=== PATIENT | male | born 1935 | race African-American/Black ===

== ENCOUNTER → 2018-03-21 | Outpatient (CLI) | payer MEDICARE ==
--- NOTE | 2018-03-22 07:53 | ECHOF ---
Referral Reason:R94.31 Abn EKG MEASUREMENTS -------- HEIGHT: 182.9 cm WEIGHT: 127.0 kg BP: 145/67 RVIDd: 3.0 cm (< 3.3) IVSd: 1.5 cm (0.6 - 1.1) LVIDd: 4.8 cm (3.9 - 5.3) LVPWd: 1.5 cm (0.6 - 1.1) IVSs: 1.7 cm LVIDs: 3.6 cm LVPWs: 1.7 cm LA Diam: 4.2 cm (2.7 - 3.8) LAESV Index (A-L): 27.03 ml/m Ao Diam: 3.4 cm (2.0 - 3.7) AV Cusp: 2.3 cm (1.5 - 2.6) MV EXCURSION: 16.659 mm (> 18.000) MV EF SLOPE: 42 mm/s (70 - 150) EPSS: 1.0 cm MV E Matthieu: 0.49 m/s MV DecT: 369 ms MV A Matthieu: 0.77 m/s MV E/A Ratio: 0.64 RAP: 5.00 mmHg RVSP: 32.61 mmHg FINDINGS -------- Sinus rhythm. This was a technically difficult study with suboptimal views. The left ventricular size is normal. There is moderate concentric left ventricular hypertrophy. O verall left ventricular systolic function is low-normal with, an EF between 50 - 55 %. Basal infero septal LV wall motion is hypokinetic. The right ventricle is normal in size. Normal LA size by volume 22+/-6 ml/m2. The right atrium is normal in size. 5 ml of Lumason was utilized for enhancement of images. The aortic valve is trileaflet and appears structurally normal. The mitral valve is normal. Mild tricuspid regurgitation present. Right ventricular systolic pressure is normal at < 35 mmHg. The pulmonic valve was not well visualized. The aortic root size is normal. IVC Not well visulized. There is no pericardial effusion. CONCLUSIONS -------- 1. Sinus rhythm. 2. This was a technically difficult study with suboptimal views. 3. The left ventricular size is normal. 4. There is moderate concentric left ventricular hypertrophy. 5. Overall left ventricular systolic function is low-normal with, an EF between 50 - 55 %. 6. Basal inferoseptal LV wall motion is hypokinetic. 7. The right ventricle is normal in size. 8. Normal LA size by volume 22+/-6 ml/m2. 9. The right atrium is normal in size. 10. 5 ml of Lumason was utilized for enhancement of images. 11. The aortic valve is trileaflet and appears structurally normal. 12. The mitral valve is normal. 13. Mild tricuspid regurgitation present. 14. Right ventricular systolic pressure is normal at < 35 mmHg. 15. The pulmonic valve was not well visualized. 16. The aortic root size is normal. 17. IVC Not well visulized. 18. There is no pericardial effusion. SCHEDULER: Farzaneh Tran RDCS
== END | disposition home or self-care (01) ==
LOC: RADECHMAIN 13:57
PROVIDERS: ATTEND Internal Medicine Geriatric Medicine
DX: I07.1 Rheumatic tricuspid insufficiency (principal)
CPT/HCPCS: C8929; Q9950; 93306

== ENCOUNTER 2020-02-07 19:59 | Observation (INO) | payer MEDICARE ==
[2020-02-07] MEDS ORDERED: SODIUM CHLORIDE 0.9% 500 ML 500 ML IV STA (20:27)
[2020-02-07 21:09] LABS: Basophils % (A) 1 %; Eosinophils % (A) 2 %; HCT 35.6 % (39.0-53.0); HGB 11.9 gm/dL (13.0-17.5); Lymphocytes # (A) 3.6 k/uL (1.0-4.8); Lymphocytes % (A) 33 %; MCH 30.6 pg (25.0-35.0); MCHC 33.5 g/dL (31.0-37.0); MCV 91.3 fL (80.0-100.0); Mean Platelet Volume 8.5; Monocytes # (A) 0.8 k/uL (0-1.0); Monocytes % (A) 7 %; Neutrophils # (A) 6.1 k/uL (1.3-7.7); Neutrophils % (A) 56 %; Platelet Count 320 k/uL (150-450); RBC 3.89 m/uL (4.30-5.90); RDW 13.8 % (11.5-15.5); WBC 10.9 k/uL (3.8-10.6)
[2020-02-07 21:10] LABS: Basophils # (A) 0.1 k/uL (0-0.2); Eosinophils # (A) 0.2 k/uL (0-0.7)
[2020-02-07 22:24] LABS: Albumin 3.7 g/dL (3.5-5.0); Calcium 8.8 mg/dL (8.4-10.2); Magnesium 1.9 mg/dL (1.6-2.3); Total Bilirubin 0.3 mg/dL (0.2-1.3); Total Protein 7.3 g/dL (6.3-8.2)
[2020-02-07] MEDS ORDERED: NALOXONE 0.4 MG/ML 1 ML VIAL IV PRN (23:08)
--- NOTE | 2020-02-07 23:08 | ED ---
GI Bleed HPI - General Chief complaint: GI Bleed Stated complaint: GI Bleed Time Seen by Provider: 02/07/20 20:05 Source: patient, EMS Mode of arrival: EMS Limitations: no limitations - History of Present Illness Initial comments: Patient is an 84-year-old male who presents emergency department with reported blood in his stool. Patient states that around 1 AM he began having bloody bowel movements. Patient cannot state whether it is bright red or dark in coloration. He reports a history of similar in the past however it has been a significant period of time. Patient is not on any blood thinners. Reports that his symptoms stopped around 5 AM. He told his daughter about this to recommended that he come into the emergency room for evaluation. Denies any lightheadedness. No abdominal pain. No nausea or vomiting. Denies hematemesis. No chest pain or shortness of breath. No fevers or chills. Patient cannot provide remainder of history as he is a very poor historian. - Related Data Home Medications Medication Instructions Recorded Confirmed Losartan Potassium [Cozaar] 25 mg PO DAILY 02/08/20 02/08/20 Tamsulosin HCl [Flomax] 0.4 mg PO DAILY 02/08/20 02/08/20 amLODIPine [Norvasc] 5 mg PO DAILY 02/08/20 02/08/20 glipiZIDE/METFORMIN HCL 1 tab PO BID 02/08/20 02/08/20 [glipiZIDE/METFORMIN HCL 5-500 mg] Previous Rx's Medication Instructions Recorded Ciprofloxacin HCl [Cipro] 500 mg PO BID 7 Days #14 tab 02/10/20 metroNIDAZOLE [Flagyl] 500 mg PO TID #21 tab 02/10/20 Allergies Allergy/AdvReac Type Severity Reaction Status Date / Time No Known Allergies Allergy Verified 02/07/20 23:23 Review of Systems ROS Statement: Those systems with pertinent positive or pertinent negative responses have been documented in the HPI. ROS Other: All systems not noted in ROS Statement are negative. Past Medical History Past Medical History: No Reported History History of Any Multi-Drug Resistant Organisms: None Reported Past Surgical History: No Surgical Hx Reported Past Psychological History: No Psychological Hx Reported Smoking Status: Never smoker Past Alcohol Use History: None Reported - Past Family History Father History Unknown: Yes Family Medical History: Liver Disease ([place]) General Exam Limitations: no limitations General appearance: alert, in no apparent distress Head exam: Present: atraumatic, normocephalic, normal inspection Eye exam: Present: normal appearance, PERRL, EOMI. Absent: scleral icterus, conjunctival injection, periorbital swelling ENT exam: Present: normal exam, mucous membranes moist Neck exam: Present: normal inspection. Absent: tenderness, meningismus, lymphadenopathy Respiratory exam: Present: normal lung sounds bilaterally. Absent: respiratory distress, wheezes, rales, rhonchi, stridor Cardiovascular Exam: Present: regular rate, normal rhythm, normal heart sounds. Absent: systolic murmur, diastolic murmur, rubs, gallop, clicks GI/Abdominal exam: Present: soft, normal bowel sounds. Absent: distended, tenderness, guarding, rebound, rigid Rectal exam: Present: normal inspection, normal rectal tone, heme (+) stool. Absent: black stool, bloody stool, hemorrhoids Extremities exam: Present: normal inspection, full ROM, normal capillary refill. Absent: tenderness, pedal edema, joint swelling, calf tenderness Back exam: Present: normal inspection Neurological exam: Present: alert, oriented X3, CN II-XII intact Psychiatric exam: Present: normal affect, normal mood Skin exam: Present: warm, dry, intact, normal color. Absent: rash Course Vital Signs 02/07/20 20:04 Pulse Rate 78 Respiratory 16 Rate Blood Pressure 134/63 O2 Sat by Pulse 99 Oximetry Medical Decision Making - Medical Decision Making To room 7. A thorough history and physical exam was performed. Patient is hemodynamically stable. Rectal exam is performed which demonstrates only a very scant amount of dark brown stool. He was sent for occult testing. Laboratory studies were conducted. Does demonstrate a lactic acid of 2.8. Creatinine 1.7. Hemoglobin 11.9. I don't have any old labs to compare to. I did discuss the case with the patient's daughter stating that I request overnight observation to trend the patient's hemoglobin and have him evaluated by GI. Patient did agree to this. I discussed the case with Gabrielle who accepted admission. Patient was transferred to floor in stable condition - Lab Data Result diagrams: 02/10/20 00:40 02/10/20 06:23 Lab Results 02/07/20 02/07/20 02/07/20 Range/Units 20:44 20:44 20:44 WBC 10.9 H (3.8-10.6) k/uL RBC 3.89 L (4.30-5.90) m/uL Hgb 11.9 L (13.0-17.5) gm/dL Hct 35.6 L (39.0-53.0) % MCV 91.3 (80.0-100.0) fL MCH 30.6 (25.0-35.0) pg MCHC 33.5 (31.0-37.0) g/dL RDW 13.8 (11.5-15.5) % Plt Count 320 (150-450) k/uL Neutrophils % 56 % Lymphocytes % 33 % Monocytes % 7 % Eosinophils % 2 % Basophils % 1 % Neutrophils # 6.1 (1.3-7.7) k/uL Lymphocytes # 3.6 (1.0-4.8) k/uL Monocytes # 0.8 (0-1.0) k/uL Eosinophils # 0.2 (0-0.7) k/uL Basophils # 0.1 (0-0.2) k/uL PT (9.0-12.0) sec INR (<1.2) APTT (22.0-30.0) sec Sodium 139 (137-145) mmol/L Potassium 4.0 (3.5-5.1) mmol/L Chloride 106 (98-107) mmol/L Carbon Dioxide 24 (22-30) mmol/L Anion Gap 9 mmol/L BUN 24 H (9-20) mg/dL Creatinine 1.71 H (0.66-1.25) mg/dL Est GFR (CKD-EPI)AfAm 41 (>60 ml/min/1.73 sqM) Est GFR (CKD-EPI)NonAf 36 (>60 ml/min/1.73 sqM) Glucose 96 (74-99) mg/dL POC Glucose (mg/dL) (75-99) mg/dL POC Glu Basket Operator ID Lactic Ac Sepsis Rflx Plasma Lactic Acid Ollie 2.8 H* (0.7-2.0) mmol/L Calcium 8.8 (8.4-10.2) mg/dL Magnesium 1.9 (1.6-2.3) mg/dL Total Bilirubin 0.3 (0.2-1.3) mg/dL AST 20 (17-59) U/L ALT 10 (4-49) U/L Alkaline Phosphatase 70 (38-126) U/L Troponin I (0.000-0.034) ng/mL Total Protein 7.3 (6.3-8.2) g/dL Albumin 3.7 (3.5-5.0) g/dL Stool Occult Blood (Negative) Tot Complement (CH50) (42 - 95) U/mL Blood Type Blood Type Recheck Bld Type Recheck Status Antibody Screen Spec Expiration Date 02/07/20 02/07/20 02/07/20 Range/Units 20:44 20:44 20:44 WBC (3.8-10.6) k/uL RBC (4.30-5.90) m/uL Hgb (13.0-17.5) gm/dL Hct (39.0-53.0) % MCV (80.0-100.0) fL MCH (25.0-35.0) pg MCHC (31.0-37.0) g/dL RDW (11.5-15.5) % Plt Count (150-450) k/uL Neutrophils % % Lymphocytes % % Monocytes % % Eosinophils % % Basophils % % Neutrophils # (1.3-7.7) k/uL Lymphocytes # (1.0-4.8) k/uL Monocytes # (0-1.0) k/uL Eosinophils # (0-0.7) k/uL Basophils # (0-0.2) k/uL PT (9.0-12.0) sec INR (<1.2) APTT (22.0-30.0) sec Sodium (137-145) mmol/L Potassium (3.5-5.1) mmol/L Chloride (98-107) mmol/L Carbon Dioxide (22-30) mmol/L Anion Gap mmol/L BUN (9-20) mg/dL Creatinine (0.66-1.25) mg/dL Est GFR (CKD-EPI)AfAm (>60 ml/min/1.73 sqM) Est GFR (CKD-EPI)NonAf (>60 ml/min/1.73 sqM) Glucose (74-99) mg/dL POC Glucose (mg/dL) (75-99) mg/dL POC Glu Basket Operator ID Lactic Ac Sepsis Rflx Plasma Lactic Acid Ollie (0.7-2.0) mmol/L Calcium (8.4-10.2) mg/dL Magnesium (1.6-2.3) mg/dL Total Bilirubin (0.2-1.3) mg/dL AST (17-59) U/L ALT (4-49) U/L Alkaline Phosphatase (38-126) U/L Troponin I <0.012 (0.000-0.034) ng/mL Total Protein (6.3-8.2) g/dL Albumin (3.5-5.0) g/dL Stool Occult Blood Positive (Negative) Tot Complement (CH50) (42 - 95) U/mL Blood Type O Positive Blood Type Recheck O Pos Bld Type Recheck Status No Antibody Screen NEGATIVE Spec Expiration Date 02/10/2020 - 234302/07/20 02/07/20 02/08/20 Range/Units 21:53 22:04 00:16 WBC (3.8-10.6) k/uL RBC (4.30-5.90) m/uL Hgb (13.0-17.5) gm/dL Hct (39.0-53.0) % MCV (80.0-100.0) fL MCH (25.0-35.0) pg MCHC (31.0-37.0) g/dL RDW (11.5-15.5) % Plt Count (150-450) k/uL Neutrophils % % Lymphocytes % % Monocytes % % Eosinophils % % Basophils % % Neutrophils # (1.3-7.7) k/uL Lymphocytes # (1.0-4.8) k/uL Monocytes # (0-1.0) k/uL Eosinophils # (0-0.7) k/uL Basophils # (0-0.2) k/uL PT (9.0-12.0) sec INR (<1.2) APTT 24.9 (22.0-30.0) sec Sodium (137-145) mmol/L Potassium (3.5-5.1) mmol/L Chloride (98-107) mmol/L Carbon Dioxide (22-30) mmol/L Anion Gap mmol/L BUN (9-20) mg/dL Creatinine (0.66-1.25) mg/dL Est GFR (CKD-EPI)AfAm (>60 ml/min/1.73 sqM) Est GFR (CKD-EPI)NonAf (>60 ml/min/1.73 sqM) Glucose (74-99) mg/dL POC Glucose (mg/dL) (75-99) mg/dL POC Glu Basket Operator ID Lactic Ac Sepsis Rflx Y Plasma Lactic Acid Ollie 1.9 (0.7-2.0) mmol/L Calcium (8.4-10.2) mg/dL Magnesium (1.6-2.3) mg/dL Total Bilirubin (0.2-1.3) mg/dL AST (17-59) U/L ALT (4-49) U/L Alkaline Phosphatase (38-126) U/L Troponin I (0.000-0.034) ng/mL Total Protein (6.3-8.2) g/dL Albumin (3.5-5.0) g/dL Stool Occult Blood (Negative) Tot Complement (CH50) (42 - 95) U/mL Blood Type Blood Type Recheck Bld Type Recheck Status Antibody Screen Spec Expiration Date 02/08/20 02/08/20 02/08/20 Range/Units 07:33 07:33 11:39 WBC 10.0 (3.8-10.6) k/uL RBC 3.79 L (4.30-5.90) m/uL Hgb 11.4 L (13.0-17.5) gm/dL Hct 34.9 L (39.0-53.0) % MCV 92.0 (80.0-100.0) fL MCH 30.1 (25.0-35.0) pg MCHC 32.7 (31.0-37.0) g/dL RDW 13.8 (11.5-15.5) % Plt Count 274 (150-450) k/uL Neutrophils % % Lymphocytes % % Monocytes % % Eosinophils % % Basophils % % Neutrophils # (1.3-7.7) k/uL Lymphocytes # (1.0-4.8) k/uL Monocytes # (0-1.0) k/uL Eosinophils # (0-0.7) k/uL Basophils # (0-0.2) k/uL PT (9.0-12.0) sec INR (<1.2) APTT (22.0-30.0) sec Sodium 138 (137-145) mmol/L Potassium 4.1 (3.5-5.1) mmol/L Chloride 107 (98-107) mmol/L Carbon Dioxide 24 (22-30) mmol/L Anion Gap 7 mmol/L BUN 24 H (9-20) mg/dL Creatinine 1.47 H (0.66-1.25) mg/dL Est GFR (CKD-EPI)AfAm 50 (>60 ml/min/1.73 sqM) Est GFR (CKD-EPI)NonAf 43 (>60 ml/min/1.73 sqM) Glucose 128 H (74-99) mg/dL POC Glucose (mg/dL) 170 H (75-99) mg/dL POC Glu Basket Operator ID Malina Borja Lactic Ac Sepsis Rflx Plasma Lactic Acid Ollie (0.7-2.0) mmol/L Calcium 8.8 (8.4-10.2) mg/dL Magnesium (1.6-2.3) mg/dL Total Bilirubin (0.2-1.3) mg/dL AST (17-59) U/L ALT (4-49) U/L Alkaline Phosphatase (38-126) U/L Troponin I (0.000-0.034) ng/mL Total Protein (6.3-8.2) g/dL Albumin (3.5-5.0) g/dL Stool Occult Blood (Negative) Tot Complement (CH50) (42 - 95) U/mL Blood Type Blood Type Recheck Bld Type Recheck Status Antibody Screen Spec Expiration Date 02/08/20 02/08/20 02/08/20 Range/Units 12:17 16:47 18:24 WBC 10.2 11.2 H (3.8-10.6) k/uL RBC 3.91 L 3.79 L (4.30-5.90) m/uL Hgb 11.9 L 11.5 L (13.0-17.5) gm/dL Hct 36.2 L 34.8 L (39.0-53.0) % MCV 92.6 91.7 (80.0-100.0) fL MCH 30.3 30.4 (25.0-35.0) pg MCHC 32.7 33.2 (31.0-37.0) g/dL RDW 13.9 13.7 (11.5-15.5) % Plt Count 314 299 (150-450) k/uL Neutrophils % % Lymphocytes % % Monocytes % % Eosinophils % % Basophils % % Neutrophils # (1.3-7.7) k/uL Lymphocytes # (1.0-4.8) k/uL Monocytes # (0-1.0) k/uL Eosinophils # (0-0.7) k/uL Basophils # (0-0.2) k/uL PT (9.0-12.0) sec INR (<1.2) APTT (22.0-30.0) sec Sodium (137-145) mmol/L Potassium (3.5-5.1) mmol/L Chloride (98-107) mmol/L Carbon Dioxide (22-30) mmol/L Anion Gap mmol/L BUN (9-20) mg/dL Creatinine (0.66-1.25) mg/dL Est GFR (CKD-EPI)AfAm (>60 ml/min/1.73 sqM) Est GFR (CKD-EPI)NonAf (>60 ml/min/1.73 sqM) Glucose (74-99) mg/dL POC Glucose (mg/dL) 103 H (75-99) mg/dL POC Glu Basket Operator ID Malina Borja Lactic Ac Sepsis Rflx Plasma Lactic Acid Ollie (0.7-2.0) mmol/L Calcium (8.4-10.2) mg/dL Magnesium (1.6-2.3) mg/dL Total Bilirubin (0.2-1.3) mg/dL AST (17-59) U/L ALT (4-49) U/L Alkaline Phosphatase (38-126) U/L Troponin I (0.000-0.034) ng/mL Total Protein (6.3-8.2) g/dL Albumin (3.5-5.0) g/dL Stool Occult Blood (Negative) Tot Complement (CH50) (42 - 95) U/mL Blood Type Blood Type Recheck Bld Type Recheck Status Antibody Screen Spec Expiration Date 02/08/20 02/09/20 02/09/20 Range/Units 20:07 04:51 04:52 WBC 11.9 H (3.8-10.6) k/uL RBC 3.51 L (4.30-5.90) m/uL Hgb 10.6 L (13.0-17.5) gm/dL Hct 32.2 L (39.0-53.0) % MCV 91.7 (80.0-100.0) fL MCH 30.0 (25.0-35.0) pg MCHC 32.7 (31.0-37.0) g/dL RDW 13.9 (11.5-15.5) % Plt Count 273 (150-450) k/uL Neutrophils % % Lymphocytes % % Monocytes % % Eosinophils % % Basophils % % Neutrophils # (1.3-7.7) k/uL Lymphocytes # (1.0-4.8) k/uL Monocytes # (0-1.0) k/uL Eosinophils # (0-0.7) k/uL Basophils # (0-0.2) k/uL PT (9.0-12.0) sec INR (<1.2) APTT (22.0-30.0) sec Sodium (137-145) mmol/L Potassium (3.5-5.1) mmol/L Chloride (98-107) mmol/L Carbon Dioxide (22-30) mmol/L Anion Gap mmol/L BUN (9-20) mg/dL Creatinine (0.66-1.25) mg/dL Est GFR (CKD-EPI)AfAm (>60 ml/min/1.73 sqM) Est GFR (CKD-EPI)NonAf (>60 ml/min/1.73 sqM) Glucose (74-99) mg/dL POC Glucose (mg/dL) 169 H 173 H (75-99) mg/dL POC Glu Basket Operator Saskia Escobar Melinda Lactic Ac Sepsis Rflx Plasma Lactic Acid Ollie (0.7-2.0) mmol/L Calcium (8.4-10.2) mg/dL Magnesium (1.6-2.3) mg/dL Total Bilirubin (0.2-1.3) mg/dL AST (17-59) U/L ALT (4-49) U/L Alkaline Phosphatase (38-126) U/L Troponin I (0.000-0.034) ng/mL Total Protein (6.3-8.2) g/dL Albumin (3.5-5.0) g/dL Stool Occult Blood (Negative) Tot Complement (CH50) (42 - 95) U/mL Blood Type Blood Type Recheck Bld Type Recheck Status Antibody Screen Spec Expiration Date 02/09/20 02/09/20 02/09/20 Range/Units 05:39 05:39 05:39 WBC (3.8-10.6) k/uL RBC (4.30-5.90) m/uL Hgb (13.0-17.5) gm/dL Hct (39.0-53.0) % MCV (80.0-100.0) fL MCH (25.0-35.0) pg MCHC (31.0-37.0) g/dL RDW (11.5-15.5) % Plt Count (150-450) k/uL Neutrophils % % Lymphocytes % % Monocytes % % Eosinophils % % Basophils % % Neutrophils # (1.3-7.7) k/uL Lymphocytes # (1.0-4.8) k/uL Monocytes # (0-1.0) k/uL Eosinophils # (0-0.7) k/uL Basophils # (0-0.2) k/uL PT 10.2 (9.0-12.0) sec INR 1.0 (<1.2) APTT 24.7 (22.0-30.0) sec Sodium (137-145) mmol/L Potassium (3.5-5.1) mmol/L Chloride (98-107) mmol/L Carbon Dioxide (22-30) mmol/L Anion Gap mmol/L BUN (9-20) mg/dL Creatinine (0.66-1.25) mg/dL Est GFR (CKD-EPI)AfAm (>60 ml/min/1.73 sqM) Est GFR (CKD-EPI)NonAf (>60 ml/min/1.73 sqM) Glucose (74-99) mg/dL POC Glucose (mg/dL) (75-99) mg/dL POC Glu Basket Operator ID Lactic Ac Sepsis Rflx Plasma Lactic Acid Ollie (0.7-2.0) mmol/L Calcium (8.4-10.2) mg/dL Magnesium (1.6-2.3) mg/dL Total Bilirubin (0.2-1.3) mg/dL AST (17-59) U/L ALT (4-49) U/L Alkaline Phosphatase (38-126) U/L Troponin I <0.012 (0.000-0.034) ng/mL Total Protein (6.3-8.2) g/dL Albumin (3.5-5.0) g/dL Stool Occult Blood (Negative) Tot Complement (CH50) 68 (42 - 95) U/mL Blood Type Blood Type Recheck Bld Type Recheck Status Antibody Screen Spec Expiration Date 02/09/20 02/09/20 02/09/20 Range/Units 05:47 06:36 12:08 WBC 9.9 (3.8-10.6) k/uL RBC 3.28 L (4.30-5.90) m/uL Hgb 9.9 L (13.0-17.5) gm/dL Hct 30.0 L (39.0-53.0) % MCV 91.4 (80.0-100.0) fL MCH 30.3 (25.0-35.0) pg MCHC 33.1 (31.0-37.0) g/dL RDW 13.8 (11.5-15.5) % Plt Count 303 (150-450) k/uL Neutrophils % % Lymphocytes % % Monocytes % % Eosinophils % % Basophils % % Neutrophils # (1.3-7.7) k/uL Lymphocytes # (1.0-4.8) k/uL Monocytes # (0-1.0) k/uL Eosinophils # (0-0.7) k/uL Basophils # (0-0.2) k/uL PT (9.0-12.0) sec INR (<1.2) APTT (22.0-30.0) sec Sodium (137-145) mmol/L Potassium (3.5-5.1) mmol/L Chloride (98-107) mmol/L Carbon Dioxide (22-30) mmol/L Anion Gap mmol/L BUN (9-20) mg/dL Creatinine (0.66-1.25) mg/dL Est GFR (CKD-EPI)AfAm (>60 ml/min/1.73 sqM) Est GFR (CKD-EPI)NonAf (>60 ml/min/1.73 sqM) Glucose (74-99) mg/dL POC Glucose (mg/dL) 160 H 121 H (75-99) mg/dL POC Glu Basket Operator Hedy Batista Sherry Lactic Ac Sepsis Rflx Plasma Lactic Acid Ollie (0.7-2.0) mmol/L Calcium (8.4-10.2) mg/dL Magnesium (1.6-2.3) mg/dL Total Bilirubin (0.2-1.3) mg/dL AST (17-59) U/L ALT (4-49) U/L Alkaline Phosphatase (38-126) U/L Troponin I (0.000-0.034) ng/mL Total Protein (6.3-8.2) g/dL Albumin (3.5-5.0) g/dL Stool Occult Blood (Negative) Tot Complement (CH50) (42 - 95) U/mL Blood Type Blood Type Recheck Bld Type Recheck Status Antibody Screen Spec Expiration Date 02/09/20 Range/Units 12:48 WBC 10.9 H (3.8-10.6) k/uL RBC 3.62 L (4.30-5.90) m/uL Hgb 10.8 L (13.0-17.5) gm/dL Hct 33.2 L (39.0-53.0) % MCV 91.7 (80.0-100.0) fL MCH 29.9 (25.0-35.0) pg MCHC 32.6 (31.0-37.0) g/dL RDW 13.8 (11.5-15.5) % Plt Count 299 (150-450) k/uL Neutrophils % % Lymphocytes % % Monocytes % % Eosinophils % % Basophils % % Neutrophils # (1.3-7.7) k/uL Lymphocytes # (1.0-4.8) k/uL Monocytes # (0-1.0) k/uL Eosinophils # (0-0.7) k/uL Basophils # (0-0.2) k/uL PT (9.0-12.0) sec INR (<1.2) APTT (22.0-30.0) sec Sodium (137-145) mmol/L Potassium (3.5-5.1) mmol/L Chloride (98-107) mmol/L Carbon Dioxide (22-30) mmol/L Anion Gap mmol/L BUN (9-20) mg/dL Creatinine (0.66-1.25) mg/dL Est GFR (CKD-EPI)AfAm (>60 ml/min/1.73 sqM) Est GFR (CKD-EPI)NonAf (>60 ml/min/1.73 sqM) Glucose (74-99) mg/dL POC Glucose (mg/dL) (75-99) mg/dL POC Glu Basket Operator ID Lactic Ac Sepsis Rflx Plasma Lactic Acid Ollie (0.7-2.0) mmol/L Calcium (8.4-10.2) mg/dL Magnesium (1.6-2.3) mg/dL Total Bilirubin (0.2-1.3) mg/dL AST (17-59) U/L ALT (4-49) U/L Alkaline Phosphatase (38-126) U/L Troponin I (0.000-0.034) ng/mL Total Protein (6.3-8.2) g/dL Albumin (3.5-5.0) g/dL Stool Occult Blood (Negative) Tot Complement (CH50) (42 - 95) U/mL Blood Type Blood Type Recheck Bld Type Recheck Status Antibody Screen Spec Expiration Date - EKG Data EKG Comments: EKG demonstrates a normal sinus rhythm with a ventricular rate of 83. VT interval 154. QRS 92. QTC 404. No acute ST segment elevations or depressions concerning for ischemic changes Disposition Clinical Impression: Hematochezia Disposition: ADMITTED IP TO THIS HOSP Condition: Good Is patient prescribed a controlled substance at d/c from ED?: No Decision to Admit Reason: Admit from EC Decision Date: 02/07/20 Decision Time: 23:08
[2020-02-08 08:26] LABS: Calcium 8.8 mg/dL (8.4-10.2); Potassium 4.1 mmol/L (3.5-5.1)
[2020-02-08 08:40] LABS: HCT 34.9 % (39.0-53.0); HGB 11.4 gm/dL (13.0-17.5); MCH 30.1 pg (25.0-35.0); MCHC 32.7 g/dL (31.0-37.0); Mean Platelet Volume 7.7; Platelet Count 274 k/uL (150-450); RBC 3.79 m/uL (4.30-5.90); RDW 13.8 % (11.5-15.5)
[2020-02-08 11:41] LABS: Glucose,Whole Blood 170 mg/dL (75-99)
[2020-02-08] MEDS: INSULIN ASPART (NovoLOG) 100 UNIT/ML VIAL SQ SCH ×3 (12:01→20:50)
[2020-02-08] MEDS: PANTOPRAZOLE 40 MG/10 ML VIAL IVP SCH (12:01)
[2020-02-08] MEDS: SODIUM CHLORIDE 0.9% 1,000 ML IV SCH (12:02)
--- NOTE | 2020-02-08 12:51 | CONS ---
CONSULTATION DATE OF CONSULTATION: 02/08/2020 REASON FOR CONSULTATION: Rectal bleeding of one day duration. HISTORY OF PRESENT ILLNESS: The patient is an 84-year-old pleasant white male who came to the emergency room complaining of bright red blood per rectum that started yesterday morning. He woke up from sleep and had a large bloody bowel movement followed by another 3 of these episodes with no associated abdominal pain. No nausea, vomiting. He came into the emergency room around 5:00 am and since then, he did not have any further episodes of bleeding. His initial hemoglobin was 10.9 g/dL. He never had these symptoms in the past. He does recall having a colonoscopy about 5 or 6 years ago but does not recall the details. He denies any prior history of peptic ulcer disease. No recent NSAID use. PAST MEDICAL HISTORY: Unremarkable. MEDICATIONS: At home none. ALLERGIES: No known drug allergies. SOCIAL HISTORY: No smoking. No alcohol use. FAMILY HISTORY: Unremarkable. REVIEW OF SYSTEMS: CARDIOPULMONARY: No chest pain or shortness of breath. : No dysuria or hematuria. MUSCULOSKELETAL: Unremarkable. SKIN: Unremarkable. ENDOCRINE: Unremarkable. PSYCHIATRIC: Unremarkable. NEUROLOGY: Unremarkable. ENT/VISION: Unremarkable. CONSTITUTIONAL: No recent weight loss. No fever, chills, night sweats. PAST SURGICAL HISTORY: Colonoscopy 5 or 6 years ago. PHYSICAL EXAM TODAY: On physical examination he appears comfortable. No apparent distress. VITAL SIGNS: Stable. Blood pressure is 145/76, pulse rate 75, temperature 97.9. HEENT: Examination unremarkable. Conjunctivae are pink. Sclerae anicteric. Oral cavity no lesions. NECK: No JVD or lymph node enlargement. CHEST: Clear to auscultation. HEART: Regular rate and rhythm. ABDOMEN: Soft. Bowel sounds are positive. No organomegaly. EXTREMITIES: No pedal edema. SKIN: No rashes. NEUROLOGIC: Alert and oriented x3. No focal deficits. LABS: From yesterday WBC 10.9, hemoglobin 11.9, platelets normal, PT/INR is within normal limits. BUN 24, creatinine 1.71. Today hemoglobin is 11.4 g/dL. Stool occult blood was positive. AST, ALT, T-bilirubin and alkaline phosphatase are normal. Lactic acid was 2.8 and was 1.9 today. IMPRESSION: Acute lower GI bleed, possibly diverticular in nature. The patient's hemoglobin was 11.9 g/dL and dropped to 11.4 g/dL. Clinically hemodynamically stable. No further bleeding for the last 24 hours. Last colonoscopy was 5 or 6 years ago according to the patient, which was normal. RECOMMENDATIONS: 1. Continue with a clear liquid diet. 2. CBC on a daily basis. 3. We will proceed with colonoscopy tomorrow. Discussed with the patient risks, benefits and complications and he is agreeable to it. 4. Thank you for this consultation. MMJELENA / RUBEN: [id number] /
[2020-02-08 12:52] LABS: HCT 36.2 % (39.0-53.0); HGB 11.9 gm/dL (13.0-17.5); MCH 30.3 pg (25.0-35.0); MCHC 32.7 g/dL (31.0-37.0); MCV 92.6 fL (80.0-100.0); Mean Platelet Volume 7.1; Platelet Count 314 k/uL (150-450); RBC 3.91 m/uL (4.30-5.90); RDW 13.9 % (11.5-15.5); WBC 10.2 k/uL (3.8-10.6)
--- NOTE | 2020-02-08 12:59 | P.HPIM ---
History of Present Illness H&P Date: 02/08/20 This is an 84-year-old -[place] male who sees in the outpatient setting with past history of diabetes type 2, hypertension, chronic kidney disease. Patient is a poor historian and does not recall his home medications. We did have a list at the time of his home medications. Patient presented to the emergency department reporting blood loss in his stool. Patient states that around 1:00. He noticed bloody bowel movement that was bright red in color he then again had another episode at 3 AM and again at 5 AM. Patient stated that he had similar episode previously however with significant amount of time before. Patient does not take any blood thinners. Patient denies any abdominal pain, lightheadedness or nausea or vomiting or diarrhea. Patient does not have any chest pain or difficulty breathing. Review Of Systems: Constitutional: No fever, no chills, no night sweats. No weight change. No weakness, fatigue or lethargy. No daytime sleepiness. EENT: No headache. No blurred vision or double vision, no loss of vision. No loss of Hearing, no ringing in the ears, no dizziness. No nasal drainage or congestion. No epistaxis. No sore throat. Lungs: No shortness of breath, cough, no sputum production. No wheezing. Cardiovascular: No chest pain, no lower extremity edema. No palpitations. No paroxysmal nocturnal dyspnea. No orthopnea. No lightheadedness or dizziness. No syncopal episodes. Abdominal: no abdominal discomfort. No nausea, vomiting. no diarrhea. No constipation. Reports bloody bright red and dark in color-resolved no tarry stools. no loss of appetite. Genitourinary: No dysuria, increased frequency, urgency. No urinary retention. Musculoskeletal: No myalgias. No muscle weakness, no gait dysfunction, no frequent falls. No back pain. No neck pain. Integumentary: No wounds, no lesions. No rash or pruritus. No unusual bruising. No change in hair or nails. Neurologic: No aphasia. No facial droop. No change in mentation. No head injury. No headache. No paralysis. No paresthesia. Psychiatric: No depression. No anxiety. No mood swings. Endocrine: No abnormal blood sugars. No weight change. No excessive sweating or thirst. Physical exam General Appearance: Alert, cooperative, no distress, appears stated age. Neck HEENT: Supple, no lymphadenopathy, no thyroid enlargement, no carotid bruits. Lungs: Clear to auscultation without crackles or wheezes no rhonchi, no deformity. Chest Wall: Chest wall normal expansion with deep inspiration no tenderness and no deformity was found on exam, no costochondral pain or discomfort. Heart: Regular rate and rhythm, S1, S2 normal, no murmur, rub or gallop. Back: Symmetric, no curvature, ROM normal, no CVA tenderness. Abdomen: Soft, non-tender, no rebound or rigidity, no hepatosplenomegaly. Extremities: Extremities normal, atraumatic, no cyanosis or edema. Pulses: 2+ and symmetric. Skin: Skin color, texture, tugor normal, no rashes or lesions. Neurologic: Alert oriented x3 cranial nerves II through XII intact, no motor deficit, no abnormal balance or gait Assessment/plan: 1. Acute GI bleed. Occult blood positive, consult gastroenterology, scheduled for colonoscopy tomorrow, clear liquids at this time nothing by mouth after midnight, Protonix 40 mg IV daily 2. Diabetes mellitus type 2. Accu-Cheks before meals and at bedtime sliding scale coverage 3. Chronic kidney disease. Monitor 4. Hypertension. No home meds known at this time. Blood pressure stable at this time 5. GI prophylaxis. Protonix 6. DVT prophylaxis. Ambulation CODE STATUS: Full code Discharge plan: Minimal 2 nights day Impression and plan of care have been directed as dictated by the signing physician. Florina Wynne nurse practitioner acting as scribe for signing physician. Past Medical History Past Medical History: No Reported History History of Any Multi-Drug Resistant Organisms: None Reported Past Surgical History: No Surgical Hx Reported Past Psychological History: No Psychological Hx Reported Smoking Status: Never smoker Past Alcohol Use History: None Reported Additional History: Patient has 3 daughters are healthy, 2 sisters one is from pneumonia, the other one healthy, patient's mother is from unknown cancer, father is from EtOH abuse. Patient lives alone - Past Family History Father History Unknown: Yes Family Medical History: Liver Disease (EtOH) Medications and Allergies Allergies Allergy/AdvReac Type Severity Reaction Status Date / Time No Known Allergies Allergy Verified 02/07/20 23:23 Physical Exam Vitals: Vital Signs Temp Pulse Pulse Resp BP BP Pulse Ox 02/08/20 07:00 97.9 F 75 16 145/76 99 02/08/20 00:06 97.6 F 89 14 135/71 99 02/07/20 20:04 78 16 134/63 99 Intake and Output 02/07/20 02/08/20 02/08/20 22:59 06:59 14:59 Other: # Voids 2 Weight 127.006 kg 127.006 kg Results CBC & Chem 7: 02/08/20 07:33 02/08/20 07:33 Labs: Abnormal Lab Results - Last 24 Hours (Table) 02/07/20 02/07/20 02/07/20 Range/Units 20:44 20:44 20:44 WBC 10.9 H (3.8-10.6) k/uL RBC 3.89 L (4.30-5.90) m/uL Hgb 11.9 L (13.0-17.5) gm/dL Hct 35.6 L (39.0-53.0) % BUN 24 H (9-20) mg/dL Creatinine 1.71 H (0.66-1.25) mg/dL Glucose (74-99) mg/dL POC Glucose (mg/dL) (75-99) mg/dL Plasma Lactic Acid Ollie 2.8 H* (0.7-2.0) mmol/L 02/08/20 02/08/20 02/08/20 Range/Units 07:33 07:33 11:39 WBC (3.8-10.6) k/uL RBC 3.79 L (4.30-5.90) m/uL Hgb 11.4 L (13.0-17.5) gm/dL Hct 34.9 L (39.0-53.0) % BUN 24 H (9-20) mg/dL Creatinine 1.47 H (0.66-1.25) mg/dL Glucose 128 H (74-99) mg/dL POC Glucose (mg/dL) 170 H (75-99) mg/dL Plasma Lactic Acid Ollie (0.7-2.0) mmol/L Thrombosis Risk Factor Assmnt - Choose All That Apply Any of the Below Risk Factors Present?: Yes Each Factor Represents 1 point: Obesity (BMI >25) Other Risk Factors: Yes Each Risk Factor Represents 3 Points: Age 75 years or older Thrombosis Risk Factor Assessment Total Risk Factor Score: 4 Thrombosis Risk Factor Assessment Level: Moderate Risk
[2020-02-08] MEDS: metFORMIN 500 MG TAB PO SCH (16:26)
[2020-02-08] MEDS: LOSARTAN 25 MG TAB PO SCH (16:26)
[2020-02-08] MEDS: TAMSULOSIN 0.4 MG CAP.ER.24H PO SCH (16:26)
[2020-02-08] MEDS: amLODIPine 5 MG TAB PO SCH (16:26)
[2020-02-08 16:49] LABS: Glucose,Whole Blood 103 mg/dL (75-99)
[2020-02-08] MEDS ORDERED: PEG 3350-NA SULF,BICARB,CL/KCL 4,000 ML BOTTLE PO ONE (17:00)
[2020-02-08 18:54] LABS: HCT 34.8 % (39.0-53.0); HGB 11.5 gm/dL (13.0-17.5); MCH 30.4 pg (25.0-35.0); MCHC 33.2 g/dL (31.0-37.0); MCV 91.7 fL (80.0-100.0); Mean Platelet Volume 7.3; Platelet Count 299 k/uL (150-450); RBC 3.79 m/uL (4.30-5.90); RDW 13.7 % (11.5-15.5); WBC 11.2 k/uL (3.8-10.6)
[2020-02-08 20:09] LABS: Glucose,Whole Blood 169 mg/dL (75-99)
[2020-02-09] MEDS: SODIUM CHLORIDE 0.9% 1,000 ML IV SCH ×2 (01:23→18:12)
[2020-02-09 04:53] LABS: Glucose,Whole Blood 173 mg/dL (75-99)
[2020-02-09 05:17] LABS: HCT 32.2 % (39.0-53.0); HGB 10.6 gm/dL (13.0-17.5); MCHC 32.7 g/dL (31.0-37.0); MCV 91.7 fL (80.0-100.0); Mean Platelet Volume 7.4; Platelet Count 273 k/uL (150-450); RBC 3.51 m/uL (4.30-5.90); RDW 13.9 % (11.5-15.5); WBC 11.9 k/uL (3.8-10.6)
[2020-02-09] MEDS ORDERED: CLOPIDOGREL 75 MG TAB PO STA (05:57)
--- NOTE | 2020-02-09 06:00 | CT ---
EXAMINATION TYPE: CT brain wo con for TPA DATE OF EXAM: 02/09/2020 HISTORY: Neuro deficit. Acute onset. CT DLP: 1189.4 mGycm. Automated Exposure Control for Dose Reduction was Utilized. TECHNIQUE: CT scan of the head is performed without contrast. COMPARISON: CT brain June 18, 2012. FINDINGS: There is no acute intracranial hemorrhage or midline shift identified. There is diffuse v entricular and sulcal prominence consistent with diffuse age-related cerebral atrophy. There is low- attenuation in the periventricular white matter consistent with chronic small vessel ischemic change. The globes are intact and the visualized sinuses are clear. IMPRESSION: No acute intracranial hemorrhage or midline shift. There is mild to moderate diffuse ag e-related cerebral atrophy and more advanced chronic small vessel ischemic change redemonstrated. Lester e interval progression from 2013 CT noted.
[2020-02-09 06:01] LABS: HGB 9.9 gm/dL (13.0-17.5); MCH 30.3 pg (25.0-35.0); MCHC 33.1 g/dL (31.0-37.0); MCV 91.4 fL (80.0-100.0); Mean Platelet Volume 7.7; Platelet Count 303 k/uL (150-450); RBC 3.28 m/uL (4.30-5.90); RDW 13.8 % (11.5-15.5); WBC 9.9 k/uL (3.8-10.6)
[2020-02-09 06:19] LABS: Partial Thromboplastin Time 24.7 sec (22.0-30.0); Prothrombin Time 10.2 sec (9.0-12.0)
[2020-02-09 06:38] LABS: Glucose,Whole Blood 160 mg/dL (75-99)
[2020-02-09] MEDS: metFORMIN 500 MG TAB PO SCH ×2 (06:51→17:40)
[2020-02-09] MEDS: INSULIN ASPART (NovoLOG) 100 UNIT/ML VIAL SQ SCH ×4 (06:51→21:21)
--- NOTE | 2020-02-09 09:12 | US ---
EXAMINATION TYPE: US carotid duplex BILAT DATE OF EXAM: 02/09/2020 COMPARISON: NONE CLINICAL HISTORY: Possible cva. TIA EXAM MEASUREMENTS: RIGHT: Peak Systolic Velocity (PSV) cm/sec ----- Right CCA: 52.4 ----- Right ICA: 70.3 ----- Right ECA: 123.7 ICA/CCA ratio: 1.3 RIGHT: End Diastole cm/sec ----- Right CCA: 11.8 ----- Right ICA: 27.6 ----- Right ECA: 5.8 LEFT: Peak Systolic Velocity (PSV) cm/sec ----- Left CCA: 45.3 ----- Left ICA: 91.0 ----- Left ECA: 46.7 ICA/CCA ratio: 2.0 LEFT: End Diastole cm/sec ----- Left CCA: 11.1 ----- Left ICA: 35.3 ----- Left ECA: 5.4 VERTEBRALS (direction of flow): Right Vertebral: Antegrade Left Vertebral: Antegrade Rhythm: Normal Mild heterogeneous plaque with no significant stenosis seen IMPRESSION: No hemodynamically significant stenosis bilaterally. Any stenosis that may be present is less than 50%. Criteria for Assigning % of Stenosis / Diameter reduction (Estimation based on the indirect measurements of the internal carotid artery velocities (ICA PSV). 1. Normal (no stenosis)=ICA PSV < 125 cm/s: ratio < 2.0: ICA EDV<40 cm/s. 2. Less than 50% stenosis=ICA PSV < 125 cm/s: ratio < 2.0: ICA EDV<40 cm/s. 3. 50 to 69% stenosis=ICA PSV of 125 to 230 cm/s: ration 2.0 ? 4.0: ICA EDV 40-100 cm/s. 4. Greater than 70% stenosis to near occlusion= ICA PSV > 230 cm/s: ratio > 4.0: ICA EDV > 100 cm/s. 5. Near occlusion= ICA PSV velocities may be low or undetectable: variable ratio and ICA EDV. 6. Total occlusion=unable to detect flow.
[2020-02-09] MEDS: PANTOPRAZOLE 40 MG/10 ML VIAL IVP SCH (09:35)
[2020-02-09] MEDS: TAMSULOSIN 0.4 MG CAP.ER.24H PO SCH (09:35)
[2020-02-09] MEDS: amLODIPine 5 MG TAB PO SCH (09:35)
[2020-02-09] MEDS: LOSARTAN 25 MG TAB PO SCH (09:35)
[2020-02-09 12:17] LABS: Glucose,Whole Blood 121 mg/dL (75-99)
[2020-02-09 13:18] LABS: HCT 33.2 % (39.0-53.0); HGB 10.8 gm/dL (13.0-17.5); MCH 29.9 pg (25.0-35.0); MCHC 32.6 g/dL (31.0-37.0); MCV 91.7 fL (80.0-100.0); Mean Platelet Volume 7.8; Platelet Count 299 k/uL (150-450); RBC 3.62 m/uL (4.30-5.90); RDW 13.8 % (11.5-15.5); WBC 10.9 k/uL (3.8-10.6)
[2020-02-09] MEDS ORDERED: ACETAMINOPHEN TAB 325 MG TAB PO PRN (13:40)
--- NOTE | 2020-02-09 13:43 | P.PN ---
Subjective Progress Note Date: 02/09/20 This is an 84-year-old -N[place]alese male who sees in the outpatient setting with past history of diabetes type 2, hypertension, chronic kidney disease. Patient is a poor historian and does not recall his home medications. We did have a list at the time of his home medications. Patient presented to the emergency department reporting blood loss in his stool. Patient states that around 1:00. He noticed bloody bowel movement that was bright red in color he then again had another episode at 3 AM and again at 5 AM. Patient stated that he had similar episode previously however with significant amount of time before. Patient does not take any blood thinners. Patient denies any abdominal pain, lightheadedness or nausea or vomiting or diarrhea. Patient does not have any chest pain or difficulty breathing. 02/08: The patient has undergone prep for colonoscopy that is scheduled for today. He states he is still having some rectal bleeding. He is also complaining of headache. Tylenol added. Patient has been afebrile, heart rate 88, blood pressure 181/81, pulse ox 90% on 2 L nasal cannula. Repeat blood work reveals hemoglobin of 10.8, WBC 10.9, platelet count 299. Review Of Systems Constitutional: No fever, no chills, no night sweats. No weight change. No weakness, fatigue or lethargy. No daytime sleepiness. EENT: No headache. No blurred vision or double vision, no loss of vision. No loss of Hearing, no ringing in the ears, no dizziness. No nasal drainage or congestion. No epistaxis. No sore throat. Lungs: No shortness of breath, cough, no sputum production. No wheezing. Cardiovascular: No chest pain, no lower extremity edema. No palpitations. No paroxysmal nocturnal dyspnea. No orthopnea. No lightheadedness or dizziness. No syncopal episodes. Abdominal: no abdominal discomfort. No nausea, vomiting. no diarrhea. No constipation. Reports bloody bright red and dark in color-resolved no tarry stools. no loss of appetite. Genitourinary: No dysuria, increased frequency, urgency. No urinary retention. Musculoskeletal: No myalgias. No muscle weakness, no gait dysfunction, no frequent falls. No back pain. No neck pain. Integumentary: No wounds, no lesions. No rash or pruritus. No unusual bruising. No change in hair or nails. Neurologic: No aphasia. No facial droop. No change in mentation. No head injury. No headache. No paralysis. No paresthesia. Psychiatric: No depression. No anxiety. No mood swings. Endocrine: No abnormal blood sugars. No weight change. No excessive sweating or thirst. Physical exam General Appearance: Alert, cooperative, no distress, appears stated age. Neck HEENT: Supple, no lymphadenopathy, no thyroid enlargement, no carotid bruits. Lungs: Clear to auscultation without crackles or wheezes no rhonchi, no deformity. Chest Wall: Chest wall normal expansion with deep inspiration no tenderness and no deformity was found on exam, no costochondral pain or discomfort. Heart: Regular rate and rhythm, S1, S2 normal, no murmur, rub or gallop. Back: Symmetric, no curvature, ROM normal, no CVA tenderness. Abdomen: Soft, non-tender, no rebound or rigidity, no hepatosplenomegaly. Extremities: Extremities normal, atraumatic, no cyanosis or edema. Pulses: 2+ and symmetric. Skin: Skin color, texture, tugor normal, no rashes or lesions. Neurologic: Alert oriented x3 cranial nerves II through XII intact, no motor deficit, no abnormal balance or gait Assessment/plan 1. Acute GI bleed. Occult blood positive, consult gastroenterology, scheduled for colonoscopy today, Protonix 40 mg IV daily 2. Diabetes mellitus type 2. Metformin 500 mg twice daily, Accu-Cheks before meals and at bedtime sliding scale coverage 3. Chronic kidney disease. Monitor 4. Hypertension. Continue losartan 25 mg daily, amlodipine 5 mg daily. 5. GI prophylaxis. Protonix 6. DVT prophylaxis. Ambulation 7. Benign prostatic hypertrophy. Continue Flomax 0.4 mg daily. CODE STATUS: Full code Discharge plan: Most likely return home tomorrow, possible home care. Impression and plan of care have been directed as dictated by the signing physician. Cyndy Faust nurse practitioner acting as scribe for signing physician. Objective - Vital Signs Vital signs: Vital Signs Temp 98.1 F 02/09/20 07:00 Pulse 88 02/09/20 07:00 Resp 17 02/09/20 07:00 BP 181/81 02/09/20 07:00 Pulse Ox 98 09/08/20 07:00 Intake & Output 02/08/20 02/09/20 02/09/20 18:59 06:59 18:59 Intake Total 0 Balance 0 Intake: Oral 0 Other: # Voids 4 # Bowel Movements 2 - Labs CBC & Chem 7: 02/09/20 12:48 02/08/20 07:33 Labs: Abnormal Lab Results - Last 24 Hours (Table) 02/08/20 02/08/20 02/08/20 Range/Units 11:39 12:17 16:47 WBC (3.8-10.6) k/uL RBC 3.91 L (4.30-5.90) m/uL Hgb 11.9 L (13.0-17.5) gm/dL Hct 36.2 L (39.0-53.0) % POC Glucose (mg/dL) 170 H 103 H (75-99) mg/dL 02/08/20 02/08/20 02/09/20 Range/Units 18:24 20:07 04:51 WBC 11.2 H (3.8-10.6) k/uL RBC 3.79 L (4.30-5.90) m/uL Hgb 11.5 L (13.0-17.5) gm/dL Hct 34.8 L (39.0-53.0) % POC Glucose (mg/dL) 169 H 173 H (75-99) mg/dL 02/09/20 02/09/20 02/09/20 Range/Units 04:52 05:47 06:36 WBC 11.9 H (3.8-10.6) k/uL RBC 3.51 L 3.28 L (4.30-5.90) m/uL Hgb 10.6 L 9.9 L (13.0-17.5) gm/dL Hct 32.2 L 30.0 L (39.0-53.0) % POC Glucose (mg/dL) 160 H (75-99) mg/dL
[2020-02-09] MEDS ORDERED: ePHEDrine SULFATE/0.9% NACL/PF 50 MG/5 ML SYRINGE IV ONE (13:50)
[2020-02-09] MEDS ORDERED: WATER FOR INJECTION, STERILE 10 ML VIAL IV ONE (13:50)
[2020-02-09] MEDS ORDERED: PROPOFOL 10 MG/ML 20 ML VIAL IV ONE (13:50)
[2020-02-09] MEDS ORDERED: LIDOCAINE 1% INJ 10MG/ML (20 ML MDV) ONE (13:50)
[2020-02-09] MEDS ORDERED: IV FLUID CONTINUATION 1,000 ML IV ONE (13:52)
[2020-02-09] MEDS ORDERED: SODIUM CHLORIDE 0.9% 1,000 ML IV ONE (14:06)
--- NOTE | 2020-02-09 14:44 | P.PCN ---
Date of Procedure: 02/09/20 Description of Procedure: BRIEF HISTORY: Patient is a 84-year-old male scheduled for colonoscopy for evaluation of blood per rectum. The patient had presented to the hospital with multiple bloody bowel movements. No lymphadenopathy 1.9 on presentation. Last colonoscopy 5-6 years ago. PROCEDURE PERFORMED: Colonoscopy. PREOPERATIVE DIAGNOSIS: Rectal hemorrhage, lower GI bleed, bright red blood per rectum, anemia of acute blood loss. ESTIMATED BLOOD LOSS: Minimal. IV sedation per Anesthesia. PROCEDURE: After informed consent was obtained, the patient, was brought into the endoscopy unit. IV sedation was administered by Anesthesia under continuous monitoring. Digital rectal examination was normal. Initially the Olympus CF-190 flexible video colonoscope was then inserted in the rectum, gradually advanced into the cecum without any difficulty. Careful examination was performed as the scope was gradually being withdrawn. Ileocecal valve and the appendiceal orifice were visualized and appeared normal. Prep was good. Mucosa of the cecum, ascending colon, transverse colon, descending colon, sigmoid colon, and rectum appeared normal, with multiple large and small mouth diverticula noted throughout the colon and a large amount of old blood noted throughout the colon. A few diminutive polyps noted in the colon not removed due to GI bleed. Multiple attempts to intubate the terminal ileum were unsuccessful. Retroflexion was performed in the rectum and no lesions were seen. The patient tolerated the procedure well. IMPRESSION: Old blood noted throughout the colon with no active bleeding noted. Moderate pandiverticulosis. RECOMMENDATIONS: Findings of this examination were discussed with the patient and his daughter. Okay for full liquid diet. Continue to monitor hemoglobin and hematocrit and transfuse as needed. Suspicion is for diverticular bleed given findings on colonoscopy.
[2020-02-09 17:09] LABS: Glucose,Whole Blood 142 mg/dL (75-99)
[2020-02-09 18:18] LABS: HCT 31.3 % (39.0-53.0); HGB 10.5 gm/dL (13.0-17.5); MCH 30.5 pg (25.0-35.0); MCHC 33.5 g/dL (31.0-37.0); MCV 91.1 fL (80.0-100.0); Mean Platelet Volume 7.8; Platelet Count 271 k/uL (150-450); RBC 3.44 m/uL (4.30-5.90); RDW 13.8 % (11.5-15.5); WBC 10.7 k/uL (3.8-10.6)
[2020-02-09 20:45] LABS: Glucose,Whole Blood 152 mg/dL (75-99)
[2020-02-10 01:03] LABS: HCT 28.6 % (39.0-53.0); HGB 9.6 gm/dL (13.0-17.5); MCH 30.5 pg (25.0-35.0); MCHC 33.4 g/dL (31.0-37.0); MCV 91.4 fL (80.0-100.0); Mean Platelet Volume 7.4; Platelet Count 236 k/uL (150-450); RBC 3.13 m/uL (4.30-5.90); RDW 13.8 % (11.5-15.5); WBC 9.4 k/uL (3.8-10.6)
[2020-02-10] MEDS: SODIUM CHLORIDE 0.9% 1,000 ML IV SCH (05:11)
[2020-02-10 06:03] LABS: Glucose,Whole Blood 120 mg/dL (75-99)
[2020-02-10] MEDS: INSULIN ASPART (NovoLOG) 100 UNIT/ML VIAL SQ SCH (06:12)
[2020-02-10] MEDS: metFORMIN 500 MG TAB PO SCH (06:22)
[2020-02-10 07:52] LABS: Calcium 8.1 mg/dL (8.4-10.2); Potassium 4.2 mmol/L (3.5-5.1); Total Bilirubin 0.5 mg/dL (0.2-1.3); Total Protein 6.2 g/dL (6.3-8.2)
[2020-02-10] MEDS: TAMSULOSIN 0.4 MG CAP.ER.24H PO SCH (09:51)
[2020-02-10] MEDS: LOSARTAN 25 MG TAB PO SCH (09:51)
[2020-02-10] MEDS: amLODIPine 5 MG TAB PO SCH (09:51)
[2020-02-10] MEDS: PANTOPRAZOLE 40 MG/10 ML VIAL IVP SCH (09:51)
[2020-02-10 11:39] LABS: Glucose,Whole Blood 144 mg/dL (75-99)
[2020-02-10 13:41] VITALS: BP 138/71; PULSE 69; RESP 14; TEMP 97.9
--- NOTE | 2020-02-10 14:07 | P.DS ---
Providers Date of admission: 02/09/20 14:11 Expected date of discharge: 02/10/20 Attending physician: Michelle Sol Consults: 02/07/20 23:09 Consult Physician Urgent Consulting Provider: Asuncion Pollack Consult Reason/Comments: acute hematochezia Do you want consulting provider notified?: Yes Primary care physician: [facility] Course: This is an 84-year-old -[place] male who sees in the outpatient setting with past history of diabetes type 2, hypertension, chronic kidney disease. Patient is a poor historian and does not recall his home medications. We did have a list at the time of his home medications. Patient presented to the emergency department reporting blood loss in his stool. Patient states that around 1:00. He noticed bloody bowel movement that was bright red in color he then again had another episode at 3 AM and again at 5 AM. Patient stated that he had similar episode previously however with significant amount of time before. Patient does not take any blood thinners. Patient denies any abdominal pain, lightheadedness or nausea or vomiting or diarrhea. Patient does not have any chest pain or difficulty breathing. 02/08: The patient has undergone prep for colonoscopy that is scheduled for today. He states he is still having some rectal bleeding. He is also complaining of headache. Tylenol added. Patient has been afebrile, heart rate 88, blood pressure 181/81, pulse ox 90% on 2 L nasal cannula. Repeat blood work reveals hemoglobin of 10.8, WBC 10.9, platelet count 299. 9/9: patient underwent colonoscopy yesterday with Dr. Haley. There was old blood noted throughout the colon with no active bleeding. Moderate pandiverticulosis. Patient was cleared for a full liquid diet continue to monitor hemoglobin and transfuse as needed. Suspicion is for diverticular bleed. hemoglobin today 9.6.patient has been afebrile, heart rate 69, blood pressure 138/71, pulse ox 98% on room air. Patient has been advised to be on a high-fiber diet. Plan is for him to follow-up in the office on Saturday with lab work done on Saturday.patient will be discharged home today in stable condition. Assessment/plan 1. Acute GI bleed, possible diverticular bleed. 2. Acute blood loss anemia. 3. Diabetes mellitus type 2. 4. Chronic kidney disease. 5. Hypertension. 6. Benign prostatic hypertrophy. Discharge plan: home Impression and plan of care have been directed as dictated by the signing physician. Cyndy Faust nurse practitioner acting as scribe for signing physician. Patient Condition at Discharge: Good Plan - Discharge Summary Discharge Rx Participant: Yes New Discharge Prescriptions: New Ciprofloxacin HCl [Cipro] 500 mg PO BID 7 Days #14 tab metroNIDAZOLE [Flagyl] 500 mg PO TID #21 tab Continue Tamsulosin HCl [Flomax] 0.4 mg PO DAILY glipiZIDE/METFORMIN HCL [glipiZIDE/METFORMIN HCL 5-500 mg] 1 tab PO BID amLODIPine [Norvasc] 5 mg PO DAILY Losartan Potassium [Cozaar] 25 mg PO DAILY Discontinued Aspirin EC [Ecotrin] 325 mg PO DAILY Discharge Medication List Losartan Potassium [Cozaar] 25 mg PO DAILY 02/08/20 [History] Tamsulosin HCl [Flomax] 0.4 mg PO DAILY 02/08/20 [History] amLODIPine [Norvasc] 5 mg PO DAILY 02/08/20 [History] glipiZIDE/METFORMIN HCL [glipiZIDE/METFORMIN HCL 5-500 mg] 1 tab PO BID 02/08/20 [History] Ciprofloxacin HCl [Cipro] 500 mg PO BID 7 Days #14 tab 02/10/20 [Rx] metroNIDAZOLE [Flagyl] 500 mg PO TID #21 tab 02/10/20 [Rx] Follow up Appointment(s)/Referral(s): Jevon Singer MD [Primary Care Provider] - 1 Week (office is closed please call later to make your appointment) Roberto Pineda MD [STAFF PHYSICIAN] - 1 Week (please call the office for your appointment) Ambulatory/Diagnostic Orders: Complete Blood Count w/diff [LAB.AMB] Location: None Selected Patient Instructions/Handouts: Diverticulosis (DC), Diverticulosis Diet (GEN) Activity/Diet/Wound Care/Special Instructions: High fiber diet Discharge Disposition: HOME SELF-CARE
--- NOTE | 2020-02-14 13:15 | CDI ---
Documentation Clarification Form Date: 02/14/20 From: Leslie Marino CCS Phone: If you have a question about this query, please contact Jannette Christine, [employer] at [phone] between 8am and 5pm. Admit Date: 02/09/20 Discharge Date:02/10/20 Patient Name: Jose Fink Visit Number: [id number] ATTENTION: The Clinical Documentation Specialists (CDI) and [facility] Coding Staff appreciate your assistance in clarifying documentation. Please respond to the clarification below the line at the bottom and electronically sign. The CDI & [facility] Coding staff will review the response and follow-up if needed. Please note: Queries are made part of the Legal Health Record. If you have any questions, please contact the author of this message via ITS. Dear Dr. Singer, CKD is documented in the H&P, PN, DS. History/Risk Factors: HTN, DM, BPH Clinical Indicators: Current BUN: 24, 24, 10 CR: 1.71, 1.47, 1.06 GFR: 36, 43, 64 Treatment: Monitor In order to capture the severity of condition, please clarify the stage of the CKD, if known: CKD Stage 1 (GFR > 90) xx CKD Stage 2 (GFR 60-89) CKD Stage 3 (GFR 30-59) CKD Stage 4 (GFR 15-29) CKD Stage 5 (GFR <15) ESRD Other, please specify Unable to determine MTDD
== END 2020-02-10 12:37 | disposition home or self-care (01) ==
LOC: EC 19:59 → 4SSUR 23:08 → 3SCARD 02-09 06:20 → INTOOBSV 02-09 14:11 → OBSVTOIN 02-09 14:11 → 3SCARD 02-09 14:26 → UNDODISIN 02-10 12:37
PROVIDERS: ADMIT Family Medicine; ATTEND Family Medicine
DX: K57.31 Diverticulosis of large intestine without perforation or abscess with bleeding (principal); D62 Acute posthemorrhagic anemia; I12.9 Hypertensive chronic kidney disease with stage 1 through stage 4 chronic kidney disease, or unspecified chronic kidney disease; K92.2 Gastrointestinal hemorrhage, unspecified; E11.22 Type 2 diabetes mellitus with diabetic chronic kidney disease; N18.9 Chronic kidney disease, unspecified; N40.0 Benign prostatic hyperplasia without lower urinary tract symptoms; E66.9 Obesity, unspecified; Z68.38 Body mass index [BMI] 38.0-38.9, adult; Z83.79 Family history of other diseases of the digestive system; Z79.84 Long term (current) use of oral hypoglycemic drugs; Z79.899 Other long term (current) drug therapy
CPT/HCPCS: 96361 ×2; 96360; 99285; 36415; 93005; 92523; 86900; 86901; 86162; 80053 ×2; 80048; 83605 ×2; 83735; 84484 ×2; 85025; 85027 ×3; 85610; 85730 ×2; 86850; 82272; 93880; 70450; 45378; G0378 ×5; J2001; J2704; C9113 ×3

== ENCOUNTER 2020-05-17 10:51 | Inpatient (IN) | payer MEDICARE ==
[2020-05-17 11:34] LABS: Basophils % (A) 0 %; Eosinophils # (A) 0.1 k/uL (0-0.7); Eosinophils % (A) 0 %; HCT 37.4 % (39.0-53.0); HGB 11.8 gm/dL (13.0-17.5); Lymphocytes % (A) 6 %; MCH 26.3 pg (25.0-35.0); MCHC 31.6 g/dL (31.0-37.0); MCV 83.4 fL (80.0-100.0); Mean Platelet Volume 7.3; Monocytes # (A) 1.2 k/uL (0-1.0); Monocytes % (A) 7 %; Neutrophils # (A) 15.9 k/uL (1.3-7.7); Neutrophils % (A) 86 %; Platelet Count 427 k/uL (150-450); RBC 4.48 m/uL (4.30-5.90); RDW 15.4 % (11.5-15.5); WBC 18.4 k/uL (3.8-10.6)
--- NOTE | 2020-05-17 11:36 | ED ---
Weakness HPI - General Chief complaint: Weakness Stated complaint: Weakness Time Seen by Provider: 05/17/20 10:53 Source: EMS Mode of arrival: EMS Limitations: physical limitation - History of Present Illness Initial comments: 84yo male presenting today for cc of generalized weakness, right rib pain. patient states that he has been feeling weak all over for the past 2 days and today his leg gave out he states he lowered himself against the wall to the floor, denies falling directly to the ground/hitting head, LOC, syncope. Patietn denies chest pressure, dyspnea. pt denies black or bloody stools. denies nausea, vomiting. patient denies headahces, cough, fevers .patient daughter states that pt has been complaining of nausea, and spitting up with abdominal pains in his side. patient states his rib hurts not his abdomen. pt daughter also noted voice changes (hoarse) and wanted the patient to be covid tested. Patient denies neck pain, extremity/hip pain, denies hitting his right rib, denies leg swelling, coughing up blood, dyspnea, or pain with a deep breath. - Related Data Home Medications Medication Instructions Recorded Confirmed Losartan Potassium [Cozaar] 25 mg PO DAILY 02/08/20 05/17/20 Tamsulosin HCl [Flomax] 0.4 mg PO DAILY 02/08/20 05/17/20 amLODIPine [Norvasc] 5 mg PO DAILY 02/08/20 05/17/20 Aspirin EC [Ecotrin Low Dose] 81 mg PO DAILY 05/17/20 05/17/20 glipiZIDE/METFORMIN HCL 1 tab PO BID 05/17/20 05/17/20 [glipiZIDE/METFORMIN HCL 5-500 mg] Allergies Allergy/AdvReac Type Severity Reaction Status Date / Time No Known Allergies Allergy Verified 05/17/20 11:51 Review of Systems ROS Statement: Those systems with pertinent positive or pertinent negative responses have been documented in the HPI. ROS Other: All systems not noted in ROS Statement are negative. Past Medical History Past Medical History: Diabetes Mellitus, Hypertension Additional Past Medical History / Comment(s): diverticulitis History of Any Multi-Drug Resistant Organisms: None Reported Past Surgical History: Orthopedic Surgery Additional Past Surgical History / Comment(s): bilateral Rotator cuff Past Psychological History: No Psychological Hx Reported Smoking Status: Never smoker Past Alcohol Use History: None Reported Past Drug Use History: None Reported - Past Family History Father History Unknown: Yes Family Medical History: Liver Disease ([place]) General Exam - General Exam Comments Initial Comments: General: The patient is awake and alert, in no distress Eye: +3 mm pupils are equal, round and reactive to light, extra-ocular movements are intact. No nystagmus. There is normal conjunctiva bilaterally. No signs of icterus. Ears, nose, mouth and throat: There are moist mucous membranes and no oral lesions. Neck: The neck is supple, there is no tenderness or JVD. Cardiovascular: There is a regular rate and rhythm. No murmur, rub or gallop is appreciated. Respiratory: Lungs are clear to auscultation, respirations are non-labored, breath sounds are equal. No wheezes, stridor, rales, or rhonchi. Gastrointestinal: Pain apppears more mid right sided rib . Soft, non-distended, non-tender appearing abdomen without masses or organomegaly noted. There is no rebound or guarding present. Musculoskeletal: Normal ROM, no tenderness. Strength 5/5. Sensation intact. Radial pulses equal bilaterally 2+. Neurological: A&O x 3. CN II-XII intact, There are no obvious motor or sensory deficits. Coordination appears grossly intact. Speech is normal. Skin: Skin is warm and dry and no rashes or lesions are noted. Psychiatric: Cooperative, appropriate mood & affect, normal judgment. Limitations: physical limitation Course Vital Signs 05/17/20 05/17/20 10:55 12:01 Temperature 98.6 F Pulse Rate 85 80 Respiratory 18 18 Rate Blood Pressure 153/86 156/76 O2 Sat by Pulse 96 95 Oximetry Medical Decision Making - Medical Decision Making 84-year-old male presenting for right-sided pain.. Patient stated it was upper to mid rib pain. Family member wrote a no complaining of abdominal pain nausea. CTA no obvious central pulmonary embolism. Computed tomography scan was positive for acute cholecystitis it does not appear complicated Gen. surgery consult to Dr. Huertas accepted the admission, his MANAGER ER was notified of patient location in the ER to come obtain H&P. patient is agreeable to admission. Dr Gabriel is agreeable to care plan and admission - Lab Data Result diagrams: 05/17/20 11:07 05/17/20 11:07 Lab Results 05/17/20 05/17/20 05/17/20 Range/Units 11:07 11:07 11:07 WBC 18.4 H (3.8-10.6) k/uL RBC 4.48 (4.30-5.90) m/uL Hgb 11.8 L (13.0-17.5) gm/dL Hct 37.4 L (39.0-53.0) % MCV 83.4 (80.0-100.0) fL MCH 26.3 (25.0-35.0) pg MCHC 31.6 (31.0-37.0) g/dL RDW 15.4 (11.5-15.5) % Plt Count 427 (150-450) k/uL MPV 7.3 Neutrophils % 86 % Lymphocytes % 6 % Monocytes % 7 % Eosinophils % 0 % Basophils % 0 % Neutrophils # 15.9 H (1.3-7.7) k/uL Lymphocytes # 1.0 (1.0-4.8) k/uL Monocytes # 1.2 H (0-1.0) k/uL Eosinophils # 0.1 (0-0.7) k/uL Basophils # 0.0 (0-0.2) k/uL PT 10.1 (9.0-12.0) sec INR 1.0 (<1.2) APTT 27.1 (22.0-30.0) sec D-Dimer 3.30 H (<0.60) mg/L FEU Sodium 138 (137-145) mmol/L Potassium 4.1 (3.5-5.1) mmol/L Chloride 102 (98-107) mmol/L Carbon Dioxide 27 (22-30) mmol/L Anion Gap 9 mmol/L BUN 23 H (9-20) mg/dL Creatinine 1.33 H (0.66-1.25) mg/dL Est GFR (CKD-EPI)AfAm 56 (>60 ml/min/1.73 sqM) Est GFR (CKD-EPI)NonAf 49 (>60 ml/min/1.73 sqM) Glucose 214 H (74-99) mg/dL Lactic Ac Sepsis Rflx Plasma Lactic Acid Ollie (0.7-2.0) mmol/L Calcium 8.8 (8.4-10.2) mg/dL Magnesium 2.0 (1.6-2.3) mg/dL Total Bilirubin 1.0 (0.2-1.3) mg/dL AST 23 (17-59) U/L ALT 10 (4-49) U/L Alkaline Phosphatase 84 (38-126) U/L Troponin I (0.000-0.034) ng/mL NT-Pro-B Natriuret Pep pg/mL Total Protein 7.9 (6.3-8.2) g/dL Albumin 3.6 (3.5-5.0) g/dL Coronavirus (PCR) (Not Detectd) 05/17/20 05/17/20 05/17/20 Range/Units 11:07 11:07 11:07 WBC (3.8-10.6) k/uL RBC (4.30-5.90) m/uL Hgb (13.0-17.5) gm/dL Hct (39.0-53.0) % MCV (80.0-100.0) fL MCH (25.0-35.0) pg MCHC (31.0-37.0) g/dL RDW (11.5-15.5) % Plt Count (150-450) k/uL MPV Neutrophils % % Lymphocytes % % Monocytes % % Eosinophils % % Basophils % % Neutrophils # (1.3-7.7) k/uL Lymphocytes # (1.0-4.8) k/uL Monocytes # (0-1.0) k/uL Eosinophils # (0-0.7) k/uL Basophils # (0-0.2) k/uL PT (9.0-12.0) sec INR (<1.2) APTT (22.0-30.0) sec D-Dimer (<0.60) mg/L FEU Sodium (137-145) mmol/L Potassium (3.5-5.1) mmol/L Chloride (98-107) mmol/L Carbon Dioxide (22-30) mmol/L Anion Gap mmol/L BUN (9-20) mg/dL Creatinine (0.66-1.25) mg/dL Est GFR (CKD-EPI)AfAm (>60 ml/min/1.73 sqM) Est GFR (CKD-EPI)NonAf (>60 ml/min/1.73 sqM) Glucose (74-99) mg/dL Lactic Ac Sepsis Rflx Plasma Lactic Acid Ollie 2.3 H* (0.7-2.0) mmol/L Calcium (8.4-10.2) mg/dL Magnesium (1.6-2.3) mg/dL Total Bilirubin (0.2-1.3) mg/dL AST (17-59) U/L ALT (4-49) U/L Alkaline Phosphatase (38-126) U/L Troponin I <0.012 (0.000-0.034) ng/mL NT-Pro-B Natriuret Pep 532 pg/mL Total Protein (6.3-8.2) g/dL Albumin (3.5-5.0) g/dL Coronavirus (PCR) (Not Detectd) 05/17/20 05/17/20 Range/Units 11:50 11:57 WBC (3.8-10.6) k/uL RBC (4.30-5.90) m/uL Hgb (13.0-17.5) gm/dL Hct (39.0-53.0) % MCV (80.0-100.0) fL MCH (25.0-35.0) pg MCHC (31.0-37.0) g/dL RDW (11.5-15.5) % Plt Count (150-450) k/uL MPV Neutrophils % % Lymphocytes % % Monocytes % % Eosinophils % % Basophils % % Neutrophils # (1.3-7.7) k/uL Lymphocytes # (1.0-4.8) k/uL Monocytes # (0-1.0) k/uL Eosinophils # (0-0.7) k/uL Basophils # (0-0.2) k/uL PT (9.0-12.0) sec INR (<1.2) APTT (22.0-30.0) sec D-Dimer (<0.60) mg/L FEU Sodium (137-145) mmol/L Potassium (3.5-5.1) mmol/L Chloride (98-107) mmol/L Carbon Dioxide (22-30) mmol/L Anion Gap mmol/L BUN (9-20) mg/dL Creatinine (0.66-1.25) mg/dL Est GFR (CKD-EPI)AfAm (>60 ml/min/1.73 sqM) Est GFR (CKD-EPI)NonAf (>60 ml/min/1.73 sqM) Glucose (74-99) mg/dL Lactic Ac Sepsis Rflx Y Plasma Lactic Acid Ollie (0.7-2.0) mmol/L Calcium (8.4-10.2) mg/dL Magnesium (1.6-2.3) mg/dL Total Bilirubin (0.2-1.3) mg/dL AST (17-59) U/L ALT (4-49) U/L Alkaline Phosphatase (38-126) U/L Troponin I (0.000-0.034) ng/mL NT-Pro-B Natriuret Pep pg/mL Total Protein (6.3-8.2) g/dL Albumin (3.5-5.0) g/dL Coronavirus (PCR) Not Detected (Not Detectd) Disposition Clinical Impression: Generalized weakness, Acute cholecystitis, Leukocytosis, Pneumonia, Right sided abdominal pain Disposition: ADMITTED IP TO THIS HOSP Condition: Stable Is patient prescribed a controlled substance at d/c from ED?: No Referrals: Jevon Singer MD [Primary Care Provider] - 1-2 days Time of Disposition: 13:54 Decision to Admit Reason: Admit from EC Decision Date: 05/17/20 Decision Time: 13:54
[2020-05-17 11:46] LABS: Albumin 3.6 g/dL (3.5-5.0); Calcium 8.8 mg/dL (8.4-10.2); Total Protein 7.9 g/dL (6.3-8.2)
[2020-05-17 11:48] LABS: Potassium 4.1 mmol/L (3.5-5.1)
[2020-05-17] MEDS ORDERED: SODIUM CHLORIDE 0.9% 1,000 ML IV ONE (11:50)
[2020-05-17] MEDS ORDERED: SODIUM CHLORIDE 0.9% 500 ML 500 ML IV ONE (11:50)
[2020-05-17] MEDS: SODIUM CHLORIDE 0.9% 1,000 ML IV SCH ×2 (11:56→19:48)
--- NOTE | 2020-05-17 12:01 | XR ---
EXAMINATION TYPE: XR chest 2V DATE OF EXAM: 05/17/2020 COMPARISON: NONE TECHNIQUE: PA and lateral views submitted. HISTORY: Chest congestion FINDINGS: There is bilateral lower lobe infiltrate. No pneumothorax. Heart size stable. Arthropathy of the shou lders and postsurgical change left shoulder. IMPRESSION: 1. Findings suggest bilateral lower lobe infiltrate.
[2020-05-17 12:06] LABS: Partial Thromboplastin Time 27.1 sec (22.0-30.0); Prothrombin Time 10.1 sec (9.0-12.0)
[2020-05-17 12:21] LABS: D-Dimer 3.3 mg/L FEU (<0.60)
--- NOTE | 2020-05-17 13:33 | CT ---
EXAMINATION TYPE: CT chest angio for PE DATE OF EXAM: 05/17/2020 COMPARISON: Chest x-ray earlier today HISTORY: Right sided abdominal pain, elevated d-dimer CT DLP: 748.6 mGycm Automated exposure control for dose reduction was used. CONTRAST: CTA Chest for pulmonary embolism performed with with IV Contrast, patient injected with 100 mL of Iso heraclio 370. MIP images created on CT scanner and reviewed. FINDINGS: LUNGS: Exam suboptimal as patient unable to hold breath. Mild bibasilar linear scarring and/or atelec tasis. Dependent atelectasis right lung base. Trace left-sided effusion. No suspicious masses or foca l consolidation. Low lung volumes. MEDIASTINUM: There is near equal contrast via the left heart systems heterogeneity in the periphery. No thoracic aortic aneurysm or dissection. No central pulmonary embolism. Cannot exclude smaller segm ental and subsegmental pulmonary emboli on this study. There are no greater than 1 cm hilar or media stinal lymph nodes. No pericardial effusion is seen. Cardiomegaly is present. Subcentimeter thyroi d nodules. OTHER: Multilevel spurring in the spine. Slight generalized scoliotic curvature. Please refer to same day CT abdomen and pelvis report for complete details on the upper abdomen. IMPRESSION: 1. Suboptimal study without central pulmonary embolism. Cannot exclude segmental and subsegmental PE on this study. 2. Low lung volumes and cardiomegaly without suspicious focal consolidation.
--- NOTE | 2020-05-17 13:39 | CT ---
EXAMINATION TYPE: CT abdomen pelvis w con DATE OF EXAM: 05/17/2020 COMPARISON: None. HISTORY: Right sided pain CT DLP: 2289.2 mGycm, Automated Exposure Control for Dose Reduction was Utilized. CONTRAST: CT scan of the abdomen and pelvis is performed without oral but with IV Contrast, patient injected wi th 100 mL of Isovue 370. FINDINGS: LUNG BASES: Mild cardiomegaly. Tiny pericardial effusion. Calcified right hilar subcentimeter lymph n odes. LIVER/GB: Gallbladder has distended margins and is dilated with moderate surrounding ill-defined flui d and fat stranding. No worrisome intrahepatic mass or biliary dilatation. PANCREAS: No significant abnormality is seen. SPLEEN: No significant abnormality is seen. ADRENALS: No significant abnormality is seen. KIDNEYS: Some cortical thinning both kidneys with few subcentimeter scattered simple thin-walled cyst s. Findings consistent with product of prior chronic medical renal disease. Symmetric cortical medull raven uptake and excretion without concerning renal mass or hydronephrosis seen bilaterally. Retroperit quiroga lipomatosis is noted bilaterally causing anterior deviation of intraperitoneal structures. BOWEL: Diverticula scattered throughout the colon greatest in the sigmoid colon. No CT evidence for a cute diverticulitis. Normal-appearing appendix and cecum in the right lower quadrant. No suspicious s mall or large bowel dilatation. Linear intraluminal density in the cecum axial image 62 of uncertain etiology. PROSTATE/SEMINAL VESICLES: Enlarged prostate gland consistent with BPH. LYMPH NODES: No greater than 1cm abdominal or pelvic lymph nodes are appreciated. OSSEOUS STRUCTURES: [id number] multilevel spurring in the spine. Slight grade 1 retrolisthesi s L3 on L4. Multilevel spur disc complexes and facet arthropathy causing spinal canal effacement in t he mid to lower lumbar spine. OTHER: No significant additional abnormality is seen. IMPRESSION: CT findings are consistent with uncomplicated acute cholecystitis. Surgical referral advi sed.
[2020-05-17] MEDS ORDERED: NALOXONE 0.4 MG/ML 1 ML VIAL IV PRN (13:52)
[2020-05-17] MEDS ORDERED: ONDANSETRON 4 MG/2 ML VIAL IVP PRN (14:39)
[2020-05-17] MEDS ORDERED: ACETAMINOPHEN TAB 325 MG TAB PO PRN (14:39)
--- NOTE | 2020-05-17 14:57 | P.GSHP ---
History of Present Illness H&P Date: 05/17/20 CHIEF COMPLAINT: Right-sided rib pain HISTORY OF PRESENT ILLNESS: This is a 84-year-old male with a known history of diabetes and hypertension. He also had a recent hospitalization in February for possible diverticular bleed. Patient presents to the emergency room with complaints of generalized weakness and right sided rib pain for the last 2 days. Upon further examination patient points to the right upper quadrant abdomen. He is a tender in that area on exam. He also reports having nausea and abdominal discomfort after eating. He admits to having some chills. He reports earlier today he had been sitting on the toilet at home trying and straining to have a bowel movement. And when he stood up he felt very weak and slid himself against the wall down to the floor. He was incontinent of stool and urine at that time. He denies any loss of consciousness or hitting his head. He denies any chest pain or shortness of breath. He denies any blood in his stools. He denies any vomiting. Patient does admit to a productive cough. And is noted that his voice has been hoarse. Covid test was negative. He had a computed tomography scan of the abdomen and pelvis which revealed uncomplicated acute cholecystitis. He had elevated white count and lactic acid level. Has been placed on IV Zosyn. And will be scheduled for laparoscopic cholecystectomy tomorrow with Dr. Taylor. PAST MEDICAL HISTORY: See list. PAST SURGICAL HISTORY: See list. MEDICATIONS: See list. ALLERGIES: See list. SOCIAL HISTORY: No illicit drug use. REVIEW OF SYSTEMS: CONSTITUTIONAL: Denies fever or chills. HEENT: Denies blurred vision, vision changes, or eye pain. Denies hemoptysis CARDIOVASCULAR: Denies chest pain or pressure. RESPIRATORY: No shortness of breath. GASTROINTESTINAL: See HPI for pertinent findings HEMATOLOGIC: Denies bleeding disorders. GENITOURINARY: Denies any blood in urine or increased urinary frequency. SKIN: Denies pruitis. Denies rash. PHYSICAL EXAM: VITAL SIGNS: Reviewed GENERAL: Well-developed in no acute distress. HEENT: No sclera icterus. Extraocular movements grossly intact. Moist buccal mucosa. Head is atraumatic, normocephalic. No nasal drainage. ABDOMEN: Soft. Nondistended. Right upper quadrant tenderness NEUROLOGIC: Alert and oriented. Cranial nerves II through XII grossly intact. LABORATORY DATA: WBC 18.4 hemoglobin 11.8 d-dimer 3.30 BUN 23 creatinine 1.33 Lactic 2.3 troponin negative Covid not detected IMAGING: Computed tomography scan of the abdomen and pelvis with IV contrast consistent with uncomplicated acute cholecystitis. Gallbladder has distended margins and is dilated with moderate surrounding ill-defined fluid and fat stranding. No worrisome intrahepatic mass or biliary dilation. CT of chest suboptimal study without central pulmonary embolism. Cannot exclude segmental and subsegmental PE of the study. Low lung volumes and cardiomegaly without suspicious focal consolidation ASSESSMENT: 1. Acute cholecystitis 2. Essential hypertension 3. Diabetes mellitus type 2 PLAN: -Patient scheduled for laparoscopic cholecystectomy tomorrow, 05/18/[address] Taylor -Patient can have clear liquid diet for dinner and then nothing by mouth after midnight -Continue IV fluids -Continue IV Zosyn -Continue Tylenol as needed for pain -Consult medicine for medical management Physician [employer] note has been reviewed by physician. Signing provider agrees with the documented findings, assessment, and plan of care. Past Medical History Past Medical History: Diabetes Mellitus, Hypertension Additional Past Medical History / Comment(s): diverticulitis History of Any Multi-Drug Resistant Organisms: None Reported Past Surgical History: Orthopedic Surgery Additional Past Surgical History / Comment(s): bilateral Rotator cuff Past Psychological History: No Psychological Hx Reported Smoking Status: Never smoker Past Alcohol Use History: None Reported Past Drug Use History: None Reported - Past Family History Father History Unknown: Yes Family Medical History: Liver Disease ([place]) Medications and Allergies Home Medications Medication Instructions Recorded Confirmed Type Losartan Potassium [Cozaar] 25 mg PO DAILY 02/08/20 05/17/20 History Tamsulosin HCl [Flomax] 0.4 mg PO DAILY 02/08/20 05/17/20 History amLODIPine [Norvasc] 5 mg PO DAILY 02/08/20 05/17/20 History Aspirin EC [Ecotrin Low Dose] 81 mg PO DAILY 05/17/20 05/17/20 History glipiZIDE/METFORMIN HCL 1 tab PO BID 05/17/20 05/17/20 History [glipiZIDE/METFORMIN HCL 5-500 mg] Allergies Allergy/AdvReac Type Severity Reaction Status Date / Time No Known Allergies Allergy Verified 05/17/20 11:51 Surgical - Exam Vital Signs Temp Pulse Resp BP Pulse Ox 98.6 F 85 18 153/86 96 05/17/20 10:55 05/17/20 10:55 05/17/20 10:55 05/17/20 10:55 05/17/20 10:55 Results - Labs 05/17/20 11:07 05/17/20 11:07 Abnormal Lab Results - Last 24 Hours (Table) 05/17/20 05/17/20 05/17/20 Range/Units 11:07 11:07 11:07 WBC 18.4 H (3.8-10.6) k/uL Hgb 11.8 L (13.0-17.5) gm/dL Hct 37.4 L (39.0-53.0) % Neutrophils # 15.9 H (1.3-7.7) k/uL Monocytes # 1.2 H (0-1.0) k/uL D-Dimer 3.30 H (<0.60) mg/L FEU BUN 23 H (9-20) mg/dL Creatinine 1.33 H (0.66-1.25) mg/dL Glucose 214 H (74-99) mg/dL Plasma Lactic Acid Ollie (0.7-2.0) mmol/L 05/17/20 Range/Units 11:07 WBC (3.8-10.6) k/uL Hgb (13.0-17.5) gm/dL Hct (39.0-53.0) % Neutrophils # (1.3-7.7) k/uL Monocytes # (0-1.0) k/uL D-Dimer (<0.60) mg/L FEU BUN (9-20) mg/dL Creatinine (0.66-1.25) mg/dL Glucose (74-99) mg/dL Plasma Lactic Acid Ollie 2.3 H* (0.7-2.0) mmol/L Diabetes panel 05/17/20 Range/Units 11:07 Sodium 138 (137-145) mmol/L Potassium 4.1 (3.5-5.1) mmol/L Chloride 102 (98-107) mmol/L Carbon Dioxide 27 (22-30) mmol/L BUN 23 H (9-20) mg/dL Creatinine 1.33 H (0.66-1.25) mg/dL Glucose 214 H (74-99) mg/dL Calcium 8.8 (8.4-10.2) mg/dL AST 23 (17-59) U/L ALT 10 (4-49) U/L Alkaline Phosphatase 84 (38-126) U/L Total Protein 7.9 (6.3-8.2) g/dL Albumin 3.6 (3.5-5.0) g/dL Calcium panel 05/17/20 Range/Units 11:07 Calcium 8.8 (8.4-10.2) mg/dL Albumin 3.6 (3.5-5.0) g/dL Pituitary panel 05/17/20 Range/Units 11:07 Sodium 138 (137-145) mmol/L Potassium 4.1 (3.5-5.1) mmol/L Chloride 102 (98-107) mmol/L Carbon Dioxide 27 (22-30) mmol/L BUN 23 H (9-20) mg/dL Creatinine 1.33 H (0.66-1.25) mg/dL Glucose 214 H (74-99) mg/dL Calcium 8.8 (8.4-10.2) mg/dL Adrenal panel 05/17/20 Range/Units 11:07 Sodium 138 (137-145) mmol/L Potassium 4.1 (3.5-5.1) mmol/L Chloride 102 (98-107) mmol/L Carbon Dioxide 27 (22-30) mmol/L BUN 23 H (9-20) mg/dL Creatinine 1.33 H (0.66-1.25) mg/dL Glucose 214 H (74-99) mg/dL Calcium 8.8 (8.4-10.2) mg/dL Total Bilirubin 1.0 (0.2-1.3) mg/dL AST 23 (17-59) U/L ALT 10 (4-49) U/L Alkaline Phosphatase 84 (38-126) U/L Total Protein 7.9 (6.3-8.2) g/dL Albumin 3.6 (3.5-5.0) g/dL
[2020-05-17] MEDS: PIPERACILLIN-TAZOBACTAM 3.375 GM in SODIUM CHLORIDE 0.9% 100 ML IVPB SCH ×2 (15:51→23:59)
[2020-05-17 16:09] LABS: Appearance,Urine Clear (Clear); Bilirubin,Urine Negative (Negative); Blood,Urine Small (Negative); Color,Urine Yellow; Glucose,Urine (UA) Negative (Negative); Ketones,Urine 1+ (Negative); Leukocyte Esterase,Urine Negative (Negative); Mucus,Urine Rare /hpf; Nitrite,Urine Negative (Negative); Protein,Urine 1+ (Negative); RBC,Urine 2 /hpf (0-5); Squamous Epithelial Cell,Urine <1 /hpf (0-4); WBC,Urine 1 /hpf (0-5)
[2020-05-17 16:14] LABS: Specific Gravity,Urine >1.050 (1.001-1.035)
[2020-05-17] MEDS ORDERED: PNEUMOCOCCAL VACC-PNEUMOVAX 23 25 MCG/0.5 ML VIAL IM ONE (18:12)
[2020-05-17] MEDS ORDERED: HEPARIN SODIUM,PORCINE 5,000 UNIT/ML 1 ML VIAL SQ SCH (21:00)
[2020-05-17] MEDS: hydrALAZINE HCL 20 MG/ML 1 ML VIAL IVP PRN (22:53)
--- NOTE | 2020-05-17 22:59 | P.CONS ---
History of Present Illness - Reason for Consult Consult date: 05/17/20 abdominal pain, acute cholecystitis an recent history of GI bleed, Requesting physician: Roland Taylor - Chief Complaint abdominal pain, acute cholecystitis, recent history of GI bleed, chronic ki - History of Present Illness 84-year-old gentleman one of my office patient with history of type 2 diabetes, hypertension, hyperlipidemia, chronic kidney disease and GI bleed from diverticulitis was hospitalized last in [facility] in February 20 GI bleed was treated and done well since, patient is known to have history of type 2 diabetes, chronic kidney disease, and incidental finding in the past of gallstone with no symptoms. Patient presented to the emergency department at [facility] today with significant right upper quadrant pain and discomfort with significant tenderness aggravated by certain type of diet along with 5 food, symptom has been on and off last 2 weeks and worsening with certain type of diet. Patient ended up seen and evaluated to [facility] department chest x- ray at that time showed bilateral lower lobe infiltrate. Patient had CTA of the chest for elevated d-dimer result were negative for pulmonary embolism with? Of consolidation in the bases along with cardiomegaly. Furthermore abdominal and pelvis computed tomography scan was done was consistent with uncomplicated acute cholecystitis. General surgery was called decided to admit patient to the hospital for possible gallbladder surgery over the next 24-48 hours. S urprisingly white blood cell was 18,000 left shifted kidney function slightly but decline and lactic acid was mildly elevated when repeated after hydration has improved d-dimer and troponin were negative. Patient Covid 19 testing were negative. We will admit patient to the hospital treat his pain general surgery most likely will be taking him to the OR for lap cholecystectomy. Review of Systems CONSTITUTIONAL: Well-developed no acute respiratory distress. EYES: No icterus sclerae, no conjunctivitis. EARS, NOSE, MOUTH, THROAT, and FACE: No sore throat, lymphadenopathy, carotid bruits or deformity. RESPIRATORY: mild shortness of breath and dyspnea.. CARDIOVASCULAR: No CP, Palpitation, PND, Orthopnea, or angina. GASTROINTESTINAL: abdominal pain with nausea, with acute cholecystitis. GENITOURINARY: Negative for Hematuria or UTI, no kidney stones.worsening inconti nence. INTEGUMENT/BREAST: Negative for any muscular injury with mild osteoarthritis..generalized arthralgia. HEMATOLOGIC/LYMPHATIC: Negative for bleed or purpura.no active GI bleed. MUSCULOSKELTAL: Negative for Myalgia or arthralgia. NEURLOGICAL: No LOC, Sz or syncope, blurred vision dizziness or abnormality.. BEHAVIORAL/PSYCH: Negative. ENDOCRINE: Negative. Past Medical History Past Medical History: Diabetes Mellitus, Eye Disorder, GI Bleed, Hypertension, Pneumonia Additional Past Medical History / Comment(s): NIDDM type II, bilateral foot pain, diverticular disease, ischemic colitis, lower GI bleed, glaucoma/no peripheral vision bilaterally, past pneumonia with lengthy hospitalization, bilateral lower leg edema. History of Any Multi-Drug Resistant Organisms: None Reported Past Surgical History: Orthopedic Surgery Additional Past Surgical History / Comment(s): bilateral Rotator cuff, EGD, colonoscopy, bilateral blepharoplasty, R little finger fx with surgery. Past Anesthesia/Blood Transfusion Reactions: No Reported Reaction Smoking Status: Never smoker - Past Family History Father History Unknown: Yes Family Medical History: Liver Disease ([place]) Additional Family Medical History / Comment(s): ETOH abuse Mother Family Medical History: Cancer Additional Family Medical History / Comment(s): Pancreatic cancer. Medications and Allergies Home Medications Medication Instructions Recorded Confirmed Type Losartan Potassium [Cozaar] 25 mg PO DAILY 02/08/20 05/17/20 History Tamsulosin HCl [Flomax] 0.4 mg PO DAILY 02/08/20 05/17/20 History amLODIPine [Norvasc] 5 mg PO DAILY 02/08/20 05/17/20 History Aspirin EC [Ecotrin Low Dose] 81 mg PO DAILY 05/17/20 05/17/20 History glipiZIDE/METFORMIN HCL 1 tab PO BID 05/17/20 05/17/20 History [glipiZIDE/METFORMIN HCL 5-500 mg] Allergies Allergy/AdvReac Type Severity Reaction Status Date / Time No Known Allergies Allergy Verified 05/17/20 11:51 Physical Exam Vitals: Vital Signs Temp Pulse Resp BP Pulse Ox 05/17/20 19:49 80 17 164/93 96 05/17/20 18:09 84 20 170/92 94 L 05/17/20 16:02 88 18 166/83 95 05/17/20 14:28 90 18 154/78 96 05/17/20 12:01 80 18 156/76 95 05/17/20 10:55 98.6 F 85 18 153/86 96 Intake and Output 05/17/20 05/17/20 05/17/20 06:59 14:59 22:59 Other: Weight 127.006 kg 127.006 kg General Appearance: Alert, cooperative, no distress, appears stated age. Neck HEENT: Supple, no lymphadenopathy, no thyroid enlargement, no carotid bruits. Lungs: decreased breath some bilateral fine rhonchi with mild crackles in the basis. Chest Wall: Chest wall normal expansion with deep inspiration no tenderness and no deformity was found on exam, no costochondral pain or discomfort. Heart: Regular rate and rhythm, S1, S2 normal, no murmur, rub or gallop. Back: Symmetric, no curvature, ROM normal, no CVA tenderness. Abdomen: Soft positive bowel sounds slight discomfort and tenderness in the right upper quadrant area no rebound or rigidity not been able to find mass slight ventral hernia as well. Extremities: Extremities normal, atraumatic, no cyanosis or edema. Pulses: 2+ and symmetric. Skin: Skin color, texture, tugor normal, no rashes or lesions. Neurologic: Alert oriented x3 cranial nerves II through XII intact, no motor deficit, no abnormal balance or gait. Results CBC & Chem 7: 05/17/20 11:07 05/17/20 11:07 Labs: Abnormal Lab Results - Last 24 Hours (Table) 05/17/20 05/17/20 05/17/20 Range/Units 11:07 11:07 11:07 WBC 18.4 H (3.8-10.6) k/uL Hgb 11.8 L (13.0-17.5) gm/dL Hct 37.4 L (39.0-53.0) % Neutrophils # 15.9 H (1.3-7.7) k/uL Monocytes # 1.2 H (0-1.0) k/uL D-Dimer 3.30 H (<0.60) mg/L FEU BUN (9-20) mg/dL Creatinine (0.66-1.25) mg/dL Glucose (74-99) mg/dL Plasma Lactic Acid Ollie (0.7-2.0) mmol/L Ur Specific [place] >1.050 H (1.001-1.035) Urine Protein 1+ H (Negative) Urine Ketones 1+ H (Negative) Urine Blood Small H (Negative) Urine Mucus Rare H (None) /hpf 05/17/20 05/17/20 Range/Units 11:07 11:07 WBC (3.8-10.6) k/uL Hgb (13.0-17.5) gm/dL Hct (39.0-53.0) % Neutrophils # (1.3-7.7) k/uL Monocytes # (0-1.0) k/uL D-Dimer (<0.60) mg/L FEU BUN 23 H (9-20) mg/dL Creatinine 1.33 H (0.66-1.25) mg/dL Glucose 214 H (74-99) mg/dL Plasma Lactic Acid Ollie 2.3 H* (0.7-2.0) mmol/L Ur Specific [place] (1.001-1.035) Urine Protein (Negative) Urine Ketones (Negative) Urine Blood (Negative) Urine Mucus (None) /hpf Assessment and Plan Plan: 1 acute abdominal pain: Combination of acute cholecystitis with cholangitis, pleurisy, and lower lobe pneumonia. With try to treat underlying disease watch the severity of the pain. 2 acute cholecystitis: Patient was seen general surgery will be going for surgery tomorrow. 3 bilateral pneumonia: Confirm on x-ray and CTA, patient was started on Zosyn will continue updraft treatment with DuoNeb and if needed Pulmicort continue O2 try to keep his pulse ox above 92 percentile. 4 recent history of GI bleed: Was secondary to diverticulitis much better so far. 5 chronic kidney disease: Hydrate patient repeat BUN/creatinine after surgery. 6 type 2 diabetes: Continue patient on Accu-Chek with sliding scales coverage was on the glipizide metformin which can be continued for now held for the surgery and restart after surgery. 7 hypertension: Remain on amlodipine 5 mg a day along losartan 25 mg daily. 8 BPH: Remain on Flomax 0.4 mg daily. 9 GI prophylaxis: Will use tonics. 10 DVT prophylaxis: Patient will be on heparin subcutaneous. CODE STATUS: Full code. Admit patient to inpatient service for more than 2 night stay.
[2020-05-18] MEDS: hydrALAZINE HCL 20 MG/ML 1 ML VIAL IVP PRN (03:47)
[2020-05-18] MEDS: SODIUM CHLORIDE 0.9% 1,000 ML IV SCH ×3 (03:51→20:21)
[2020-05-18 07:17] LABS: Glucose,Whole Blood 160 mg/dL (75-99)
[2020-05-18] MEDS: PIPERACILLIN-TAZOBACTAM 3.375 GM in SODIUM CHLORIDE 0.9% 100 ML IVPB SCH ×3 (08:07→23:18)
[2020-05-18] MEDS: PANTOPRAZOLE 40 MG/10 ML VIAL IVP SCH (08:07)
[2020-05-18] MEDS: LOSARTAN 25 MG TAB PO SCH (08:08)
[2020-05-18] MEDS: TAMSULOSIN 0.4 MG CAP.ER.24H PO SCH (08:08)
[2020-05-18] MEDS: amLODIPine 5 MG TAB PO SCH (08:08)
[2020-05-18] MEDS: metFORMIN 500 MG TAB PO SCH ×2 (08:08→22:32)
[2020-05-18] MEDS: glipiZIDE 5 MG TAB PO SCH ×2 (08:08→22:32)
[2020-05-18 11:16] LABS: Glucose,Whole Blood 147 mg/dL (75-99)
--- NOTE | 2020-05-18 11:22 | P.PN ---
Subjective Progress Note Date: 05/18/20 HISTORY OF PRESENT ILLNESS 84-year-old gentleman one of my office patient with history of type 2 diabetes, hypertension, hyperlipidemia, chronic kidney disease and GI bleed from div erticulitis was hospitalized last in [facility] in February 20 4 GI bleed was treated and done well since, patient is known to have history of type 2 diabetes, chronic kidney disease, and incidental finding in the past of gallstone with no symptoms. Patient presented to the emergency department at [facility] today with significant right upper quadrant pain and discomfort with significant tenderness aggravated by certain type of diet along with 5 food, symptom has been on and off last 2 weeks and worsening with certain type of diet. Patient ended up seen and evaluated to [facility] department chest x- ray at that time showed bilateral lower lobe infiltrate. Patient had CTA of the chest for elevated d-dimer result were negative for pulmonary embolism with? Of consolidation in the bases along with cardiomegaly. Furthermore abdominal and pelvis computed tomography scan was done was consistent with uncomplicated acute cholecystitis. General surgery was called decided to admit patient to the hospital for possible gallbladder surgery over the next 24-48 hours. Surprising ly white blood cell was 18,000 left shifted kidney function slightly but decline and lactic acid was mildly elevated when repeated after hydration has improved d-dimer and troponin were negative. Patient Covid 19 testing were negative. We will admit patient to the hospital treat his pain general surgery most likely will be taking him to the OR for lap cholecystectomy. 05/18: Patient is scheduled for laparoscopic cholecystectomy today. Incentive spirometry added. Patient states he normally walks with a cane and PT and OT will be added. Patient's daughter Klaudia has been contacted via phone and updated. Patient has been afebrile, heart rate 80, blood pressure 176/75, pulse ox 97% on room air. Repeat lactic acid 2.0. Sugar 160. Repeat blood work is ordered for tomorrow. NovoLog scale started. Anticipate probable discharge home tomorrow. PT and OT in place. REVIEW OF SYSTEMS CONSTITUTIONAL: Well-developed no acute respiratory distress. Denies fever. EYES: No icterus sclerae, no conjunctivitis. EARS, NOSE, MOUTH, THROAT, and FACE: No sore throat, lymphadenopathy, carotid bruits or deformity. RESPIRATORY: mild shortness of breath and dyspnea.. CARDIOVASCULAR: No CP, Palpitation, PND, Orthopnea, or angina. GASTROINTESTINAL: abdominal pain with nausea, with acute cholecystitis. GENITOURINARY: Negative for Hematuria or UTI, no kidney stones.worsening incontinence. INTEGUMENT/BREAST: Negative for any muscular injury with mild osteoarthritis..generalized arthralgia. HEMATOLOGIC/LYMPHATIC: Negative for bleed or purpura.no active GI bleed. MUSCULOSKELTAL: Negative for Myalgia or arthralgia. NEURLOGICAL: No LOC, Sz or syncope, blurred vision dizziness or abnormality.. BEHAVIORAL/PSYCH: Negative. ENDOCRINE: Negative. PHYSICAL EXAMINATION General Appearance: Alert, cooperative, no distress, appears stated age. No acute distress. Neck HEENT: Supple, no lymphadenopathy, no thyroid enlargement, no carotid brui ts. Lungs: decreased breath some bilateral fine rhonchi with mild crackles in the basis. Chest Wall: Chest wall normal expansion with deep inspiration no tenderness and no deformity was found on exam, no costochondral pain or discomfort. Heart: Regular rate and rhythm, S1, S2 normal, no murmur, rub or gallop. Back: Symmetric, no curvature, ROM normal, no CVA tenderness. Abdomen: Soft positive bowel sounds slight discomfort and tenderness in the right upper quadrant area no rebound or rigidity not been able to find mass slight ventral hernia as well. Extremities: Extremities normal, atraumatic, no cyanosis or edema. Pulses: 2+ and symmetric. Skin: Skin color, texture, tugor normal, no rashes or lesions. Neurologic: Alert oriented x3 cranial nerves II through XII intact, no motor deficit, no abnormal balance or gait. ASSESSMENT AND PLAN 1 acute abdominal pain: Combination of acute cholecystitis with cholangitis, pleurisy, and lower lobe pneumonia. With try to treat underlying disease watch the severity of the pain. 2 acute cholecystitis: Patient was seen general surgery will be going for surgery tomorrow. 3 bilateral pneumonia: Confirm on x-ray and CTA, patient was started on Zosyn will continue updraft treatment with DuoNeb and if needed Pulmicort continue O2 try to keep his pulse ox above 92 percentile. 4 recent history of GI bleed: Was secondary to diverticulitis much better so far. 5 chronic kidney disease: Hydrate patient repeat BUN/creatinine after surgery. 6 type 2 diabetes: Continue patient on Accu-Chek with sliding scales coverage was on the glipizide metformin which can be continued for now held for the surgery and restart after surgery. 7 hypertension: Remain on amlodipine 5 mg a day along losartan 25 mg daily. 8 BPH: Remain on Flomax 0.4 mg daily. 9 GI prophylaxis: Will use tonics. 10 DVT prophylaxis: Patient will be on heparin subcutaneous. CODE STATUS: Full code. DISCHARGE PLAN Return home. Impression and plan of care have been directed as dictated by the signing physician. Cyndy Faust nurse practitioner acting as scribe for signing physician. Objective - Vital Signs Vital signs: Vital Signs Temp 99.0 F 05/18/20 07:51 Pulse 80 05/18/20 07:51 Resp 20 05/18/20 07:51 BP 176/75 05/18/20 07:51 Pulse Ox 97 05/18/20 07:51 Intake & Output 05/17/20 05/18/20 05/18/20 18:59 06:59 18:59 Weight 127.006 kg Other: Voiding Method Urinal Diaper # Voids 4 - Labs CBC & Chem 7: 05/17/20 11:07 05/17/20 11:07 Labs: Abnormal Lab Results - Last 24 Hours (Table) 05/17/20 05/17/20 05/17/20 Range/Units 11:07 11:07 11:07 WBC 18.4 H (3.8-10.6) k/uL Hgb 11.8 L (13.0-17.5) gm/dL Hct 37.4 L (39.0-53.0) % Neutrophils # 15.9 H (1.3-7.7) k/uL Monocytes # 1.2 H (0-1.0) k/uL D-Dimer 3.30 H (<0.60) mg/L FEU BUN (9-20) mg/dL Creatinine (0.66-1.25) mg/dL Glucose (74-99) mg/dL POC Glucose (mg/dL) (75-99) mg/dL Plasma Lactic Acid Ollie (0.7-2.0) mmol/L Ur Specific [place] >1.050 H (1.001-1.035) Urine Protein 1+ H (Negative) Urine Ketones 1+ H (Negative) Urine Blood Small H (Negative) Urine Mucus Rare H (None) /hpf 05/17/20 05/17/20 05/18/20 Range/Units 11:07 11:07 07:16 WBC (3.8-10.6) k/uL Hgb (13.0-17.5) gm/dL Hct (39.0-53.0) % Neutrophils # (1.3-7.7) k/uL Monocytes # (0-1.0) k/uL D-Dimer (<0.60) mg/L FEU BUN 23 H (9-20) mg/dL Creatinine 1.33 H (0.66-1.25) mg/dL Glucose 214 H (74-99) mg/dL POC Glucose (mg/dL) 160 H (75-99) mg/dL Plasma Lactic Acid Ollie 2.3 H* (0.7-2.0) mmol/L Ur Specific [place] (1.001-1.035) Urine Protein (Negative) Urine Ketones (Negative) Urine Blood (Negative) Urine Mucus (None) /hpf
[2020-05-18] MEDS: INSULIN ASPART (NovoLOG) 100 UNIT/ML VIAL SQ SCH ×3 (12:27→22:32)
[2020-05-18] MEDS ORDERED: IV FLUID CONTINUATION 900 ML IV ONE (15:21)
[2020-05-18] MEDS ORDERED: HEPARIN SODIUM,PORCINE 5,000 UNIT/ML 1 ML VIAL ONE (15:33)
[2020-05-18 15:35] LABS: Glucose,Whole Blood 121 mg/dL (75-99)
[2020-05-18 15:45] VITALS: BMI 36.9
[2020-05-18] MEDS ORDERED: PHENYLEPHRINE 10 MG/ML VIAL ONE (17:56)
[2020-05-18] MEDS ORDERED: ROCURONIUM 10 MG/ML (10 ML VIAL) IV ONE (17:56)
[2020-05-18] MEDS ORDERED: GLYCOPYRROLATE 0.2 MG/ML 2 ML VIAL ONE (17:56)
[2020-05-18] MEDS ORDERED: NALOXONE 0.4 MG/ML 1 ML VIAL ONE (17:56)
[2020-05-18] MEDS ORDERED: PROPOFOL 10 MG/ML 100 ML VIAL IV ONE (17:56)
[2020-05-18] MEDS ORDERED: fentaNYL (PF) 50 MCG/ML 2 ML AMP ONE (17:56)
[2020-05-18] MEDS ORDERED: NEOSTIGMINE 1 MG/ML 10 ML VIAL ONE (17:56)
[2020-05-18] MEDS ORDERED: LIDOCAINE 1% INJ 10MG/ML (20 ML MDV) ONE (17:56)
[2020-05-18] MEDS ORDERED: SUCCINYLCHOLINE CHLORIDE 100 MG/5 ML SYR IV ONE (17:56)
[2020-05-18] MEDS ORDERED: BUPIVACAIN-EPI 0.5%-1:200,000 30 ML VIAL SQ ONE (18:33)
--- NOTE | 2020-05-18 19:09 | P.OP ---
Date of Procedure: 05/18/20 Preoperative Diagnosis: Cholecystitis Postoperative Diagnosis: Acute gangrenous cholecystitis Procedure(s) Performed: Laparoscopically cholecystectomy Anesthesia: NAHUN Surgeon: Roland Taylor Estimated Blood Loss (ml): 10 Pathology: other (Gallbladder) Condition: stable Disposition: PACU Description of Procedure: The patient was placed on the operating table. The patient received a general endotracheal tube anesthesia. The patients abdomen was prepped and draped in the usual sterile fashion. Through an infraumbilical stab incision, the fascia of the anterior abdominal wall was grasped with a pair of Kochers and then the Veress needle was placed in the peritoneal cavity. Position of the Veress needle was confirmed with positive drop test. The abdomen was then insufflated. After adequate insufflation, the 10 mm trocar was placed in the peritoneal cavity. Following this the laparoscope was placed in the peritoneal cavity. The patient was placed in the head-up, right side up position and then a 5 mm trocar was placed in the right lateral and right subcostal position under direct visualization. A 8 mm trocar was placed in the epigastric position. The gallbladder appeared to have patchy necrosis The gallbladder was grasped in the fundus and infundibulum. Traction on the gallbladder was placed in the lateral and the cephalad positions. The triangle of Calot was visualized.. The cystic duct was bluntly dissected until the union of the cystic duct and common bile duct was seen. A critical view of safety was achieved. The cystic duct was then divided and sealed with the Harmonic scissors. A PDS Endoloop was then placed throughout the cystic duct stump. The cystic artery divided and sealed with the Harmonic scissors. The gallbladder was then removed from the liver bed using Harmonic scissors. The gallbladder was then extracted through the epigastric port site. Operative field was checked for any bleeding spots and Harmonic scissors was used to coagulate the liver bed. The abdomen was irrigated. The trocars were removed. The skin was closed using interrupted 3-0 Vicryl suture. Dermabond dressing were applied. The patient tolerated the procedure well.
[2020-05-18] MEDS ORDERED: HYDROmorphone 1 MG/ML 1 ML SYRINGE IVP PRN (19:10)
--- NOTE | 2020-05-18 20:41 | P.PN ---
Progress Note - Text Progress Note Date: 05/18/20 Anesthesia Update PACU Note 1922 - after meeting extubation criteria and being extubated. Patient had a episode of weakness upon arrival to recovery. Recurarization, residual muscle weakness or narcosis in the differential. Initial exam suggested Narcosis therefore Naloxone 0.4mg given. Without significant effect. Patient appears to be weak suggesting recurarization. Decision made to reintubate. Propofol 100mg given. 7.5 ett placed in one attempt with MAC 3.0 blade in one attempt. Secured 24cm. 2009 Patient getting stronger. Purposeful. Answers questions approriately. 2026 - 5 minute trial of spontaneous ventilation. TV greater than 400. Resp rate controlled. Headlift greater than 5 seconds. Extubated. to Simple mask. Following commands. Forceful cough. Answers questions.
[2020-05-18] MEDS ORDERED: SODIUM CHLORIDE 0.9% 1,000 ML IV ONE (20:52)
[2020-05-18 22:10] LABS: Glucose,Whole Blood 159 mg/dL (75-99)
[2020-05-19] MEDS: SODIUM CHLORIDE 0.9% 1,000 ML IV SCH ×3 (02:10→18:01)
[2020-05-19 06:20] LABS: Basophils # (A) 0.1 k/uL (0-0.2); Basophils % (A) 1 %; Eosinophils % (A) 0 %; HCT 32.7 % (39.0-53.0); HGB 10.5 gm/dL (13.0-17.5); Lymphocytes # (A) 1.2 k/uL (1.0-4.8); Lymphocytes % (A) 8 %; MCH 27.5 pg (25.0-35.0); MCHC 32.1 g/dL (31.0-37.0); MCV 85.5 fL (80.0-100.0); Mean Platelet Volume 7.4; Monocytes # (A) 0.8 k/uL (0-1.0); Monocytes % (A) 6 %; Neutrophils # (A) 12.4 k/uL (1.3-7.7); Neutrophils % (A) 84 %; Platelet Count 378 k/uL (150-450); RBC 3.83 m/uL (4.30-5.90); RDW 15.6 % (11.5-15.5); WBC 14.7 k/uL (3.8-10.6)
[2020-05-19 07:32] LABS: Glucose,Whole Blood 146 mg/dL (75-99)
[2020-05-19] MEDS: glipiZIDE 5 MG TAB PO SCH ×2 (07:37→20:39)
[2020-05-19] MEDS: metFORMIN 500 MG TAB PO SCH ×2 (07:37→20:39)
[2020-05-19] MEDS: TAMSULOSIN 0.4 MG CAP.ER.24H PO SCH (07:37)
[2020-05-19] MEDS: LOSARTAN 25 MG TAB PO SCH (07:37)
[2020-05-19] MEDS: amLODIPine 5 MG TAB PO SCH (07:38)
[2020-05-19] MEDS: INSULIN ASPART (NovoLOG) 100 UNIT/ML VIAL SQ SCH ×4 (07:38→20:39)
[2020-05-19] MEDS: PIPERACILLIN-TAZOBACTAM 3.375 GM in SODIUM CHLORIDE 0.9% 100 ML IVPB SCH ×2 (07:38→16:27)
[2020-05-19] MEDS: PANTOPRAZOLE 40 MG/10 ML VIAL IVP SCH (07:38)
[2020-05-19] MEDS: AMMONIUM LACTATE 12% LOTION 225 GM BTL TOPICAL SCH ×2 (10:19→20:39)
[2020-05-19 10:47] LABS: African American GFR (CKD) 63.5 (60.0-200.0); Albumin 2.7 g/dL (3.80-4.90); Albumin/Globulin Ratio 0.93 (1.60-3.17); Anion Gap 5.9 mmol/L (4.00-12.00); BUN/Creat Ratio 11.67 Ratio (12.00-20.00); Calcium 7.9 mg/dL (8.7-10.3); Carbon Dioxide 27.1 mmol/L (21.6-31.8); Globulin 2.9 g/dL (1.6-3.3); Non-African American GFR(CKD) 54.8 (60.0-200.0); Potassium 3.7 mmol/L (3.5-5.5); Total Bilirubin 0.5 mg/dL (0.2-1.2); Total Protein 5.6 g/dL (6.2-8.2)
[2020-05-19 12:01] LABS: Glucose,Whole Blood 125 mg/dL (75-99)
--- NOTE | 2020-05-19 12:26 | P.PN ---
Subjective Progress Note Date: 05/19/20 CHIEF COMPLAINT: Abdominal pain HISTORY OF PRESENT ILLNESS: Patient is status post laparoscopic cholecystectomy for an acute gangrenous cholecystitis. He is postop day #1. Patient reports his pain is controlled. Denies any nausea or vomiting. Denies passing gas or bowel movement. There is concerns of urinary retention. Nursing staff is checking postvoid residuals. Patient afebrile. Currently on a regular diet. White count has come down from 18.4-14.7. HO drain 60 mL of serosanguineous fluid PHYSICAL EXAM: VITAL SIGNS: Reviewed. GENERAL: Well-developed in no acute distress. HEENT: No sclera icterus. Extraocular movements grossly intact. Moist buccal mucosa. Head is atraumatic, normocephalic. ABDOMEN: Soft. Nondistended. Incision sites clean dry and intact. HO drain right-sided abdomen with serosanguineous fluid NEUROLOGIC: Alert and oriented. Cranial nerves II through XII grossly intact. ASSESSMENT: 1. Acute gangrenous cholecystitis status post laparoscopic cholecystectomy PLAN: -Continue regular diet -Continue pain medication as needed -Continue antibiotics -Encouraged patient to use incentive spirometer and increase activity -GI prophylaxis Protonix and DVT prophylaxis subcu heparin Physician Tetryl Screen Operator note has been reviewed by physician. Signing provider agrees with the documented findings, assessment, and plan of care. Objective - Vital Signs Vital signs: Vital Signs Temp 98.9 F 05/19/20 08:05 Pulse 85 05/19/20 08:05 Resp 16 05/19/20 08:05 BP 151/67 05/19/20 08:05 Pulse Ox 93 L 05/19/20 08:05 Intake & Output 05/18/20 05/19/20 05/19/20 18:59 06:59 18:59 Intake Total 850 0 Output Total 300 320 400 Balance 550 -320 -400 Weight 127.006 kg 127.006 kg Intake: IV 850 0 Output: Drainage 60 Right Lower Abdomen 60 Urine 300 250 400 Straight 400 Estimated Blood Loss 10 Other: Voiding Method Urinal Urinal Urinal Diaper Diaper Diaper - Labs CBC & Chem 7: 05/19/20 05:48 05/19/20 05:48 Labs: Abnormal Lab Results - Last 24 Hours (Table) 05/18/20 05/18/20 05/19/20 Range/Units 15:26 22:07 05:48 WBC 14.7 H (3.8-10.6) k/uL RBC 3.83 L (4.30-5.90) m/uL Hgb 10.5 L (13.0-17.5) gm/dL Hct 32.7 L (39.0-53.0) % RDW 15.6 H (11.5-15.5) % Neutrophils # 12.4 H (1.3-7.7) k/uL Chloride (96-109) mmol/L Est GFR (CKD-EPI)NonAf (60.0-200.0) BUN/Creatinine Ratio (12.00-20.00) Ratio Glucose (70-110) mg/dL POC Glucose (mg/dL) 121 H 159 H (75-99) mg/dL Calcium (8.7-10.3) mg/dL AST (14-35) U/L Total Protein (6.2-8.2) g/dL Albumin (3.80-4.90) g/dL Albumin/Globulin Ratio (1.60-3.17) g/dL 05/19/20 05/19/20 05/19/20 Range/Units 05:48 07:30 12:00 WBC (3.8-10.6) k/uL RBC (4.30-5.90) m/uL Hgb (13.0-17.5) gm/dL Hct (39.0-53.0) % RDW (11.5-15.5) % Neutrophils # (1.3-7.7) k/uL Chloride 110 H (96-109) mmol/L Est GFR (CKD-EPI)NonAf 54.8 L (60.0-200.0) BUN/Creatinine Ratio 11.67 L (12.00-20.00) Ratio Glucose 150 H (70-110) mg/dL POC Glucose (mg/dL) 146 H 125 H (75-99) mg/dL Calcium 7.9 L (8.7-10.3) mg/dL AST 46 H (14-35) U/L Total Protein 5.6 L (6.2-8.2) g/dL Albumin 2.70 L (3.80-4.90) g/dL Albumin/Globulin Ratio 0.93 L (1.60-3.17) g/dL Microbiology - Last 24 Hours (Table) 05/17/20 12:23 Blood Culture - Preliminary Blood No Growth after 24 hours
--- NOTE | 2020-05-19 15:58 | P.PN ---
Subjective Progress Note Date: 05/19/20 HISTORY OF PRESENT ILLNESS 84-year-old gentleman one of my office patient with history of type 2 diabetes, hypertension, hyperlipidemia, chronic kidney disease and GI bleed from div erticulitis was hospitalized last in [facility] in February 20 4 GI bleed was treated and done well since, patient is known to have history of type 2 diabetes, chronic kidney disease, and incidental finding in the past of gallstone with no symptoms. Patient presented to the emergency department at [facility] today with significant right upper quadrant pain and discomfort with significant tenderness aggravated by certain type of diet along with 5 food, symptom has been on and off last 2 weeks and worsening with certain type of diet. Patient ended up seen and evaluated to [facility] department chest x- ray at that time showed bilateral lower lobe infiltrate. Patient had CTA of the chest for elevated d-dimer result were negative for pulmonary embolism with? Of consolidation in the bases along with cardiomegaly. Furthermore abdominal and pelvis computed tomography scan was done was consistent with uncomplicated acute cholecystitis. General surgery was called decided to admit patient to the hospital for possible gallbladder surgery over the next 24-48 hours. Surprising ly white blood cell was 18,000 left shifted kidney function slightly but decline and lactic acid was mildly elevated when repeated after hydration has improved d-dimer and troponin were negative. Patient Covid 19 testing were negative. We will admit patient to the hospital treat his pain general surgery most likely will be taking him to the OR for lap cholecystectomy. 05/18: Patient is scheduled for laparoscopic cholecystectomy today. Incentive spirometry added. Patient states he normally walks with a cane and PT and OT will be added. Patient's daughter Klaudia has been contacted via phone and updated. Patient has been afebrile, heart rate 80, blood pressure 176/75, pulse ox 97% on room air. Repeat lactic acid 2.0. Sugar 160. Repeat blood work is ordered for tomorrow. NovoLog scale started. Anticipate probable discharge home tomorrow. PT and OT in place. 05/19: Patient is postop day #1 laparoscopic cholecystectomy for acute gangrenous cholecystitis. Patient's pain is currently controlled. He has a HO drain in and external urinary catheter. Patient is not passing gas since then had a bowel movement. He has been started on her regular diet this morning. REVIEW OF SYSTEMS CONSTITUTIONAL: Well-developed no acute respiratory distress. Denies fever. Denies chills. EYES: No icterus sclerae, no conjunctivitis. EARS, NOSE, MOUTH, THROAT, and FACE: No sore throat, lymphadenopathy, carotid bruits or deformity. RESPIRATORY: mild shortness of breath and dyspnea.. CARDIOVASCULAR: No CP, Palpitation, PND, Orthopnea, or angina. GASTROINTESTINAL: abdominal pain with nausea, with acute cholecystitis. GENITOURINARY: Negative for Hematuria or UTI, no kidney stones.worsening incontinence. INTEGUMENT/BREAST: Negative for any muscular injury with mild osteoarthritis..generalized arthralgia. HEMATOLOGIC/LYMPHATIC: Negative for bleed or purpura.no active GI bleed. MUSCULOSKELTAL: Negative for Myalgia or arthralgia. NEURLOGICAL: No LOC, Sz or syncope, blurred vision dizziness or abnormality.. BEHAVIORAL/PSYCH: Negative. ENDOCRINE: Negative. PHYSICAL EXAMINATION General Appearance: Alert, cooperative, no distress, appears stated age. No acute distress. Neck HEENT: Supple, no lymphadenopathy, no thyroid enlargement, no carotid bruits. Lungs: decreased breath some bilateral fine rhonchi with mild crackles in the basis. Chest Wall: Chest wall normal expansion with deep inspiration no tenderness and no deformity was found on exam, no costochondral pain or discomfort. Heart: Regular rate and rhythm, S1, S2 normal, no murmur, rub or gallop. Back: Symmetric, no curvature, ROM normal, no CVA tenderness. Abdomen: Soft HO drain with serosanguineous fluid, dressing dry and intact. Extremities: Extremities normal, atraumatic, no cyanosis or edema. Pulses: 2+ and symmetric. Skin: Skin color, texture, tugor normal, no rashes or lesions. Neurologic: Alert oriented x3 cranial nerves II through XII intact, no motor deficit, no abnormal balance or gait. ASSESSMENT AND PLAN 1 acute abdominal pain: Secondary to acute gangrenous cholecystitis status post laparoscopic cholecystectomy. Patient is on a regular diet. Continue current pain management, Zofran for nausea. Continue Zosyn. 2 acute gangrenous cholecystitis status post laparoscopic cholecystectomy. 3 bilateral pneumonia: Confirm on x-ray and CTA, patient was started on Zosyn will continue updraft treatment with DuoNeb and if needed Pulmicort continue O2 try to keep his pulse ox above 92 percentile. 4 recent history of GI bleed: Was secondary to diverticulitis much better so far. 5 chronic kidney disease stage III: Hydrate patient repeat BUN/creatinine after surgery. 6 type 2 diabetes: Continue patient on Accu-Chek with sliding scales coverage was on the glipizide metformin which can be continued for now held for the surgery and restart after surgery. 7 hypertension: Remain on amlodipine 5 mg a day along losartan 25 mg daily. 8 BPH: Remain on Flomax 0.4 mg daily. 9 GI prophylaxis: Will use tonics. 10 DVT prophylaxis: Patient will be on heparin subcutaneous. CODE STATUS: Full code. DISCHARGE PLAN Return home. Impression and plan of care have been directed as dictated by the signing physician. Cyndy Faust nurse practitioner acting as scribe for signing physician. Objective - Vital Signs Vital signs: Vital Signs Temp 98.9 F 05/19/20 08:05 Pulse 85 05/19/20 08:05 Resp 16 05/19/20 08:05 BP 151/67 05/19/20 08:05 Pulse Ox 93 L 05/19/20 08:05 Intake & Output 05/18/20 05/19/20 05/19/20 18:59 06:59 18:59 Intake Total 850 0 Output Total 300 320 Balance 550 -320 Weight 127.006 kg 127.006 kg Intake: IV 850 0 Output: Drainage 60 Right Lower Abdomen 60 Urine 300 250 Estimated Blood Loss 10 Other: Voiding Method Urinal Urinal Urinal Diaper Diaper Diaper - Labs CBC & Chem 7: 05/19/20 05:48 05/19/20 05:48 Labs: Abnormal Lab Results - Last 24 Hours (Table) 05/18/20 05/18/20 05/18/20 Range/Units 11:14 15:26 22:07 WBC (3.8-10.6) k/uL RBC (4.30-5.90) m/uL Hgb (13.0-17.5) gm/dL Hct (39.0-53.0) % RDW (11.5-15.5) % Neutrophils # (1.3-7.7) k/uL POC Glucose (mg/dL) 147 H 121 H 159 H (75-99) mg/dL 05/19/20 05/19/20 Range/Units 05:48 07:30 WBC 14.7 H (3.8-10.6) k/uL RBC 3.83 L (4.30-5.90) m/uL Hgb 10.5 L (13.0-17.5) gm/dL Hct 32.7 L (39.0-53.0) % RDW 15.6 H (11.5-15.5) % Neutrophils # 12.4 H (1.3-7.7) k/uL POC Glucose (mg/dL) 146 H (75-99) mg/dL Microbiology - Last 24 Hours (Table) 05/17/20 12:23 Blood Culture - Preliminary Blood No Growth after 24 hours
[2020-05-19 16:46] LABS: Glucose,Whole Blood 158 mg/dL (75-99)
[2020-05-19] MEDS: HYDROcodone/APAP 5-325MG 1 EACH TAB PO PRN (17:29)
[2020-05-19] MEDS: diphenhydrAMINE 25 MG CAP PO PRN (18:00)
[2020-05-19 20:25] LABS: Glucose,Whole Blood 263 mg/dL (75-99)
[2020-05-19] MEDS: HEPARIN SODIUM,PORCINE 5,000 UNIT/ML 1 ML VIAL SQ SCH (20:38)
[2020-05-20] MEDS: PIPERACILLIN-TAZOBACTAM 3.375 GM in SODIUM CHLORIDE 0.9% 100 ML IVPB SCH ×3 (00:06→16:38)
[2020-05-20] MEDS: diphenhydrAMINE 25 MG CAP PO PRN (00:07)
[2020-05-20] MEDS: SODIUM CHLORIDE 0.9% 1,000 ML IV SCH ×3 (01:29→20:52)
[2020-05-20 06:47] LABS: Glucose,Whole Blood 90 mg/dL (75-99)
[2020-05-20] MEDS: INSULIN ASPART (NovoLOG) 100 UNIT/ML VIAL SQ SCH ×4 (06:57→21:07)
[2020-05-20 06:59] LABS: Anisocytosis Slight; Basophils # (A) 0.1 k/uL (0-0.2); Basophils % (A) 1 %; Eosinophils # (A) 0.2 k/uL (0-0.7); Eosinophils % (A) 1 %; HCT 38.2 % (39.0-53.0); Hypochromasia Slight; Lymphocytes # (A) 2.6 k/uL (1.0-4.8); Lymphocytes % (A) 16 %; MCH 26.9 pg (25.0-35.0); MCHC 31.4 g/dL (31.0-37.0); MCV 85.7 fL (80.0-100.0); Mean Platelet Volume 7.2; Monocytes # (A) 1.2 k/uL (0-1.0); Monocytes % (A) 7 %; Neutrophils # (A) 12.1 k/uL (1.3-7.7); Neutrophils % (A) 73 %; Platelet Count 418 k/uL (150-450); RBC 4.46 m/uL (4.30-5.90); WBC 16.6 k/uL (3.8-10.6)
[2020-05-20] MEDS: HYDROcodone/APAP 5-325MG 1 EACH TAB PO PRN ×4 (07:40→20:50)
[2020-05-20] MEDS: amLODIPine 5 MG TAB PO SCH (07:41)
[2020-05-20] MEDS: LOSARTAN 25 MG TAB PO SCH (07:41)
[2020-05-20] MEDS: glipiZIDE 5 MG TAB PO SCH ×2 (07:41→20:51)
[2020-05-20] MEDS: metFORMIN 500 MG TAB PO SCH ×2 (07:41→20:50)
[2020-05-20] MEDS: PANTOPRAZOLE 40 MG/10 ML VIAL IVP SCH (07:42)
[2020-05-20] MEDS: TAMSULOSIN 0.4 MG CAP.ER.24H PO SCH ×2 (07:42→20:51)
[2020-05-20] MEDS: HEPARIN SODIUM,PORCINE 5,000 UNIT/ML 1 ML VIAL SQ SCH ×2 (07:42→20:51)
[2020-05-20] MEDS: AMMONIUM LACTATE 12% LOTION 225 GM BTL TOPICAL SCH ×2 (07:52→20:52)
[2020-05-20 11:28] LABS: Glucose,Whole Blood 129 mg/dL (75-99)
--- NOTE | 2020-05-20 13:12 | P.PN ---
Subjective 84-year-old gentleman one of my office patient with history of type 2 diabetes, hypertension, hyperlipidemia, chronic kidney disease and GI bleed from diverticulitis was hospitalized last in [facility] in February 20 GI bleed was treated and done well since, patient is known to have history of type 2 diabetes, chronic kidney disease, and incidental finding in the past of gallstone with no symptoms. Patient presented to the emergency department at [facility] today with significant right upper quadrant pain and discomfort with significant tenderness aggravated by certain type of diet along with 5 food, symptom has been on and off last 2 weeks and worsening with certain type of diet. Patient ended up seen and evaluated to [facility] department chest x- ray at that time showed bilateral lower lobe infiltrate. Patient had CTA of the chest for elevated d-dimer result were negative for pulmonary embolism with? Of consolidation in the bases along with cardiomegaly. Furthermore abdominal and pelvis computed tomography scan was done was consistent with uncomplicated acute cholecystitis. General surgery was called decided to admit patient to the hospital for possible gallbladder surgery over the next 24-48 hours. Surpr isingly white blood cell was 18,000 left shifted kidney function slightly but decline and lactic acid was mildly elevated when repeated after hydration has improved d-dimer and troponin were negative. Patient Covid 19 testing were negative. We will admit patient to the hospital treat his pain general surgery most likely will be taking him to the OR for lap cholecystectomy. 05/18: Patient is scheduled for laparoscopic cholecystectomy today. Incentive spirometry added. Patient states he normally walks with a cane and PT and OT will be added. Patient's daughter Klaudia has been contacted via phone and updated. Patient has been afebrile, heart rate 80, blood pressure 176/75, pulse ox 97% on room air. Repeat lactic acid 2.0. Sugar 160. Repeat blood work is ordered for tomorrow. NovoLog scale started. Anticipate probable discharge home tomorrow. PT and OT in place. 05/19: Patient is postop day #1 laparoscopic cholecystectomy for acute gangrenous cholecystitis. Patient's pain is currently controlled. He has a HO drain in and external urinary catheter. Patient is not passing gas since then had a bowel movement. He has been started on her regular diet this morning. 05/20: Postop day #2 laparoscopic cholecystectomy for acute gangrenous cholecystitis. Patient currently sitting up in bed, no complaints of pain or discomfort. No nausea or vomiting. HO drain and urinary catheter in place. HO draining serosanguineous fluid. Continues on a regular diet. WBC 16.6, hemoglobi n 12, hematocrit 38.2. Vital signs temperature 99.1, heart rate 84, restraints 19, blood pressure 164/81, 92% on 2.5 liters via nasal cannula. Objective - Vital Signs Vital signs: Vital Signs Temp 99.1 F 05/20/20 08:00 Pulse 84 05/20/20 08:00 Resp 19 05/20/20 08:00 BP 184/79 05/20/20 08:00 Pulse Ox 92 L 05/20/20 08:00 Intake & Output 05/19/20 05/20/20 05/20/20 18:59 06:59 18:59 Output Total 525 50 Balance -525 -50 Output: Drainage 50 Right Lower Abdomen 50 Urine 525 Straight 400 Other: Voiding Method Urinal Urinal Urinal Diaper Diaper Diaper # Voids 1 2 - Exam General Appearance: Alert, cooperative, no distress, appears stated age. No acute distress. Neck HEENT: Supple, no lymphadenopathy, no thyroid enlargement, no carotid bruits. Lungs: decreased breath some bilateral fine rhonchi with mild crackles in the basis. Chest Wall: Chest wall normal expansion with deep inspiration no tenderness and no deformity was found on exam, no costochondral pain or discomfort Heart: Regular rate and rhythm, S1, S2 normal, no murmur, rub or gallop. Back: Symmetric, no curvature, ROM normal, no CVA tenderness. Abdomen: Soft HO drain with serosanguineous fluid, dressing dry and intact Extremities: Extremities normal, atraumatic, no cyanosis or edema Pulses: 2+ and symmetric. Skin: Skin color, texture, tugor normal, no rashes or lesions. Neurologic: Alert oriented x3 cranial nerves II through XII intact, no motor deficit, no abnormal balance or gait - Labs CBC & Chem 7: 05/20/20 05:58 05/19/20 05:48 Labs: Abnormal Lab Results - Last 24 Hours (Table) 05/19/20 05/19/20 05/20/20 Range/Units 16:44 20:23 05:58 WBC 16.6 H (3.8-10.6) k/uL Hgb 12.0 L (13.0-17.5) gm/dL Hct 38.2 L (39.0-53.0) % RDW 16.0 H (11.5-15.5) % Neutrophils # 12.1 H (1.3-7.7) k/uL Monocytes # 1.2 H (0-1.0) k/uL POC Glucose (mg/dL) 158 H 263 H (75-99) mg/dL 05/20/20 Range/Units 11:25 WBC (3.8-10.6) k/uL Hgb (13.0-17.5) gm/dL Hct (39.0-53.0) % RDW (11.5-15.5) % Neutrophils # (1.3-7.7) k/uL Monocytes # (0-1.0) k/uL POC Glucose (mg/dL) 129 H (75-99) mg/dL Microbiology - Last 24 Hours (Table) 05/17/20 12:23 Blood Culture - Preliminary Blood No Growth after 48 hours Assessment and Plan Plan: 1 acute abdominal pain: Secondary to acute gangrenous cholecystitis status post laparoscopic cholecystectomy. Patient is on a regular diet. Continue current pain management, Zofran for nausea. Continue Zosyn. 2 acute gangrenous cholecystitis status post laparoscopic cholecystectomy. 3 bilateral pneumonia: Confirm on x-ray and CTA, patient was started on Zosyn w ill continue updraft treatment with DuoNeb and if needed Pulmicort continue O2 try to keep his pulse ox above 92 percentile. 4 recent history of GI bleed: Was secondary to diverticulitis much better so far. 5 chronic kidney disease stage III: Hydrate patient repeat BUN/creatinine after surgery. 6 type 2 diabetes: Continue patient on Accu-Chek with sliding scales coverage was on the glipizide metformin which can be continued for now held for the surgery and restart after surgery. 7 hypertension: Remain on amlodipine 5 mg a day along losartan 25 mg daily. 8 BPH: Remain on Flomax 0.4 mg daily. 9 GI prophylaxis: Pantoprazole 40 mg daily 10 DVT prophylaxis: Patient will be on heparin subcutaneous. The above impression and plan of care have been discussed and directed by signing physician. Nicole Mi nurse practitioner acting as scribe for signing physician.
--- NOTE | 2020-05-20 13:56 | P.PN ---
Subjective Progress Note Date: 05/20/20 CHIEF COMPLAINT: Abdominal pain HISTORY OF PRESENT ILLNESS: Patient is status post laparoscopic cholecystectomy for an acute gangrenous cholecystitis. He is postop day #2. Patient does report abdominal pain but it is controlled with pain medication. Denies any nausea or vomiting. Denies passing gas or bowel movement. Currently on a regular diet. Afebrile. WBC 16.6 HO drain 50 mL of serosanguineous fluid. Patient is also being treated for possible pneumonia. PHYSICAL EXAM: VITAL SIGNS: Reviewed. GENERAL: Well-developed in no acute distress. HEENT: No sclera icterus. Extraocular movements grossly intact. Moist buccal mucosa. Head is atraumatic, normocephalic. ABDOMEN: Soft. Nondistended. Incision sites clean dry and intact. HO drain right-sided abdomen with serosanguineous fluid NEUROLOGIC: Alert and oriented. Cranial nerves II through XII grossly intact. ASSESSMENT: 1. Acute gangrenous cholecystitis status post laparoscopic cholecystectomy PLAN: -Continue regular diet -Continue pain medication as needed -Continue antibiotics -Encouraged patient to use incentive spirometer and increase activity -GI prophylaxis Protonix and DVT prophylaxis subcu heparin Physician First [employer] note has been reviewed by physician. Signing provider agrees with the documented findings, assessment, and plan of care. Objective - Vital Signs Vital signs: Vital Signs Temp 99.1 F 05/20/20 08:00 Pulse 84 05/20/20 08:00 Resp 19 05/20/20 08:00 BP 184/79 05/20/20 08:00 Pulse Ox 92 L 05/20/20 08:00 Intake & Output 05/19/20 05/20/20 05/20/20 18:59 06:59 18:59 Output Total 525 50 Balance -525 -50 Output: Drainage 50 Right Lower Abdomen 50 Urine 525 Straight 400 Other: Voiding Method Urinal Urinal Urinal Diaper Diaper Diaper # Voids 1 2 - Labs CBC & Chem 7: 05/20/20 05:58 05/19/20 05:48 Labs: Abnormal Lab Results - Last 24 Hours (Table) 05/19/20 05/19/20 05/20/20 Range/Units 16:44 20:23 05:58 WBC 16.6 H (3.8-10.6) k/uL Hgb 12.0 L (13.0-17.5) gm/dL Hct 38.2 L (39.0-53.0) % RDW 16.0 H (11.5-15.5) % Neutrophils # 12.1 H (1.3-7.7) k/uL Monocytes # 1.2 H (0-1.0) k/uL POC Glucose (mg/dL) 158 H 263 H (75-99) mg/dL 05/20/20 Range/Units 11:25 WBC (3.8-10.6) k/uL Hgb (13.0-17.5) gm/dL Hct (39.0-53.0) % RDW (11.5-15.5) % Neutrophils # (1.3-7.7) k/uL Monocytes # (0-1.0) k/uL POC Glucose (mg/dL) 129 H (75-99) mg/dL Microbiology - Last 24 Hours (Table) 05/17/20 12:23 Blood Culture - Preliminary Blood No Growth after 48 hours
[2020-05-20 16:49] LABS: Glucose,Whole Blood 117 mg/dL (75-99)
[2020-05-20 21:07] LABS: Glucose,Whole Blood 81 mg/dL (75-99)
[2020-05-21] MEDS: PIPERACILLIN-TAZOBACTAM 3.375 GM in SODIUM CHLORIDE 0.9% 100 ML IVPB SCH ×4 (00:28→22:46)
[2020-05-21 00:31] LABS: Glucose,Whole Blood 89 mg/dL (75-99)
[2020-05-21] MEDS: SODIUM CHLORIDE 0.9% 1,000 ML IV SCH ×3 (06:01→16:14)
[2020-05-21 06:45] LABS: Anisocytosis Slight; Basophils # (A) 0.1 k/uL (0-0.2); Basophils % (A) 1 %; Eosinophils # (A) 0.4 k/uL (0-0.7); Eosinophils % (A) 3 %; HCT 31.7 % (39.0-53.0); Hypochromasia Slight; Lymphocytes # (A) 1.9 k/uL (1.0-4.8); Lymphocytes % (A) 16 %; MCH 27.3 pg (25.0-35.0); MCHC 32.1 g/dL (31.0-37.0); Monocytes # (A) 0.8 k/uL (0-1.0); Monocytes % (A) 7 %; Neutrophils % (A) 70 %; Platelet Count 422 k/uL (150-450); Poikilocytosis Slight; RBC 3.73 m/uL (4.30-5.90); RDW 16.5 % (11.5-15.5); WBC 11.5 k/uL (3.8-10.6)
[2020-05-21 06:55] LABS: HGB 10.2 gm/dL (13.0-17.5)
[2020-05-21 07:21] LABS: Glucose,Whole Blood 111 mg/dL (75-99)
[2020-05-21] MEDS: INSULIN ASPART (NovoLOG) 100 UNIT/ML VIAL SQ SCH ×4 (07:24→22:34)
[2020-05-21] MEDS: amLODIPine 5 MG TAB PO SCH (08:14)
[2020-05-21] MEDS: PANTOPRAZOLE 40 MG/10 ML VIAL IVP SCH (08:14)
[2020-05-21] MEDS: TAMSULOSIN 0.4 MG CAP.ER.24H PO SCH ×2 (08:14→22:46)
[2020-05-21] MEDS: HYDROcodone/APAP 5-325MG 1 EACH TAB PO PRN ×2 (08:14→22:46)
[2020-05-21] MEDS: HEPARIN SODIUM,PORCINE 5,000 UNIT/ML 1 ML VIAL SQ SCH ×2 (08:14→22:45)
[2020-05-21] MEDS: LOSARTAN 25 MG TAB PO SCH (08:14)
[2020-05-21] MEDS: AMMONIUM LACTATE 12% LOTION 225 GM BTL TOPICAL SCH ×2 (08:15→22:47)
[2020-05-21] MEDS: metFORMIN 500 MG TAB PO SCH ×2 (08:15→22:34)
[2020-05-21] MEDS: glipiZIDE 5 MG TAB PO SCH ×2 (08:15→22:34)
[2020-05-21 10:55] LABS: African American GFR (CKD) 70.6 (60.0-200.0); Albumin 2.7 g/dL (3.80-4.90); Albumin/Globulin Ratio 0.87 (1.60-3.17); Anion Gap 6.9 mmol/L (4.00-12.00); BUN/Creat Ratio 9.09 Ratio (12.00-20.00); Calcium 7.9 mg/dL (8.7-10.3); Carbon Dioxide 27.1 mmol/L (21.6-31.8); Globulin 3.1 g/dL (1.6-3.3); Non-African American GFR(CKD) 60.9 (60.0-200.0); Potassium 3.3 mmol/L (3.5-5.5); Total Bilirubin 0.2 mg/dL (0.3-1.2); Total Protein 5.8 g/dL (6.2-8.2)
[2020-05-21 11:31] LABS: Glucose,Whole Blood 145 mg/dL (75-99)
--- NOTE | 2020-05-21 13:39 | P.PN ---
Subjective Progress Note Date: 05/21/20 Principal diagnosis: Abdominal pain, gangrenous cholecystitis post lap chloe, bilateral pneumonia, recent GI bleed, chronic kidney disease, generalized fatigue and tiredness, low-grade temperature with? Off Covid 19, hypertension, BPH 84-year-old gentleman one of my office patient with history of type 2 diabetes, hypertension, hyperlipidemia, chronic kidney disease and GI bleed from diverticulitis was hospitalized last in [facility] in February 20 4 GI bleed was treated and done well since, patient is known to have history of type 2 diabetes, chronic kidney disease, and incidental finding in the past of gallstone with no symptoms. Patient presented to the emergency department at [facility] today with significant right upper quadrant pain and discomf ort with significant tenderness aggravated by certain type of diet along with 5 food, symptom has been on and off last 2 weeks and worsening with certain type of diet. Patient ended up seen and evaluated to [facility] department chest x-ray at that time showed bilateral lower lobe infiltrate. Patient had CTA of the chest for elevated d-dimer result were negative for pulmonary embolism with? Of consolidation in the bases along with cardiomegaly. Furthermore abdominal and pelvis computed tomography scan was done was consistent with uncomplicated acute cholecystitis. General surgery was called decided to admit patient to the hospital for possible gallbladder surgery over the next 24-48 hours. Surprisingly white blood cell was 18,000 left shifted kidney function slightly but decline and lactic acid was mildly elevated when repeated after hydration has improved d-dimer and troponin were negative. Patient Covid 19 testing were negative. We will admit patient to the hospital treat his pain general surgery most likely will be taking him to the OR for lap cholecystectomy. 05/18: Patient is scheduled for laparoscopic cholecystectomy today. Incentive spirometry added. Patient states he normally walks with a cane and PT and OT will be added. Patient's daughter Klaudia has been contacted via phone and updated. Patient has been afebrile, heart rate 80, blood pressure 176/75, pulse ox 97% on room air. Repeat lactic acid 2.0. Sugar 160. Repeat blood work is ordered for tomorrow. NovoLog scale started. Anticipate probable discharge home tomorrow. PT and OT in place. 05/19: Patient is postop day #1 laparoscopic cholecystectomy for acute gangrenous cholecystitis. Patient's pain is currently controlled. He has a HO drain in and external urinary catheter. Patient is not passing gas since then had a bowel movement. He has been started on her regular diet this morning. 05/20: Postop day #2 laparoscopic cholecystectomy for acute gangrenous cholecystitis. Patient currently sitting up in bed, no complaints of pain or discomfort. No nausea or vomiting. HO drain and urinary catheter in place. HO draining serosanguineous fluid. Continues on a regular diet. WBC 16.6, hem oglobin 12, hematocrit 38.2. Vital signs temperature 99.1, heart rate 84, restraints 19, blood pressure 164/81, 92% on 2.5 liters via nasal cannula. 05/21: Patient is still doing slightly better his not improving fast enough and developed to have generalized fatigue tiredness low-grade temperature in smell Covid 19 ended up being tested with a rapid came back negative. With Physical therapy and forensic social worker patient might still benefit from more rehab and if needed extra help by Saturday might suggest going to [facility]. Objective - Vital Signs Vital signs: Vital Signs Temp 98.4 F 05/21/20 07:54 Pulse 79 05/21/20 07:54 Resp 16 05/21/20 08:00 BP 173/76 05/21/20 07:54 Pulse Ox 94 L 05/21/20 00:30 Intake & Output 05/20/20 05/21/20 05/21/20 18:59 06:59 18:59 Intake Total 1560 300 200 Output Total 430 323 Balance 1130 -23 200 Intake: IV 1560 Sodium Chloride 0.9% 1, 1560 000 ml @ 130 mls/hr IV . Q7H42M [facility] Rx#:[id number] Oral 300 200 Output: Drainage 30 30 Right Lower Abdomen 30 30 Urine 400 Straight 400 Post Void Residual 293 Other: Voiding Method Urinal Diaper # Voids 2 - Exam CONSTITUTIONAL: Morbidly obese with mild respiratory distress. EYES: No icterus sclerae, no conjunctivitis. EARS, NOSE, MOUTH, THROAT, and FACE: No sore throat, lymphadenopathy, carotid bruits or deformity. RESPIRATORY: Slight shortness of breath, CARDIOVASCULAR: Positive PND orthopnea palpitations or angina GASTROINTESTINAL: Positive abdominal pain and discomfort with soreness around the surgical site. GENITOURINARY: Negative for Hematuria or UTI, no kidney stones. Still having significant problem with retention INTEGUMENT/BREAST: Negative for any muscular injury with mild osteoarthritis.. HEMATOLOGIC/LYMPHATIC: Negative for bleed or purpura. MUSCULOSKELTAL: Negative for Myalgia or arthralgia. NEURLOGICAL: No LOC, Sz or syncope, blurred vision dizziness or abnormality.. BEHAVIORAL/PSYCH: Negative. ENDOCRINE: Negative. - Exam General Appearance: Alert, cooperative, no distress, appears stated age. No acute distress. Neck HEENT: Supple, no lymphadenopathy, no thyroid enlargement, no carotid bruits. Lungs: decreased breath some bilateral fine rhonchi with mild crackles in the basis. Chest Wall: Chest wall normal expansion with deep inspiration no tenderness and no deformity was found on exam, no costochondral pain or discomfort Heart: Regular rate and rhythm, S1, S2 normal, no murmur, rub or gallop. Back: Symmetric, no curvature, ROM normal, no CVA tenderness. Abdomen: Soft HO drain with serosanguineous fluid, dressing dry and intact Extremities: Extremities normal, atraumatic, no cyanosis or edema Pulses: 2+ and symmetric. Skin: Skin color, texture, tugor normal, no rashes or lesions. Neurologic: Alert oriented x3 cranial nerves II through XII intact, no motor deficit, no abnormal balance or gait - Labs CBC & Chem 7: 05/21/20 06:05 05/21/20 06:05 Labs: Abnormal Lab Results - Last 24 Hours (Table) 05/20/20 05/21/20 05/21/20 Range/Units 16:46 06:05 06:05 WBC 11.5 H (3.8-10.6) k/uL RBC 3.73 L (4.30-5.90) m/uL Hgb 10.2 L (13.0-17.5) gm/dL Hct 31.7 L (39.0-53.0) % RDW 16.5 H (11.5-15.5) % Neutrophils # 8.0 H (1.3-7.7) k/uL Potassium 3.3 L (3.5-5.5) mmol/L BUN/Creatinine Ratio 9.09 L (12.00-20.00) Ratio Glucose 118 H (70-110) mg/dL POC Glucose (mg/dL) 117 H (75-99) mg/dL Calcium 7.9 L (8.7-10.3) mg/dL Total Bilirubin 0.2 L (0.3-1.2) mg/dL Total Protein 5.8 L (6.2-8.2) g/dL Albumin 2.70 L (3.80-4.90) g/dL Albumin/Globulin Ratio 0.87 L (1.60-3.17) g/dL 05/21/20 05/21/20 Range/Units 07:20 11:30 WBC (3.8-10.6) k/uL RBC (4.30-5.90) m/uL Hgb (13.0-17.5) gm/dL Hct (39.0-53.0) % RDW (11.5-15.5) % Neutrophils # (1.3-7.7) k/uL Potassium (3.5-5.5) mmol/L BUN/Creatinine Ratio (12.00-20.00) Ratio Glucose (70-110) mg/dL POC Glucose (mg/dL) 111 H 145 H (75-99) mg/dL Calcium (8.7-10.3) mg/dL Total Bilirubin (0.3-1.2) mg/dL Total Protein (6.2-8.2) g/dL Albumin (3.80-4.90) g/dL Albumin/Globulin Ratio (1.60-3.17) g/dL Microbiology - Last 24 Hours (Table) 05/17/20 12:23 Blood Culture - Preliminary Blood No Growth after 72 hours Assessment and Plan Assessment: 1 acute abdominal pain: Secondary to acute gangrenous cholecystitis status post laparoscopic cholecystectomy. Patient is on a regular diet. Continue current p ain management, Zofran for nausea. Continue Zosyn. 2 acute gangrenous cholecystitis status post laparoscopic cholecystectomy. 3 bilateral pneumonia: Confirm on x-ray and CTA, patient was started on Zosyn will continue updraft treatment with DuoNeb and if needed Pulmicort continue O2 try to keep his pulse ox above 92 percentile. 4 Symptom with fatigue tiredness low-grade temperature, Covid 19 rapid came back negative, symptom is just consistent with recovering from his surgery still not doing well with it will require more PTOT patient might need rehab on the short in the long run. 5 chronic kidney disease stage III: Hydrate patient repeat BUN/creatinine after surgery. 6 type 2 diabetes: Continue patient on Accu-Chek with sliding scales coverage was on the glipizide metformin which can be continued for now held for the surgery and restart after surgery. 7 hypertension: Remain on amlodipine 5 mg a day along losartan 25 mg daily. 8 BPH: Remain on Flomax 0.4 mg daily. 9 recent history of GI bleed: Was secondary to diverticulitis much better so far. 10 GI prophylaxis: Pantoprazole 40 mg daily 11 DVT prophylaxis: Patient will be on heparin subcutaneous. CODE STATUS: Full code.
--- NOTE | 2020-05-21 15:26 | P.PN ---
Subjective Progress Note Date: 05/21/20 CHIEF COMPLAINT: Acute cholecystitis HISTORY OF PRESENT ILLNESS: The patient is a 84-year-old female status post cholecystectomy for acute purulent cholecystitis. He is status post cholecystectomy 05/18/2020. He reports right upper quadrant abdominal pain from his HO. Diet is low with poor appetitie. He had soup for lunch. He has no moderate ambulation. ROS: No reports of nausea and vomiting. No bowel movements. No fevers or chills. No new chest pain. No productive sputum PHYSICAL EXAM: VITAL SIGNS: Reviewed CONSTITUTIONAL: Well developed and in no acute distress. EYES: Conjuctivae without sclera icterus. Extraocular movements grossly intact. HEAD, EARS, NOSE, THROAT: Moist buccal mucosa. Head is atraumatic, normocephalic. Hears conversational speech. No nasal drainage. NECK: Supple. RESPIRATORY: Non-labored respirations and equal bilateral excursions. CARDIOVASCULAR: Palpable 2+ radial pulses. ABDOMEN: HO serosanguineous. Tenderness at HO site. No leaking. MUSCULOSKELETAL: No gross deformity of the lower extremities noted. No clubbing. No cyanosis. SKIN: Good skin turgor. Well perfused. NEUROLOGIC: Cranial nerves II through XII grossly intact. No focal or late ralizing signs. PSYCH: Appropriate affect. Alert and oriented to person, place and time. CLINICAL LABS: Reviewed. LFTs within normal limits. WBC improved from 16,000- 11,500 ASSESSMENT: 1. Gangrenous acute cholecystitis PLAN: 1. Low-fat diet advised. 2. Continue HO drain 3. Continue IV antibiotics. Objective - Vital Signs Vital signs: Vital Signs Temp 99.0 F 05/21/20 14:00 Pulse 89 05/21/20 14:00 Resp 16 05/21/20 14:00 BP 188/76 05/21/20 14:00 Pulse Ox 95 05/21/20 14:00 Intake & Output 05/20/20 05/21/20 05/21/20 18:59 06:59 18:59 Intake Total 1560 300 200 Output Total 430 323 Balance 1130 -23 200 Intake: IV 1560 Sodium Chloride 0.9% 1, 1560 000 ml @ 130 mls/hr IV . Q7H42M [facility] Rx#:[id number] Oral 300 200 Output: Drainage 30 30 Right Lower Abdomen 30 30 Urine 400 Straight 400 Post Void Residual 293 Other: Voiding Method Urinal Diaper # Voids 2 1 # Bowel Movements 3 - Labs CBC & Chem 7: 05/21/20 06:05 05/21/20 06:05 Labs: Abnormal Lab Results - Last 24 Hours (Table) 05/20/20 05/21/20 05/21/20 Range/Units 16:46 06:05 06:05 WBC 11.5 H (3.8-10.6) k/uL RBC 3.73 L (4.30-5.90) m/uL Hgb 10.2 L (13.0-17.5) gm/dL Hct 31.7 L (39.0-53.0) % RDW 16.5 H (11.5-15.5) % Neutrophils # 8.0 H (1.3-7.7) k/uL Potassium 3.3 L (3.5-5.5) mmol/L BUN/Creatinine Ratio 9.09 L (12.00-20.00) Ratio Glucose 118 H (70-110) mg/dL POC Glucose (mg/dL) 117 H (75-99) mg/dL Calcium 7.9 L (8.7-10.3) mg/dL Total Bilirubin 0.2 L (0.3-1.2) mg/dL Total Protein 5.8 L (6.2-8.2) g/dL Albumin 2.70 L (3.80-4.90) g/dL Albumin/Globulin Ratio 0.87 L (1.60-3.17) g/dL 05/21/20 05/21/20 Range/Units 07:20 11:30 WBC (3.8-10.6) k/uL RBC (4.30-5.90) m/uL Hgb (13.0-17.5) gm/dL Hct (39.0-53.0) % RDW (11.5-15.5) % Neutrophils # (1.3-7.7) k/uL Potassium (3.5-5.5) mmol/L BUN/Creatinine Ratio (12.00-20.00) Ratio Glucose (70-110) mg/dL POC Glucose (mg/dL) 111 H 145 H (75-99) mg/dL Calcium (8.7-10.3) mg/dL Total Bilirubin (0.3-1.2) mg/dL Total Protein (6.2-8.2) g/dL Albumin (3.80-4.90) g/dL Albumin/Globulin Ratio (1.60-3.17) g/dL Microbiology - Last 24 Hours (Table) 05/17/20 12:23 Blood Culture - Preliminary Blood No Growth after 96 hours Assessment and Plan (1) Acute cholecystitis Current Visit: Yes Status: Acute Code(s): K81.0 - ACUTE CHOLECYSTITIS SNOM ED Code(s): 64743023 (2) Generalized weakness Current Visit: Yes Status: Acute Code(s): R53.1 - WEAKNESS SNOMED Code(s): 67580410 (3) Leukocytosis Current Visit: Yes Status: Acute Code(s): D72.829 - ELEVATED WHITE BLOOD CELL COUNT, UNSPECIFIED SNOMED Code(s): 910148609
[2020-05-21 17:04] LABS: Glucose,Whole Blood 178 mg/dL (75-99)
[2020-05-21 20:59] LABS: Glucose,Whole Blood 131 mg/dL (75-99)
[2020-05-22] MEDS: SODIUM CHLORIDE 0.9% 1,000 ML IV SCH ×4 (04:40→20:48)
[2020-05-22 07:06] LABS: Glucose,Whole Blood 147 mg/dL (75-99)
[2020-05-22] MEDS: INSULIN ASPART (NovoLOG) 100 UNIT/ML VIAL SQ SCH ×4 (08:29→20:40)
[2020-05-22] MEDS: metFORMIN 500 MG TAB PO SCH ×2 (08:45→20:48)
[2020-05-22] MEDS: LOSARTAN 25 MG TAB PO SCH (08:45)
[2020-05-22] MEDS: PIPERACILLIN-TAZOBACTAM 3.375 GM in SODIUM CHLORIDE 0.9% 100 ML IVPB SCH ×3 (08:45→23:29)
[2020-05-22] MEDS: PANTOPRAZOLE 40 MG/10 ML VIAL IVP SCH (08:45)
[2020-05-22] MEDS: TAMSULOSIN 0.4 MG CAP.ER.24H PO SCH ×2 (08:45→20:48)
[2020-05-22] MEDS: glipiZIDE 5 MG TAB PO SCH ×2 (08:45→20:48)
[2020-05-22] MEDS: amLODIPine 5 MG TAB PO SCH (08:45)
[2020-05-22] MEDS: HEPARIN SODIUM,PORCINE 5,000 UNIT/ML 1 ML VIAL SQ SCH ×2 (08:45→20:47)
[2020-05-22 09:03] LABS: Basophils # (A) 0.1 k/uL (0-0.2); Basophils % (A) 1 %; Eosinophils # (A) 0.3 k/uL (0-0.7); Eosinophils % (A) 2 %; HCT 33.2 % (39.0-53.0); HGB 11.1 gm/dL (13.0-17.5); Lymphocytes # (A) 1.9 k/uL (1.0-4.8); Lymphocytes % (A) 16 %; MCH 27.7 pg (25.0-35.0); MCHC 33.4 g/dL (31.0-37.0); MCV 82.9 fL (80.0-100.0); Mean Platelet Volume 7.1; Monocytes # (A) 0.7 k/uL (0-1.0); Monocytes % (A) 6 %; Neutrophils # (A) 8.4 k/uL (1.3-7.7); Neutrophils % (A) 72 %; Platelet Count 488 k/uL (150-450); RDW 15.9 % (11.5-15.5); WBC 11.7 k/uL (3.8-10.6)
[2020-05-22] MEDS: AMMONIUM LACTATE 12% LOTION 225 GM BTL TOPICAL SCH ×2 (10:59→20:48)
[2020-05-22 11:30] LABS: Glucose,Whole Blood 149 mg/dL (75-99)
--- NOTE | 2020-05-22 15:54 | P.PN ---
Subjective Progress Note Date: 05/22/20 CHIEF COMPLAINT: Acute cholecystitis HISTORY OF PRESENT ILLNESS: The patient is a 84-year-old female status post cholecystectomy for acute purulent cholecystitis. He is status post cholecystectomy 05/18/2020. No new complaints. He is tolerating mash potatoes and gravy and meatloaf. No reports of nausea or vomiting. Patient has physical therapy. He reports generalized weakness. ROS: No reports of nausea and vomiting. No bowel movements. No fevers or chills. No new chest pain. No productive sputum PHYSICAL EXAM: VITAL SIGNS: Reviewed CONSTITUTIONAL: Well developed and in no acute distress. EYES: Conjuctivae without sclera icterus. Extraocular movements grossly intact. HEAD, EARS, NOSE, THROAT: Moist buccal mucosa. Head is atraumatic, normocephalic. Hears conversational speech. No nasal drainage. NECK: Supple. RESPIRATORY: Non-labored respirations and equal bilateral excursions. CARDIOVASCULAR: Palpable 2+ radial pulses. ABDOMEN: HO serosanguineous. Incision is intract. MUSCULOSKELETAL: No gross deformity of the lower extremities noted. No clubbing. No cyanosis. SKIN: Good skin turgor. Well perfused. NEUROLOGIC: Cranial nerves II through XII grossly intact. No focal or lateralizing signs. PSYCH: Appropriate affect. Alert and oriented to person, place and time. CLINICAL LABS: Reviewed. ASSESSMENT: 1. Gangrenous acute cholecystitis PLAN: 1. Will need PT 2. Patient reports rehab will be with his daughter 3. Stable for discharge Objective - Vital Signs Vital signs: Vital Signs Temp 98.9 F 05/22/20 14:00 Pulse 86 05/22/20 14:00 Resp 20 05/22/20 14:00 BP 167/79 05/22/20 14:00 Pulse Ox 92 L 05/22/20 14:00 Intake & Output 05/21/20 05/22/20 05/22/20 18:59 06:59 18:59 Intake Total 200 Output Total 40 Balance 200 -40 Intake: Oral 200 Output: Drainage 40 Right Lower Abdomen 40 Other: Voiding Method Urinal Urinal Diaper Diaper # Voids 3 5 # Bowel Movements 3 - Labs CBC & Chem 7: 05/22/20 08:54 05/21/20 06:05 Labs: Abnormal Lab Results - Last 24 Hours (Table) 05/21/20 05/21/20 05/22/20 Range/Units 17:03 20:58 07:04 WBC (3.8-10.6) k/uL RBC (4.30-5.90) m/uL Hgb (13.0-17.5) gm/dL Hct (39.0-53.0) % RDW (11.5-15.5) % Plt Count (150-450) k/uL Neutrophils # (1.3-7.7) k/uL POC Glucose (mg/dL) 178 H 131 H 147 H (75-99) mg/dL 05/22/20 05/22/20 Range/Units 08:54 11:29 WBC 11.7 H (3.8-10.6) k/uL RBC 4.00 L (4.30-5.90) m/uL Hgb 11.1 L (13.0-17.5) gm/dL Hct 33.2 L (39.0-53.0) % RDW 15.9 H (11.5-15.5) % Plt Count 488 H (150-450) k/uL Neutrophils # 8.4 H (1.3-7.7) k/uL POC Glucose (mg/dL) 149 H (75-99) mg/dL Microbiology - Last 24 Hours (Table) 05/17/20 12:23 Blood Culture - Preliminary Blood No Growth after 120 hours Assessment and Plan (1) Acute cholecystitis Current Visit: Yes Status: Acute Code(s): K81.0 - ACUTE CHOLECYSTITIS SNOMED Code(s): 43407205 (2) Generalized weakness Current Visit: Yes Status: Acute Code(s): R53.1 - WEAKNESS SNOMED Code(s): 57355257 (3) Leukocytosis Current Visit: Yes Status: Acute Code(s): D72.829 - ELEVATED WHITE BLOOD CELL COUNT, UNSPECIFIED SNOMED Code(s): 941142281
[2020-05-22 16:58] LABS: Glucose,Whole Blood 143 mg/dL (75-99)
[2020-05-22 20:40] LABS: Glucose,Whole Blood 129 mg/dL (75-99)
[2020-05-22] MEDS: HYDROcodone/APAP 5-325MG 1 EACH TAB PO PRN (20:47)
--- NOTE | 2020-05-23 05:33 | P.PN ---
Subjective Progress Note Date: 05/22/20 Principal diagnosis: Abdominal pain, gangrenous cholecystitis post lap chloe, bilateral pneumonia, recent GI bleed, chronic kidney disease, generalized fatigue and tiredness, low-grade temperature with? Off Covid 19, hypertension, BPH 84-year-old gentleman one of my office patient with history of type 2 diabetes, hypertension, hyperlipidemia, chronic kidney disease and GI bleed from diverticulitis was hospitalized last in [facility] in February 20 4 GI bleed was treated and done well since, patient is known to have history of type 2 diabetes, chronic kidney disease, and incidental finding in the past of gallstone with no symptoms. Patient presented to the emergency department at [facility] today with significant right upper quadrant pain and discomf ort with significant tenderness aggravated by certain type of diet along with 5 food, symptom has been on and off last 2 weeks and worsening with certain type of diet. Patient ended up seen and evaluated to [facility] department chest x-ray at that time showed bilateral lower lobe infiltrate. Patient had CTA of the chest for elevated d-dimer result were negative for pulmonary embolism with? Of consolidation in the bases along with cardiomegaly. Furthermore abdominal and pelvis computed tomography scan was done was consistent with uncomplicated acute cholecystitis. General surgery was called decided to admit patient to the hospital for possible gallbladder surgery over the next 24-48 hours. Surprisingly white blood cell was 18,000 left shifted kidney function slightly but decline and lactic acid was mildly elevated when repeated after hydration has improved d-dimer and troponin were negative. Patient Covid 19 testing were negative. We will admit patient to the hospital treat his pain general surgery most likely will be taking him to the OR for lap cholecystectomy. 05/18: Patient is scheduled for laparoscopic cholecystectomy today. Incentive spirometry added. Patient states he normally walks with a cane and PT and OT will be added. Patient's daughter Klaudia has been contacted via phone and updated. Patient has been afebrile, heart rate 80, blood pressure 176/75, pulse ox 97% on room air. Repeat lactic acid 2.0. Sugar 160. Repeat blood work is ordered for tomorrow. NovoLog scale started. Anticipate probable discharge home tomorrow. PT and OT in place. 05/19: Patient is postop day #1 laparoscopic cholecystectomy for acute gangrenous cholecystitis. Patient's pain is currently controlled. He has a HO drain in and external urinary catheter. Patient is not passing gas since then had a bowel movement. He has been started on her regular diet this morning. 05/20: Postop day #2 laparoscopic cholecystectomy for acute gangrenous cholecystitis. Patient currently sitting up in bed, no complaints of pain or discomfort. No nausea or vomiting. HO drain and urinary catheter in place. HO draining serosanguineous fluid. Continues on a regular diet. WBC 16.6, hem oglobin 12, hematocrit 38.2. Vital signs temperature 99.1, heart rate 84, restraints 19, blood pressure 164/81, 92% on 2.5 liters via nasal cannula. 05/21: Patient is still doing slightly better his not improving fast enough and developed to have generalized fatigue tiredness low-grade temperature in smell Covid 19 ended up being tested with a rapid came back negative. 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 05/22: Patient is doing well is just not improved clinically not able to get out of bed and walk or move, will continue PTOT and see if patient can benefit from going to rehab even though patient is against rehab at this point but is extremely weak and tired need more help. Objective - Vital Signs Vital signs: Vital Signs Temp 98.5 F 05/22/20 02:22 Pulse 89 05/22/20 02:22 Resp 26 H 05/22/20 02:22 BP 181/83 05/22/20 02:22 Pulse Ox 92 L 05/22/20 02:22 Intake & Output 05/21/20 05/21/20 05/22/20 06:59 18:59 06:59 Intake Total 300 200 Output Total 323 40 Balance -23 200 -40 Intake: Oral 300 200 Output: Drainage 30 40 Right Lower Abdomen 30 40 Post Void Residual 293 Other: Voiding Method Urinal Diaper # Voids 2 3 5 # Bowel Movements 3 - Exam CONSTITUTIONAL: Morbidly obese with mild respiratory distress. EYES: No icterus sclerae, no conjunctivitis. EARS, NOSE, MOUTH, THROAT, and FACE: No sore throat, lymphadenopathy, carotid bruits or deformity. RESPIRATORY: Slight shortness of breath, CARDIOVASCULAR: Positive PND orthopnea palpitations or angina GASTROINTESTINAL: Positive abdominal pain and discomfort with soreness around the surgical site. GENITOURINARY: Negative for Hematuria or UTI, no kidney stones. Still having significant problem with retention INTEGUMENT/BREAST: Negative for any muscular injury with mild osteoarthritis.. HEMATOLOGIC/LYMPHATIC: Negative for bleed or purpura. MUSCULOSKELTAL: Negative for Myalgia or arthralgia. NEURLOGICAL: No LOC, Sz or syncope, blurred vision dizziness or abnormality.. BEHAVIORAL/PSYCH: Negative. ENDOCRINE: Negative. - Exam General Appearance: Alert, cooperative, no distress, appears stated age. No acute distress. Neck HEENT: Supple, no lymphadenopathy, no thyroid enlargement, no carotid bruits. Lungs: decreased breath some bilateral fine rhonchi with mild crackles in the basis. Chest Wall: Chest wall normal expansion with deep inspiration no tenderness and no deformity was found on exam, no costochondral pain or discomfort Heart: Regular rate and rhythm, S1, S2 normal, no murmur, rub or gallop. Back: Symmetric, no curvature, ROM normal, no CVA tenderness. Abdomen: Soft HO drain with serosanguineous fluid, dressing dry and intact Extremities: Extremities normal, atraumatic, no cyanosis or edema Pulses: 2+ and symmetric. Skin: Skin color, texture, tugor normal, no rashes or lesions. Neurologic: Alert oriented x3 cranial nerves II through XII intact, no motor deficit, no abnormal balance or gait - Labs CBC & Chem 7: 05/22/20 08:54 05/21/20 06:05 Labs: Abnormal Lab Results - Last 24 Hours (Table) 05/21/20 05/21/20 05/21/20 Range/Units 06:05 06:05 07:20 WBC 11.5 H (3.8-10.6) k/uL RBC 3.73 L (4.30-5.90) m/uL Hgb 10.2 L (13.0-17.5) gm/dL Hct 31.7 L (39.0-53.0) % RDW 16.5 H (11.5-15.5) % Neutrophils # 8.0 H (1.3-7.7) k/uL Potassium 3.3 L (3.5-5.5) mmol/L BUN/Creatinine Ratio 9.09 L (12.00-20.00) Ratio Glucose 118 H (70-110) mg/dL POC Glucose (mg/dL) 111 H (75-99) mg/dL Calcium 7.9 L (8.7-10.3) mg/dL Total Bilirubin 0.2 L (0.3-1.2) mg/dL Total Protein 5.8 L (6.2-8.2) g/dL Albumin 2.70 L (3.80-4.90) g/dL Albumin/Globulin Ratio 0.87 L (1.60-3.17) g/dL 05/21/20 05/21/20 05/21/20 Range/Units 11:30 17:03 20:58 WBC (3.8-10.6) k/uL RBC (4.30-5.90) m/uL Hgb (13.0-17.5) gm/dL Hct (39.0-53.0) % RDW (11.5-15.5) % Neutrophils # (1.3-7.7) k/uL Potassium (3.5-5.5) mmol/L BUN/Creatinine Ratio (12.00-20.00) Ratio Glucose (70-110) mg/dL POC Glucose (mg/dL) 145 H 178 H 131 H (75-99) mg/dL Calcium (8.7-10.3) mg/dL Total Bilirubin (0.3-1.2) mg/dL Total Protein (6.2-8.2) g/dL Albumin (3.80-4.90) g/dL Albumin/Globulin Ratio (1.60-3.17) g/dL Microbiology - Last 24 Hours (Table) 05/17/20 12:23 Blood Culture - Preliminary Blood No Growth after 96 hours Assessment and Plan Assessment: 1 acute abdominal pain: Secondary to acute gangrenous cholecystitis status post laparoscopic cholecystectomy. Patient is on a regular diet. Continue current pain management, Zofran for nausea. Continue Zosyn. 2 acute gangrenous cholecystitis status post laparoscopic cholecystectomy. Doing better still have slight discomfort still have drainage tube. 3 bilateral pneumonia: Confirm on x-ray and CTA, patient was started on Zosyn will continue updraft treatment with DuoNeb and if needed Pulmicort continue O2 try to keep his pulse ox above 92 percentile. 4 Symptom with fatigue tiredness low-grade temperature, Covid 19 rapid came back negative, symptom is just consistent with recovering from his surgery still not doing well with it will require more PTOT patient might need rehab on the short in the long run. 5 chronic kidney disease stage III: Hydrate patient repeat BUN/creatinine after surgery. 6 type 2 diabetes: Continue patient on Accu-Chek with sliding scales coverage was on the glipizide metformin which can be continued for now held for the surgery and restart after surgery. 7 hypertension: Remain on amlodipine 5 mg a day along losartan 25 mg daily. 8 BPH: Remain on Flomax 0.4 mg daily. 9 recent history of GI bleed: Was secondary to diverticulitis much better so far. 10 GI prophylaxis: Pantoprazole 40 mg daily. 11 debility: Patient physical therapy need to be titrated and see if patient will need more help or assistance that he will need rehab
[2020-05-23 07:11] LABS: Glucose,Whole Blood 105 mg/dL (75-99)
[2020-05-23] MEDS: INSULIN ASPART (NovoLOG) 100 UNIT/ML VIAL SQ SCH ×4 (07:30→21:31)
[2020-05-23] MEDS: amLODIPine 5 MG TAB PO SCH (07:48)
[2020-05-23] MEDS: HEPARIN SODIUM,PORCINE 5,000 UNIT/ML 1 ML VIAL SQ SCH ×2 (07:48→21:31)
[2020-05-23] MEDS: TAMSULOSIN 0.4 MG CAP.ER.24H PO SCH ×2 (07:48→21:31)
[2020-05-23] MEDS: metFORMIN 500 MG TAB PO SCH ×2 (07:49→21:31)
[2020-05-23] MEDS: glipiZIDE 5 MG TAB PO SCH ×2 (07:49→21:31)
[2020-05-23] MEDS: PANTOPRAZOLE 40 MG TABLET PO SCH (07:49)
[2020-05-23] MEDS: LOSARTAN 25 MG TAB PO SCH (07:49)
[2020-05-23 08:11] LABS: Anisocytosis Slight; Basophils # (A) 0.1 k/uL (0-0.2); Basophils % (A) 1 %; Eosinophils # (A) 0.3 k/uL (0-0.7); Eosinophils % (A) 3 %; HGB 11.2 gm/dL (13.0-17.5); Lymphocytes % (A) 17 %; MCH 27.6 pg (25.0-35.0); MCHC 32.9 g/dL (31.0-37.0); Mean Platelet Volume 6.8; Monocytes # (A) 0.6 k/uL (0-1.0); Monocytes % (A) 5 %; Neutrophils # (A) 8.6 k/uL (1.3-7.7); Neutrophils % (A) 72 %; Platelet Count 482 k/uL (150-450); RBC 4.05 m/uL (4.30-5.90); WBC 11.9 k/uL (3.8-10.6)
[2020-05-23] MEDS: PIPERACILLIN-TAZOBACTAM 3.375 GM in SODIUM CHLORIDE 0.9% 100 ML IVPB SCH ×2 (09:29→15:34)
[2020-05-23] MEDS: AMMONIUM LACTATE 12% LOTION 225 GM BTL TOPICAL SCH ×2 (09:36→21:33)
[2020-05-23] MEDS: SODIUM CHLORIDE 0.9% 1,000 ML IV SCH ×3 (09:37→23:03)
[2020-05-23 11:24] LABS: Glucose,Whole Blood 123 mg/dL (75-99)
--- NOTE | 2020-05-23 11:47 | P.PN ---
Subjective Progress Note Date: 05/23/20 CHIEF COMPLAINT: Abdominal pain HISTORY OF PRESENT ILLNESS: Patient is status post laparoscopic cholecystectomy for an acute gangrenous cholecystitis. Patient is tolerating a regular diet. He is having bowel movements. He is passing gas. He denies any nausea vomiting. He reports his pain is controlled. He is working with physical therapy. Patient is being evaluated for rehab placement. Afebrile. WBC 11.9 hemoglobin 11.2 PHYSICAL EXAM: VITAL SIGNS: Reviewed. GENERAL: Well-developed in no acute distress. HEENT: No sclera icterus. Extraocular movements grossly intact. Moist buccal mucosa. Head is atraumatic, normocephalic. ABDOMEN: Soft. Nondistended. Incision sites clean dry and intact. HO drain right-sided abdomen with serosanguineous fluid NEUROLOGIC: Alert and oriented. Cranial nerves II through XII grossly intact. ASSESSMENT: 1. Acute gangrenous cholecystitis status post laparoscopic cholecystectomy PLAN: -Remove HO drain today -Continue regular diet -Continue pain medication as needed -Continue antibiotics -Encouraged patient to use incentive spirometer and increase activity -GI prophylaxis Protonix and DVT prophylaxis subcu heparin Physician Concession Stand Attendant note has been reviewed by physician. Signing provider agrees with the documented findings, assessment, and plan of care. Objective - Vital Signs Vital signs: Vital Signs Temp 98.4 F 05/23/20 08:20 Pulse 63 05/23/20 08:20 Resp 18 05/23/20 08:20 BP 178/80 05/23/20 08:20 Pulse Ox 91 L 05/23/20 08:20 Intake & Output 05/22/20 05/23/20 05/23/20 18:59 06:59 18:59 Output Total 30 Balance -30 Output: Drainage 30 Right Lower Abdomen 30 Other: Voiding Method Urinal Diaper Diaper # Voids 10 # Bowel Movements 1 2 - Labs CBC & Chem 7: 05/23/20 07:52 05/21/20 06:05 Labs: Abnormal Lab Results - Last 24 Hours (Table) 05/22/20 05/22/20 05/23/20 Range/Units 16:57 20:39 07:10 WBC (3.8-10.6) k/uL RBC (4.30-5.90) m/uL Hgb (13.0-17.5) gm/dL Hct (39.0-53.0) % RDW (11.5-15.5) % Plt Count (150-450) k/uL Neutrophils # (1.3-7.7) k/uL POC Glucose (mg/dL) 143 H 129 H 105 H (75-99) mg/dL 05/23/20 05/23/20 Range/Units 07:52 11:21 WBC 11.9 H (3.8-10.6) k/uL RBC 4.05 L (4.30-5.90) m/uL Hgb 11.2 L (13.0-17.5) gm/dL Hct 34.0 L (39.0-53.0) % RDW 16.0 H (11.5-15.5) % Plt Count 482 H (150-450) k/uL Neutrophils # 8.6 H (1.3-7.7) k/uL POC Glucose (mg/dL) 123 H (75-99) mg/dL Microbiology - Last 24 Hours (Table) 05/17/20 12:23 Blood Culture - Preliminary Blood No Growth after 120 hours
--- NOTE | 2020-05-23 13:48 | P.PN ---
Subjective Abdominal pain, gangrenous cholecystitis post lap chloe, bilateral pneumonia, recent GI bleed, chronic kidney disease, generalized fatigue and tiredness, low- grade temperature with? Off Covid 19, hypertension, BPH 84-year-old gentleman one of my office patient with history of type 2 diabetes, hypertension, hyperlipidemia, chronic kidney disease and GI bleed from diverticulitis was hospitalized last in [facility] in February 20 GI bleed was treated and done well since, patient is known to have history of type 2 diabetes, chronic kidney disease, and incidental finding in the past of gallstone with no symptoms. Patient presented to the emergency department at [facility] today with significant right upper quadrant pain and discomfort with significant tenderness aggravated by certain type of diet along with 5 food, symptom has been on and off last 2 weeks and worsening with certain type of diet. Patient ended up seen and evaluated to [facility] department chest x- ray at that time showed bilateral lower lobe infiltrate. Patient had CTA of the chest for elevated d-dimer result were negative for pulmonary embolism with? Of consolidation in the bases along with cardiomegaly. Furthermore abdominal and pelvis computed tomography scan was done was consistent with uncomplicated acute cholecystitis. General surgery was called decided to admit patient to the hospital for possible gallbladder surgery over the next 24-48 hours. Surprisingly white blood cell was 18,000 left shifted kidney function slightly but decline and lactic acid was mildly elevated when repeated after hydration has improved d-dimer and troponin were negative. Patient Covid 19 testing were negative. We will admit patient to the hospital treat his pain general surgery most likely will be taking him to the OR for lap cholecystectomy. 05/18: Patient is scheduled for laparoscopic cholecystectomy today. Incentive spirometry added. Patient states he normally walks with a cane and PT and OT will be added. Patient's daughter Klaudia has been contacted via phone and updated. Patient has been afebrile, heart rate 80, blood pressure 176/75, pulse ox 97% on room air. Repeat lactic acid 2.0. Sugar 160. Repeat blood work is ordered for tomorrow. NovoLog scale started. Anticipate probable discharge home tomorrow. PT and OT in place. 05/19: Patient is postop day #1 laparoscopic cholecystectomy for acute gangrenous cholecystitis. Patient's pain is currently controlled. He has a HO drain in and external urinary catheter. Patient is not passing gas since then had a bowel movement. He has been started on her regular diet this morning. 05/20: Postop day #2 laparoscopic cholecystectomy for acute gangrenous cholecystitis. Patient currently sitting up in bed, no complaints of pain or discomfort. No nausea or vomiting. HO drain and urinary catheter in place. HO draining serosanguineous fluid. Continues on a regular diet. WBC 16.6, hemoglobin 12, hematocrit 38.2. Vital signs temperature 99.1, heart rate 84, restraints 19, blood pressure 164/81, 92% on 2.5 liters via nasal cannula. 05/21: Patient is still doing slightly better his not improving fast enough and developed to have generalized fatigue tiredness low-grade temperature in smell Covid 19 ended up being tested with a rapid came back negative. With Physical t herapy and social work nurse patient might still benefit from more rehab and if needed extra help by Saturday might suggest going to [facility]. 05/22: Patient is doing well is just not improved clinically not able to get out of bed and walk or move, will continue PTOT and see if patient can benefit from going to rehab even though patient is against rehab at this point but is extremely weak and tired need more help. 05/23: Patient evaluated this morning, he is doing well. Denies any nausea, vomiting, chest pain, he is tolerating a regular diet. Still has not gotten out of bed of bed, continues to have generalized weakness and complaints of generalized fatigue. Will continue to advance physical therapy. Spoke with daughter this morning who would like to take patient home with homecare services, will have social work discuss this with daughter today to see if arrangements can be made. Objective - Vital Signs Vital signs: Vital Signs Temp 98.4 F 05/23/20 08:20 Pulse 63 05/23/20 08:20 Resp 18 05/23/20 08:20 BP 178/80 05/23/20 08:20 Pulse Ox 91 L 05/23/20 08:20 Intake & Output 05/22/20 05/23/20 05/23/20 18:59 06:59 18:59 Output Total 30 Balance -30 Output: Drainage 30 Right Lower Abdomen 30 Other: Voiding Method Urinal Diaper Diaper # Voids 10 # Bowel Movements 1 2 - Exam General Appearance: Alert, cooperative, no distress, appears stated age. No acute distress Neck HEENT: Supple, no lymphadenopathy, no thyroid enlargement, no carotid bruits. Lungs: decreased breath some bilateral fine rhonchi with mild crackles in the basis. Chest Wall: Chest wall normal expansion with deep inspiration no tenderness and no deformity was found on exam, no costochondral pain or discomfort Heart: Regular rate and rhythm, S1, S2 normal, no murmur, rub or gallop Back: Symmetric, no curvature, ROM normal, no CVA tenderness Abdomen: Soft dressing dry and intact Extremities: Extremities normal, atraumatic, no cyanosis or edema Pulses: 2+ and symmetric. Skin: Skin color, texture, tugor normal, no rashes or lesions. Neurologic: Alert oriented x3 cranial nerves II through XII intact, no motor deficit, no abnormal balance or gait - Labs CBC & Chem 7: 05/23/20 07:52 05/21/20 06:05 Labs: Abnormal Lab Results - Last 24 Hours (Table) 05/22/20 05/22/20 05/23/20 Range/Units 16:57 20:39 07:10 WBC (3.8-10.6) k/uL RBC (4.30-5.90) m/uL Hgb (13.0-17.5) gm/dL Hct (39.0-53.0) % RDW (11.5-15.5) % Plt Count (150-450) k/uL Neutrophils # (1.3-7.7) k/uL POC Glucose (mg/dL) 143 H 129 H 105 H (75-99) mg/dL 05/23/20 05/23/20 Range/Units 07:52 11:21 WBC 11.9 H (3.8-10.6) k/uL RBC 4.05 L (4.30-5.90) m/uL Hgb 11.2 L (13.0-17.5) gm/dL Hct 34.0 L (39.0-53.0) % RDW 16.0 H (11.5-15.5) % Plt Count 482 H (150-450) k/uL Neutrophils # 8.6 H (1.3-7.7) k/uL POC Glucose (mg/dL) 123 H (75-99) mg/dL Microbiology - Last 24 Hours (Table) 05/17/20 12:23 Blood Culture - Preliminary Blood No Growth after 120 hours Assessment and Plan Plan: 1 acute abdominal pain: Secondary to acute gangrenous cholecystitis status post laparoscopic cholecystectomy. Patient is on a regular diet. Continue current pain management, Zofran for nausea. Continue Zosyn. 2 acute gangrenous cholecystitis status post laparoscopic cholecystectomy. Doing better 3 bilateral pneumonia: Confirm on x-ray and CTA, patient was started on Zosyn will continue updraft treatment with DuoNeb and if needed Pulmicort continue O2 try to keep his pulse ox above 92 percentile. 4 Symptom with fatigue tiredness low-grade temperature, Covid 19 rapid came back negative, symptom is just consistent with recovering from his surgery still not doing well with it will require more PT/OT patient might need rehab, daughter would like patient to be discharged home with homecare services. 5 chronic kidney disease stage III: Hydrate patient repeat BUN/creatinine after surgery. 6 type 2 diabetes: Continue patient on Accu-Chek with sliding scales coverage was on the glipizide metformin which can be continued for now held for the surgery and restart after surgery. 7 hypertension: Remain on amlodipine 5 mg a day along losartan 25 mg daily. 8 BPH: Remain on Flomax 0.4 mg daily. 9 recent history of GI bleed: Was secondary to diverticulitis much better so fa r. 10 GI prophylaxis: Pantoprazole 40 mg daily. 11 debility: Patient physical therapy need to be titrated and see if patient will need more help or assistance The above impression and plan of care have been discussed and directed by signing physician. Nicole Mi nurse practitioner acting as scribe for signing physician.
[2020-05-23] MEDS: HYDROcodone/APAP 5-325MG 1 EACH TAB PO PRN (14:28)
[2020-05-23 17:08] LABS: Glucose,Whole Blood 114 mg/dL (75-99)
[2020-05-23 20:34] LABS: Glucose,Whole Blood 146 mg/dL (75-99)
[2020-05-24] MEDS: PIPERACILLIN-TAZOBACTAM 3.375 GM in SODIUM CHLORIDE 0.9% 100 ML IVPB SCH ×3 (00:30→16:41)
[2020-05-24] MEDS: hydrALAZINE HCL 20 MG/ML 1 ML VIAL IVP PRN (04:08)
[2020-05-24] MEDS: SODIUM CHLORIDE 0.9% 1,000 ML IV SCH ×3 (05:50→21:38)
[2020-05-24 07:12] LABS: Glucose,Whole Blood 130 mg/dL (75-99)
[2020-05-24] MEDS: INSULIN ASPART (NovoLOG) 100 UNIT/ML VIAL SQ SCH ×4 (08:13→21:17)
[2020-05-24] MEDS: LOSARTAN 25 MG TAB PO SCH (08:20)
[2020-05-24] MEDS: glipiZIDE 5 MG TAB PO SCH ×2 (08:20→21:23)
[2020-05-24] MEDS: PANTOPRAZOLE 40 MG TABLET PO SCH (08:20)
[2020-05-24] MEDS: metFORMIN 500 MG TAB PO SCH ×2 (08:20→21:23)
[2020-05-24] MEDS: HEPARIN SODIUM,PORCINE 5,000 UNIT/ML 1 ML VIAL SQ SCH ×2 (08:20→21:24)
[2020-05-24] MEDS: amLODIPine 5 MG TAB PO SCH (08:20)
[2020-05-24] MEDS: TAMSULOSIN 0.4 MG CAP.ER.24H PO SCH ×2 (08:20→21:24)
[2020-05-24] MEDS: AMMONIUM LACTATE 12% LOTION 225 GM BTL TOPICAL SCH ×2 (08:21→21:24)
[2020-05-24 08:42] LABS: Anisocytosis Slight; Basophils # (A) 0.1 k/uL (0-0.2); Basophils % (A) 1 %; Eosinophils # (A) 0.2 k/uL (0-0.7); Eosinophils % (A) 2 %; HCT 35.5 % (39.0-53.0); HGB 11.4 gm/dL (13.0-17.5); Hypochromasia Slight; Lymphocytes # (A) 1.5 k/uL (1.0-4.8); Lymphocytes % (A) 12 %; MCH 26.8 pg (25.0-35.0); MCHC 32.1 g/dL (31.0-37.0); MCV 83.6 fL (80.0-100.0); Mean Platelet Volume 7.1; Monocytes # (A) 0.6 k/uL (0-1.0); Monocytes % (A) 5 %; Neutrophils # (A) 9.9 k/uL (1.3-7.7); Neutrophils % (A) 79 %; Platelet Count 538 k/uL (150-450); RBC 4.25 m/uL (4.30-5.90); RDW 16.3 % (11.5-15.5); WBC 12.5 k/uL (3.8-10.6)
[2020-05-24] MEDS ORDERED: LOSARTAN 25 MG TAB PO ONE (09:00)
[2020-05-24 09:05] LABS: ALT 28 U/L (4-49); AST 63 U/L (17-59); African American GFR (CKD) >90 (>60 ml/min/1.73 sqM); Albumin 2.7 g/dL (3.5-5.0); Albumin/Globulin Ratio 0.6; Alkaline Phosphatase 71 U/L (38-126); Anion Gap 5 mmol/L; Blood Urea Nitrogen 6 mg/dL (9-20); Calcium 8.1 mg/dL (8.4-10.2); Carbon Dioxide 30 mmol/L (22-30); Chloride 105 mmol/L (98-107); Globulin 4.3 g/dL; Glucose 111 mg/dL (74-99); Non-African American GFR(CKD) 78 (>60 ml/min/1.73 sqM); Potassium 3.4 mmol/L (3.5-5.1); Sodium 140 mmol/L (137-145); Total Bilirubin 0.5 mg/dL (0.2-1.3)
[2020-05-24] MEDS: hydrALAZINE HCL 50 MG TAB PO SCH ×2 (10:11→21:23)
[2020-05-24 11:17] LABS: Glucose,Whole Blood 127 mg/dL (75-99)
[2020-05-24] MEDS ORDERED: POTASSIUM CHLORIDE ER 20 MEQ TAB.ER PO STA (11:19)
--- NOTE | 2020-05-24 11:20 | P.PN ---
Subjective Progress Note Date: 05/24/20 CHIEF COMPLAINT: Abdominal pain HISTORY OF PRESENT ILLNESS: Patient is status post laparoscopic cholecystectomy for an acute gangrenous cholecystitis. Patient is tolerating a regular diet. He is having bowel movements. He is passing gas. He denies any nausea vomiting. He reports his pain is controlled. Patient is scheduled for possible discharge to rehab today. Afebrile. WBC 11.9 hemoglobin 11.4 potassium 3.4 PHYSICAL EXAM: VITAL SIGNS: Reviewed. GENERAL: Well-developed in no acute distress. HEENT: No sclera icterus. Extraocular movements grossly intact. Moist buccal mucosa. Head is atraumatic, normocephalic. ABDOMEN: Soft. Nondistended. Incision sites clean dry and intact. NEUROLOGIC: Alert and oriented. Cranial nerves II through XII grossly intact. ASSESSMENT: 1. Acute gangrenous cholecystitis status post laparoscopic cholecystectomy PLAN: -Patient is stable for discharge from surgical standpoint -Patient follow-up with Dr. Taylor in 1 week -Continue regular diet -Continue pain medication as needed -Continue antibiotics -Encouraged patient to use incentive spirometer and increase activity -GI prophylaxis Protonix and DVT prophylaxis subcu heparin Physician Frame Coverer note has been reviewed by physician. Signing provider agrees with the documented findings, assessment, and plan of care. Objective - Vital Signs Vital signs: Vital Signs Temp 98.5 F 05/24/20 08:00 Pulse 95 05/24/20 08:00 Resp 22 05/24/20 08:00 BP 185/74 05/24/20 08:00 Pulse Ox 95 05/24/20 08:00 Intake & Output 05/23/20 05/24/20 05/24/20 18:59 06:59 18:59 Intake Total 1830 240 Balance 1830 240 Intake: Intake, IV Titration 1270 Amount Piperacillin-Tazobactam 3 100 .375 gm In Sodium Chloride 0.9% 100 ml @ 25 mls/hr IVPB Q8HR SHEN Rx# :[id number] Sodium Chloride 0.9% 1, 1170 000 ml @ 130 mls/hr IV . [id number] SHEN Rx#:[id number] Oral 560 240 Other: # Voids 3 3 # Bowel Movements 3 1 - Labs CBC & Chem 7: 05/24/20 07:45 05/24/20 07:45 Labs: Abnormal Lab Results - Last 24 Hours (Table) 05/23/20 05/23/20 05/23/20 Range/Units 11:21 16:51 20:32 WBC (3.8-10.6) k/uL RBC (4.30-5.90) m/uL Hgb (13.0-17.5) gm/dL Hct (39.0-53.0) % RDW (11.5-15.5) % Plt Count (150-450) k/uL Neutrophils # (1.3-7.7) k/uL Potassium (3.5-5.1) mmol/L BUN (9-20) mg/dL Glucose (74-99) mg/dL POC Glucose (mg/dL) 123 H 114 H 146 H (75-99) mg/dL Calcium (8.4-10.2) mg/dL AST (17-59) U/L Albumin (3.5-5.0) g/dL 05/24/20 05/24/20 05/24/20 Range/Units 07:07 07:45 07:45 WBC 12.5 H (3.8-10.6) k/uL RBC 4.25 L (4.30-5.90) m/uL Hgb 11.4 L (13.0-17.5) gm/dL Hct 35.5 L (39.0-53.0) % RDW 16.3 H (11.5-15.5) % Plt Count 538 H (150-450) k/uL Neutrophils # 9.9 H (1.3-7.7) k/uL Potassium 3.4 L (3.5-5.1) mmol/L BUN 6 L (9-20) mg/dL Glucose 111 H (74-99) mg/dL POC Glucose (mg/dL) 130 H (75-99) mg/dL Calcium 8.1 L (8.4-10.2) mg/dL AST 63 H (17-59) U/L Albumin 2.7 L (3.5-5.0) g/dL 05/24/20 Range/Units 11:08 WBC (3.8-10.6) k/uL RBC (4.30-5.90) m/uL Hgb (13.0-17.5) gm/dL Hct (39.0-53.0) % RDW (11.5-15.5) % Plt Count (150-450) k/uL Neutrophils # (1.3-7.7) k/uL Potassium (3.5-5.1) mmol/L BUN (9-20) mg/dL Glucose (74-99) mg/dL POC Glucose (mg/dL) 127 H (75-99) mg/dL Calcium (8.4-10.2) mg/dL AST (17-59) U/L Albumin (3.5-5.0) g/dL Microbiology - Last 24 Hours (Table) 05/17/20 12:23 Blood Culture - Final Blood No Growth after 144 hours
--- NOTE | 2020-05-24 13:45 | P.PN ---
Subjective Abdominal pain, gangrenous cholecystitis post lap chloe, bilateral pneumonia, recent GI bleed, chronic kidney disease, generalized fatigue and tiredness, low- grade temperature with? Off Covid 19, hypertension, BPH 84-year-old gentleman one of my office patient with history of type 2 diabetes, hypertension, hyperlipidemia, chronic kidney disease and GI bleed from diverticulitis was hospitalized last in [facility] in February 20 GI bleed was treated and done well since, patient is known to have history of type 2 diabetes, chronic kidney disease, and incidental finding in the past of gallstone with no symptoms. Patient presented to the emergency department at [facility] today with significant right upper quadrant pain and discomfort with significant tenderness aggravated by certain type of diet along with 5 food, symptom has been on and off last 2 weeks and worsening with certain type of diet. Patient ended up seen and evaluated to [facility] department chest x- ray at that time showed bilateral lower lobe infiltrate. Patient had CTA of the chest for elevated d-dimer result were negative for pulmonary embolism with? Of consolidation in the bases along with cardiomegaly. Furthermore abdominal and pelvis computed tomography scan was done was consistent with uncomplicated acute cholecystitis. General surgery was called decided to admit patient to the hospital for possible gallbladder surgery over the next 24-48 hours. Surprisingly white blood cell was 18,000 left shifted kidney function slightly but decline and lactic acid was mildly elevated when repeated after hydration has improved d-dimer and troponin were negative. Patient Covid 19 testing were negative. We will admit patient to the hospital treat his pain general surgery most likely will be taking him to the OR for lap cholecystectomy. 05/18: Patient is scheduled for laparoscopic cholecystectomy today. Incentive spirometry added. Patient states he normally walks with a cane and PT and OT will be added. Patient's daughter Klaudia has been contacted via phone and updated. Patient has been afebrile, heart rate 80, blood pressure 176/75, pulse ox 97% on room air. Repeat lactic acid 2.0. Sugar 160. Repeat blood work is ordered for tomorrow. NovoLog scale started. Anticipate probable discharge home tomorrow. PT and OT in place. 05/19: Patient is postop day #1 laparoscopic cholecystectomy for acute gangrenous cholecystitis. Patient's pain is currently controlled. He has a HO drain in and external urinary catheter. Patient is not passing gas since then had a bowel movement. He has been started on her regular diet this morning. 05/20: Postop day #2 laparoscopic cholecystectomy for acute gangrenous cholecystitis. Patient currently sitting up in bed, no complaints of pain or discomfort. No nausea or vomiting. HO drain and urinary catheter in place. HO draining serosanguineous fluid. Continues on a regular diet. WBC 16.6, hemoglobin 12, hematocrit 38.2. Vital signs temperature 99.1, heart rate 84, restraints 19, blood pressure 164/81, 92% on 2.5 liters via nasal cannula. 05/21: Patient is still doing slightly better his not improving fast enough and developed to have generalized fatigue tiredness low-grade temperature in smell Covid 19 ended up being tested with a rapid came back negative. With Physical t herapy and social media marketing analyst patient might still benefit from more rehab and if needed extra help by Saturday might suggest going to senior care rehab. 05/22: Patient is doing well is just not improved clinically not able to get out of bed and walk or move, will continue PTOT and see if patient can benefit from going to rehab even though patient is against rehab at this point but is extremely weak and tired need more help. 05/23: Patient evaluated this morning, he is doing well. Denies any nausea, vomiting, chest pain, he is tolerating a regular diet. Still has not gotten out of bed of bed, continues to have generalized weakness and complaints of generalized fatigue. Will continue to advance physical therapy. Spoke with daughter this morning who would like to take patient home with homecare services, will have social work discuss this with daughter today to see if arrangements can be made. 05/24: Patient evaluated this morning, resting in bed comfortably, in no acute stress. Patient continues to tolerate regular diet, no nausea, vomiting, or abdominal pain. He has been cleared by surgery for discharge. Patient continues to have generalized weakness and fatigue. Patient will need a subacute rehab, currently trying to find placement. Once placement is established, patient can be discharged. Objective - Vital Signs Vital signs: Vital Signs Temp 98.5 F 05/24/20 08:00 Pulse 95 05/24/20 08:00 Resp 22 05/24/20 08:00 BP 185/74 05/24/20 08:00 Pulse Ox 95 05/24/20 08:00 Intake & Output 05/23/20 05/24/20 05/24/20 18:59 06:59 18:59 Intake Total 1830 480 Balance 1830 480 Intake: Intake, IV Titration 1270 Amount Piperacillin-Tazobactam 3 100 .375 gm In Sodium Chloride 0.9% 100 ml @ 25 mls/hr IVPB Q8HR SHEN Rx# :[id number] Sodium Chloride 0.9% 1, 1170 000 ml @ 130 mls/hr IV . [id number] SHEN Rx#:[id number] Oral 560 480 Other: # Voids 3 3 # Bowel Movements 3 1 - Exam General Appearance: Alert, cooperative, no distress, appears stated age. No acute distress Neck HEENT: Supple, no lymphadenopathy, no thyroid enlargement, no carotid bru its. Lungs: decreased breath some bilateral fine rhonchi Chest Wall: Chest wall normal expansion with deep inspiration no tenderness and no deformity was found on exam, no costochondral pain or discomfort Heart: Regular rate and rhythm, S1, S2 normal, no murmur, rub or gallop Back: Symmetric, no curvature, ROM normal, no CVA tenderness Abdomen: Soft dressing dry and intact Extremities: Extremities normal, atraumatic, no cyanosis or edema Pulses: 2+ and symmetric. Skin: Skin color, texture, tugor normal, no rashes or lesions. Neurologic: Alert oriented x3 cranial nerves II through XII intact, no motor deficit, no abnormal balance or gait - Labs CBC & Chem 7: 05/24/20 07:45 05/24/20 07:45 Labs: Abnormal Lab Results - Last 24 Hours (Table) 05/23/20 05/23/20 05/24/20 Range/Units 16:51 20:32 07:07 WBC (3.8-10.6) k/uL RBC (4.30-5.90) m/uL Hgb (13.0-17.5) gm/dL Hct (39.0-53.0) % RDW (11.5-15.5) % Plt Count (150-450) k/uL Neutrophils # (1.3-7.7) k/uL Potassium (3.5-5.1) mmol/L BUN (9-20) mg/dL Glucose (74-99) mg/dL POC Glucose (mg/dL) 114 H 146 H 130 H (75-99) mg/dL Calcium (8.4-10.2) mg/dL AST (17-59) U/L Albumin (3.5-5.0) g/dL 05/24/20 05/24/20 05/24/20 Range/Units 07:45 07:45 11:08 WBC 12.5 H (3.8-10.6) k/uL RBC 4.25 L (4.30-5.90) m/uL Hgb 11.4 L (13.0-17.5) gm/dL Hct 35.5 L (39.0-53.0) % RDW 16.3 H (11.5-15.5) % Plt Count 538 H (150-450) k/uL Neutrophils # 9.9 H (1.3-7.7) k/uL Potassium 3.4 L (3.5-5.1) mmol/L BUN 6 L (9-20) mg/dL Glucose 111 H (74-99) mg/dL POC Glucose (mg/dL) 127 H (75-99) mg/dL Calcium 8.1 L (8.4-10.2) mg/dL AST 63 H (17-59) U/L Albumin 2.7 L (3.5-5.0) g/dL Microbiology - Last 24 Hours (Table) 05/17/20 12:23 Blood Culture - Final Blood No Growth after 144 hours Assessment and Plan Plan: 1 acute abdominal pain: Secondary to acute gangrenous cholecystitis status post laparoscopic cholecystectomy. Patient is on a regular diet. Continue current pain management, Zofran for nausea. 2 acute gangrenous cholecystitis status post laparoscopic cholecystectomy. Doing better 3 bilateral pneumonia: Confirm on x-ray and CTA, patient was started on Zosyn will continue updraft treatment with DuoNeb and if needed Pulmicort continue O2 try to keep his pulse ox above 92 percentile. 4 Symptom with fatigue tiredness low-grade temperature, Covid 19 rapid came back negative, symptom is just consistent with recovering from his surgery still not doing well with it will require more PT/OT patient will need sub acute rehab 5 chronic kidney disease stage III: Hydrate patient repeat BUN/creatinine after surgery. 6 type 2 diabetes: Continue patient on Accu-Chek with sliding scales coverage was on the glipizide metformin which can be continued for now held for the surgery and restart after surgery. 7 hypertension: Remain on amlodipine 5 mg a day along losartan 25 mg daily. 8 BPH: Remain on Flomax 0.4 mg daily. 9 recent history of GI bleed: Was secondary to diverticulitis much better so far. 10 GI prophylaxis: Pantoprazole 40 mg daily. 11 debility: Patient physical therapy need to be titrated and see if patient will need more help or assistance The above impression and plan of care have been discussed and directed by signing physician. Nicole Mi nurse practitioner acting as scribe for signing physician.
[2020-05-24 16:51] LABS: Glucose,Whole Blood 131 mg/dL (75-99)
[2020-05-24 21:11] LABS: Glucose,Whole Blood 100 mg/dL (75-99)
[2020-05-25] MEDS: PIPERACILLIN-TAZOBACTAM 3.375 GM in SODIUM CHLORIDE 0.9% 100 ML IVPB SCH ×2 (00:47→08:50)
[2020-05-25] MEDS: SODIUM CHLORIDE 0.9% 1,000 ML IV SCH (04:51)
[2020-05-25] MEDS: HYDROcodone/APAP 5-325MG 1 EACH TAB PO PRN (04:56)
[2020-05-25 07:11] LABS: Glucose,Whole Blood 92 mg/dL (75-99)
[2020-05-25] MEDS: INSULIN ASPART (NovoLOG) 100 UNIT/ML VIAL SQ SCH (07:30)
[2020-05-25 07:53] VITALS: BP 186/75; PULSE 73; RESP 20; TEMP 98.3
[2020-05-25] MEDS: amLODIPine 5 MG TAB PO SCH (08:49)
[2020-05-25] MEDS: HEPARIN SODIUM,PORCINE 5,000 UNIT/ML 1 ML VIAL SQ SCH (08:49)
[2020-05-25] MEDS: TAMSULOSIN 0.4 MG CAP.ER.24H PO SCH (08:49)
[2020-05-25] MEDS: glipiZIDE 5 MG TAB PO SCH (08:49)
[2020-05-25] MEDS: PANTOPRAZOLE 40 MG TABLET PO SCH (08:49)
[2020-05-25] MEDS: hydrALAZINE HCL 50 MG TAB PO SCH (08:49)
[2020-05-25] MEDS: metFORMIN 500 MG TAB PO SCH (08:49)
[2020-05-25] MEDS: AMMONIUM LACTATE 12% LOTION 225 GM BTL TOPICAL SCH (08:50)
[2020-05-25] MEDS ORDERED: LOSARTAN 50 MG TAB PO SCH (09:00)
--- NOTE | 2020-05-25 10:44 | P.DS ---
Providers Date of admission: 05/17/20 12:50 Expected date of discharge: 05/25/20 Attending physician: Jevon Singer Consults: 05/17/20 14:35 Consult Physician Routine Consulting Provider: Jevon Singer Consult Reason/Comments: medical management Do you want consulting provider notified?: Yes 05/18/20 07:53 Consult Physician Routine Consulting Provider: Roland Taylor Consult Reason/Comments: GB Do you want consulting provider notified?: Already Contacted Primary care physician: Jevon Singer [facility] Course: Abdominal pain, gangrenous cholecystitis post lap chloe, bilateral pneumonia, recent GI bleed, chronic kidney disease, generalized fatigue and tiredness, low- grade temperature with? Off Covid 19, hypertension, BPH 84-year-old gentleman one of my office patient with history of type 2 diabetes, hypertension, hyperlipidemia, chronic kidney disease and GI bleed from diverticulitis was hospitalized last in [facility] in February 20 4 GI bleed was treated and done well since, patient is known to have history of type 2 diabetes, chronic kidney disease, and incidental finding in the past of gallstone with no symptoms. Patient presented to the emergency department at [facility] today with significant right upper quadrant pain and discomfort with significant tenderness aggravated by certain type of diet along with 5 food, symptom has been on and off last 2 weeks and worsening with certain type of diet. Patient ended up seen and evaluated to [facility] department chest x- ray at that time showed bilateral lower lobe infiltrate. Patient had CTA of the chest for elevated d-dimer result were negative for pulmonary embolism with? Of consolidation in the bases along with cardiomegaly. Furthermore abdominal and pelvis computed tomography scan was done was consistent with uncomplicated acute cholecystitis. General surgery was called decided to admit patient to the hospital for possible gallbladder surgery over the next 24-48 hours. Surpris ingly white blood cell was 18,000 left shifted kidney function slightly but decline and lactic acid was mildly elevated when repeated after hydration has improved d-dimer and troponin were negative. Patient Covid 19 testing were negative. We will admit patient to the hospital treat his pain general surgery most likely will be taking him to the OR for lap cholecystectomy. 05/18: Patient is scheduled for laparoscopic cholecystectomy today. Incentive spirometry added. Patient states he normally walks with a cane and PT and OT will be added. Patient's daughter Klaudia has been contacted via phone and updated. Patient has been afebrile, heart rate 80, blood pressure 176/75, pulse ox 97% on room air. Repeat lactic acid 2.0. Sugar 160. Repeat blood work is ordered for tomorrow. NovoLog scale started. Anticipate probable discharge home tomorrow. PT and OT in place. 05/19: Patient is postop day #1 laparoscopic cholecystectomy for acute gangrenous cholecystitis. Patient's pain is currently controlled. He has a HO drain in and external urinary catheter. Patient is not passing gas since then had a bowel movement. He has been started on her regular diet this morning. 05/20: Postop day #2 laparoscopic cholecystectomy for acute gangrenous cholecystitis. Patient currently sitting up in bed, no complaints of pain or discomfort. No nausea or vomiting. HO drain and urinary catheter in place. HO draining serosanguineous fluid. Continues on a regular diet. WBC 16.6, hemoglobin 12, hematocrit 38.2. Vital signs temperature 99.1, heart rate 84, restraints 19, blood pressure 164/81, 92% on 2.5 liters via nasal cannula. 05/21: Patient is still doing slightly better his not improving fast enough and developed to have generalized fatigue tiredness low-grade temperature in smell Covid 19 ended up being tested with a rapid came back negative. With Physical therapy and case management social worker patient might still benefit from more rehab and if needed extra help by Saturday might suggest going to [facility]. 05/22: Patient is doing well is just not improved clinically not able to get out of bed and walk or move, will continue PTOT and see if patient can benefit from going to rehab even though patient is against rehab at this point but is extremely weak and tired need more help. 05/23: Patient evaluated this morning, he is doing well. Denies any nausea, vomiting, chest pain, he is tolerating a regular diet. Still has not gotten out of bed of bed, continues to have generalized weakness and complaints of generalized fatigue. Will continue to advance physical therapy. Spoke with daughter this morning who would like to take patient home with homecare services, will have social work discuss this with daughter today to see if arrangements can be made. 05/24: Patient evaluated this morning, resting in bed comfortably, in no acute stress. Patient continues to tolerate regular diet, no nausea, vomiting, or abdominal pain. He has been cleared by surgery for discharge. Patient continues to have generalized weakness and fatigue. Patient will need a subacute rehab, currently trying to find placement. Once placement is established, patient can be discharged. 05/25: Patient evaluated today, doing well, continues with fatigue and weakness. Patient is stable for discharge to subacute rehab. Blood pressures have been elevated, Losartan was increased to 100mg daily, Hydralazine 50 mg twice a day was added, will continue Norvasc 5 mg daily. Discharge Diagnoses 1 acute abdominal pain 2 acute gangrenous cholecystitis status post laparoscopic cholecystectomy. 3 bilateral pneumonia 4 Symptom with fatigue tiredness low-grade temperature, Covid 19 rapid came back negative 5 chronic kidney disease stage III 6 type 2 diabetes 7 hypertension 8 BPH 9 recent history of GI bleed 10 debility The above impression and plan of care have been discussed and directed by signing physician. Nicole Mi nurse practitioner acting as scribe for signing physician. Patient Condition at Discharge: Stable Plan - Discharge Summary Discharge Rx Participant: No New Discharge Prescriptions: New Hydrocodone/Acetaminophen [[place] 5-325] 1 tab PO Q6HR PRN 3 Days #12 tab PRN Reason: Pain Amoxic-Pot Clav 875-125Mg [Augmentin 875-125] 1 tab PO Q12HR 7 Days #14 tab hydrALAZINE HCL [Apresoline] 50 mg PO BID tab Losartan [Cozaar] 100 mg PO DAILY tab Ammonium Lactate Lotion [Lac-Hydrin 12% Lotion] 1 applic TOPICAL BID applic INSULIN ASPART (NovoLOG) [NovoLOG (formulary)] 0 unit SQ ACHS vial Pantoprazole [Protonix] 40 mg PO AC-BRKFST tablet. Acetaminophen Tab [Tylenol] 650 mg PO Q6HR PRN tab PRN Reason: Fever And/ Or Pain Continue Tamsulosin HCl [Flomax] 0.4 mg PO DAILY amLODIPine [Norvasc] 5 mg PO DAILY Aspirin EC [Ecotrin Low Dose] 81 mg PO DAILY glipiZIDE/METFORMIN HCL [glipiZIDE/METFORMIN HCL 5-500 mg] 1 tab PO BID Discontinued Losartan Potassium [Cozaar] 25 mg PO DAILY Discharge Medication List Tamsulosin HCl [Flomax] 0.4 mg PO DAILY 02/08/20 [History] amLODIPine [Norvasc] 5 mg PO DAILY 02/08/20 [History] Aspirin EC [Ecotrin Low Dose] 81 mg PO DAILY 05/17/20 [History] glipiZIDE/METFORMIN HCL [glipiZIDE/METFORMIN HCL 5-500 mg] 1 tab PO BID 05/17/20 [History] Acetaminophen Tab [Tylenol] 650 mg PO Q6HR PRN tab 05/24/20 [Rx] Ammonium Lactate Lotion [Lac-Hydrin 12% Lotion] 1 applic TOPICAL BID applic 05/24/20 [Rx] Amoxic-Pot Clav 875-125Mg [Augmentin 875-125] 1 tab PO Q12HR 7 Days #14 tab 05/24/20 [Rx] Hydrocodone/Acetaminophen [[place] 5-325] 1 tab PO Q6HR PRN 3 Days #12 tab 05/24/20 [Rx] INSULIN ASPART (NovoLOG) [NovoLOG (formulary)] 0 unit SQ ACHS vial 05/24/20 [Rx] Losartan [Cozaar] 100 mg PO DAILY tab 05/24/20 [Rx] Pantoprazole [Protonix] 40 mg PO AC-BRKFST tablet. 05/24/20 [Rx] hydrALAZINE HCL [Apresoline] 50 mg PO BID tab 05/24/20 [Rx] Follow up Appointment(s)/Referral(s): [facility] [NON-STAFF] - (Contact [facility] if you have questions regarding your new walker. ) Jevon Singer MD [Primary Care Provider] - 1-2 days Roland Taylor MD [STAFF PHYSICIAN] - 1 Week Activity/Diet/Wound Care/Special Instructions: No driving while taking [place] No lifting over 10 pounds You may shower. No soaking or tub baths for 2 weeks Very light activity until you are reevaluated at your follow up appointment with your surgeon Discharge Disposition: TRANSFER TO SNF/ECF
--- NOTE | 2020-05-25 11:24 | P.PN ---
Subjective Progress Note Date: 05/25/20 CHIEF COMPLAINT: Abdominal pain HISTORY OF PRESENT ILLNESS: Patient is status post laparoscopic cholecystectomy for an acute gangrenous cholecystitis. Patient is tolerating a regular diet. He is having bowel movements. He is passing gas. He denies any nausea vomiting. He reports his pain is controlled. Patient is scheduled for possible discharge to rehab today. Afebrile. No new labs for today PHYSICAL EXAM: VITAL SIGNS: Reviewed. GENERAL: Well-developed in no acute distress. HEENT: No sclera icterus. Extraocular movements grossly intact. Moist buccal mucosa. Head is atraumatic, normocephalic. ABDOMEN: Soft. Nondistended. Incision sites clean dry and intact. NEUROLOGIC: Alert and oriented. Cranial nerves II through XII grossly intact. ASSESSMENT: 1. Acute gangrenous cholecystitis status post laparoscopic cholecystectomy PLAN: -Patient is stable for discharge from surgical standpoint -Patient follow-up with Dr. Taylor in 1 week -Continue regular diet -Continue pain medication as needed -Continue antibiotics -Encouraged patient to use incentive spirometer and increase activity -GI prophylaxis Protonix and DVT prophylaxis subcu heparin Physician Food Production Worker note has been reviewed by physician. Signing provider agrees with the documented findings, assessment, and plan of care. Objective - Vital Signs Vital signs: Vital Signs Temp 98.3 F 05/25/20 07:52 Pulse 73 05/25/20 07:52 Resp 20 05/25/20 07:52 BP 186/75 05/25/20 07:52 Pulse Ox 98 05/25/20 07:52 Intake & Output 05/24/20 05/25/20 05/25/20 18:59 06:59 18:59 Intake Total 480 Output Total 1 Balance 480 -1 Intake: Oral 480 Output: Post Void Residual 1 Other: Voiding Method Diaper # Voids 3 3 # Bowel Movements 2 - Labs CBC & Chem 7: 05/24/20 07:45 05/24/20 07:45 Labs: Abnormal Lab Results - Last 24 Hours (Table) 05/24/20 05/24/20 Range/Units 16:49 21:09 POC Glucose (mg/dL) 131 H 100 H (75-99) mg/dL
[2020-05-25 11:48] LABS: Glucose,Whole Blood 113 mg/dL (75-99)
== END 2020-05-25 14:20 | DRG 417 ==
LOC: EC 10:51 → 4SSUR 12:50
PROVIDERS: ADMIT Internal Medicine Geriatric Medicine; ATTEND Internal Medicine Geriatric Medicine
PROC: 0FT44ZZ Resection of Gallbladder, Percutaneous Endoscopic Approach (ICD-10-PCS; principal; 2020-05-18 09:20)
DX: K81.0 Acute cholecystitis (principal); J18.9 Pneumonia, unspecified organism; N40.0 Benign prostatic hyperplasia without lower urinary tract symptoms; N18.30 Chronic kidney disease, stage 3 unspecified; I12.9 Hypertensive chronic kidney disease with stage 1 through stage 4 chronic kidney disease, or unspecified chronic kidney disease; E11.22 Type 2 diabetes mellitus with diabetic chronic kidney disease; Z20.828 Contact with and (suspected) exposure to other viral communicable diseases; R53.81 Other malaise; I51.7 Cardiomegaly; K82.A1 Gangrene of gallbladder in cholecystitis; E78.5 Hyperlipidemia, unspecified; Z79.82 Long term (current) use of aspirin; Z79.899 Other long term (current) drug therapy; Z98.890 Other specified postprocedural states; Z83.79 Family history of other diseases of the digestive system; Z80.0 Family history of malignant neoplasm of digestive organs
CPT/HCPCS: 36415; 71046; 71275; 74177; 80053; 81001; 83605; 83735; 83880; 84484; 85025; 85379; 85610; 85730; 87040; 87324; 87635; 88304; 90471; 90732; 93005; 94760; 96361; 96365; 96366; 96367; 99285

== ENCOUNTER 2020-06-05 19:07 | Inpatient (IN) | payer MEDICARE ==
--- NOTE | 2020-06-05 20:00 | ED ---
General Adult HPI - General Chief complaint: Altered Mental Status Stated complaint: altered mental status Time Seen by Provider: 06/05/20 19:23 Source: patient, EMS Mode of arrival: EMS Limitations: altered mental status - History of Present Illness Initial comments: Is an 84-year-old male with a recent history of cholecystectomy who presents emergency department for generalized weakness. The patient was admitted to the hospital at the end of May. He has gallbladder removed and then was sent to [facility] for rehab. He was discharged from there on the . Since that time he has slowly worsened to the point now or he states he is having trouble getting up and walking and caring for himself. He lives with his daughter who states that he has been slowly declining and is unable to care for himself and feels that there might be something more wrong with him. States he has been battling pneumonia for the last 2 weeks. The patient denies any fevers or chills. No cough or shortness of breath. Does admit to some abdominal pain in the right side around his and she has incisions sites. Eyes any vomiting or diarrhea. No dysuria or hematuria. States he's been eating and drinking normally however just feels like he is been progressively gotten more weak. No other complaints. - Related Data Home Medications Medication Instructions Recorded Confirmed Tamsulosin HCl [Flomax] 0.4 mg PO DAILY 02/08/20 05/17/20 amLODIPine [Norvasc] 5 mg PO DAILY 02/08/20 05/17/20 Aspirin EC [Ecotrin Low Dose] 81 mg PO DAILY 05/17/20 05/17/20 glipiZIDE/METFORMIN HCL 1 tab PO BID 05/17/20 05/17/20 [glipiZIDE/METFORMIN HCL 5-500 mg] Previous Rx's Medication Instructions Recorded Acetaminophen Tab [Tylenol] 650 mg PO Q6HR PRN tab 05/24/20 Ammonium Lactate Lotion 1 applic TOPICAL BID applic 05/24/20 [Lac-Hydrin 12% Lotion] Amoxic-Pot Clav 875-125Mg 1 tab PO Q12HR 7 Days #14 tab 05/24/20 [Augmentin 875-125] Hydrocodone/Acetaminophen [Roff 1 tab PO Q6HR PRN 3 Days #12 tab 05/24/20 5-325] INSULIN ASPART (NovoLOG) [NovoLOG 0 unit SQ ACHS vial 05/24/20 (formulary)] Losartan [Cozaar] 100 mg PO DAILY tab 05/24/20 Pantoprazole [Protonix] 40 mg PO AC-BRKFST tablet. 05/24/20 hydrALAZINE HCL [Apresoline] 50 mg PO BID tab 05/24/20 Allergies Allergy/AdvReac Type Severity Reaction Status Date / Time No Known Allergies Allergy Verified 06/05/20 19:18 Review of Systems ROS Statement: Those systems with pertinent positive or pertinent negative responses have been documented in the HPI. ROS Other: All systems not noted in ROS Statement are negative. Past Medical History Past Medical History: Diabetes Mellitus, Eye Disorder, GI Bleed, Hypertension, Pneumonia Additional Past Medical History / Comment(s): NIDDM type II, bilateral foot pain, diverticular disease, ischemic colitis, lower GI bleed, glaucoma/no peripheral vision bilaterally, past pneumonia with lengthy hospitalization, bilateral lower leg edema. History of Any Multi-Drug Resistant Organisms: None Reported Past Surgical History: Orthopedic Surgery Additional Past Surgical History / Comment(s): bilateral Rotator cuff, EGD, colonoscopy, bilateral blepharoplasty, R little finger fx with surgery. Past Anesthesia/Blood Transfusion Reactions: No Reported Reaction Past Psychological History: No Psychological Hx Reported Smoking Status: Never smoker - Past Family History Father History Unknown: Yes Family Medical History: Liver Disease (EtOH) Additional Family Medical History / Comment(s): ETOH abuse Mother Family Medical History: Cancer Additional Family Medical History / Comment(s): Pancreatic cancer. General Exam - General Exam Comments Initial Comments: Constitutional: Awake alert Appears comfortable Head: Normocephalic atraumatic Eyes: no conjunctival injection No scleral icterus EOMI Neck: No JVD Supple Heart: Regular rate rhythm normal S1-S2 no murmurs Lungs: Clear to auscultation bilaterally No wheezing No rales Abdomen: Soft nondistended nontender Extremities: Non edematous DP pulses intact Radial pulses intact Neuro: A&Ox3 No focal neurologic deficits Psych: Appropriate mood and affect Limitations: altered mental status Course Vital Signs 06/05/20 19:11 Temperature 98.6 F Pulse Rate 85 Respiratory 18 Rate Blood Pressure 144/77 O2 Sat by Pulse 96 Oximetry EKG Findings - EKG Comments: EKG Findings:: EKG showing normal sinus rhythm with a rate of 83. There is no abnormal ST segment changes or T-wave inversions. QTC is 404. Other intervals normal. No ectopy. Medical Decision Making - Medical Decision Making This is an 84-year-old male presents emergency department for worsening weakness and mental status changes. The patient was found to have a significant acute kidney injury. 4 catheter was placed and the patient was started on IV fluids. CT the head and abdomen are currently pending however will be followed up on. Dr. Leal accepts the patient for admission for IV fluids and further workup. - Lab Data Result diagrams: 06/05/20 19:59 06/05/20 19:59 Lab Results 06/05/20 06/05/20 06/05/20 Range/Units 19:59 19:59 19:59 WBC 4.1 (3.8-10.6) k/uL RBC 5.20 (4.30-5.90) m/uL Hgb 13.4 (13.0-17.5) gm/dL Hct 42.4 (39.0-53.0) % MCV 81.6 (80.0-100.0) fL MCH 25.8 (25.0-35.0) pg MCHC 31.6 (31.0-37.0) g/dL RDW 16.3 H (11.5-15.5) % Plt Count 289 (150-450) k/uL MPV 7.2 Neutrophils % 55 % Lymphocytes % 27 % Monocytes % 13 % Eosinophils % 0 % Basophils % 2 % Neutrophils # 2.3 (1.3-7.7) k/uL Lymphocytes # 1.1 (1.0-4.8) k/uL Monocytes # 0.5 (0-1.0) k/uL Eosinophils # 0.0 (0-0.7) k/uL Basophils # 0.1 (0-0.2) k/uL Anisocytosis Slight PT 10.8 (9.0-12.0) sec INR 1.1 (<1.2) APTT 27.9 (22.0-30.0) sec Sodium (137-145) mmol/L Potassium (3.5-5.1) mmol/L Chloride (98-107) mmol/L Carbon Dioxide (22-30) mmol/L Anion Gap mmol/L BUN (9-20) mg/dL Creatinine (0.66-1.25) mg/dL Est GFR (CKD-EPI)AfAm (>60 ml/min/1.73 sqM) Est GFR (CKD-EPI)NonAf (>60 ml/min/1.73 sqM) Glucose (74-99) mg/dL Calcium (8.4-10.2) mg/dL Magnesium (1.6-2.3) mg/dL Total Bilirubin (0.2-1.3) mg/dL AST (17-59) U/L ALT (4-49) U/L Alkaline Phosphatase (38-126) U/L Total Protein (6.3-8.2) g/dL Albumin (3.5-5.0) g/dL Lipase (23-300) U/L Urine Color Yellow Urine Appearance Cloudy (Clear) Urine pH 5.5 (5.0-8.0) Ur Specific Deale 1.023 (1.001-1.035) Urine Protein 2+ H (Negative) Urine Glucose (UA) Negative (Negative) Urine Ketones Negative (Negative) Urine Blood Small H (Negative) Urine Nitrite Negative (Negative) Urine Bilirubin Negative (Negative) Urine Urobilinogen <2.0 (<2.0) mg/dL Ur Leukocyte Esterase Negative (Negative) Urine RBC 2 (0-5) /hpf Urine WBC 4 (0-5) /hpf Ur Squamous Epith Cells 1 (0-4) /hpf Urine Bacteria Rare H (None) /hpf Hyaline Casts 10 H (0-2) /lpf Urine Mucus Rare H (None) /hpf Blood Type Blood Type Recheck Bld Type Recheck Status Antibody Screen Spec Expiration Date 06/05/20 06/05/20 Range/Units 19:59 19:59 WBC (3.8-10.6) k/uL RBC (4.30-5.90) m/uL Hgb (13.0-17.5) gm/dL Hct (39.0-53.0) % MCV (80.0-100.0) fL MCH (25.0-35.0) pg MCHC (31.0-37.0) g/dL RDW (11.5-15.5) % Plt Count (150-450) k/uL MPV Neutrophils % % Lymphocytes % % Monocytes % % Eosinophils % % Basophils % % Neutrophils # (1.3-7.7) k/uL Lymphocytes # (1.0-4.8) k/uL Monocytes # (0-1.0) k/uL Eosinophils # (0-0.7) k/uL Basophils # (0-0.2) k/uL Anisocytosis PT (9.0-12.0) sec INR (<1.2) APTT (22.0-30.0) sec Sodium 138 (137-145) mmol/L Potassium 3.6 (3.5-5.1) mmol/L Chloride 100 (98-107) mmol/L Carbon Dioxide 29 (22-30) mmol/L Anion Gap 9 mmol/L BUN 44 H (9-20) mg/dL Creatinine 3.13 H (0.66-1.25) mg/dL Est GFR (CKD-EPI)AfAm 20 (>60 ml/min/1.73 sqM) Est GFR (CKD-EPI)NonAf 17 (>60 ml/min/1.73 sqM) Glucose 166 H (74-99) mg/dL Calcium 8.5 (8.4-10.2) mg/dL Magnesium 1.5 L (1.6-2.3) mg/dL Total Bilirubin 0.4 (0.2-1.3) mg/dL AST 52 (17-59) U/L ALT 24 (4-49) U/L Alkaline Phosphatase 57 (38-126) U/L Total Protein 8.3 H (6.3-8.2) g/dL Albumin 3.5 (3.5-5.0) g/dL Lipase 309 H (23-300) U/L Urine Color Urine Appearance (Clear) Urine pH (5.0-8.0) Ur Specific Deale (1.001-1.035) Urine Protein (Negative) Urine Glucose (UA) (Negative) Urine Ketones (Negative) Urine Blood (Negative) Urine Nitrite (Negative) Urine Bilirubin (Negative) Urine Urobilinogen (<2.0) mg/dL Ur Leukocyte Esterase (Negative) Urine RBC (0-5) /hpf Urine WBC (0-5) /hpf Ur Squamous Epith Cells (0-4) /hpf Urine Bacteria (None) /hpf Hyaline Casts (0-2) /lpf Urine Mucus (None) /hpf Blood Type O Positive Blood Type Recheck O Pos Bld Type Recheck Status No Antibody Screen NEGATIVE Spec Expiration Date 06/08/20202358 Disposition Clinical Impression: MARION (acute kidney injury) Disposition: ADMITTED IP TO THIS HOSP Condition: Stable Referrals: Jevon Singer MD [Primary Care Provider] - 1-2 days Decision to Admit Reason: Admit from EC
[2020-06-05 20:27] LABS: Albumin 3.5 g/dL (3.5-5.0); Calcium 8.5 mg/dL (8.4-10.2); Magnesium 1.5 mg/dL (1.6-2.3); Potassium 3.6 mmol/L (3.5-5.1); Total Bilirubin 0.4 mg/dL (0.2-1.3); Total Protein 8.3 g/dL (6.3-8.2)
[2020-06-05 20:51] LABS: Anisocytosis Slight; Basophils # (A) 0.1 k/uL (0-0.2); Basophils % (A) 2 %; Eosinophils % (A) 0 %; HCT 42.4 % (39.0-53.0); HGB 13.4 gm/dL (13.0-17.5); Lymphocytes # (A) 1.1 k/uL (1.0-4.8); Lymphocytes % (A) 27 %; MCH 25.8 pg (25.0-35.0); MCHC 31.6 g/dL (31.0-37.0); MCV 81.6 fL (80.0-100.0); Mean Platelet Volume 7.2; Monocytes # (A) 0.5 k/uL (0-1.0); Monocytes % (A) 13 %; Neutrophils # (A) 2.3 k/uL (1.3-7.7); Neutrophils % (A) 55 %; Platelet Count 289 k/uL (150-450); RDW 16.3 % (11.5-15.5); WBC 4.1 k/uL (3.8-10.6)
[2020-06-05] MEDS ORDERED: SODIUM CHLORIDE 0.9% 500 ML 500 ML IV ONE (20:56)
[2020-06-05 20:59] LABS: INR 1.1 (<1.2); Partial Thromboplastin Time 27.9 sec (22.0-30.0); Prothrombin Time 10.8 sec (9.0-12.0)
--- NOTE | 2020-06-05 21:04 | XR ---
EXAMINATION TYPE: XR chest 1V portable DATE OF EXAM: 06/05/2020 COMPARISON: Chest x-ray and CTA chest May 17, 2020 HISTORY: Fall injury with pain. TECHNIQUE: Single frontal view of the chest is obtained. FINDINGS: There is low lung volumes without suspicious new focal air space opacity, pleural effusion , or pneumothorax seen. The cardiac silhouette size is stable and mildly enlarged. The osseous str uctures are intact. IMPRESSION: Mild cardiomegaly and low lung volumes without new suspicious acute pulmonary process.
[2020-06-05 21:09] LABS: Appearance,Urine Cloudy (Clear); Bacteria,Urine Rare /hpf; Bilirubin,Urine Negative (Negative); Blood,Urine Small (Negative); Color,Urine Yellow; Glucose,Urine (UA) Negative (Negative); Hyaline Casts,Urine 10 /lpf (0-2); Ketones,Urine Negative (Negative); Leukocyte Esterase,Urine Negative (Negative); Mucus,Urine Rare /hpf; Nitrite,Urine Negative (Negative); PH, Urine 5.5 (5.0-8.0); Protein,Urine 2+ (Negative); RBC,Urine 2 /hpf (0-5); Specific Gravity,Urine 1.023 (1.001-1.035); Squamous Epithelial Cell,Urine 1 /hpf (0-4); Urobilinogen,Urine <2.0 mg/dL (<2.0); WBC,Urine 4 /hpf (0-5)
[2020-06-05] MEDS ORDERED: NALOXONE 0.4 MG/ML 1 ML VIAL IV PRN (21:26)
--- NOTE | 2020-06-05 21:27 | CT ---
EXAMINATION TYPE: CT brain wo con DATE OF EXAM: 06/05/2020 COMPARISON: 02/09/2020 HISTORY: Altered mental status. CT DLP: 1099.4 mGycm Automated exposure control for dose reduction was used. There is cerebral cortical atrophy. There is no mass effect nor midline shift. There is no sign of in tracranial hemorrhage. The calvarium is intact. There is normal aeration of the mastoid sinuses. There is hypodensity in the periventricular white matter. IMPRESSION: Cerebral atrophy and chronic small vessel ischemia. No acute intracranial abnormality. No change comp ared to old exam.
[2020-06-05] MEDS: SODIUM CHLORIDE 0.9% 1,000 ML IV SCH (21:33)
--- NOTE | 2020-06-05 21:36 | CT ---
EXAMINATION TYPE: CT abdomen pelvis wo con DATE OF EXAM: 06/05/2020 COMPARISON: 05/17/2020 HISTORY: Altered mental status. Abdominal pain CT DLP: 1567.4 mGycm Automated exposure control for dose reduction was used. Images obtained from the diaphragm to the floor the pelvis with no contrast. Heart is enlarged. There is some infiltrate and atelectasis at both lung bases. Liver has normal size . Bile ducts are not dilated. There are clips from cholecystectomy. Spleen appears normal. There is n o pancreatic mass. The stomach is intact. There is no adrenal mass. Kidneys have normal size. There is no hydronephrosis. Ureters are not dilat ed. There is no retroperitoneal adenopathy. There is Boone catheter in the urinary bladder. Bladder i s empty. There is no evidence of a pelvic mass. There is no free fluid in the pelvis. There are sigmo id diverticula. Appendix appears normal. There is no mesenteric edema. There is no ascites or free ai r. There is no evidence of a bowel obstruction. There are diverticula in the descending colon. Lumbar vertebra have normal alignment. There is no compression fracture. There is degenerative spurri ng of the endplates. The bony pelvis appears intact. The hip joints are intact. IMPRESSION: There is some interstitial infiltrate and atelectasis at the lung bases that appears increased compar ed to old exam. Mild cardiomegaly. No acute abnormality within the abdomen pelvis. There is moderate colonic diverticulosis without dive rticulitis. There is cholecystectomy compared to old exam. No dilated ducts. No evidence of a bile le ak.
[2020-06-05] MEDS ORDERED: ONDANSETRON 4 MG/2 ML VIAL IVP PRN (23:31)
[2020-06-06 00:04] LABS: Glucose,Whole Blood 154 mg/dL (75-99)
[2020-06-06] MEDS: hydrALAZINE HCL 20 MG/ML 1 ML VIAL IVP PRN (00:05)
[2020-06-06] MEDS ORDERED: hydrALAZINE HCL 50 MG TAB PO SCH (09:00)
[2020-06-06] MEDS ORDERED: ENOXAPARIN 30 MG/0.3 ML SYRINGE SQ SCH (09:00)
[2020-06-06 09:23] LABS: C Reactive Protein 43.8 mg/L (<10.0)
[2020-06-06] MEDS: CHOLECALCIFEROL 1,000 UNIT TAB PO SCH (10:13)
[2020-06-06] MEDS: ASCORBIC ACID 500 MG TAB PO SCH (10:13)
[2020-06-06] MEDS: SODIUM CHLORIDE 0.9% 1,000 ML IV SCH ×2 (10:13→17:26)
[2020-06-06] MEDS: ZINC SULFATE 220 MG CAP PO SCH (10:13)
[2020-06-06] MEDS: TAMSULOSIN 0.4 MG CAP.ER.24H PO SCH (10:14)
[2020-06-06] MEDS: amLODIPine 5 MG TAB PO SCH (10:14)
[2020-06-06] MEDS: dexAMETHasone 4 MG TAB PO SCH ×2 (10:53→20:44)
[2020-06-06] MEDS: INSULIN ASPART (NovoLOG) 100 UNIT/ML VIAL SQ SCH ×4 (10:55→20:42)
[2020-06-06 11:37] LABS: Glucose,Whole Blood 158 mg/dL (75-99)
--- NOTE | 2020-06-06 12:44 | P.HPIM ---
History of Present Illness H&P Date: 06/06/20 Chief Complaint: Mental status change, weakness HISTORY OF PRESENT ILLNESS This is an 84-year-old -[place] male patient of Dr. Urban with past medical history of diabetes mellitus type 2, hypertension, hyperlipidemia, chronic kidney disease, history of GI bleed from diverticulitis, recently admitted to the hospital for acute cholecystitis status post laparoscopic cholecystectomy and also treated for bilateral pneumonia. Patient was dis charged to [facility] and completed his course of rehab. He was then discharged home on May 30. Patient has developed increasing weakness with mental status changes. Not eating or drinking and was brought into the hospital for evaluation. Patient presented to [facility] emergency center. He was afebrile, heart rate 85, blood pressure 144/77, pulse ox 96% on room air. CBC was unremarkable. Electrolytes normal, BUN 44 and creatinine 3.13. Blood sugar 166. Magnesium 1.5. Liver function tests normal. Urinalysis positive for protein and blood with no sign of infection. COVID-19 positive. LDH 600, C- reactive protein 43.8. Chest x-ray reveals mild cardiomegaly and low lung volumes without suspicious acute pulmonary process. CAT scan of the abdomen and pelvis without contrast revealed interstitial infiltrate and atelectasis at the lung bases increased from old exam. Mild cardiomegaly. No acute abnormality within the abdomen and pelvis. Moderate colonic diverticulosis without diverticulitis. No evidence of bile leak. CAT scan of the brain revealed cerebral atrophy and chronic small vessel ischemia. No acute intracranial abnormality. Patient was admitted to the [facility] floor. REVIEW OF SYSTEMS Constitutional: No fever, no chills, no night sweats. No weight change. Reports weakness, Reports fatigue Reports lethargy. EENT: No headache. No blurred vision or double vision, no loss of vision. No loss of Hearing, no ringing in the ears, no dizziness. No nasal drainage or congestion. No epistaxis. No sore throat. Lungs: No shortness of breath, cough, no sputum production. No wheezing. Cardiovascular: No chest pain, no lower extremity edema. No palpitations. No paroxysmal nocturnal dyspnea. No orthopnea. No lightheadedness or dizziness. No syncopal episodes. Abdominal: No abdominal pain. No nausea, vomiting. No diarrhea. No constipation. No bloody or tarry stools.. No loss of appetite. Genitourinary: No dysuria, increased frequency, urgency. Reported urinary retention. Musculoskeletal: No myalgias. No muscle weakness, no gait dysfunction, no frequent falls. No back pain. No neck pain. Integumentary: No wounds, no lesions. No rash or pruritus. No unusual bruising. No change in hair or nails. Neurologic: No aphasia. No facial droop. Reports change in mentation. No head injury. No headache. No paralysis. No paresthesia. Psychiatric: No depression. No anxiety. No mood swings. Endocrine: No abnormal blood sugars. PHYSICAL EXAMINATION Gen: This is an 84-year-old -[place] male. He is resting in bed appears to be comfortable. No acute respiratory distress noted. HEENT: Head is atraumatic, normocephalic. Pupils equal, round. Sclerae is anicteric. NECK: Supple. No JVD. No lymphadenopathy. No thyromegaly. LUNGS: Clear to auscultation. No wheezes or rhonchi. No intercostal retractions. HEART: Regular rate and rhythm. No murmur. ABDOMEN: Soft. Bowel sounds are present. No masses. No tenderness. EXTREMITIES: No pedal edema. No calf tenderness. Temperature of ulceration to the left pretibial area. Please see nursing documentation for details, POA NEUROLOGICAL: Patient is awake, alert and oriented x3. Cranial nerves 2 through 12 are grossly intact. ASSESSMENT AND PLAN 1. Covid 19 pneumonia. Consult with pulmonary medicine. Patient started on supplements with vitamin C, vitamin D, zinc. Start dexamethasone 4 mg twice daily, Lovenox daily. 2. Acute kidney injury with chronic kidney disease stage III. Consult with nephrology. Continue IV fluids and 100 mL per hour. Hold losartan. 3. Hypertension. Continue Norvasc 5 mg daily, hydralazine 30 mg twice daily. Losartan on hold. 4. Hyperlipidemia. 5. History of recent laparoscopic cholecystectomy, stable. 6. History of GI bleed from diverticulitis, stable. 7. Benign prostatic hypertrophy. Continue Flomax or 0.4 mg daily 8. Diabetes mellitus type 2. Hold metformin and glipizide. Continue NovoLog scale before meals and at bedtime. 9. GI prophylaxis. Protonix. 10. DVT prophylaxis. Lovenox. Patient will be admitted to the hospital for a minimum of 2 night stay. DISCHARGE PLAN Most likely home with daughter with homecare. Patient will require home care due to room confinement at home. Patient will also need wheelchair in order for him to complete his ADLs. Impression and plan of care have been directed as dictated by the signing physician. Cyndy Faust nurse practitioner acting as scribe for signing physician. Past Medical History Past Medical History: Diabetes Mellitus, Eye Disorder, GI Bleed, Hypertension, Pneumonia Additional Past Medical History / Comment(s): NIDDM type II, bilateral foot pain, diverticular disease, ischemic colitis, lower GI bleed, glaucoma/no peripheral vision bilaterally, past pneumonia with lengthy hospitalization, bilateral lower leg edema. History of Any Multi-Drug Resistant Organisms: None Reported Past Surgical History: Orthopedic Surgery Additional Past Surgical History / Comment(s): bilateral Rotator cuff, EGD, colonoscopy, bilateral blepharoplasty, R little finger fx with surgery. Past Anesthesia/Blood Transfusion Reactions: No Reported Reaction Past Psychological History: No Psychological Hx Reported Additional Psychological History / Comment(s): Pt has 2 adult dheeraj residing with him. Pt uses a cane. He no longer drives, dheeraj can drive. One of his dheeraj's organizes his meds. Smoking Status: Never smoker Past Alcohol Use History: None Reported Past Drug Use History: None Reported - Past Family History Father History Unknown: Yes Family Medical History: Liver Disease Additional Family Medical History / Comment(s): ETOH abuse Mother Family Medical History: Cancer Additional Family Medical History / Comment(s): Pancreatic cancer. Medications and Allergies Home Medications Medication Instructions Recorded Confirmed Type Tamsulosin HCl [Flomax] 0.4 mg PO DAILY 02/08/20 06/05/20 History amLODIPine [Norvasc] 5 mg PO DAILY 02/08/20 06/05/20 History glipiZIDE/METFORMIN HCL 1 tab PO BID 05/17/20 06/05/20 History [glipiZIDE/METFORMIN HCL 5-500 mg] hydrALAZINE HCL [Apresoline] 50 mg PO BID tab 05/24/20 06/05/20 Rx Losartan Potassium [Cozaar] 25 mg PO DAILY 06/05/20 06/05/20 History Allergies Allergy/AdvReac Type Severity Reaction Status Date / Time No Known Allergies Allergy Verified 06/05/20 21:30 Physical Exam Vitals: Vital Signs Temp Pulse Pulse Resp BP BP Pulse Ox 06/06/20 01:55 97.8 F 100 17 153/72 96 06/05/20 23:06 99.6 F 74 17 179/78 98 06/05/20 23:00 15 06/05/20 22:42 99.4 F 72 18 164/86 98 06/05/20 21:39 75 18 171/72 98 06/05/20 20:30 78 19 154/89 98 06/05/20 19:11 98.6 F 85 18 144/77 96 Intake and Output 06/05/20 06/06/20 06/06/20 22:59 06:59 14:59 Output Total 900 Balance -900 Output: Urine 900 Other: Voiding Method Indwelling Catheter Weight 122.47 kg Results CBC & Chem 7: 06/05/20 19:59 06/05/20 19:59 Labs: Abnormal Lab Results - Last 24 Hours (Table) 06/05/20 06/05/20 06/05/20 Range/Units 19:59 19:59 19:59 RDW 16.3 H (11.5-15.5) % BUN 44 H (9-20) mg/dL Creatinine 3.13 H (0.66-1.25) mg/dL Glucose 166 H (74-99) mg/dL POC Glucose (mg/dL) (75-99) mg/dL Magnesium 1.5 L (1.6-2.3) mg/dL Total Protein 8.3 H (6.3-8.2) g/dL Lipase 309 H (23-300) U/L Urine Protein 2+ H (Negative) Urine Blood Small H (Negative) Urine Bacteria Rare H (None) /hpf Hyaline Casts 10 H (0-2) /lpf Urine Mucus Rare H (None) /hpf Coronavirus (PCR) (Not Detectd) 06/05/20 06/06/20 Range/Units 22:30 00:03 RDW (11.5-15.5) % BUN (9-20) mg/dL Creatinine (0.66-1.25) mg/dL Glucose (74-99) mg/dL POC Glucose (mg/dL) 154 H (75-99) mg/dL Magnesium (1.6-2.3) mg/dL Total Protein (6.3-8.2) g/dL Lipase (23-300) U/L Urine Protein (Negative) Urine Blood (Negative) Urine Bacteria (None) /hpf Hyaline Casts (0-2) /lpf Urine Mucus (None) /hpf Coronavirus (PCR) Detected A (Not Detectd) Thrombosis Risk Factor Assmnt - Choose All That Apply Each Factor Represents 1 point: Obesity (BMI >25), Swollen legs (current) Each Risk Factor Represents 3 Points: Age 75 years or older Thrombosis Risk Factor Assessment Total Risk Factor Score: 5 Thrombosis Risk Factor Assessment Level: High Risk
--- NOTE | 2020-06-06 12:56 | P.NPCON ---
History of Present Illness - Reason for Consult acute renal failure - History of Present Illness Reason for consultation: Acute kidney injury History of present illness: Patient is a 84-year-old male seen in renal consultation for acute kidney injury. Patient's creatinine on admission was 3.13. Labs from today are pending. Patient had recent cholecystectomy in May 2020 and subsequently went to rehab. He recently went home from the rehab and felt aggressively weaker. Therefore he came back to the hospital. He tested positive for covid- 19. He does have history of diabetes. He received 1 L bolus of normal saline in the ER and is currently maintained on normal saline at 100 mL an hour. No edema. He has a Boone catheter and is nonoliguric. He is currently on 3 L nasal cannula. No evidence of hypotension. In fact blood pressure is on the higher side. He was taking losartan at home which is currently held. I don't see any nonsteroidals or diuretics and his home medications. Patient is not a very reliable historian. Vital signs are stable. General: The patient appeared well nourished and normally developed. HEENT: Head exam is unremarkable. Neck is without jugular venous distension. LUNGS: Breath sounds decreased. HEART: Rate and Rhythm are regular. ABDOMEN: Soft, nontender. EXTREMITITES: No edema. Past Medical History Past Medical History: Diabetes Mellitus, Eye Disorder, GI Bleed, Hypertension, Pneumonia Additional Past Medical History / Comment(s): NIDDM type II, bilateral foot pain, diverticular disease, ischemic colitis, lower GI bleed, glaucoma/no peripheral vision bilaterally, past pneumonia with lengthy hospitalization, bilateral lower leg edema. History of Any Multi-Drug Resistant Organisms: None Reported Past Surgical History: Orthopedic Surgery Additional Past Surgical History / Comment(s): bilateral Rotator cuff, EGD, colonoscopy, bilateral blepharoplasty, R little finger fx with surgery. Past Anesthesia/Blood Transfusion Reactions: No Reported Reaction Past Psychological History: No Psychological Hx Reported Additional Psychological History / Comment(s): Pt has 2 adult dheeraj residing with him. Pt uses a cane. He no longer drives, dheeraj can drive. One of his dheeraj's organizes his meds. Smoking Status: Never smoker Past Alcohol Use History: None Reported Past Drug Use History: None Reported - Past Family History Father History Unknown: Yes Family Medical History: Liver Disease Additional Family Medical History / Comment(s): ETOH abuse Mother Family Medical History: Cancer Additional Family Medical History / Comment(s): Pancreatic cancer. Medications and Allergies Home Medications Medication Instructions Recorded Confirmed Type Tamsulosin HCl [Flomax] 0.4 mg PO DAILY 02/08/20 06/05/20 History amLODIPine [Norvasc] 5 mg PO DAILY 02/08/20 06/05/20 History glipiZIDE/METFORMIN HCL 1 tab PO BID 05/17/20 06/05/20 History [glipiZIDE/METFORMIN HCL 5-500 mg] hydrALAZINE HCL [Apresoline] 50 mg PO BID tab 05/24/20 06/05/20 Rx Losartan Potassium [Cozaar] 25 mg PO DAILY 06/05/20 06/05/20 History Allergies Allergy/AdvReac Type Severity Reaction Status Date / Time No Known Allergies Allergy Verified 06/05/20 21:30 Physical Exam Vitals: Vital Signs Temp Pulse Pulse Resp BP BP Pulse Ox 06/06/20 08:00 99.2 F 74 16 166/77 92 L 06/06/20 01:55 97.8 F 100 17 153/72 96 06/05/20 23:06 99.6 F 74 17 179/78 98 06/05/20 23:00 15 06/05/20 22:42 99.4 F 72 18 164/86 98 06/05/20 21:39 75 18 171/72 98 06/05/20 20:30 78 19 154/89 98 06/05/20 19:11 98.6 F 85 18 144/77 96 Intake and Output 06/05/20 06/06/20 06/06/20 22:59 06:59 14:59 Output Total 900 Balance -900 Output: Urine 900 Other: Voiding Method Indwelling Catheter Weight 122.47 kg Results - Lab Results Most recent lab results Calcium 8.5 mg/dL (8.4-10.2) 06/05/20 19:59 Magnesium 1.5 mg/dL (1.6-2.3) L 06/05/20 19:59 06/05/20 19:59 06/05/20 19:59 Assessment and Plan Plan: Assessment: 1. Acute kidney injury mostly prerenal secondary to infection and further worsened with the use of losartan. Creatinine 3.13 on admission. Last today are pending. Baseline creatinine from May 2020 near 1. No hydronephrosis noted on CAT scan. 2. Covid 19 pneumonia maintained on steroids and zinc. 3. Benign hypertension. Further exacerbated by steroids. 4. Diabetes mellitus. 5. Status post cholecystectomy May 2020. Plan: Decrease normal saline to 75 mL an hour. Check labs now and again in the morning. Check renal ultrasound. Avoid nephrotoxins. Continue to monitor renal function and urine output. Increase frequency of hydralazine to 3 times a day. Thank you for the consultation. I will continue to follow the patient with you during his hospital stay.
[2020-06-06 13:14] LABS: African American GFR (CKD) 50 (>60 ml/min/1.73 sqM); Anion Gap 6 mmol/L; Blood Urea Nitrogen 32 mg/dL (9-20); Calcium 8.1 mg/dL (8.4-10.2); Carbon Dioxide 31 mmol/L (22-30); Chloride 105 mmol/L (98-107); Glucose 146 mg/dL (74-99); Magnesium 1.4 mg/dL (1.6-2.3); Non-African American GFR(CKD) 43 (>60 ml/min/1.73 sqM); Potassium 3.7 mmol/L (3.5-5.1); Sodium 142 mmol/L (137-145)
--- NOTE | 2020-06-06 14:03 | US ---
EXAMINATION TYPE: US kidneys/renal and bladder DATE OF EXAM: 06/06/2020 COMPARISON: Correlation CT 06/05/2020 CLINICAL HISTORY: 84 year-old male acute kidney injury. TECHNIQUE: Multiple sonographic images of the kidneys and bladder are obtained. FINDINGS: EXAM MEASUREMENTS: Right Kidney: 11.0 x 5.1 x 5.1 cm Left Kidney: 10.3 x 5.1 x 5.6 cm Right Kidney: no hydronephrosis. Left Kidney: no hydronephrosis, 2.2cm cyst medial upper pole Bladder: Poorly distended, limiting assessment. The parole officer reports a Boone catheter present. IMPRESSION: No hydronephrosis. A benign 2.2 cm cortical cyst on the left. Bladder suboptimally assessed
--- NOTE | 2020-06-06 14:09 | P.CNPUL ---
History of Present Illness Consult date: 06/06/20 Reason for consult: other Chief complaint: Altered mental status, COVID 19 History of present illness: 84-year-old white male patient with a recent history of cholecystectomy for gangrenous cholecystitis on 05/18/2020 following which he was recovering at the [facility], has a past medical history of diabetes mellitus, hypertension, previous episodes of pneumonia, diverticular disease, history of lower GI bleeding, with EGD and colonoscopy, was brought into the emergency department per EMS on 06/05/2020 for evaluation of altered mental status and generalized weakness. He was discharged to a detention facility on 05/25/2020 and was recently discharged from there on 05/30/2020 to his daughter's house where he was having increasing difficulty caring for himself. His chest x-ray no emergency department showed the mild cardiomegaly, low lung volumes without suspicious focal airspace opacity, pleural effusions and no evidence of pneumothorax. His brain CT shows cerebral atrophy and chronic small vessel is chemia, no acute intracranial abnormality. Normal sinus rhythm on the EKG. Patient denied any fever or chills. Denied any significant shortness of breath. No nausea vomiting or diarrhea, admit to some abdominal pain in the right upper quadrant where he had incision sites. Abdomen is soft and nontender. Reports normal appetite. Meds to being increasingly more weak, and no other complaints. CT of the abdomen and pelvis showing some interstitial infiltrates and atelectasis at the lung bases mild cardiomegaly, no acute abnormality within the abdomen and pelvis, moderate colonic diverticulosis without diverticulitis, cholecystectomy, no dilated ducts no evidence of a bile leak. Patient was checked for: 19 and was found to be positive, other laboratory analysis showed white blood cell count of 4.1, hemoglobin of 13.4, INR is 1.1, electrolytes were within normal limits, and patient was found to have acute kidney injury with the BUN of 44 creatinine 3.13, and GFR of 17, 600, CRP was 43.8, and lipase was 309, urinalysis was checked showing no clear evidence of urinary tract infection. Recently on 2 L of oxygen the pulse ox of 92-96%, intermittent low-grade fevers with T-max of 99.2F. He was started on Decadron 4 mg twice daily, he is on prophylactic dose of Lovenox for his renal clearance, he is receiving gentle IV hydration, and the pulmonary service was consulted in view of his COVID 19 infection Review of Systems All systems: negative Constitutional: Reports weakness, Denies chills, Denies fever Eyes: denies blurred vision, denies pain Ears, nose, mouth and throat: Denies headache, Denies sore throat Cardiovascular: Denies chest pain, Denies shortness of breath Respiratory: Denies cough Gastrointestinal: Denies abdominal pain, Denies diarrhea, Denies nausea, Denies vomiting Musculoskeletal: Reports gait dysfunction, Reports muscle weakness, Denies myalgias Integumentary: Denies pruritus, Denies rash Neurological: Denies numbness, Denies weakness Psychiatric: Denies anxiety, Denies depression Endocrine: Denies fatigue, Denies weight change Past Medical History Past Medical History: Diabetes Mellitus, Eye Disorder, GI Bleed, Hypertension, Pneumonia Additional Past Medical History / Comment(s): NIDDM type II, bilateral foot pain, diverticular disease, ischemic colitis, lower GI bleed, glaucoma/no peripheral vision bilaterally, past pneumonia with lengthy hospitalization, bi lateral lower leg edema. History of Any Multi-Drug Resistant Organisms: None Reported Past Surgical History: Orthopedic Surgery Additional Past Surgical History / Comment(s): bilateral Rotator cuff, EGD, colonoscopy, bilateral blepharoplasty, R little finger fx with surgery. Past Anesthesia/Blood Transfusion Reactions: No Reported Reaction Past Psychological History: No Psychological Hx Reported Additional Psychological History / Comment(s): Pt has 2 adult dheeraj residing with him. Pt uses a cane. He no longer drives, dheeraj can drive. One of his dheeraj's organizes his meds. Smoking Status: Never smoker Past Alcohol Use History: None Reported Past Drug Use History: None Reported - Past Family History Father History Unknown: Yes Family Medical History: Liver Disease Additional Family Medical History / Comment(s): ETOH abuse Mother Family Medical History: Cancer Additional Family Medical History / Comment(s): Pancreatic cancer. Medications and Allergies Home Medications Medication Instructions Recorded Confirmed Type Tamsulosin HCl [Flomax] 0.4 mg PO DAILY 02/08/20 06/05/20 History amLODIPine [Norvasc] 5 mg PO DAILY 02/08/20 06/05/20 History glipiZIDE/METFORMIN HCL 1 tab PO BID 05/17/20 06/05/20 History [glipiZIDE/METFORMIN HCL 5-500 mg] hydrALAZINE HCL [Apresoline] 50 mg PO BID tab 05/24/20 06/05/20 Rx Losartan Potassium [Cozaar] 25 mg PO DAILY 06/05/20 06/05/20 History Allergies Allergy/AdvReac Type Severity Reaction Status Date / Time No Known Allergies Allergy Verified 06/05/20 21:30 Physical Exam Vitals: Vital Signs Temp Pulse Pulse Resp BP BP Pulse Ox 06/06/20 08:00 99.2 F 74 16 166/77 92 L 06/06/20 01:55 97.8 F 100 17 153/72 96 06/05/20 23:06 99.6 F 74 17 179/78 98 06/05/20 23:00 15 06/05/20 22:42 99.4 F 72 18 164/86 98 06/05/20 21:39 75 18 171/72 98 06/05/20 20:30 78 19 154/89 98 06/05/20 19:11 98.6 F 85 18 144/77 96 Intake and Output 06/05/20 06/06/20 06/06/20 22:59 06:59 14:59 Output Total 900 Balance -900 Output: Urine 900 Other: Voiding Method Indwelling Catheter Weight 122.47 kg 122.47 kg GENERAL EXAM: Alert, very pleasant, 84-year-old white male, 2 L of oxygen, with pulse ox of 92-96%, appears weak, but no apparent distress. HEAD: Normocephalic/atraumatic. EYES: Normal reaction of pupils, equal size. Conjunctiva pink, sclera white. NOSE: Clear with pink turbinates. THROAT: No erythema or exudates. NECK: No masses, no JVD, no thyroid enlargement, no adenopathy. CHEST: No chest wall deformity. Symmetrical expansion. LUNGS: Equal air entry with no crackles, wheeze, rhonchi or dullness. CVS: Regular rate and rhythm, normal S1 and S2, no gallops, no murmurs, no rubs ABDOMEN: Soft, nontender. No hepatosplenomegaly, normal bowel sounds, no guarding or rigidity. Abdominal incisions clean dry and intact, EXTREMITIES: No clubbing, no edema, no cyanosis, 2+ pulses and upper and lower extremities. MUSCULOSKELETAL: Muscle strength and tone normal. SPINE: No scoliosis or deformity SKIN: No rashes CENTRAL NERVOUS SYSTEM: Alert and oriented -3. No focal deficits, tone is normal in all 4 extremities. PSYCHIATRIC: Alert and oriented -3. Appropriate affect. Intact judgment and insight. Results - Laboratory Findings CBC and BMP: 06/05/20 19:59 06/06/20 12:18 PT/INR, D-dimer PT 10.8 sec (9.0-12.0) 06/05/20 19:59 INR 1.1 (<1.2) 06/05/20 19:59 Abnormal lab findings: Abnormal Labs 06/05/20 06/05/20 06/05/20 19:59 19:59 19:59 RDW 16.3 H Carbon Dioxide BUN 44 H Creatinine 3.13 H Glucose 166 H POC Glucose (mg/dL) Calcium Magnesium 1.5 L C-Reactive Protein Total Protein 8.3 H Lipase 309 H Urine Protein 2+ H Urine Blood Small H Urine Bacteria Rare H Hyaline Casts 10 H Urine Mucus Rare H Coronavirus (PCR) 06/05/20 06/06/20 06/06/20 22:30 00:03 08:27 RDW Carbon Dioxide BUN Creatinine Glucose POC Glucose (mg/dL) 154 H Calcium Magnesium C-Reactive Protein 43.8 H Total Protein Lipase Urine Protein Urine Blood Urine Bacteria Hyaline Casts Urine Mucus Coronavirus (PCR) Detected A 06/06/20 06/06/20 11:35 12:18 RDW Carbon Dioxide 31 H BUN 32 H Creatinine 1.47 H Glucose 146 H POC Glucose (mg/dL) 158 H Calcium 8.1 L Magnesium 1.4 L C-Reactive Protein Total Protein Lipase Urine Protein Urine Blood Urine Bacteria Hyaline Casts Urine Mucus Coronavirus (PCR) - Diagnostic Findings Chest x-ray: report reviewed, image reviewed Additional studies: EKG, brain CT, CT of the abdomen and pelvis Assessment and Plan Plan: Assessment: #1. Acute COVID 19 infection, with primary symptoms being weakness, fatigue, no significant pulmonary symptoms although requiring 2 L of oxygen currently with a pulse ox between 92-97%. Chest x-ray showed low lung volumes without new suspicious acute pulmonary process #2. Acute kidney injury #3. Mild abdominal discomfort, CT abdomen and pelvis showed no acute intra- abdominal or intrapelvic abnormality with evidence of recent cholecystectomy, no dilated ducts, no evidence of a bile leak #4. Recent history of gangrenous cholecystitis, status post laparoscopic cholecystectomy on 05/18/[address] Taylor #5. General medical debility, he required detention facility placement after his most recent hospitalization but recently was discharged from the detention facility to his daughter's house where he could not care for himself #6. Diabetes mellitus type 2 #7. Hypertension #8. Hyperlipidemia #9. Chronic kidney disease, unspecified #10. Previous history of GI bleeding and diverticulitis #11. History of BPH on Flomax Plan: We'll continue current medical treatment, chest x-ray reviewed, showing no airspace disease, continue conservative treatment, not a candidate for Remdesivir related to absence of significant symptoms or acute pulmonary process on the chest x-ray, and low GFR. We'll continue to follow. I performed a history & physical examination of the patient and discussed their management with my nurse practitioner, Corina Graham. I reviewed the nurse practitioner's note and agree with the documented findings and plan of care. Lung sounds are positive for diminished breath sounds. The findings and the impression was discussed with the patient. I attest to the documentation by the nurse practitioner. Time with Patient: Greater than 30
[2020-06-06 17:10] LABS: Glucose,Whole Blood 141 mg/dL (75-99)
[2020-06-06] MEDS: hydrALAZINE HCL 50 MG TAB PO SCH ×2 (17:26→20:42)
[2020-06-06 19:53] LABS: Ferritin 190.3 ng/mL (22.0-322.0)
[2020-06-06 20:20] LABS: Glucose,Whole Blood 162 mg/dL (75-99)
[2020-06-06] MEDS: MAGNESIUM SULFATE-D5W PMX 1 GM in DEXTROSE/WATER 1 100ML.BAG IVPB SCH ×2 (20:44→23:58)
[2020-06-07 07:30] LABS: Glucose,Whole Blood 169 mg/dL (75-99)
--- NOTE | 2020-06-07 10:10 | P.PN ---
Subjective Progress Note Date: 06/07/20 HISTORY OF PRESENT ILLNESS This is an 84-year-old -[place] male patient of Dr. Urban with past medical history of diabetes mellitus type 2, hypertension, hyperlipidemia, c hronic kidney disease, history of GI bleed from diverticulitis, recently admitted to the hospital for acute cholecystitis status post laparoscopic cholecystectomy and also treated for bilateral pneumonia. Patient was discharged to [facility] and completed his course of rehab. He was then discharged home on May 30. Patient has developed increasing weakness with mental status changes. Not eating or drinking and was brought into the hospital for evaluation. Patient presented to [facility] emergency center. He was afebrile, heart rate 85, blood pressure 144/77, pulse ox 96% on room air. CBC was unremarkable. Electrolytes normal, BUN 44 and creatinine 3.13. Blood sugar 166. Magnesium 1.5. Liver function tests normal. Urinalysis positive for protein and blood with no sign of infection. COVID-19 positive. LDH 600, C- reactive protein 43.8. Chest x-ray reveals mild cardiomegaly and low lung volumes without suspicious acute pulmonary process. CAT scan of the abdomen and pelvis without contrast revealed interstitial infiltrate and atelectasis at the lung bases increased from old exam. Mild cardiomegaly. No acute abnormality within the abdomen and pelvis. Moderate colonic diverticulosis without diverticulitis. No evidence of bile leak. CAT scan of the brain revealed cerebral atrophy and chronic small vessel ischemia. No acute intracranial abnormality. Patient was admitted to the [facility] floor. 06/07: Patient has been seen by pulmonary medicine with plan to continue current medications. Nephrology has decreased normal saline 75 mL per hour. Hydralazine increased to 3 times daily. Renal ultrasound reveals no hydronephrosis. Benign 2.2 cm cortical cyst on the left. Bladder suboptimally assessed. Patient has been afebrile, heart rate 61, blood pressure 155/66, pulse ox 98% on 3 L nasal cannula. Blood sugars are running between 141 and 169. Repeat blood work for this morning remains pending. Patient continues to state that he does not have any appetite. He is feeling a little bit better from yesterday. PT and OT evaluations today. REVIEW OF SYSTEMS Constitutional: No fever, no chills, no night sweats. No weight change. Reports weakness, Reports fatigue Reports lethargy. EENT: No headache. No blurred vision or double vision, no loss of vision. No loss of Hearing, no ringing in the ears, no dizziness. No nasal drainage or congestion. No epistaxis. No sore throat. Lungs: No shortness of breath, cough, no sputum production. No wheezing. Cardiovascular: No chest pain, no lower extremity edema. No palpitations. No paroxysmal nocturnal dyspnea. No orthopnea. No lightheadedness or dizziness. No syncopal episodes. Abdominal: No abdominal pain. No nausea, vomiting. No diarrhea. No constipation. No bloody or tarry stools. Reports loss of appetite. Genitourinary: No dysuria, increased frequency, urgency. Reported urinary retention. Musculoskeletal: No myalgias. No muscle weakness, no gait dysfunction, no frequent falls. No back pain. No neck pain. Integumentary: No wounds, no lesions. No rash or pruritus. No unusual bruising. No change in hair or nails. Neurologic: No aphasia. No facial droop. Reports change in mentation. No head injury. No headache. No paralysis. No paresthesia. Psychiatric: No depression. No anxiety. No mood swings. Endocrine: No abnormal blood sugars. PHYSICAL EXAMINATION Gen: This is an 84-year-old -[place] male. He is resting in bed appears to be comfortable. No acute respiratory distress. HEENT: Head is atraumatic, normocephalic. Pupils equal, round. Sclerae is anicteric. NECK: Supple. No JVD. No lymphadenopathy. No thyromegaly. LUNGS: Clear to auscultation. No wheezes or rhonchi. No intercostal retractions. HEART: Regular rate and rhythm. No murmur. ABDOMEN: Soft. Bowel sounds are present. No masses. No tenderness. EXTREMITIES: No pedal edema. No calf tenderness. Small ulceration to the left pretibial area. Please see nursing documentation for details, POA. NEUROLOGICAL: Patient is awake, alert and oriented x3. Cranial nerves 2 through 12 are grossly intact. ASSESSMENT AND PLAN 1. Covid 19 pneumonia. Consult with pulmonary medicine. Continue supplements with vitamin C, vitamin D, zinc. Continue dexamethasone 4 mg twice daily, Lovenox daily. 2. Acute kidney injury with chronic kidney disease stage III. Consult with nephrology appreciated. Continue to Hold losartan. Avoid nephrotoxic agents. IV fluids decreased to 75 mL per hour. Renal ultrasound as above. Avoid nephrotoxins. 3. Hypertension. Continue Norvasc 5 mg daily, hydralazine 50 mg increased to 3 times daily. Losartan on hold. 4. Hyperlipidemia. 5. History of recent laparoscopic cholecystectomy, stable. 6. History of GI bleed from diverticulitis, stable. 7. Benign prostatic hypertrophy. Continue Flomax or 0.4 mg daily 8. Diabetes mellitus type 2. Hold metformin and glipizide. Continue NovoLog scale before meals and at bedtime. 9. GI prophylaxis. Protonix. 10. DVT prophylaxis. Lovenox. DISCHARGE PLAN Most likely home with daughter with homecare. Patient will require home care due to room confinement at home. Patient will also need wheelchair in order for him to complete his ADLs. PT and OT evaluations. Impression and plan of care have been directed as dictated by the signing physician. Cyndy Faust nurse practitioner acting as scribe for signing physician. Objective - Vital Signs Vital signs: Vital Signs Temp 98.5 F 06/07/20 02:18 Pulse 61 06/07/20 02:18 Resp 16 06/06/20 20:00 BP 155/66 06/07/20 02:18 Pulse Ox 98 06/07/20 02:18 Intake & Output 06/06/20 06/07/20 06/07/20 18:59 06:59 18:59 Output Total 800 Balance -800 Weight 122.47 kg Output: Urine 800 Other: Voiding Method Indwelling Catheter Indwelling Catheter # Bowel Movements 0 - Labs CBC & Chem 7: 06/05/20 19:59 06/06/20 12:18 Labs: Abnormal Lab Results - Last 24 Hours (Table) 06/06/20 06/06/20 06/06/20 Range/Units 08:27 08:27 11:35 Carbon Dioxide (22-30) mmol/L BUN (9-20) mg/dL Creatinine (0.66-1.25) mg/dL Glucose (74-99) mg/dL POC Glucose (mg/dL) 158 H (75-99) mg/dL Calcium (8.4-10.2) mg/dL Magnesium (1.6-2.3) mg/dL C-Reactive Protein 43.8 H (<10.0) mg/L Procalcitonin 0.18 H (0.02-0.09) ng/mL 06/06/20 06/06/20 06/06/20 Range/Units 12:18 17:09 20:19 Carbon Dioxide 31 H (22-30) mmol/L BUN 32 H (9-20) mg/dL Creatinine 1.47 H (0.66-1.25) mg/dL Glucose 146 H (74-99) mg/dL POC Glucose (mg/dL) 141 H 162 H (75-99) mg/dL Calcium 8.1 L (8.4-10.2) mg/dL Magnesium 1.4 L (1.6-2.3) mg/dL C-Reactive Protein (<10.0) mg/L Procalcitonin (0.02-0.09) ng/mL 06/07/20 Range/Units 07:26 Carbon Dioxide (22-30) mmol/L BUN (9-20) mg/dL Creatinine (0.66-1.25) mg/dL Glucose (74-99) mg/dL POC Glucose (mg/dL) 169 H (75-99) mg/dL Calcium (8.4-10.2) mg/dL Magnesium (1.6-2.3) mg/dL C-Reactive Protein (<10.0) mg/L Procalcitonin (0.02-0.09) ng/mL
[2020-06-07] MEDS: ENOXAPARIN 40 MG/0.4 ML SYRINGE SQ SCH (10:19)
[2020-06-07] MEDS: INSULIN ASPART (NovoLOG) 100 UNIT/ML VIAL SQ SCH ×4 (10:19→21:10)
[2020-06-07] MEDS: TAMSULOSIN 0.4 MG CAP.ER.24H PO SCH (10:20)
[2020-06-07] MEDS: amLODIPine 5 MG TAB PO SCH (10:20)
[2020-06-07] MEDS: ZINC SULFATE 220 MG CAP PO SCH (10:20)
[2020-06-07] MEDS: ASCORBIC ACID 500 MG TAB PO SCH (10:20)
[2020-06-07] MEDS: CHOLECALCIFEROL 1,000 UNIT TAB PO SCH (10:20)
[2020-06-07 10:21] LABS: African American GFR (CKD) 63.5 (60.0-200.0); Anion Gap 9.4 mmol/L (4.00-12.00); BUN/Creat Ratio 26.67 Ratio (12.00-20.00); Carbon Dioxide 26.6 mmol/L (21.6-31.8); Magnesium 1.8 mg/dL (1.5-2.4); Non-African American GFR(CKD) 54.8 (60.0-200.0); Potassium 3.8 mmol/L (3.5-5.5)
[2020-06-07] MEDS: hydrALAZINE HCL 50 MG TAB PO SCH ×3 (12:40→21:10)
[2020-06-07 12:47] LABS: Glucose,Whole Blood 172 mg/dL (75-99)
[2020-06-07] MEDS: dexAMETHasone 4 MG TAB PO SCH ×2 (13:41→21:09)
--- NOTE | 2020-06-07 13:47 | P.PN ---
Subjective Patient is seen in follow-up for acute kidney injury. Renal function continues to improve. He denies chest pain or shortness of breath. Has a Boone catheter. Nonoliguric. Vital signs are stable. General: The patient appeared well nourished and normally developed. HEENT: Head exam is unremarkable. Neck is without jugular venous distension. LUNGS: Breath sounds decreased. HEART: Rate and Rhythm are regular. ABDOMEN: Soft, nontender. EXTREMITITES: No edema. Objective - Vital Signs Vital signs: Vital Signs Temp 97.9 F 06/07/20 10:16 Pulse 56 L 06/07/20 10:16 Resp 20 06/07/20 10:16 BP 159/55 06/07/20 10:16 Pulse Ox 99 06/07/20 10:16 Intake & Output 06/06/20 06/07/20 06/07/20 18:59 06:59 18:59 Output Total 800 800 Balance -800 -800 Weight 122.47 kg Output: Urine 800 800 Other: Voiding Method Indwelling Catheter Indwelling Catheter Indwelling Catheter # Bowel Movements 0 0 - Labs CBC & Chem 7: 06/05/20 19:59 06/07/20 06:40 Labs: Abnormal Lab Results - Last 24 Hours (Table) 06/06/20 06/06/20 06/06/20 Range/Units 08:27 17:09 20:19 BUN (9.0-27.0) mg/dL Est GFR (CKD-EPI)NonAf (60.0-200.0) BUN/Creatinine Ratio (12.00-20.00) Ratio Glucose (70-110) mg/dL POC Glucose (mg/dL) 141 H 162 H (75-99) mg/dL Calcium (8.7-10.3) mg/dL Procalcitonin 0.18 H (0.02-0.09) ng/mL 06/07/20 06/07/20 06/07/20 Range/Units 06:40 07:26 12:44 BUN 32.0 H (9.0-27.0) mg/dL Est GFR (CKD-EPI)NonAf 54.8 L (60.0-200.0) BUN/Creatinine Ratio 26.67 H (12.00-20.00) Ratio Glucose 178 H (70-110) mg/dL POC Glucose (mg/dL) 169 H 172 H (75-99) mg/dL Calcium 8.0 L (8.7-10.3) mg/dL Procalcitonin (0.02-0.09) ng/mL Assessment and Plan Plan: Assessment: 1. Acute kidney injury mostly prerenal secondary to infection and further worsened with the use of losartan. Creatinine 3.13 on admission - 1.2 today. Baseline creatinine from May 2020 near 1. No hydronephrosis noted on CAT scan/renal uls. 2. Covid 19 pneumonia maintained on steroids and zinc. 3. Benign hypertension. Further exacerbated by steroids. Stable. 4. Diabetes mellitus. 5. Status post cholecystectomy May 2020. Plan: Decrease normal saline to 50 mL an hour. Avoid nephrotoxins. Continue to monitor renal function and urine output.
--- NOTE | 2020-06-07 14:20 | P.PN ---
Subjective Progress Note Date: 06/07/20 Principal diagnosis: Altered mental status, COVID 19 84-year-old white male patient with a recent history of cholecystectomy for gangrenous cholecystitis on 05/18/2020 following which he was recovering at the [facility], has a past medical history of diabetes mellitus, hypertension, previous episodes of pneumonia, diverticular disease, history of lower GI bleeding, with EGD and colonoscopy, was brought into the emergency department per EMS on 06/05/2020 for evaluation of altered mental status and generalized weakness. He was discharged to a assisted facility on 05/25/2020 and was recently discharged from there on 05/30/2020 to his daughter's house where he was having increasing difficulty caring for himself. His chest x-ray no emergency department showed the mild cardiomegaly, low lung volumes without suspicious focal airspace opacity, pleural effusions and no evidence of pneumothorax. His brain CT shows cerebral atrophy and chronic small vessel ischemia, no acute intracranial abnormality. Normal sinus rhythm on the EKG. Patient denied any fever or chills. Denied any significant shortness of breath. No nausea vomiting or diarrhea, admit to some abdominal pain in the right upper quadrant where he had incision sites. Abdomen is soft and nontender. Reports normal appetite. Meds to being increasingly more weak, and no other complaints. CT of the abdomen and pelvis showing some interstitial infiltrates and atelectasis at the lung bases mild cardiomegaly, no acute abnormality within the abdomen and pelvis, moderate colonic diverticulosis without diverticulitis, cholecystectomy, no dilated ducts no evidence of a bile leak. Patient was checked for: 19 and was found to be positive, other laboratory analysis showed white blood cell count of 4.1, hemoglobin of 13.4, INR is 1.1, electrolytes were within normal limits, and patient was found to have acute kidney injury with the BUN of 44 creatinine 3.13, and GFR of 17, 600, CRP was 43.8, and lipase was 309, urinalysis was checked showing no clear evidence of urinary tract infection. Recently on 2 L of oxygen the pulse ox of 92-96%, intermittent low-grade fevers with T-max of 99.2F. He was started on Decadron 4 mg twice daily, he is on prophylactic dose of Lovenox for his renal clearance, he is receiving gentle IV hydration, and the pulmonary service was consulted in view of his COVID 19 infection On June patient seen in follow-up on medical floor, currently on 3 L of oxygen the pulse ox of 99%, appears to be, comfortable, no worsening dyspnea, he is breathing comfortably, but appears to be generally weak, he is currently sitting up in the recliner, he barely holding his head up, his vital signs have been stable, his had no acute events overnight. No new chest x-ray, today's labs have been reviewed, his renal function has significantly improved, and BUN is 32 and creatinine is down to 1.2, electrolytes were within normal limits. He's had no nausea vomiting or diarrhea. He remains on prophylactic dose of Lovenox, oral Decadron, and vitamin C, vitamin D and zinc supplement in addition to gentle IV hydration with 0.9 normal saline at a rate of 75 ML per hour. His been evaluated by physical therapy and apparently patient's family was not happy with the care at the [facility] and took patient home before he completed his rehabilitation however patient was increasingly weak at home. Current recommendation from physical therapy is nursing, physical therapy and occupational therapy, 24-hour care as the patient having difficulty with transfers, requires extensive verbal and physical cues, has very limited functional endurance and extensive assistance with all ADLs Objective - Vital Signs Vital signs: Vital Signs Temp 97.9 F 06/07/20 10:16 Pulse 56 L 06/07/20 10:16 Resp 20 06/07/20 10:16 BP 159/55 06/07/20 10:16 Pulse Ox 99 06/07/20 10:16 Intake & Output 06/06/20 06/07/20 06/07/20 18:59 06:59 18:59 Output Total 800 800 Balance -800 -800 Weight 122.47 kg Output: Urine 800 800 Other: Voiding Method Indwelling Catheter Indwelling Catheter Indwelling Catheter # Bowel Movements 0 0 - Exam GENERAL EXAM: Drowsy but arousable,, 84-year-old white male, 3 L of oxygen, with pulse ox of 99%, appears weak, is sitting up in the recliner, with his head hanging down, he can barely hold his head up, but no apparent distress. HEAD: Normocephalic/atraumatic. EYES: Normal reaction of pupils, equal size. Conjunctiva pink, sclera white. NOSE: Clear with pink turbinates. THROAT: No erythema or exudates. NECK: No masses, no JVD, no thyroid enlargement, no adenopathy. CHEST: No chest wall deformity. Symmetrical expansion. LUNGS: Equal air entry with no crackles, wheeze, rhonchi or dullness. CVS: Regular rate and rhythm, normal S1 and S2, no gallops, no murmurs, no rubs ABDOMEN: Soft, nontender. No hepatosplenomegaly, normal bowel sounds, no guarding or rigidity. Abdominal incisions clean dry and intact, EXTREMITIES: No clubbing, no edema, no cyanosis, 2+ pulses and upper and lower extremities. MUSCULOSKELETAL: Muscle strength and tone normal. SPINE: No scoliosis or deformity SKIN: No rashes CENTRAL NERVOUS SYSTEM: Alert and oriented -3. No focal deficits, tone is normal in all 4 extremities. PSYCHIATRIC: Alert and oriented -3. Appropriate affect. Intact judgment and insight. - Labs CBC & Chem 7: 06/05/20 19:59 06/07/20 06:40 Labs: Abnormal Lab Results - Last 24 Hours (Table) 06/06/20 06/06/20 06/06/20 Range/Units 08:27 17:09 20:19 BUN (9.0-27.0) mg/dL Est GFR (CKD-EPI)NonAf (60.0-200.0) BUN/Creatinine Ratio (12.00-20.00) Ratio Glucose (70-110) mg/dL POC Glucose (mg/dL) 141 H 162 H (75-99) mg/dL Calcium (8.7-10.3) mg/dL Procalcitonin 0.18 H (0.02-0.09) ng/mL 06/07/20 06/07/20 06/07/20 Range/Units 06:40 07:26 12:44 BUN 32.0 H (9.0-27.0) mg/dL Est GFR (CKD-EPI)NonAf 54.8 L (60.0-200.0) BUN/Creatinine Ratio 26.67 H (12.00-20.00) Ratio Glucose 178 H (70-110) mg/dL POC Glucose (mg/dL) 169 H 172 H (75-99) mg/dL Calcium 8.0 L (8.7-10.3) mg/dL Procalcitonin (0.02-0.09) ng/mL Assessment and Plan Plan: Assessment: #1. Acute COVID 19 infection, with primary symptoms being weakness, fatigue, no significant pulmonary symptoms although requiring 2 L of oxygen currently with a pulse ox between 92-97%. Chest x-ray showed low lung volumes without new suspicious acute pulmonary process #2. Acute kidney injury, improved with IV hydration #3. Mild abdominal discomfort, CT abdomen and pelvis showed no acute intra- abdominal or intrapelvic abnormality with evidence of recent cholecystectomy, no dilated ducts, no evidence of a bile leak #4. Recent history of gangrenous cholecystitis, status post laparoscopic cholecystectomy on 05/18/[address] Taylor #5. General medical debility, he required assisted facility placement after his most recent hospitalization but recently was discharged from the assisted facility to his daughter's house where he could not care for himself #6. Diabetes mellitus type 2 #7. Hypertension #8. Hyperlipidemia #9. Chronic kidney disease, unspecified #10. Previous history of GI bleeding and diverticulitis #11. History of BPH on Flomax Plan: Continue vitamins, continue oral Decadron, patient denies any pulmonary symptoms however he is severely generally debilitated, and that remains his main issue at this point. The family is insisting on taking the patient home however patient will require 24-hour nursing care, extensive physical and occupational therapy, 24-hour supervision and extensive assistance with his ADLs. We truly recommend ECF for rehabilitation. He may be considered for discharge when cleared by medicine I performed a history & physical examination of the patient and discussed their management with my nurse practitioner, Corina Graham. I reviewed the nurse practitioner's note and agree with the documented findings and plan of care. Lung sounds are positive for diminished breath sounds. The findings and the impression was discussed with the patient. I attest to the documentation by the nurse practitioner. Time with Patient: Less than 30
--- NOTE | 2020-06-07 15:59 | CDI ---
Documentation Clarification Form Date: 06/07/2020 03:39:55 PM From: Belinda Aguilera RN, CCDS Admit Date: 06/05/2020 09:26:00 PM Patient Name: Jose Fink Visit Number: [id number] Discharge Date: ATTENTION: The Clinical Documentation Specialists (CDI) and [facility] Coding Staff appreciate your assistance in clarifying documentation. Please respond to the clarification below the line at the bottom and electronically sign. The CDI & [facility] Coding staff will review the response and follow-up if needed. Please note: Queries are made part of the Legal Health Record. If you have any questions, please contact the author of this message via ITS. Dr. Jevon Singer Altered Mental Status was documented in the ED clinical assessment. Please render your opinion on the findings. History/Risk Factors: Diabetes Mellitus, Hypertension, Pneumonia, Ischemic colitis. Clinical Indicators: 84-year-old male present to ED on 06/05 from [facility] for evaluation of altered mental status. Neurological assessment in ED found patient is alert and orientated x1. He was oriented to name, respond to voice with confused verbal response. He complains of weakness, muscle strength is poor. 06/05 Vital signs: 144/77 85 18 98.6 96 % RA 06/05 EKG: Showing normal sinus rhythm with a rate of 83 06/05 Labs: BUN 44, Creatinine 3.14 06/05 Chest X Ray: Mild cardiomegaly and low lung volumes without new suspicious acute pulmonary process 06/06 Abdomen/Bladder US: No hydronephrosis Treatment: .9NS 500ML Bolus (06/05) .9NS 75 MLS/HR Hydralazine 50 MG PO TID Flomax 0.4 MG PO Daily Monitor renal function and urine output Avoid Nephrotoxins In your professional opinion, please clarify the etiology of the Altered Mental Status, if known. xx Metabolic encephalopathy Dementia (if know, specify Type and if with/without Behavioral Disturbance) Other condition (please specify) Unable to determine (Last Revision: September 2017) MTDD
[2020-06-07 17:36] LABS: Glucose,Whole Blood 202 mg/dL (75-99)
[2020-06-07] MEDS: SODIUM CHLORIDE 0.9% 1,000 ML IV SCH (20:42)
[2020-06-07 20:46] LABS: Glucose,Whole Blood 243 mg/dL (75-99)
[2020-06-08] MEDS: SODIUM CHLORIDE 0.9% 1,000 ML IV SCH ×2 (00:45→12:31)
[2020-06-08 07:34] LABS: Glucose,Whole Blood 201 mg/dL (75-99)
[2020-06-08] MEDS: INSULIN ASPART (NovoLOG) 100 UNIT/ML VIAL SQ SCH ×5 (07:54→21:24)
[2020-06-08] MEDS: hydrALAZINE HCL 50 MG TAB PO SCH ×4 (07:54→21:25)
[2020-06-08] MEDS: TAMSULOSIN 0.4 MG CAP.ER.24H PO SCH (07:54)
[2020-06-08] MEDS: ASCORBIC ACID 500 MG TAB PO SCH (07:54)
[2020-06-08] MEDS: CHOLECALCIFEROL 1,000 UNIT TAB PO SCH (07:54)
[2020-06-08] MEDS: ENOXAPARIN 40 MG/0.4 ML SYRINGE SQ SCH (07:54)
[2020-06-08] MEDS: amLODIPine 5 MG TAB PO SCH (07:55)
[2020-06-08] MEDS: ZINC SULFATE 220 MG CAP PO SCH (07:55)
[2020-06-08] MEDS: dexAMETHasone 4 MG TAB PO SCH ×3 (07:55→21:25)
[2020-06-08 11:12] LABS: African American GFR (CKD) 41.7 (60.0-200.0); Anion Gap 9.6 mmol/L (4.00-12.00); BUN/Creat Ratio 25.29 Ratio (12.00-20.00); Calcium 8.3 mg/dL (8.7-10.3); Carbon Dioxide 27.4 mmol/L (21.6-31.8); Magnesium 1.7 mg/dL (1.5-2.4); Potassium 3.9 mmol/L (3.5-5.5)
--- NOTE | 2020-06-08 11:27 | CDI ---
Documentation Clarification Form Date: 06/08/2020 10:51:16 AM From: Belinda Aguilera RN, CCDS Admit Date: 06/05/2020 09:26:00 PM Patient Name: Jose Fink Visit Number: [id number] Discharge Date: ATTENTION: The Clinical Documentation Specialists (CDI) and [facility] Coding Staff appreciate your assistance in clarifying documentation. Please respond to the clarification below the line at the bottom and electronically sign. The CDI & [facility] Coding staff will review the response and follow-up if needed. Please note: Queries are made part of the Legal Health Record. If you have any questions, please contact the author of this message via ITS. Dr. Jevon Singer A pressure ulcer was documented in the nursing wound assessment starting on 06/05/20. Please render your opinion on the nursing wound care assessment in your documentation and specify POA indicators. History/Risk Factors: Pneumonia, Diabetes Mellitus, hypertension Clinical Indicators: 84-year-old male present to ED on 06/05 with altered mental status, generalized weakness. Per his daughter he has been slowly declining and is unable to care for himself. Nursing wound assessment is stated below. Location: Bilateral Buttock Wound description: Skin is dry, non-blanchable skin surrounding area and coccyx, pressure injury stage II Treatment: Monitor skin integrity Assist with ADLs Elements for accurate and compliant documentation of an ulcer: *The location/laterality of the ulcer x *Etiology (decubitus/pressure, diabetic, PVD) *Stage I-IV, Unstageable, Suspected Deep Tissue Injury (To the deepest stage) *If the ulcer was present at admission (POA) or occurred after admission In your professional opinion, can you please clarify the diagnosis, location, laterality and whether present on admission (POA): x Stage 1 Pressure/Decubitus Ulcer (intact skin, non-blanching redness of local area) Stage 2 Pressure/Decubitus Ulcer (Partial thickness, loss of dermis, pink wound bed) Stage 3 Pressure/Decubitus Ulcer (Full thickness tissue loss) Stage 4 Pressure/Decubitus Ulcer (Full thickness tissue loss with exposed bone, tendon, or muscle. May have slough or eschar present) Unstageable Other condition, please specify Unable to determine Please indicate etiology of pressure ulcer (if known). (Last Revision: March 2017) MTDD
[2020-06-08 11:50] LABS: Glucose,Whole Blood 184 mg/dL (75-99)
--- NOTE | 2020-06-08 12:19 | P.PN ---
Subjective Patient is seen in follow-up for acute kidney injury. Renal function worse today. Unclear cause. Boone catheter was removed this morning. Patient is incontinent. Blood pressure stable. Vital signs are stable. General: The patient appeared well nourished and normally developed. HEENT: Head exam is unremarkable. Neck is without jugular venous distension. LUNGS: Breath sounds decreased. HEART: Rate and Rhythm are regular. ABDOMEN: Soft, nontender. EXTREMITITES: No edema. Objective - Vital Signs Vital signs: Vital Signs Temp 97.8 F 06/08/20 10:48 Pulse 60 06/08/20 10:48 Resp 20 06/08/20 10:48 BP 125/57 06/08/20 10:48 Pulse Ox 97 06/08/20 10:48 Intake & Output 06/07/20 06/08/20 06/08/20 18:59 06:59 18:59 Output Total 1200 250 Balance -1200 -250 Output: Urine 1200 250 Other: Voiding Method Indwelling Catheter Indwelling Catheter Indwelling Catheter # Bowel Movements 1 - Labs CBC & Chem 7: 06/05/20 19:59 06/08/20 06:16 Labs: Abnormal Lab Results - Last 24 Hours (Table) 06/07/20 06/07/20 06/07/20 Range/Units 12:44 17:33 20:44 D-Dimer (<0.60) mg/L FEU BUN (9.0-27.0) mg/dL Creatinine (0.6-1.5) mg/dL Est GFR (CKD-EPI)AfAm (60.0-200.0) Est GFR (CKD-EPI)NonAf (60.0-200.0) BUN/Creatinine Ratio (12.00-20.00) Ratio Glucose (70-110) mg/dL POC Glucose (mg/dL) 172 H 202 H 243 H (75-99) mg/dL Calcium (8.7-10.3) mg/dL 06/08/20 06/08/20 06/08/20 Range/Units 06:16 06:16 07:24 D-Dimer 4.43 H (<0.60) mg/L FEU BUN 43.0 H (9.0-27.0) mg/dL Creatinine 1.7 H (0.6-1.5) mg/dL Est GFR (CKD-EPI)AfAm 41.7 L (60.0-200.0) Est GFR (CKD-EPI)NonAf 36.0 L (60.0-200.0) BUN/Creatinine Ratio 25.29 H (12.00-20.00) Ratio Glucose 199 H (70-110) mg/dL POC Glucose (mg/dL) 201 H (75-99) mg/dL Calcium 8.3 L (8.7-10.3) mg/dL 06/08/20 Range/Units 11:41 D-Dimer (<0.60) mg/L FEU BUN (9.0-27.0) mg/dL Creatinine (0.6-1.5) mg/dL Est GFR (CKD-EPI)AfAm (60.0-200.0) Est GFR (CKD-EPI)NonAf (60.0-200.0) BUN/Creatinine Ratio (12.00-20.00) Ratio Glucose (70-110) mg/dL POC Glucose (mg/dL) 184 H (75-99) mg/dL Calcium (8.7-10.3) mg/dL Assessment and Plan Plan: Assessment: 1. Acute kidney injury mostly prerenal secondary to infection and further worsened with the use of losartan. Creatinine 3.13 on admission - 1.2 as of June 07 but is up to 1.7 today. Baseline creatinine from May 2020 near 1. No hydronephrosis noted on CAT scan/renal uls. 2. Covid 19 pneumonia maintained on steroids and zinc. 3. Benign hypertension. Further exacerbated by steroids. Stable. 4. Diabetes mellitus. 5. Status post cholecystectomy May 2020. Plan: Resume IV fluids. Monitor bladder scans closely and to reinsert Boone catheter if greater than 300 mL urine present. Avoid nephrotoxins. Continue to monitor renal function and urine output. Hold amlodipine and hydralazine for systolic blood pressure less than 130.
--- NOTE | 2020-06-08 13:47 | P.PN ---
Subjective Progress Note Date: 06/08/20 HISTORY OF PRESENT ILLNESS This is an 84-year-old -Malag[place] male patient of Dr. Singer with past medical history of diabetes mellitus type 2, hypertension, hyperlipidemia, chr onic kidney disease, history of GI bleed from diverticulitis, recently admitted to the hospital for acute cholecystitis status post laparoscopic cholecystectomy and also treated for bilateral pneumonia. Patient was discharged to [facility] and completed his course of rehab. He was then discharged home on May 30. Patient has developed increasing weakness with mental status changes. Not eating or drinking and was brought into the hospital for evaluation. Patient presented to [facility] emergency center. He was afebrile, heart rate 85, blood pressure 144/77, pulse ox 96% on room air. CBC was unremarkable. Electrolytes normal, BUN 44 and creatinine 3.13. Blood sugar 166. Magnesium 1.5. Liver function tests normal. Urinalysis positive for protein and blood with no sign of infection. COVID-19 positive. LDH 600, C- reactive protein 43.8. Chest x-ray reveals mild cardiomegaly and low lung volumes without suspicious acute pulmonary process. CAT scan of the abdomen and pelvis without contrast revealed interstitial infiltrate and atelectasis at the lung bases increased from old exam. Mild cardiomegaly. No acute abnormality within the abdomen and pelvis. Moderate colonic diverticulosis without diverticulitis. No evidence of bile leak. CAT scan of the brain revealed cerebral atrophy and chronic small vessel ischemia. No acute intracranial ab normality. Patient was admitted to the [facility] floor. 06/07: Patient has been seen by pulmonary medicine with plan to continue current medications. Nephrology has decreased normal saline 75 mL per hour. Hydralazine increased to 3 times daily. Renal ultrasound reveals no hydronephrosis. Benign 2.2 cm cortical cyst on the left. Bladder suboptimally assessed. Patient has been afebrile, heart rate 61, blood pressure 155/66, pulse ox 98% on 3 L nasal cannula. Blood sugars are running between 141 and 169. Repeat blood work for this morning remains pending. Patient continues to state that he does not have any appetite. He is feeling a little bit better from yesterday. PT and OT evaluations today. 06/08: Patient has been afebrile, heart rate 55, blood pressure 171/69, pulse ox 90% on 2 L. Breathing status has been stable. He denies shortness of breath. Boone catheter in place which will be discontinued today. IV fluids continue by nephrology. Bladder scans monitor for residuals, avoid nephrotoxic agents. Amlodipine and hydralazine to be held for systolic blood pressure less than 130. PT has evaluated with recommendations for home care for subacute rehab with 24- hour care. Electrolytes normal, BUN 43 and creatinine 1.7. Blood sugars are running 184-243. Levemir 10 units at bedtime added. Hyperglycemia secondary to steroids. Anticipate discharge by the end of the week. REVIEW OF SYSTEMS Constitutional: No fever, no chills, no night sweats. No weight change. Reports weakness, Reports fatigue Reports lethargy. EENT: No headache. No blurred vision or double vision, no loss of vision. No loss of Hearing, no ringing in the ears, no dizziness. No nasal drainage or congestion. No epistaxis. No sore throat. Lungs: No shortness of breath, cough, no sputum production. No wheezing. Cardiovascular: No chest pain, no lower extremity edema. No palpitations. No paroxysmal nocturnal dyspnea. No orthopnea. No lightheadedness or dizziness. No syncopal episodes. Abdominal: No abdominal pain. No nausea, vomiting. No diarrhea. No c onstipation. No bloody or tarry stools. Reports loss of appetite. Genitourinary: No dysuria, increased frequency, urgency. Reported urinary retention. Musculoskeletal: No myalgias. No muscle weakness, no gait dysfunction, no frequent falls. No back pain. No neck pain. Integumentary: No wounds, no lesions. No rash or pruritus. No unusual bruising. No change in hair or nails. Neurologic: No aphasia. No facial droop. Reports change in mentation-improving No headache. No paralysis. No paresthesia. Psychiatric: No depression. No anxiety. No mood swings. Endocrine: No abnormal blood sugars. PHYSICAL EXAMINATION Gen: This is an 84-year-old -Malag[place] male. He is resting in bed appears to be comfortable. No acute respiratory distress. HEENT: Head is atraumatic, normocephalic. Pupils equal, round. Sclerae is anicteric. NECK: Supple. No JVD. No lymphadenopathy. No thyromegaly. LUNGS: Clear to auscultation. No wheezes or rhonchi. No intercostal retractions. No accessory muscle usage. HEART: Regular rate and rhythm. No murmur. ABDOMEN: Soft. Bowel sounds are present. No masses. No tenderness. EXTREMITIES: No pedal edema. No calf tenderness. Small ulceration to the left pretibial area. Please see nursing documentation for details, POA. NEUROLOGICAL: Patient is awake, alert and oriented x3. Cranial nerves 2 through 12 are grossly intact. ASSESSMENT AND PLAN 1. Metabolic encephalopathy secondary to Covid 19 pneumonia. Consult with pulmonary medicine. Continue supplements with vitamin C, vitamin D, zinc. Continue dexamethasone 4 mg twice daily, Lovenox daily. 2. Acute kidney injury with chronic kidney disease stage III. Consult with nephrology appreciated. Continue to Hold losartan. Avoid nephrotoxic agents. IV fluids 75 mL per hour. Renal ultrasound as above. 3. Hypertension. Continue Norvasc 5 mg daily, hydralazine 50 mg increased to 3 times daily. Losartan on hold. 4. Hyperlipidemia. 5. History of recent laparoscopic cholecystectomy, stable. 6. History of GI bleed from diverticulitis, stable. 7. Benign prostatic hypertrophy. Continue Flomax or 0.4 mg daily 8. Diabetes mellitus type 2. Hold metformin and glipizide. Continue NovoLog scale before meals and at bedtime. Levemir 10 units at bedtime added. 9. GI prophylaxis. Protonix. 10. DVT prophylaxis. Lovenox. DISCHARGE PLAN Most likely home with daughter with homecare. Patient will require commode chair due to room confinement at home. Patient will also need wheelchair in order for him to complete his ADLs. PT and OT evaluations. Impression and plan of care have been directed as dictated by the signing physician. Cyndy Faust nurse practitioner acting as scribe for signing physician. Objective - Vital Signs Vital signs: Vital Signs Temp 98.2 F 06/08/20 06:08 Pulse 55 L 06/08/20 06:08 Resp 18 06/07/20 20:00 BP 171/69 06/08/20 06:08 Pulse Ox 98 06/08/20 06:08 Intake & Output 06/07/20 06/08/20 06/08/20 18:59 06:59 18:59 Output Total 1200 250 Balance -1200 -250 Output: Urine 1200 250 Other: Voiding Method Indwelling Catheter Indwelling Catheter # Bowel Movements 1 - Labs CBC & Chem 7: 06/05/20 19:59 06/08/20 06:16 Labs: Abnormal Lab Results - Last 24 Hours (Table) 06/07/20 06/07/20 06/07/20 Range/Units 06:40 12:44 17:33 D-Dimer (<0.60) mg/L FEU BUN 32.0 H (9.0-27.0) mg/dL Est GFR (CKD-EPI)NonAf 54.8 L (60.0-200.0) BUN/Creatinine Ratio 26.67 H (12.00-20.00) Ratio Glucose 178 H (70-110) mg/dL POC Glucose (mg/dL) 172 H 202 H (75-99) mg/dL Calcium 8.0 L (8.7-10.3) mg/dL 06/07/20 06/08/20 06/08/20 Range/Units 20:44 06:16 07:24 D-Dimer 4.43 H (<0.60) mg/L FEU BUN (9.0-27.0) mg/dL Est GFR (CKD-EPI)NonAf (60.0-200.0) BUN/Creatinine Ratio (12.00-20.00) Ratio Glucose (70-110) mg/dL POC Glucose (mg/dL) 243 H 201 H (75-99) mg/dL Calcium (8.7-10.3) mg/dL
[2020-06-08 17:17] LABS: Glucose,Whole Blood 157 mg/dL (75-99)
[2020-06-08] MEDS ORDERED: INSULIN DETEMIR (LEVEMIR) 100 UNIT/ML SYR SQ SCH (21:00)
[2020-06-08 21:01] LABS: Glucose,Whole Blood 182 mg/dL (75-99)
[2020-06-09] MEDS: SODIUM CHLORIDE 0.9% 1,000 ML IV SCH ×2 (04:35→13:24)
[2020-06-09] MEDS: hydrALAZINE HCL 20 MG/ML 1 ML VIAL IVP PRN (06:25)
[2020-06-09 06:50] LABS: Glucose,Whole Blood 135 mg/dL (75-99)
[2020-06-09 07:06] LABS: Anisocytosis Slight; Basophils # (A) 0.1 k/uL (0-0.2); Basophils % (A) 1 %; Eosinophils % (A) 0 %; HCT 37.8 % (39.0-53.0); HGB 12.3 gm/dL (13.0-17.5); Lymphocytes # (A) 1.1 k/uL (1.0-4.8); Lymphocytes % (A) 14 %; MCH 26.9 pg (25.0-35.0); MCHC 32.6 g/dL (31.0-37.0); MCV 82.4 fL (80.0-100.0); Mean Platelet Volume 7.9; Monocytes # (A) 0.4 k/uL (0-1.0); Monocytes % (A) 6 %; Neutrophils % (A) 77 %; Platelet Count 239 k/uL (150-450); RBC 4.59 m/uL (4.30-5.90); RDW 16.6 % (11.5-15.5); WBC 7.8 k/uL (3.8-10.6)
[2020-06-09 07:15] LABS: African American GFR (CKD) 62 (>60 ml/min/1.73 sqM); Anion Gap 6 mmol/L; Blood Urea Nitrogen 41 mg/dL (9-20); Calcium 8.4 mg/dL (8.4-10.2); Carbon Dioxide 27 mmol/L (22-30); Chloride 109 mmol/L (98-107); Glucose 148 mg/dL (74-99); Magnesium 1.6 mg/dL (1.6-2.3); Non-African American GFR(CKD) 54 (>60 ml/min/1.73 sqM); Potassium 3.5 mmol/L (3.5-5.1); Sodium 142 mmol/L (137-145)
[2020-06-09] MEDS: TAMSULOSIN 0.4 MG CAP.ER.24H PO SCH (07:49)
[2020-06-09] MEDS: amLODIPine 5 MG TAB PO SCH (07:49)
[2020-06-09] MEDS: hydrALAZINE HCL 50 MG TAB PO SCH ×3 (07:49→20:32)
[2020-06-09] MEDS: ASCORBIC ACID 500 MG TAB PO SCH (07:49)
[2020-06-09] MEDS: ENOXAPARIN 40 MG/0.4 ML SYRINGE SQ SCH (07:49)
[2020-06-09] MEDS: INSULIN ASPART (NovoLOG) 100 UNIT/ML VIAL SQ SCH ×4 (07:49→21:04)
[2020-06-09] MEDS: dexAMETHasone 4 MG TAB PO SCH ×2 (07:50→20:32)
[2020-06-09] MEDS: CHOLECALCIFEROL 1,000 UNIT TAB PO SCH (07:50)
[2020-06-09] MEDS: ZINC SULFATE 220 MG CAP PO SCH (07:50)
[2020-06-09] MEDS ORDERED: ACETAMINOPHEN TAB 325 MG TAB PO PRN (11:08)
[2020-06-09] MEDS ORDERED: POTASSIUM CHLORIDE ER 20 MEQ TAB.ER PO STA (11:30)
--- NOTE | 2020-06-09 11:31 | P.PN ---
Subjective Patient is seen in follow-up for acute kidney injury. Renal function improved. No evidence of urinary retention. Patient is incontinent. Blood pressure on the higher side. Vital signs are stable. General: The patient appeared well nourished and normally developed. HEENT: Head exam is unremarkable. Neck is without jugular venous distension. LUNGS: Breath sounds decreased. HEART: Rate and Rhythm are regular. ABDOMEN: Soft, nontender. EXTREMITITES: No edema. Objective - Vital Signs Vital signs: Vital Signs Temp 100.5 F H 06/09/20 10:50 Pulse 93 06/09/20 10:50 Resp 17 06/09/20 10:50 BP 185/75 06/09/20 10:50 Pulse Ox 92 L 06/09/20 10:50 Intake & Output 06/08/20 06/09/20 06/09/20 18:59 06:59 18:59 Intake Total 600 Balance 600 Intake: IV 600 Sodium Chloride 0.9% 1, 600 000 ml @ 75 mls/hr IV . [id number] [facility] Rx#:[id number] Other: Voiding Method Indwelling Catheter Diaper Diaper Incontinent Incontinent # Voids 1 - Labs CBC & Chem 7: 06/09/20 06:43 06/09/20 06:43 Labs: Abnormal Lab Results - Last 24 Hours (Table) 06/08/20 06/08/20 06/08/20 Range/Units 11:41 17:15 20:59 Hgb (13.0-17.5) gm/dL Hct (39.0-53.0) % RDW (11.5-15.5) % Chloride (98-107) mmol/L BUN (9-20) mg/dL Glucose (74-99) mg/dL POC Glucose (mg/dL) 184 H 157 H 182 H (75-99) mg/dL 06/09/20 06/09/20 06/09/20 Range/Units 06:43 06:43 06:47 Hgb 12.3 L (13.0-17.5) gm/dL Hct 37.8 L (39.0-53.0) % RDW 16.6 H (11.5-15.5) % Chloride 109 H (98-107) mmol/L BUN 41 H (9-20) mg/dL Glucose 148 H (74-99) mg/dL POC Glucose (mg/dL) 135 H (75-99) mg/dL Assessment and Plan Plan: Assessment: 1. Acute kidney injury mostly prerenal secondary to infection and further worsened with the use of losartan. Creatinine 3.13 on admission - 1.22 today. Baseline creatinine from May 2020 near 1. No hydronephrosis noted on CAT scan/renal uls. 2. Covid 19 pneumonia maintained on steroids and zinc. 3. Benign hypertension. Further exacerbated by steroids. Stable. 4. Diabetes mellitus. 5. Status post cholecystectomy May 2020. 6. Hypokalemia from poor intake. 7. Mild hypomagnesemia from poor intake. Plan: Decreased normal saline to 50 mL an hour. Monitor bladder scans closely and to reinsert Boone catheter if greater than 300 mL urine present. Avoid nephrotoxins. Continue to monitor renal function and urine output. Hold amlodipine and hydralazine for systolic blood pressure less than 130. Replace potassium and magnesium.
--- NOTE | 2020-06-09 11:34 | P.PN ---
Subjective Progress Note Date: 06/09/20 HISTORY OF PRESENT ILLNESS This is an 84-year-old -Bangladeshi male patient of Dr. Singer with past medical history of diabetes mellitus type 2, hypertension, hyperlipidemia, chr onic kidney disease, history of GI bleed from diverticulitis, recently admitted to the hospital for acute cholecystitis status post laparoscopic cholecystectomy and also treated for bilateral pneumonia. Patient was discharged to [facility] and completed his course of rehab. He was then discharged home on May 30. Patient has developed increasing weakness with mental status changes. Not eating or drinking and was brought into the hospital for evaluation. Patient presented to [facility] emergency center. He was afebrile, heart rate 85, blood pressure 144/77, pulse ox 96% on room air. CBC was unremarkable. Electrolytes normal, BUN 44 and creatinine 3.13. Blood sugar 166. Magnesium 1.5. Liver function tests normal. Urinalysis positive for protein and blood with no sign of infection. COVID-19 positive. LDH 600, C- reactive protein 43.8. Chest x-ray reveals mild cardiomegaly and low lung volumes without suspicious acute pulmonary process. CAT scan of the abdomen and pelvis without contrast revealed interstitial infiltrate and atelectasis at the lung bases increased from old exam. Mild cardiomegaly. No acute abnormality within the abdomen and pelvis. Moderate colonic diverticulosis without diverticulitis. No evidence of bile leak. CAT scan of the brain revealed cerebral atrophy and chronic small vessel ischemia. No acute intracranial ab normality. Patient was admitted to the [facility] floor. 06/07: Patient has been seen by pulmonary medicine with plan to continue current medications. Nephrology has decreased normal saline 75 mL per hour. Hydralazine increased to 3 times daily. Renal ultrasound reveals no hydronephrosis. Benign 2.2 cm cortical cyst on the left. Bladder suboptimally assessed. Patient has been afebrile, heart rate 61, blood pressure 155/66, pulse ox 98% on 3 L nasal cannula. Blood sugars are running between 141 and 169. Repeat blood work for this morning remains pending. Patient continues to state that he does not have any appetite. He is feeling a little bit better from yesterday. PT and OT evaluations today. 06/08: Patient has been afebrile, heart rate 55, blood pressure 171/69, pulse ox 90% on 2 L. Breathing status has been stable. He denies shortness of breath. Boone catheter in place which will be discontinued today. IV fluids continue by nephrology. Bladder scans monitor for residuals, avoid nephrotoxic agents. Amlodipine and hydralazine to be held for systolic blood pressure less than 130. PT has evaluated with recommendations for home care for subacute rehab with 24- hour care. Electrolytes normal, BUN 43 and creatinine 1.7. Blood sugars are running 184-243. Levemir 10 units at bedtime added. Hyperglycemia secondary to steroids. Anticipate discharge by the end of the week. 06/09: The patient is a little confused today and not eating. Patient denies any complaints, no pain. He answers yes that he is ready to go home. Temperature max 100.2. He was bladder scanned and had 100 mL. Heart rate documented at 101 although rate on exam is slower and appears to be irregular. EKG ordered. Blood pressure 159/75, pulse ox 91% on room air. Repeat lab work reveals WBC 7.8, hemoglobin 12.3. BUN 41 and creatinine 1.2, potassium 3.5. Blood sugars running between 135 and 182. Patient's daughter contacted over the phone and updated regarding his current condition. She was under the impression the patient will be staying in the hospital for a full 14 days for isolation but informed that this will not be happening. We have asked machine adjuster leader case trim/social service manager to follow-up with the patient's family regarding discharge planning. Most likely patient will be ready to be discharged tomorrow or Saturday. REVIEW OF SYSTEMS Constitutional: No fever, no chills, no night sweats. No weight change. Reports weakness, Reports fatigue Reports lethargy. EENT: No headache. No blurred vision or double vision, no loss of vision. No loss of Hearing, no ringing in the ears, no dizziness. No nasal drainage or congestion. No epistaxis. No sore throat. Lungs: No shortness of breath, cough, no sputum production. No wheezing. Cardiovascular: No chest pain, no lower extremity edema. No palpitations. No paroxysmal nocturnal dyspnea. No orthopnea. No lightheadedness or dizziness. No syncopal episodes. Abdominal: No abdominal pain. No nausea, vomiting. No diarrhea. No constipation. No bloody or tarry stools. Reports loss of appetite. Genitourinary: No dysuria, increased frequency, urgency. No urinary retention. Musculoskeletal: No myalgias. No muscle weakness, no gait dysfunction, no frequent falls. No back pain. No neck pain. Integumentary: No wounds, no lesions. No rash or pruritus. No unusual bruising. No change in hair or nails. Neurologic: No aphasia. No facial droop. Reports change in mentation-improving No headache. No paralysis. No paresthesia. Psychiatric: No depression. No anxiety. No mood swings. Endocrine: No abnormal blood sugars. PHYSICAL EXAMINATION Gen: This is an 84-year-old -Bangladeshi male. He is resting in bed appears to be comfortable. No acute respiratory distress. HEENT: Head is atraumatic, normocephalic. Pupils equal, round. Sclerae is anicteric. NECK: Supple. No JVD. No lymphadenopathy. No thyromegaly. LUNGS: Clear to auscultation. No wheezes or rhonchi. No intercostal retractions. No accessory muscle usage. HEART: Regular rate and rhythm. No murmur. ABDOMEN: Soft. Bowel sounds are present. No masses. No tenderness. EXTREMITIES: No pedal edema. No calf tenderness. Small ulceration to the left pretibial area. Please see nursing documentation for details, POA. NEUROLOGICAL: Patient is awake, alert and oriented to person. Cranial nerves 2 through 12 are grossly intact. ASSESSMENT AND PLAN 1. Metabolic encephalopathy secondary to Covid 19 pneumonia. Consult with pulmonary medicine. Continue supplements with vitamin C, vitamin D, zinc. Continue dexamethasone 4 mg twice daily, Lovenox daily. 2. Acute kidney injury with chronic kidney disease stage III. Consult with nephrology appreciated. Continue to Hold losartan. Avoid nephrotoxic agents. IV fluids 75 mL per hour. Renal ultrasound as above. 3. Hypertension. Continue Norvasc 5 mg daily, hydralazine 50 mg increased to 3 times daily. Losartan on hold. 4. Hyperlipidemia. 5. History of recent laparoscopic cholecystectomy, stable. 6. History of GI bleed from diverticulitis, stable. 7. Benign prostatic hypertrophy. Continue Flomax or 0.4 mg daily 8. Diabetes mellitus type 2. Hold glipizide. Continue NovoLog scale before meals and at bedtime. Patient will be resumed on metformin and Levemir will be discontinued as his renal function is improved. 9. GI prophylaxis. Protonix. 10. DVT prophylaxis. Lovenox. DISCHARGE PLAN Anticipate need for subacute rehab as family is unable to accommodate his discharge. Impression and plan of care have been directed as dictated by the signing eve tate. Cyndy Faust nurse practitioner acting as scribe for signing physician. Objective - Vital Signs Vital signs: Vital Signs Temp 100.2 F H 06/09/20 07:27 Pulse 101 H 06/09/20 07:27 Resp 20 06/09/20 07:27 BP 159/75 06/09/20 07:27 Pulse Ox 91 L 06/09/20 07:27 Intake & Output 06/08/20 06/09/20 06/09/20 18:59 06:59 18:59 Intake Total 600 Balance 600 Intake: IV 600 Sodium Chloride 0.9% 1, 600 000 ml @ 75 mls/hr IV . [id number] [facility] Rx#:[id number] Other: Voiding Method Indwelling Catheter Diaper Incontinent # Voids 1 - Labs CBC & Chem 7: 06/09/20 06:43 06/09/20 06:43 Labs: Abnormal Lab Results - Last 24 Hours (Table) 06/08/20 06/08/20 06/08/20 Range/Units 06:16 11:41 17:15 Hgb (13.0-17.5) gm/dL Hct (39.0-53.0) % RDW (11.5-15.5) % Chloride (98-107) mmol/L BUN 43.0 H (9.0-27.0) mg/dL Creatinine 1.7 H (0.6-1.5) mg/dL Est GFR (CKD-EPI)AfAm 41.7 L (60.0-200.0) Est GFR (CKD-EPI)NonAf 36.0 L (60.0-200.0) BUN/Creatinine Ratio 25.29 H (12.00-20.00) Ratio Glucose 199 H (70-110) mg/dL POC Glucose (mg/dL) 184 H 157 H (75-99) mg/dL Calcium 8.3 L (8.7-10.3) mg/dL 06/08/20 06/09/20 06/09/20 Range/Units 20:59 06:43 06:43 Hgb 12.3 L (13.0-17.5) gm/dL Hct 37.8 L (39.0-53.0) % RDW 16.6 H (11.5-15.5) % Chloride 109 H (98-107) mmol/L BUN 41 H (9.0-27.0) mg/dL Creatinine (0.6-1.5) mg/dL Est GFR (CKD-EPI)AfAm (60.0-200.0) Est GFR (CKD-EPI)NonAf (60.0-200.0) BUN/Creatinine Ratio (12.00-20.00) Ratio Glucose 148 H (70-110) mg/dL POC Glucose (mg/dL) 182 H (75-99) mg/dL Calcium (8.7-10.3) mg/dL 06/09/20 Range/Units 06:47 Hgb (13.0-17.5) gm/dL Hct (39.0-53.0) % RDW (11.5-15.5) % Chloride (98-107) mmol/L BUN (9.0-27.0) mg/dL Creatinine (0.6-1.5) mg/dL Est GFR (CKD-EPI)AfAm (60.0-200.0) Est GFR (CKD-EPI)NonAf (60.0-200.0) BUN/Creatinine Ratio (12.00-20.00) Ratio Glucose (70-110) mg/dL POC Glucose (mg/dL) 135 H (75-99) mg/dL Calcium (8.7-10.3) mg/dL
[2020-06-09 11:53] LABS: Glucose,Whole Blood 145 mg/dL (75-99)
[2020-06-09] MEDS: MAGNESIUM SULFATE-D5W PMX 1 GM in DEXTROSE/WATER 1 100ML.BAG IVPB SCH ×2 (12:07→13:25)
[2020-06-09 17:26] LABS: Glucose,Whole Blood 182 mg/dL (75-99)
[2020-06-09] MEDS: metFORMIN 500 MG TAB PO SCH (17:32)
[2020-06-09 20:57] LABS: Glucose,Whole Blood 143 mg/dL (75-99)
[2020-06-10 07:14] LABS: Glucose,Whole Blood 154 mg/dL (75-99)
[2020-06-10] MEDS: INSULIN ASPART (NovoLOG) 100 UNIT/ML VIAL SQ SCH ×4 (07:44→21:44)
[2020-06-10] MEDS: hydrALAZINE HCL 20 MG/ML 1 ML VIAL IVP PRN ×2 (08:49→15:20)
[2020-06-10] MEDS: ENOXAPARIN 40 MG/0.4 ML SYRINGE SQ SCH (08:49)
[2020-06-10] MEDS: ZINC SULFATE 220 MG CAP PO SCH (08:49)
[2020-06-10] MEDS: metFORMIN 500 MG TAB PO SCH ×2 (08:50→17:45)
[2020-06-10] MEDS: TAMSULOSIN 0.4 MG CAP.ER.24H PO SCH (08:50)
[2020-06-10] MEDS: amLODIPine 5 MG TAB PO SCH (08:50)
[2020-06-10] MEDS: CHOLECALCIFEROL 1,000 UNIT TAB PO SCH (08:50)
[2020-06-10] MEDS: ASCORBIC ACID 500 MG TAB PO SCH (08:50)
--- NOTE | 2020-06-10 09:30 | XR ---
EXAMINATION TYPE: XR chest 1V portable DATE OF EXAM: 06/10/2020 COMPARISON: 06/05/2020 HISTORY: Cough TECHNIQUE: Single frontal view of the chest is obtained. FINDINGS: Postsurgical change left shoulder. Heart size stable. Hypertrophic change of the spine. Pa tchy and interstitial bilateral areas of infiltrate are stable. No pneumothorax. IMPRESSION: Stable interstitial and patchy bilateral areas of infiltrate.
--- NOTE | 2020-06-10 10:34 | P.PN ---
Subjective Patient is seen in follow-up for acute kidney injury. Renal function improved with creatinine at 1.2 to as of yesterday. No evidence of urinary retention. Patient is incontinent. Oral intake poor. Vital signs are stable. General: The patient appeared well nourished and normally developed. HEENT: Head exam is unremarkable. Neck is without jugular venous distension. LUNGS: Breath sounds decreased. HEART: Rate and Rhythm are regular. ABDOMEN: Soft, nontender. EXTREMITITES: No edema. Objective - Vital Signs Vital signs: Vital Signs Temp 100 F H 06/10/20 05:36 Pulse 77 06/10/20 05:36 Resp 20 06/10/20 05:36 BP 188/80 06/10/20 05:36 Pulse Ox 94 L 06/10/20 05:36 Intake & Output 06/09/20 06/10/20 06/10/20 18:59 06:59 18:59 Intake Total 800 200 Balance 800 200 Weight 122.47 kg Intake: IV 800 Magnesium Sulfate-D5w Pmx 200 1 gm In Dextrose/Water 1 100ml.bag @ 100 mls/hr IVPB Q1H [facility] Rx#: [id number] Sodium Chloride 0.9% 1, 600 000 ml @ 75 mls/hr IV . [id number] [facility] Rx#:[id number] Oral 200 Other: Voiding Method Diaper Diaper Incontinent Incontinent External Catheter # Voids 3 - Labs CBC & Chem 7: 06/09/20 06:43 06/09/20 06:43 Labs: Abnormal Lab Results - Last 24 Hours (Table) 06/09/20 06/09/20 06/09/20 Range/Units 11:52 17:22 20:49 POC Glucose (mg/dL) 145 H 182 H 143 H (75-99) mg/dL 06/10/20 Range/Units 07:13 POC Glucose (mg/dL) 154 H (75-99) mg/dL Assessment and Plan Plan: Assessment: 1. Acute kidney injury mostly prerenal secondary to infection and further worsened with the use of losartan. Creatinine 3.13 on admission - 1.22 as of yesterday. Baseline creatinine from May 2020 near 1. No hydronephrosis noted on CAT scan/renal uls. 2. Covid 19 pneumonia maintained on steroids and zinc. 3. Benign hypertension. Further exacerbated by steroids. Blood pressure on the higher side. 4. Diabetes mellitus. 5. Status post cholecystectomy May 2020. 6. Hypokalemia from poor intake. Status post replacement. 7. Mild hypomagnesemia from poor intake. Status post replacement. Plan: Maintain normal saline. Monitor bladder scans closely and to reinsert Boone catheter if greater than 300 mL urine present. Avoid nephrotoxins. Continue to monitor renal function and urine output. Increase dose of hydralazine. Repeat electrolytes in the morning.
[2020-06-10] MEDS: dexAMETHasone 4 MG TAB PO SCH ×2 (10:51→21:37)
[2020-06-10 11:40] LABS: Glucose,Whole Blood 192 mg/dL (75-99)
--- NOTE | 2020-06-10 12:57 | P.GSCN ---
History of Present Illness Consult date: 06/10/20 History of present illness: CHIEF COMPLAINT: Generalized weakness HISTORY OF PRESENT ILLNESS: This is a 84-year-old male with a known past medical history of diabetes mellitus type 2, hypertension, hyperlipidemia, chronic kidney disease, GI bleed from diverticulosis. Patient had recent hospitalization in May for acute cholecystitis in which she had a laparoscopic cholecystectomy on 05/18/[address] cat. He also was treated for bilateral pneumonia at that time. Patient had been discharged to [facility] for rehab. He was discharged home from there. He was brought into the emergency room on 06/05/2020 for generalized weakness. He was found to be Covid positive and also evidence of acute kidney injury. He is followed by nephrology. Patient has had poor oral intake since admission. Per nursing staff today patient has not eaten anything. He did have a low-grade temp of 100. Computed tomography scan of the abdomen and pelvis on 06/05/2020 showed no acute abnormality within the abdomen and pelvis. Moderate colonic diverticulosis without diverticulitis. Cholecystectomy. No dilated ducts. No evidence of bile leak. Patient denies any abdominal pain. Denies any nausea or vomiting. He is scheduled for a swallow evaluation today. Surgical service has been consulted for PEG tube placement. PAST MEDICAL HISTORY: See list. PAST SURGICAL HISTORY: See list. MEDICATIONS: See list. ALLERGIES: See list. SOCIAL HISTORY: No illicit drug use. REVIEW OF SYSTEMS: CONSTITUTIONAL: Denies fever or chills. HEENT: Denies blurred vision, vision changes, or eye pain. Denies hemoptysis CARDIOVASCULAR: Denies chest pain or pressure. RESPIRATORY: No shortness of breath. GASTROINTESTINAL: See HPI for pertinent findings HEMATOLOGIC: Denies bleeding disorders. GENITOURINARY: Denies any blood in urine or increased urinary frequency. SKIN: Denies pruitis. Denies rash. PHYSICAL EXAM: VITAL SIGNS: Reviewed GENERAL: Well-developed in no acute distress. HEENT: No sclera icterus. Extraocular movements grossly intact. Moist buccal mucosa. Head is atraumatic, normocephalic. No nasal drainage. ABDOMEN: Soft. Nondistended. Nontender incision sites are healing nicely NEUROLOGIC: Alert and oriented. Cranial nerves II through XII grossly intact. LABORATORY DATA: WBC 7.8 hemoglobin 12.3 platelets are 239 creatinine 1.22 Albumin 3.5 IMAGING: computed tomography scan of the abdomen and pelvis on 06/05/2020 showed no acute abnormality within the abdomen and pelvis. Moderate colonic diverticulosis without diverticulitis. Cholecystectomy. No dilated ducts. No evidence of bile leak. ASSESSMENT: 1. Poor oral intake 2. Electrolyte imbalance with hypokalemia and hypomagnesemia due to poor oral intake. Patient received replacement 3. Covid 19 pneumonia 4. Acute kidney injury followed by nephrology PLAN: -Patient scheduled for PEG tube placement on 06/13/[address] Cat -Patient scheduled to be evaluated by speech therapy for swallowing evaluation -Continue supportive care Thank you for this consultation Physician [employer] Labou[employer] note has been reviewed by physician. Signing provider agrees with the documented findings, assessment, and plan of care. Past Medical History Past Medical History: Diabetes Mellitus, Eye Disorder, GI Bleed, Hypertension, Pneumonia Additional Past Medical History / Comment(s): NIDDM type II, bilateral foot pain, diverticular disease, ischemic colitis, lower GI bleed, glaucoma/no peripheral vision bilaterally, past pneumonia with lengthy hospitalization, bilateral lower leg edema. History of Any Multi-Drug Resistant Organisms: None Reported Past Surgical History: Orthopedic Surgery Additional Past Surgical History / Comment(s): bilateral Rotator cuff, EGD, colonoscopy, bilateral blepharoplasty, R little finger fx with surgery. Past Anesthesia/Blood Transfusion Reactions: No Reported Reaction Past Psychological History: No Psychological Hx Reported Additional Psychological History / Comment(s): Pt has 2 adult dheeraj residing with him. Pt uses a cane. He no longer drives, dheeraj can drive. One of his dheeraj's organizes his meds. Smoking Status: Never smoker Past Alcohol Use History: None Reported Past Drug Use History: None Reported - Past Family History Father History Unknown: Yes Family Medical History: Liver Disease Additional Family Medical History / Comment(s): ETOH abuse Mother Family Medical History: Cancer Additional Family Medical History / Comment(s): Pancreatic cancer. Medications and Allergies Home Medications Medication Instructions Recorded Confirmed Type Tamsulosin HCl [Flomax] 0.4 mg PO DAILY 02/08/20 06/05/20 History amLODIPine [Norvasc] 5 mg PO DAILY 02/08/20 06/05/20 History glipiZIDE/METFORMIN HCL 1 tab PO BID 05/17/20 06/05/20 History [glipiZIDE/METFORMIN HCL 5-500 mg] hydrALAZINE HCL [Apresoline] 50 mg PO BID tab 05/24/20 06/05/20 Rx Losartan Potassium [Cozaar] 25 mg PO DAILY 06/05/20 06/05/20 History Allergies Allergy/AdvReac Type Severity Reaction Status Date / Time No Known Allergies Allergy Verified 06/05/20 21:30 Surgical - Exam Vital Signs Temp Pulse Resp BP Pulse Ox 98.6 F 85 18 144/77 96 06/05/20 19:11 06/05/20 19:11 06/05/20 19:11 06/05/20 19:11 06/05/20 19:11 Results - Labs 06/09/20 06:43 06/09/20 06:43 Abnormal Lab Results - Last 24 Hours (Table) 06/09/20 06/09/20 06/10/20 Range/Units 17:22 20:49 07:13 POC Glucose (mg/dL) 182 H 143 H 154 H (75-99) mg/dL 06/10/20 Range/Units 11:37 POC Glucose (mg/dL) 192 H (75-99) mg/dL
[2020-06-10] MEDS: hydrALAZINE HCL 50 MG TAB PO SCH (13:02)
--- NOTE | 2020-06-10 13:09 | P.PN ---
Subjective Progress Note Date: 06/10/20 HISTORY OF PRESENT ILLNESS This is an 84-year-old -Dominican male patient of Dr. Singer with past medical history of diabetes mellitus type 2, hypertension, hyperlipidemia, chr onic kidney disease, history of GI bleed from diverticulitis, recently admitted to the hospital for acute cholecystitis status post laparoscopic cholecystectomy and also treated for bilateral pneumonia. Patient was discharged to [facility] and completed his course of rehab. He was then discharged home on May 30. Patient has developed increasing weakness with mental status changes. Not eating or drinking and was brought into the hospital for evaluation. Patient presented to [facility] emergency center. He was afebrile, heart rate 85, blood pressure 144/77, pulse ox 96% on room air. CBC was unremarkable. Electrolytes normal, BUN 44 and creatinine 3.13. Blood sugar 166. Magnesium 1.5. Liver function tests normal. Urinalysis positive for protein and blood with no sign of infection. COVID-19 positive. LDH 600, C- reactive protein 43.8. Chest x-ray reveals mild cardiomegaly and low lung volumes without suspicious acute pulmonary process. CAT scan of the abdomen and pelvis without contrast revealed interstitial infiltrate and atelectasis at the lung bases increased from old exam. Mild cardiomegaly. No acute abnormality within the abdomen and pelvis. Moderate colonic diverticulosis without diverticulitis. No evidence of bile leak. CAT scan of the brain revealed cerebral atrophy and chronic small vessel ischemia. No acute intracranial ab normality. Patient was admitted to the [facility] floor. 06/07: Patient has been seen by pulmonary medicine with plan to continue current medications. Nephrology has decreased normal saline 75 mL per hour. Hydralazine increased to 3 times daily. Renal ultrasound reveals no hydronephrosis. Benign 2.2 cm cortical cyst on the left. Bladder suboptimally assessed. Patient has been afebrile, heart rate 61, blood pressure 155/66, pulse ox 98% on 3 L nasal cannula. Blood sugars are running between 141 and 169. Repeat blood work for this morning remains pending. Patient continues to state that he does not have any appetite. He is feeling a little bit better from yesterday. PT and OT evaluations today. 06/08: Patient has been afebrile, heart rate 55, blood pressure 171/69, pulse ox 90% on 2 L. Breathing status has been stable. He denies shortness of breath. Boone catheter in place which will be discontinued today. IV fluids continue by nephrology. Bladder scans monitor for residuals, avoid nephrotoxic agents. Amlodipine and hydralazine to be held for systolic blood pressure less than 130. PT has evaluated with recommendations for home care for subacute rehab with 24- hour care. Electrolytes normal, BUN 43 and creatinine 1.7. Blood sugars are running 184-243. Levemir 10 units at bedtime added. Hyperglycemia secondary to steroids. Anticipate discharge by the end of the week. 06/09: The patient is a little confused today and not eating. Patient denies any complaints, no pain. He answers yes that he is ready to go home. Temperature max 100.2. He was bladder scanned and had 100 mL. Heart rate documented at 101 although rate on exam is slower and appears to be irregular. EKG ordered. Blood pressure 159/75, pulse ox 91% on room air. Repeat lab work reveals WBC 7.8, hemoglobin 12.3. BUN 41 and creatinine 1.2, potassium 3.5. Blood sugars running between 135 and 182. Patient's daughter contacted over the phone and updated regarding his current condition. She was under the impression the patient will be staying in the hospital for a full 14 days for isolation but informed that this will not be happening. We have asked field case manager/social staff worker to follow-up with the patient's family regarding discharge planning. Most likely patient will be ready to be discharged tomorrow or Saturday. 06/10: Patient has been refusing to eat his meals. He continues to have significant cough. Temperature max 99.6. Respiratory rate has increased to 28. Pulse ox is 93% on 3 L nasal cannula. Heart rate 112. Contacted patient's daughter Partha [phone] and provided update. Her main concern is the patient is not eating. We will ask for speech therapy evaluation and consult with Dr. Taylor for PEG tube placement for temporary nutrition. Discussed again the need for subacute rehab versus returning home. Do not anticipate discharge until early next week. REVIEW OF SYSTEMS Constitutional: No fever, no chills, no night sweats. No weight change. Reports weakness, Reports fatigue Reports lethargy. EENT: No headache. No blurred vision or double vision, no loss of vision. No loss of Hearing, no ringing in the ears, no dizziness. No nasal drainage or congestion. No epistaxis. No sore throat. Lungs: Reportsshortness of breath, reportscough, no sputum production. No wheezing. Cardiovascular: No chest pain, no lower extremity edema. No palpitations. No paroxysmal nocturnal dyspnea. No orthopnea. No lightheadedness or dizziness. No syncopal episodes. Abdominal: No abdominal pain. No nausea, vomiting. No diarrhea. No constipation. No bloody or tarry stools. Reports loss of appetite. Genitourinary: No dysuria, increased frequency, urgency. No urinary retention. Musculoskeletal: No myalgias. No muscle weakness, no gait dysfunction, no frequent falls. No back pain. No neck pain. Integumentary: No wounds, no lesions. No rash or pruritus. No unusual bruising. No change in hair or nails. Neurologic: No aphasia. No facial droop. Reports change in mentation. No headache. No paralysis. No paresthesia. Psychiatric: No depression. No anxiety. No mood swings. Endocrine: Reportsabnormal blood sugars. PHYSICAL EXAMINATION Gen: This is an 84-year-old -Dominican male. He is resting in bed appears to be comfortable. No acute respiratory distress. frequent coughing noted. HEENT: Head is atraumatic, normocephalic. Pupils equal, round. Sclerae is anicteric. NECK: Supple. No JVD. No lymphadenopathy. No thyromegaly. LUNGS: Clear to auscultation. No wheezes or rhonchi. No intercostal retractions. HEART: Regular rate and rhythm. No murmur. ABDOMEN: Soft. Bowel sounds are present. No masses. No tenderness. EXTREMITIES: No pedal edema. No calf tenderness. Small ulceration to the left pretibial area. Please see nursing documentation for details, POA. NEUROLOGICAL: Patient is awake, alert and oriented to person. Cranial nerves 2 through 12 are grossly intact. ASSESSMENT AND PLAN 1. Metabolic encephalopathy secondary to Covid 19 pneumonia. Consult with pulmonary medicine appreciated . Continue supplements with vitamin C, vitamin D, zinc. Continue dexamethasone 4 mg twice daily, Lovenox daily. 2. Acute kidney injury with chronic kidney disease stage III. Consult with nephrology appreciated. Continue to Hold losartan. Avoid nephrotoxic agents. IV fluids 75 mL per hour. Renal ultrasound as above. 3. Hypertension. Continue Norvasc 5 mg daily, hydralazine 50 mg increased to 3 times daily. Losartan on hold. 4. Hyperlipidemia. 5. History of recent laparoscopic cholecystectomy, stable. 6. History of GI bleed from diverticulitis, stable. 7. Benign prostatic hypertrophy. Continue Flomax or 0.4 mg daily 8. Diabetes mellitus type 2 uncontrolled with hyperglycemia. Continue NovoLog scale before meals and at bedtime. Patient will be resumed on metformin/ glipizide. 9. Severe protein calorie malnutrition due to refusal to eat. Speech therapy evaluation, Dr. Taylor consult regarding PEG tube insertion. 10. GI prophylaxis. Protonix. 10. DVT prophylaxis. Lovenox. DISCHARGE PLAN Anticipate need for subacute rehab early next week Saturday/Saturday. Impression and plan of care have been directed as dictated by the signing physician. [email or web address] Faust nurse practitioner acting as scribe for signing physician. Objective - Vital Signs Vital signs: Vital Signs Temp 100 F H 06/10/20 05:36 Pulse 77 06/10/20 05:36 Resp 20 06/10/20 05:36 BP 188/80 06/10/20 05:36 Pulse Ox 94 L 06/10/20 05:36 Intake & Output 06/09/20 06/10/20 06/10/20 18:59 06:59 18:59 Intake Total 800 200 Balance 800 200 Weight 122.47 kg Intake: IV 800 Magnesium Sulfate-D5w Pmx 200 1 gm In Dextrose/Water 1 100ml.bag @ 100 mls/hr IVPB Q1H SHEN Rx#: [id number] Sodium Chloride 0.9% 1, 600 000 ml @ 75 mls/hr IV . [id number] SHEN Rx#:[id number] Oral 200 Other: Voiding Method Diaper Diaper Incontinent Incontinent External Catheter # Voids 3 - Labs CBC & Chem 7: 06/09/20 06:43 06/09/20 06:43 Labs: Abnormal Lab Results - Last 24 Hours (Table) 06/09/20 06/09/20 06/09/20 Range/Units 11:52 17:22 20:49 POC Glucose (mg/dL) 145 H 182 H 143 H (75-99) mg/dL 01/08/21 Range/Units 07:13 POC Glucose (mg/dL) 154 H (75-99) mg/dL
[2020-06-10] MEDS: hydrALAZINE HCL 25 MG TAB PO SCH ×3 (13:13→21:37)
[2020-06-10 16:45] LABS: Glucose,Whole Blood 176 mg/dL (75-99)
[2020-06-10] MEDS: glipiZIDE 5 MG TAB PO SCH (17:33)
[2020-06-10 20:25] LABS: Glucose,Whole Blood 170 mg/dL (75-99)
[2020-06-10] MEDS ORDERED: NON FORMULARY DRUG (Glipizide/Metformin Hcl [Glipizide/Metformin Hcl 5-500 Mg] 1 EACH Tabl PO SCH (21:00)
[2020-06-10] MEDS: SODIUM CHLORIDE 0.9% 1,000 ML IV SCH ×2 (21:42→21:43)
[2020-06-11] MEDS: hydrALAZINE HCL 20 MG/ML 1 ML VIAL IVP PRN ×3 (06:15→22:51)
[2020-06-11 06:52] LABS: Anisocytosis Slight; Basophils # (A) 0.1 k/uL (0-0.2); Basophils % (A) 1 %; Eosinophils % (A) 0 %; HCT 37.3 % (39.0-53.0); HGB 11.6 gm/dL (13.0-17.5); Lymphocytes # (A) 1.2 k/uL (1.0-4.8); Lymphocytes % (A) 15 %; MCH 25.9 pg (25.0-35.0); MCHC 31.2 g/dL (31.0-37.0); MCV 83.1 fL (80.0-100.0); Mean Platelet Volume 8.2; Monocytes # (A) 0.4 k/uL (0-1.0); Monocytes % (A) 5 %; Neutrophils # (A) 5.9 k/uL (1.3-7.7); Neutrophils % (A) 75 %; Platelet Count 234 k/uL (150-450); RDW 16.9 % (11.5-15.5); WBC 7.9 k/uL (3.8-10.6)
[2020-06-11 07:20] LABS: Glucose,Whole Blood 161 mg/dL (75-99)
[2020-06-11] MEDS: SODIUM CHLORIDE 0.9% 1,000 ML IV SCH (08:06)
[2020-06-11] MEDS: ASCORBIC ACID 500 MG TAB PO SCH (08:06)
[2020-06-11] MEDS: ENOXAPARIN 40 MG/0.4 ML SYRINGE SQ SCH (08:06)
[2020-06-11] MEDS: ZINC SULFATE 220 MG CAP PO SCH (08:06)
[2020-06-11] MEDS: dexAMETHasone 4 MG TAB PO SCH (08:07)
[2020-06-11] MEDS: amLODIPine 5 MG TAB PO SCH (08:07)
[2020-06-11] MEDS: metFORMIN 500 MG TAB PO SCH ×2 (08:07→17:05)
[2020-06-11] MEDS: hydrALAZINE HCL 25 MG TAB PO SCH ×3 (08:07→20:47)
[2020-06-11] MEDS: glipiZIDE 5 MG TAB PO SCH ×2 (08:07→17:05)
[2020-06-11] MEDS: TAMSULOSIN 0.4 MG CAP.ER.24H PO SCH (08:07)
[2020-06-11] MEDS: INSULIN ASPART (NovoLOG) 100 UNIT/ML VIAL SQ SCH ×4 (08:07→22:51)
[2020-06-11] MEDS: CHOLECALCIFEROL 1,000 UNIT TAB PO SCH (08:07)
[2020-06-11] MEDS ORDERED: NYSTATIN 100,000 UNIT/ML SUSP 500,000 UNIT/5 ML CUP PO SCH (09:00)
[2020-06-11 09:49] LABS: African American GFR (CKD) 79.2 (60.0-200.0); Albumin 2.7 g/dL (3.80-4.90); Albumin/Globulin Ratio 0.77 (1.60-3.17); Anion Gap 10.3 mmol/L (4.00-12.00); Calcium 7.8 mg/dL (8.7-10.3); Carbon Dioxide 25.7 mmol/L (21.6-31.8); Globulin 3.5 g/dL (1.6-3.3); Non-African American GFR(CKD) 68.3 (60.0-200.0); Potassium 3.3 mmol/L (3.5-5.5); Total Bilirubin 0.4 mg/dL (0.2-1.2); Total Protein 6.2 g/dL (6.2-8.2)
[2020-06-11] MEDS: FLUCONAZOLE IN NACL,ISO-OSM 100 MG in SALINE 1 50ML.BAG IVPB SCH (10:57)
[2020-06-11 11:28] LABS: Glucose,Whole Blood 168 mg/dL (75-99)
--- NOTE | 2020-06-11 11:44 | P.PN ---
Progress Note - Text Progress Note Date: 06/11/20 Patient remained stable. He scheduled for PEG tube placement on Saturday.
[2020-06-11] MEDS: POTASSIUM CHLORIDE 10 MEQ in WATER FOR INJECTION 1 100ML.BAG IVPB SCH ×4 (12:27→15:11)
--- NOTE | 2020-06-11 12:58 | P.PN ---
Subjective Progress Note Date: 06/11/20 HISTORY OF PRESENT ILLNESS This is an 84-year-old -[place] male patient of Dr. Singer with past medical history of diabetes mellitus type 2, hypertension, hyperlipidemia, chr onic kidney disease, history of GI bleed from diverticulitis, recently admitted to the hospital for acute cholecystitis status post laparoscopic cholecystectomy and also treated for bilateral pneumonia. Patient was discharged to [facility] and completed his course of rehab. He was then discharged home on May 30. Patient has developed increasing weakness with mental status changes. Not eating or drinking and was brought into the hospital for evaluation. Patient presented to [facility] emergency center. He was afebrile, heart rate 85, blood pressure 144/77, pulse ox 96% on room air. CBC was unremarkable. Electrolytes normal, BUN 44 and creatinine 3.13. Blood sugar 166. Magnesium 1.5. Liver function tests normal. Urinalysis positive for protein and blood with no sign of infection. COVID-19 positive. LDH 600, C- reactive protein 43.8. Chest x-ray reveals mild cardiomegaly and low lung volumes without suspicious acute pulmonary process. CAT scan of the abdomen and pelvis without contrast revealed interstitial infiltrate and atelectasis at the lung bases increased from old exam. Mild cardiomegaly. No acute abnormality within the abdomen and pelvis. Moderate colonic diverticulosis without diverticulitis. No evidence of bile leak. CAT scan of the brain revealed cerebral atrophy and chronic small vessel ischemia. No acute intracranial ab normality. Patient was admitted to the [facility] floor. 06/07: Patient has been seen by pulmonary medicine with plan to continue current medications. Nephrology has decreased normal saline 75 mL per hour. Hydralazine increased to 3 times daily. Renal ultrasound reveals no hydronephrosis. Benign 2.2 cm cortical cyst on the left. Bladder suboptimally assessed. Patient has been afebrile, heart rate 61, blood pressure 155/66, pulse ox 98% on 3 L nasal cannula. Blood sugars are running between 141 and 169. Repeat blood work for this morning remains pending. Patient continues to state that he does not have any appetite. He is feeling a little bit better from yesterday. PT and OT evaluations today. 06/08: Patient has been afebrile, heart rate 55, blood pressure 171/69, pulse ox 90% on 2 L. Breathing status has been stable. He denies shortness of breath. Boone catheter in place which will be discontinued today. IV fluids continue by nephrology. Bladder scans monitor for residuals, avoid nephrotoxic agents. Amlodipine and hydralazine to be held for systolic blood pressure less than 130. PT has evaluated with recommendations for home care for subacute rehab with 24- hour care. Electrolytes normal, BUN 43 and creatinine 1.7. Blood sugars are running 184-243. Levemir 10 units at bedtime added. Hyperglycemia secondary to steroids. Anticipate discharge by the end of the week. 06/09: The patient is a little confused today and not eating. Patient denies any complaints, no pain. He answers yes that he is ready to go home. Temperature max 100.2. He was bladder scanned and had 100 mL. Heart rate documented at 101 although rate on exam is slower and appears to be irregular. EKG ordered. Blood pressure 159/75, pulse ox 91% on room air. Repeat lab work reveals WBC 7.8, hemoglobin 12.3. BUN 41 and creatinine 1.2, potassium 3.5. Blood sugars running between 135 and 182. Patient's daughter contacted over the phone and updated regarding his current condition. She was under the impression the patient will be staying in the hospital for a full 14 days for isolation but informed that this will not be happening. We have asked top case assembler/social service worker to follow-up with the patient's family regarding discharge planning. Most likely patient will be ready to be discharged tomorrow or Saturday. 06/10: Patient has been refusing to eat his meals. He continues to have significant cough. Temperature max 99.6. Respiratory rate has increased to 28. Pulse ox is 93% on 3 L nasal cannula. Heart rate 112. Contacted patient's daughter Partha [phone] and provided update. Her main concern is the patient is not eating. We will ask for speech therapy evaluation and consult with Dr. Taylor for PEG tube placement for temporary nutrition. Discussed again the need for subacute rehab versus returning home. Do not anticipate discharge until early next week. 06/11: The patient still is not eating, he refuses to eat. He does have severe thrush for which he does not seem able to tolerate nystatin and will be placed on Diflucan IV. Patient did have a previously elevated d-dimer and CAT scan of the chest ordered to rule out pulmonary embolism. He is developing increasing respiratory distress. Pulse ox is 88% on 4 L. Respiratory rate is up to 40, h eart rate 110, afebrile. General surgery is following for probable chest. REVIEW OF SYSTEMS Constitutional: No fever, no chills, no night sweats. No weight change. Reports weakness, Reports fatigue Reports lethargy. EENT: No headache. No blurred vision or double vision, no loss of vision. No loss of Hearing, no ringing in the ears, no dizziness. No nasal drainage or congestion. No epistaxis. No sore throat. Lungs: Reportsshortness of breath, reportscough, no sputum production. No wheezing. Cardiovascular: No chest pain, no lower extremity edema. No palpitations. No paroxysmal nocturnal dyspnea. No orthopnea. No lightheadedness or dizziness. No syncopal episodes. Abdominal: No abdominal pain. No nausea, vomiting. No diarrhea. No constipation. No bloody or tarry stools. Reports loss of appetite. Genitourinary: No dysuria, increased frequency, urgency. No urinary retention. Musculoskeletal: No myalgias. No muscle weakness, no gait dysfunction, no frequent falls. No back pain. No neck pain. Integumentary: No wounds, no lesions. No rash or pruritus. No unusual bruising. No change in hair or nails. Neurologic: No aphasia. No facial droop. Reports change in mentation. No headache. No paralysis. No paresthesia. Psychiatric: No depression. No anxiety. No mood swings. Endocrine: Reportsabnormal blood sugars. PHYSICAL EXAMINATION Gen: This is an 84-year-old -[place] male. He is resting in bed appears to be comfortable. No acute respiratory distress. frequent coughing noted. HEENT: Head is atraumatic, normocephalic. Pupils equal, round. Sclerae is anicteric. NECK: Supple. No JVD. No lymphadenopathy. No thyromegaly. LUNGS: Clear to auscultation. No wheezes or rhonchi. No intercostal retractions. HEART: Irregular and rhythm. No murmur. EKG sinus rhythm with PVCs. ABDOMEN: Soft. Bowel sounds are present. No masses. No tenderness. EXTREMITIES: No pedal edema. No calf tenderness. Small ulceration to the left pretibial area. Please see nursing documentation for details, POA. NEUROLOGICAL: Patient is awake, alert and oriented to person. Cranial nerves 2 through 12 are grossly intact. ASSESSMENT AND PLAN 1. Metabolic encephalopathy secondary to Covid 19 pneumonia. Consult with pulmonary medicine appreciated . Continue supplements with vitamin C, vitamin D, zinc. Continue dexamethasone 4 mg twice daily, Lovenox daily.CTA of the chest ordered to rule out pulmonary embolism. 2. acute hypoxic respiratory failure secondary to Covid [address] of the chest ordered. Bone or medicine asked to reevaluate patient. 3. Acute kidney injury with chronic kidney disease stage III. Consult with nephrology appreciated. Continue to Hold losartan. Avoid nephrotoxic agents. IV fluids 75 mL per hour. Renal ultrasound as above. 4. Hypertension. Continue Norvasc 5 mg daily, hydralazine 50 mg increased to 3 times daily. Losartan on hold. 5. Hyperlipidemia. 6. History of recent laparoscopic cholecystectomy, stable. 7. History of GI bleed from diverticulitis, stable. 8. Benign prostatic hypertrophy. Continue Flomax or 0.4 mg daily 9. Diabetes mellitus type 2 uncontrolled with hyperglycemia. Continue NovoLog scale before meals and at bedtime. Patient will be resumed on metformin/ glipizide. 10. Severe protein calorie malnutrition due to refusal to eat. Speech therapy evaluation, Dr. Taylor consult regarding PEG tube insertion. 11. Severe oral thrush. Patient placed on Diflucan 100 mg IV piggyback daily. 12. GI prophylaxis. Protonix. 10. DVT prophylaxis. Lovenox. DISCHARGE PLAN Anticipate need for subacute rehab early next week Saturday/Saturday. Impression and plan of care have been directed as dictated by the signing physician. Cyndy Faust nurse practitioner acting as scribe for signing physician. Objective - Vital Signs Vital signs: Vital Signs Temp 99.4 F 06/11/20 06:03 Pulse 92 06/11/20 06:03 Resp 22 06/11/20 08:21 BP 177/84 06/11/20 06:03 Pulse Ox 91 L 06/11/20 06:03 Intake & Output 06/10/20 06/11/20 06/11/20 18:59 06:59 18:59 Intake Total 900 Balance 900 Intake: IV 900 Sodium Chloride 0.9% 1, 900 000 ml @ 75 mls/hr IV . [id number] [facility] Rx#:[id number] Oral 0 Other: Voiding Method Diaper Diaper Incontinent Incontinent External Catheter External Catheter # Voids 1 2 - Labs CBC & Chem 7: 06/11/20 06:09 06/11/20 06:09 Labs: Abnormal Lab Results - Last 24 Hours (Table) 06/10/20 06/10/20 06/10/20 Range/Units 11:37 16:43 20:24 Hgb (13.0-17.5) gm/dL Hct (39.0-53.0) % RDW (11.5-15.5) % Sodium (135-145) mmol/L Potassium (3.5-5.5) mmol/L Chloride (96-109) mmol/L Glucose (70-110) mg/dL POC Glucose (mg/dL) 192 H 176 H 170 H (75-99) mg/dL Calcium (8.7-10.3) mg/dL Albumin (3.80-4.90) g/dL Globulin (1.6-3.3) g/dL Albumin/Globulin Ratio (1.60-3.17) g/dL 06/11/20 06/11/20 06/11/20 Range/Units 06:09 06:09 07:16 Hgb 11.6 L (13.0-17.5) gm/dL Hct 37.3 L (39.0-53.0) % RDW 16.9 H (11.5-15.5) % Sodium 147 H (135-145) mmol/L Potassium 3.3 L (3.5-5.5) mmol/L Chloride 111 H (96-109) mmol/L Glucose 174 H (70-110) mg/dL POC Glucose (mg/dL) 161 H (75-99) mg/dL Calcium 7.8 L (8.7-10.3) mg/dL Albumin 2.70 L (3.80-4.90) g/dL Globulin 3.5 H (1.6-3.3) g/dL Albumin/Globulin Ratio 0.77 L (1.60-3.17) g/dL
--- NOTE | 2020-06-11 14:54 | CT ---
EXAMINATION TYPE: CT angio chest DATE OF EXAM: 06/11/2020 COMPARISON: 05/17/2020 HISTORY: Shortness of breath. CT DLP: 665 mGycm Automated exposure control for dose reduction was used. CONTRAST: Performed with IV Contrast, patient injected with 100 mL of Isovue 370. Images obtained from the thoracic inlet to the diaphragm with IV contrast and 3-D post processed imag es. There is extensive coarse interstitial infiltrate in both lungs. There is some coalescent density at the lung bases. Heart is slightly enlarged. There is no pericardial effusion. Thoracic aorta is intact. There is no aneurysm or dissection. I see no evidence of filling defect in the pulmonary arteries. There are bilateral bronchial lymph nodes that measure up to 1 cm. Bony thora x is intact. There is some spurring in the thoracic spine. IMPRESSION: No evidence of pulmonary embolism. Cardiomegaly. There is significant increased pulmonary infiltrates compared to old exam. This is consistent with acute pneumonia and atelectasis. Congestive heart fail ure is also possible.
--- NOTE | 2020-06-11 14:58 | P.PN ---
Subjective Progress Note Date: 06/11/20 Follow-up for acute kidney injury and hypernatremia. Objective - Vital Signs Vital signs: Vital Signs Temp 98.9 F 06/11/20 14:48 Pulse 97 06/11/20 14:48 Resp 32 H 06/11/20 14:48 BP 161/85 06/11/20 14:48 Pulse Ox 96 06/11/20 14:48 Intake & Output 06/10/20 06/11/20 06/11/20 18:59 06:59 18:59 Intake Total 900 1050 Balance 900 1050 Intake: IV 900 1050 Fluconazole in NaCl,Iso- 50 Osm 100 mg In Saline 1 50ml.bag @ 50 mls/hr IVPB DAILY [facility] Rx#:[id number] Potassium Chloride 10 meq 400 In Water For Injection 1 100ml.bag @ 100 mls/hr IVPB Q1HR [facility] Rx#: [id number] Sodium Chloride 0.9% 1, 900 600 000 ml @ 75 mls/hr IV . [id number] [facility] Rx#:[id number] Oral 0 Other: Voiding Method Diaper Diaper Diaper Incontinent Incontinent Incontinent External Catheter External Catheter # Voids 1 2 - Exam No acute distress S1-S2 heard Lungs clear Abdomen soft No edema - Labs CBC & Chem 7: 06/11/20 06:09 06/11/20 06:09 Labs: Abnormal Lab Results - Last 24 Hours (Table) 06/10/20 06/10/20 06/11/20 Range/Units 16:43 20:24 06:09 Hgb 11.6 L (13.0-17.5) gm/dL Hct 37.3 L (39.0-53.0) % RDW 16.9 H (11.5-15.5) % D-Dimer (<0.60) mg/L FEU Sodium (135-145) mmol/L Potassium (3.5-5.5) mmol/L Chloride (96-109) mmol/L Glucose (70-110) mg/dL POC Glucose (mg/dL) 176 H 170 H (75-99) mg/dL Calcium (8.7-10.3) mg/dL Albumin (3.80-4.90) g/dL Globulin (1.6-3.3) g/dL Albumin/Globulin Ratio (1.60-3.17) g/dL 06/11/20 06/11/20 06/11/20 Range/Units 06:09 07:16 07:16 Hgb (13.0-17.5) gm/dL Hct (39.0-53.0) % RDW (11.5-15.5) % D-Dimer 3.87 H (<0.60) mg/L FEU Sodium 147 H (135-145) mmol/L Potassium 3.3 L (3.5-5.5) mmol/L Chloride 111 H (96-109) mmol/L Glucose 174 H (70-110) mg/dL POC Glucose (mg/dL) 161 H (75-99) mg/dL Calcium 7.8 L (8.7-10.3) mg/dL Albumin 2.70 L (3.80-4.90) g/dL Globulin 3.5 H (1.6-3.3) g/dL Albumin/Globulin Ratio 0.77 L (1.60-3.17) g/dL 06/11/20 Range/Units 11:25 Hgb (13.0-17.5) gm/dL Hct (39.0-53.0) % RDW (11.5-15.5) % D-Dimer (<0.60) mg/L FEU Sodium (135-145) mmol/L Potassium (3.5-5.5) mmol/L Chloride (96-109) mmol/L Glucose (70-110) mg/dL POC Glucose (mg/dL) 168 H (75-99) mg/dL Calcium (8.7-10.3) mg/dL Albumin (3.80-4.90) g/dL Globulin (1.6-3.3) g/dL Albumin/Globulin Ratio (1.60-3.17) g/dL Assessment and Plan Assessment: #1 acute kidney injury secondary to prerenal process resolved. #2 Covid 19 pneumonia #3 hypernatremia secondary to IV fluids #4 hypokalemia Plan: #1 change 0.9 to 0.45% normal saline #2 replace electrolytes #3 avoid nephrotoxic agents
[2020-06-11] MEDS: SODIUM CHLORIDE 0.45% 1,000 ML IV SCH (15:10)
--- NOTE | 2020-06-11 15:15 | P.PN ---
Subjective Progress Note Date: 06/11/20 Principal diagnosis: Altered mental status, CoVID 19 infection 84-year-old white male patient with a recent history of cholecystectomy for gangrenous cholecystitis on 05/18/2020 following which he was recovering at the [facility], has a past medical history of diabetes mellitus, hypertension, previous episodes of pneumonia, diverticular disease, history of lower GI bleeding, with EGD and colonoscopy, was brought into the emergency department per EMS on 06/05/2020 for evaluation of altered mental status and generalized weakness. He was discharged to a senior living facility on 05/25/2020 and was recently discharged from there on 05/30/2020 to his daughter's house where he was having increasing difficulty caring for himself. His chest x-ray no emergency department showed the mild cardiomegaly, low lung volumes without suspicious focal airspace opacity, pleural effusions and no evidence of pneumothorax. His brain CT shows cerebral atrophy and chronic small vessel ischemia, no acute intracranial abnormality. Normal sinus rhythm on the EKG. Patient denied any fever or chills. Denied any significant shortness of breath. No nausea vomiting or diarrhea, admit to some abdominal pain in the right upper quadrant where he had incision sites. Abdomen is soft and nontender. Reports normal appetite. Meds to being increasingly more weak, and no other complaints. CT of the abdomen and pelvis showing some interstitial infiltrates and atelectasis at the lung bases mild cardiomegaly, no acute abnormality within the abdomen and pelvis, moderate colonic diverticulosis without diverticulitis, cholecystectomy, no dilated ducts no evidence of a bile leak. Patient was checked for: 19 and was found to be positive, other laboratory analysis showed white blood cell count of 4.1, hemoglobin of 13.4, INR is 1.1, electrolytes were within normal limits, and patient was found to have acute kidney injury with the BUN of 44 creatinine 3.13, and GFR of 17, 600, CRP was 43.8, and lipase was 309, urinalysis was checked showing no clear evidence of urinary tract infection. Recently on 2 L of oxygen the pulse ox of 92-96%, intermittent low-grade fevers with T-max of 99.2F. He was started on Decadron 4 mg twice daily, he is on prophylactic dose of Lovenox for his renal clearance, he is receiving gentle IV hydration, and the pulmonary service was consulted in view of his COVID 19 infection On June patient seen in follow-up on medical floor, currently on 3 L of oxygen the pulse ox of 99%, appears to be, comfortable, no worsening dyspnea, he is breathing comfortably, but appears to be generally weak, he is currently sitting up in the recliner, he barely holding his head up, his vital signs have been stable, his had no acute events overnight. No new chest x-ray, today's labs have been reviewed, his renal function has significantly improved, and BUN is 32 and creatinine is down to 1.2, electrolytes were within normal limits. He's had no nausea vomiting or diarrhea. He remains on prophylactic dose of Lovenox, oral Decadron, and vitamin C, vitamin D and zinc supplement in addition to gentle IV hydration with 0.9 normal saline at a rate of 75 ML per hour. His been evaluated by physical therapy and apparently patient's family was not happy with the care at the [facility] and took patient home before he completed his rehabilitation however patient was increasingly weak at home. Current recommendation from physical therapy is nursing, physical therapy and occupational therapy, 24-hour care as the patient having difficulty with transfers, requires extensive verbal and physical cues, has very limited functional endurance and extensive assistance with all ADLs. The patient is seen today 06/11/2020 follow-up on the regular medical floor. He remains quite altered. He's been refusing any oral medications. Respirations in the 30s. O2 saturation 88% on 4 L/m per nasal cannula. A CT angiogram was performed. No evidence of pulmonary embolism. There was cardiomegaly. Significant increased pulmonary infiltrates compared to previous. Consistent with acute pneumonia and atelectasis. Congestive heart failure is possible. Apparently, the plan is for PEG tube placement on Saturday. White count 7.9. Hemoglobin 11.6. D-dimer 3.87. Sodium 147. Potassium 3.3. Creatinine 1.0. He remains on dexamethasone IV, Lovenox subcutaneous, Diflucan for thrush. Objective - Vital Signs Vital signs: Vital Signs Temp 98.9 F 06/11/20 14:48 Pulse 97 06/11/20 14:48 Resp 32 H 06/11/20 14:48 BP 161/85 06/11/20 14:48 Pulse Ox 96 01/09/21 14:48 Intake & Output 06/10/20 06/11/20 06/11/20 18:59 06:59 18:59 Intake Total 900 1050 Balance 900 1050 Intake: IV 900 1050 Fluconazole in NaCl,Iso- 50 Osm 100 mg In Saline 1 50ml.bag @ 50 mls/hr IVPB DAILY [facility] Rx#:[id number] Potassium Chloride 10 meq 400 In Water For Injection 1 100ml.bag @ 100 mls/hr IVPB Q1HR [facility] Rx#: [id number] Sodium Chloride 0.9% 1, 900 600 000 ml @ 75 mls/hr IV . [id number] [facility] Rx#:[id number] Oral 0 Other: Voiding Method Diaper Diaper Diaper Incontinent Incontinent Incontinent External Catheter External Catheter # Voids 1 2 - Exam GENERAL EXAM: Drowsy but arousable, 84-year-old male patient, 4 L of oxygen, with pulse ox of 96%, appears weak, resting in bed, no apparent distress. HEAD: Normocephalic/atraumatic. EYES: Normal reaction of pupils, equal size. Conjunctiva pink, sclera white. NOSE: Clear with pink turbinates. THROAT: No erythema or exudates. NECK: No masses, no JVD, no thyroid enlargement, no adenopathy. CHEST: No chest wall deformity. Symmetrical expansion. LUNGS: Equal air entry with few scattered rhonchi, crackles in the posterior bases CVS: Regular rate and rhythm, normal S1 and S2, no gallops, no murmurs, no rubs ABDOMEN: Soft, nontender. No hepatosplenomegaly, normal bowel sounds, no guarding or rigidity. Abdominal incisions clean dry and intact, EXTREMITIES: No clubbing, no edema, no cyanosis, 2+ pulses and upper and lower extremities. MUSCULOSKELETAL: Muscle strength and tone normal. SPINE: No scoliosis or deformity SKIN: No rashes CENTRAL NERVOUS SYSTEM: No focal deficits, tone is normal in all 4 extremities. PSYCHIATRIC: Arousable. Drifts off easily. Difficult to assess. - Labs CBC & Chem 7: 06/11/20 06:09 06/11/20 06:09 Labs: Abnormal Lab Results - Last 24 Hours (Table) 06/10/20 06/10/20 06/11/20 Range/Units 16:43 20:24 06:09 Hgb 11.6 L (13.0-17.5) gm/dL Hct 37.3 L (39.0-53.0) % RDW 16.9 H (11.5-15.5) % D-Dimer (<0.60) mg/L FEU Sodium (135-145) mmol/L Potassium (3.5-5.5) mmol/L Chloride (96-109) mmol/L Glucose (70-110) mg/dL POC Glucose (mg/dL) 176 H 170 H (75-99) mg/dL Calcium (8.7-10.3) mg/dL Albumin (3.80-4.90) g/dL Globulin (1.6-3.3) g/dL Albumin/Globulin Ratio (1.60-3.17) g/dL 06/11/20 06/11/20 06/11/20 Range/Units 06:09 07:16 07:16 Hgb (13.0-17.5) gm/dL Hct (39.0-53.0) % RDW (11.5-15.5) % D-Dimer 3.87 H (<0.60) mg/L FEU Sodium 147 H (135-145) mmol/L Potassium 3.3 L (3.5-5.5) mmol/L Chloride 111 H (96-109) mmol/L Glucose 174 H (70-110) mg/dL POC Glucose (mg/dL) 161 H (75-99) mg/dL Calcium 7.8 L (8.7-10.3) mg/dL Albumin 2.70 L (3.80-4.90) g/dL Globulin 3.5 H (1.6-3.3) g/dL Albumin/Globulin Ratio 0.77 L (1.60-3.17) g/dL 06/11/20 Range/Units 11:25 Hgb (13.0-17.5) gm/dL Hct (39.0-53.0) % RDW (11.5-15.5) % D-Dimer (<0.60) mg/L FEU Sodium (135-145) mmol/L Potassium (3.5-5.5) mmol/L Chloride (96-109) mmol/L Glucose (70-110) mg/dL POC Glucose (mg/dL) 168 H (75-99) mg/dL Calcium (8.7-10.3) mg/dL Albumin (3.80-4.90) g/dL Globulin (1.6-3.3) g/dL Albumin/Globulin Ratio (1.60-3.17) g/dL Assessment and Plan Assessment: 1 Acute COVID 19 infection, requiring oxygen at 4 L/m per nasal cannula. CT angiogram ruled out pulmonary embolism. There is increased pulmonary infiltrates compared to previous on 05/17/2020. Consistent with pneumonia/atelectasis. Possible aspiration. We will add Zosyn. 2 Progressive weakness, refusing oral medications, plan is for PEG tube placement per family request Saturday 3 Mild abdominal discomfort, CT abdomen and pelvis showed no acute intra- abdominal or intrapelvic abnormality with evidence of recent cholecystectomy, no dilated ducts, no evidence of a bile leak 4 Recent history of gangrenous cholecystitis, status post laparoscopic cholecystectomy on 05/18/[address] Taylor 5 General medical debility, he required senior living facility placement after his most recent hospitalization but recently was discharged from the senior living facility to his daughter's house where he could not care for h imself 6 Diabetes mellitus type 2 7 Hypertension 8 Hyperlipidemia 9 Chronic kidney disease, unspecified 10 Previous history of GI bleeding and diverticulitis 11 History of BPH on Flomax Plan: The patient was seen and evaluated by Dr. Echeverria CT angiogram and labs reviewed Add DuoNeb inhalations Empiric antibiotics in the form of Zosyn Incentive spirometer if tolerated Overall prognosis is guarded Plan is for PEG tube placement on Saturday We will continue to follow I, the cosigning physician, performed a history & physical examination of the patient. Lungs sounds scattered rhonchi, coarse crackles in posterior bases. Maintaining good O2 saturations in the 90s on 4 L/m per nasal cannula. I discussed the assessment and plan of care with my nurse practitioner, Ya Griffin. I attest to the above note as dictated by her.
[2020-06-11] MEDS: PIPERACILLIN-TAZOBACTAM 3.375 GM in SODIUM CHLORIDE 0.9% 100 ML IVPB SCH (16:09)
[2020-06-11] MEDS: ALBUTEROL HFA INHALER INHALATION SCH ×2 (16:12→19:41)
[2020-06-11 16:54] LABS: Glucose,Whole Blood 169 mg/dL (75-99)
[2020-06-11 20:27] LABS: Glucose,Whole Blood 162 mg/dL (75-99)
[2020-06-11] MEDS: DEXAMETHASONE SOD PHOSPHATE 4 MG/ML 1 ML VIAL IV SCH (20:47)
[2020-06-11] MEDS ORDERED: cloNIDine 0.1 MG/24HR PATCH TRANSDERM SCH (23:00)
[2020-06-12] MEDS: PIPERACILLIN-TAZOBACTAM 3.375 GM in SODIUM CHLORIDE 0.9% 100 ML IVPB SCH ×3 (00:40→15:22)
[2020-06-12] MEDS: hydrALAZINE HCL 20 MG/ML 1 ML VIAL IVP PRN ×3 (05:38→21:02)
[2020-06-12] MEDS: hydrALAZINE HCL 25 MG TAB PO SCH (06:27)
[2020-06-12 07:11] LABS: Glucose,Whole Blood 215 mg/dL (75-99)
[2020-06-12] MEDS: INSULIN ASPART (NovoLOG) 100 UNIT/ML VIAL SQ SCH ×4 (07:38→21:03)
[2020-06-12] MEDS: metFORMIN 500 MG TAB PO SCH ×2 (07:39→16:57)
[2020-06-12] MEDS: amLODIPine 5 MG TAB PO SCH (07:39)
[2020-06-12] MEDS: CHOLECALCIFEROL 1,000 UNIT TAB PO SCH (07:39)
[2020-06-12] MEDS: ASCORBIC ACID 500 MG TAB PO SCH (07:39)
[2020-06-12] MEDS: ENOXAPARIN 40 MG/0.4 ML SYRINGE SQ SCH (07:39)
[2020-06-12] MEDS: glipiZIDE 5 MG TAB PO SCH ×2 (07:39→16:56)
[2020-06-12] MEDS: DEXAMETHASONE SOD PHOSPHATE 4 MG/ML 1 ML VIAL IV SCH ×2 (07:39→21:02)
[2020-06-12] MEDS: TAMSULOSIN 0.4 MG CAP.ER.24H PO SCH (07:40)
[2020-06-12] MEDS: ZINC SULFATE 220 MG CAP PO SCH (07:40)
[2020-06-12] MEDS: FLUCONAZOLE IN NACL,ISO-OSM 100 MG in SALINE 1 50ML.BAG IVPB SCH (07:46)
[2020-06-12] MEDS: ALBUTEROL HFA INHALER INHALATION SCH ×4 (07:51→19:14)
[2020-06-12] MEDS ORDERED: FUROSEMIDE 10 MG/ML 4 ML VIAL IV STA (09:44)
[2020-06-12] MEDS ORDERED: POTASSIUM CHLORIDE 20 MEQ in WATER FOR INJECTION 1 100ML.BAG IVPB STA (09:47)
[2020-06-12] MEDS: SODIUM CHLORIDE 0.45% 1,000 ML IV SCH (10:25)
[2020-06-12 10:48] LABS: African American GFR (CKD) 79.2 (60.0-200.0); Albumin 2.9 g/dL (3.80-4.90); Albumin/Globulin Ratio 0.74 (1.60-3.17); Anion Gap 11.5 mmol/L (4.00-12.00); Carbon Dioxide 23.5 mmol/L (21.6-31.8); Globulin 3.9 g/dL (1.6-3.3); Non-African American GFR(CKD) 68.3 (60.0-200.0); Total Bilirubin 0.3 mg/dL (0.2-1.2); Total Protein 6.8 g/dL (6.2-8.2)
--- NOTE | 2020-06-12 11:02 | P.PN ---
Progress Note - Text Progress Note Date: 06/12/20 The patient remains stable. He'll have his PEG tube placed wall.
[2020-06-12 11:32] LABS: Glucose,Whole Blood 160 mg/dL (75-99)
--- NOTE | 2020-06-12 11:57 | P.PN ---
Subjective Progress Note Date: 06/12/20 HISTORY OF PRESENT ILLNESS This is an 84-year-old -[place] male patient of Dr. Singer with past medical history of diabetes mellitus type 2, hypertension, hyperlipidemia, chr onic kidney disease, history of GI bleed from diverticulitis, recently admitted to the hospital for acute cholecystitis status post laparoscopic cholecystectomy and also treated for bilateral pneumonia. Patient was discharged to [facility] and completed his course of rehab. He was then discharged home on May 30. Patient has developed increasing weakness with mental status changes. Not eating or drinking and was brought into the hospital for evaluation. Patient presented to [facility] emergency center. He was afebrile, heart rate 85, blood pressure 144/77, pulse ox 96% on room air. CBC was unremarkable. Electrolytes normal, BUN 44 and creatinine 3.13. Blood sugar 166. Magnesium 1.5. Liver function tests normal. Urinalysis positive for protein and blood with no sign of infection. COVID-19 positive. LDH 600, C- reactive protein 43.8. Chest x-ray reveals mild cardiomegaly and low lung volumes without suspicious acute pulmonary process. CAT scan of the abdomen and pelvis without contrast revealed interstitial infiltrate and atelectasis at the lung bases increased from old exam. Mild cardiomegaly. No acute abnormality within the abdomen and pelvis. Moderate colonic diverticulosis without diverticulitis. No evidence of bile leak. CAT scan of the brain revealed cerebral atrophy and chronic small vessel ischemia. No acute intracranial ab normality. Patient was admitted to the [facility] floor. 06/07: Patient has been seen by pulmonary medicine with plan to continue current medications. Nephrology has decreased normal saline 75 mL per hour. Hydralazine increased to 3 times daily. Renal ultrasound reveals no hydronephrosis. Benign 2.2 cm cortical cyst on the left. Bladder suboptimally assessed. Patient has been afebrile, heart rate 61, blood pressure 155/66, pulse ox 98% on 3 L nasal cannula. Blood sugars are running between 141 and 169. Repeat blood work for this morning remains pending. Patient continues to state that he does not have any appetite. He is feeling a little bit better from yesterday. PT and OT evaluations today. 06/08: Patient has been afebrile, heart rate 55, blood pressure 171/69, pulse ox 90% on 2 L. Breathing status has been stable. He denies shortness of breath. Boone catheter in place which will be discontinued today. IV fluids continue by nephrology. Bladder scans monitor for residuals, avoid nephrotoxic agents. Amlodipine and hydralazine to be held for systolic blood pressure less than 130. PT has evaluated with recommendations for home care for subacute rehab with 24- hour care. Electrolytes normal, BUN 43 and creatinine 1.7. Blood sugars are running 184-243. Levemir 10 units at bedtime added. Hyperglycemia secondary to steroids. Anticipate discharge by the end of the week. 06/09: The patient is a little confused today and not eating. Patient denies any complaints, no pain. He answers yes that he is ready to go home. Temperature max 100.2. He was bladder scanned and had 100 mL. Heart rate documented at 101 although rate on exam is slower and appears to be irregular. EKG ordered. Blood pressure 159/75, pulse ox 91% on room air. Repeat lab work reveals WBC 7.8, hemoglobin 12.3. BUN 41 and creatinine 1.2, potassium 3.5. Blood sugars running between 135 and 182. Patient's daughter contacted over the phone and updated regarding his current condition. She was under the impression the patient will be staying in the hospital for a full 14 days for isolation but informed that this will not be happening. We have asked heel caser/social sciences professor to follow-up with the patient's family regarding discharge planning. Most likely patient will be ready to be discharged tomorrow or Saturday. 06/10: Patient has been refusing to eat his meals. He continues to have significant cough. Temperature max 99.6. Respiratory rate has increased to 28. Pulse ox is 93% on 3 L nasal cannula. Heart rate 112. Contacted patient's daughter Partha [phone] and provided update. Her main concern is the patient is not eating. We will ask for speech therapy evaluation and consult with Dr. Taylor for PEG tube placement for temporary nutrition. Discussed again the need for subacute rehab versus returning home. Do not anticipate discharge until early next week. 06/11: The patient still is not eating, he refuses to eat. He does have severe thrush for which he does not seem able to tolerate nystatin and will be placed on Diflucan IV. Patient did have a previously elevated d-dimer and CAT scan of the chest ordered to rule out pulmonary embolism. He is developing increasing respiratory distress. Pulse ox is 88% on 4 L. Respiratory rate is up to 40, h eart rate 110, afebrile. General surgery is following for probable chest. 06/12: CTA of the chest showed no evidence of pulmonary embolism. Cardiomegaly. Significantly increased pulmonary infiltrates. Acute pneumonia and atelectasis present. Heart failure also possible. The patient is still refusing to eat and not taking his oral medications. All medications possible have been switched to IV. One dose of IV Lasix ordered for this morning as well as IV potassium replacement. He is current pulse ox 94% on nonrebreather, afebrile, heart rate 97, respiratory rate 32, blood pressure 171/83. Blood sugars run between 162 and 214. IV fluids changed yesterday to 0.45 normal saline by nephrology. Potassium was elevated yesterday and potassium was also replaced yesterday. Lab work today reveals sodium 148, potassium 4, chloride 113, CO2 23, BUN 21 creatinine 1. Blood sugars running between 162 and 215. Patient's sister Haleigh will be coming in to see him today to evaluate his status. REVIEW OF SYSTEMS Constitutional: No fever, no chills, no night sweats. No weight change. Reports weakness, Reports fatigue Reports lethargy. EENT: No headache. No blurred vision or double vision, no loss of vision. No loss of Hearing, no ringing in the ears, no dizziness. No nasal drainage or congestion. No epistaxis. No sore throat. Lungs: Reports shortness of breath, reports cough, no sputum production. No wheezing. Cardiovascular: No chest pain, no lower extremity edema. No palpitations. No paroxysmal nocturnal dyspnea. No orthopnea. No lightheadedness or dizziness. No syncopal episodes. Abdominal: No abdominal pain. No nausea, vomiting. No diarrhea. No constipation. No bloody or tarry stools. Reports loss of appetite. Genitourinary: No dysuria, increased frequency, urgency. No urinary retention. Musculoskeletal: No myalgias. No muscle weakness, no gait dysfunction, no frequent falls. No back pain. No neck pain. Integumentary: No wounds, no lesions. No rash or pruritus. No unusual bruising. No change in hair or nails. Neurologic: No aphasia. No facial droop. Reports change in mentation. No headache. No paralysis. No paresthesia. Psychiatric: No depression. No anxiety. No mood swings. Endocrine: Reports abnormal blood sugars. PHYSICAL EXAMINATION Gen: This is an 84-year-old -[place] male. He is resting in bed appears to be comfortable. HEENT: Head is atraumatic, normocephalic. Pupils equal, round. Sclerae is anicteric. NECK: Supple. No JVD. No lymphadenopathy. No thyromegaly. LUNGS: Clear to auscultation. No wheezes or rhonchi. No intercostal retractions. HEART: Irregular and rhythm. No murmur. EKG sinus rhythm with PVCs. ABDOMEN: Soft. Bowel sounds are present. No masses. No tenderness. EXTREMITIES: Plus bilateral pedal edema. No calf tenderness. Small ulceration to the left pretibial area. Please see nursing documentation for details, POA. NEUROLOGICAL: Patient is awake, alert and oriented to person. Cranial nerves 2 through 12 are grossly intact. ASSESSMENT AND PLAN 1. Metabolic encephalopathy secondary to Covid 19 pneumonia. Consult with pulmonary medicine appreciated . Continue supplements with vitamin C, vitamin D, zinc. Continue dexamethasone 4 mg twice daily, Lovenox daily.CTA of the chest ordered to rule out pulmonary embolism. 2. acute hypoxic respiratory failure secondary to Covid [address] of the chest ordered. Bone or medicine asked to reevaluate patient. 3. Acute kidney injury with chronic kidney disease stage III. Consult with nephrology appreciated. Continue to Hold losartan. Avoid nephrotoxic agents. IV fluids 75 mL per hour. Renal ultrasound as above. 4. Hypertension. Continue Norvasc 5 mg daily, hydralazine 50 mg increased to 3 times daily. Losartan on hold. 5. Hyperlipidemia. 6. History of recent laparoscopic cholecystectomy, stable. 7. History of GI bleed from diverticulitis, stable. 8. Benign prostatic hypertrophy. Continue Flomax or 0.4 mg daily 9. Diabetes mellitus type 2 uncontrolled with hyperglycemia. Continue NovoLog scale before meals and at bedtime. Patient will be resumed on metformin/ glipizide. 10. Severe protein calorie malnutrition due to refusal to eat. Speech therapy evaluation, Dr. Taylor consult regarding PEG tube insertion. 11. Severe oral thrush. Patient placed on Diflucan 100 mg IV piggyback daily. 12. GI prophylaxis. Protonix. 10. DVT prophylaxis. Lovenox. DISCHARGE PLAN Anticipate need for subacute rehab early next week. Impression and plan of care have been directed as dictated by the signing physician. Cyndy Faust nurse practitioner acting as scribe for signing physician. Objective - Vital Signs Vital signs: Vital Signs Temp 98.2 F 06/12/20 05:30 Pulse 97 06/12/20 05:30 Resp 32 H 06/12/20 05:30 BP 171/83 06/12/20 05:30 Pulse Ox 94 L 06/12/20 05:30 Intake & Output 06/11/20 06/12/20 06/12/20 18:59 06:59 18:59 Intake Total 1050 200 Balance 1050 200 Intake: IV 1050 Fluconazole in NaCl,Iso- 50 Osm 100 mg In Saline 1 50ml.bag @ 50 mls/hr IVPB DAILY SHEN Rx#:[id number] Potassium Chloride 10 meq 400 In Water For Injection 1 100ml.bag @ 100 mls/hr IVPB Q1HR SHEN Rx#: [id number] Sodium Chloride 0.9% 1, 600 000 ml @ 75 mls/hr IV . [id number] SHEN Rx#:[id number] Oral 200 Other: Voiding Method Diaper Diaper Incontinent Incontinent # Voids 2 3 - Labs CBC & Chem 7: 06/11/20 06:09 06/12/20 06:00 Labs: Abnormal Lab Results - Last 24 Hours (Table) 06/11/20 06/11/20 06/11/20 Range/Units 06:09 07:16 11:25 D-Dimer 3.87 H (<0.60) mg/L FEU Sodium 147 H (135-145) mmol/L Potassium 3.3 L (3.5-5.5) mmol/L Chloride 111 H (96-109) mmol/L Glucose 174 H (70-110) mg/dL POC Glucose (mg/dL) 168 H (75-99) mg/dL Calcium 7.8 L (8.7-10.3) mg/dL Albumin 2.70 L (3.80-4.90) g/dL Globulin 3.5 H (1.6-3.3) g/dL Albumin/Globulin Ratio 0.77 L (1.60-3.17) g/dL 06/11/20 06/11/20 06/12/20 Range/Units 16:51 20:07 07:09 D-Dimer (<0.60) mg/L FEU Sodium (135-145) mmol/L Potassium (3.5-5.5) mmol/L Chloride (96-109) mmol/L Glucose (70-110) mg/dL POC Glucose (mg/dL) 169 H 162 H 215 H (75-99) mg/dL Calcium (8.7-10.3) mg/dL Albumin (3.80-4.90) g/dL Globulin (1.6-3.3) g/dL Albumin/Globulin Ratio (1.60-3.17) g/dL
[2020-06-12] MEDS: DEXTROSE 5% IN WATER 1,000 ML IV SCH (13:14)
--- NOTE | 2020-06-12 13:33 | P.PN ---
Subjective Progress Note Date: 06/12/20 Principal diagnosis: Altered mental status, CoVID 19 infection 84-year-old white male patient with a recent history of cholecystectomy for gangrenous cholecystitis on 05/18/2020 following which he was recovering at the [facility], has a past medical history of diabetes mellitus, hypertension, previous episodes of pneumonia, diverticular disease, history of lower GI bleeding, with EGD and colonoscopy, was brought into the emergency department per EMS on 06/05/2020 for evaluation of altered mental status and generalized weakness. He [facility]/2020 and was recently discharged from there on 05/30/2020 to his daughter's house where he was having increasing difficulty caring for himself. His chest x-ray no emergency department showed the mild cardiomegaly, low lung volumes without suspicious focal airspace opacity, pleural effusions and no evidence of pneumothorax. His brain CT shows cerebral atrophy and chronic small vessel ischemia, no acute intracranial abnormality. Normal sinus rhythm on the EKG. Patient denied any fever or chills. Denied any significant shortness of breath. No nausea vomiting or diarrhea, admit to some abdominal pain in the right upper quadrant where he had incision sites. Abdomen is soft and nontender. Reports normal appetite. Meds to being increasingly more weak, and no other complaints. CT of the abdomen and pelvis showing some interstitial infiltrates and atelectasis at the lung bases mild cardiomegaly, no acute abnormality within the abdomen and pelvis, moderate colonic diverticulosis without diverticulitis, cholecystectomy, no dilated ducts no evidence of a bile leak. Patient was checked for: 19 and was found to be positive, other laboratory analysis showed white blood cell count of 4.1, hemoglobin of 13.4, INR is 1.1, electrolytes were within normal limits, and patient was found to have acute kidney injury with the BUN of 44 creatinine 3.13, and GFR of 17, 600, CRP was 43.8, and lipase was 309, urinalysis was checked showing no clear evidence of urinary tract infection. Recently on 2 L of oxygen the pulse ox of 92-96%, intermittent low-grade fevers with T-max of 99.2F. He was started on Decadron 4 mg twice daily, he is on prophylactic dose of Lovenox for his renal clearance, he is receiving gentle IV hydration, and the pulmonary service was consulted in view of his COVID 19 infection On June patient seen in follow-up on medical floor, currently on 3 L of oxygen the pulse ox of 99%, appears to be, comfortable, no worsening dyspnea, he is breathing comfortably, but appears to be generally weak, he is currently sitting up in the recliner, he barely holding his head up, his vital signs have been stable, his had no acute events overnight. No new chest x-ray, today's labs have been reviewed, his renal function has significantly improved, and BUN is 32 and creatinine is down to 1.2, electrolytes were within normal limits. He's had no nausea vomiting or diarrhea. He remains on prophylactic dose of Lovenox, oral Decadron, and vitamin C, vitamin D and zinc supplement in addition to gentle IV hydration with 0.9 normal saline at a rate of 75 ML per hour. His been evaluated by physical therapy and apparently patient's family was not happy with the care [facility] the [facility] and took patient home before he completed his rehabilitation however patient was increasingly weak at home. Current recommendation from physical therapy is nursing, physical therapy and occupational therapy, 24-hour care as the patient having difficulty with transfers, requires extensive verbal and physical cues, has very limited functional endurance and extensive assistance with all ADLs. The patient is seen today 06/11/2020 follow-up on the regular medical floor. He remains quite altered. He's been refusing any oral medications. Respirations in the 30s. O2 saturation 88% on 4 L/m per nasal cannula. A CT angiogram was performed. No evidence of pulmonary embolism. There was cardiomegaly. Significant increased pulmonary infiltrates compared to previous. Consistent with acute pneumonia and atelectasis. Congestive heart failure is possible. Apparently, the plan is for PEG tube placement on Saturday. White count 7.9. Hemoglobin 11.6. D-dimer 3.87. Sodium 147. Potassium 3.3. Creatinine 1.0. He remains on dexamethasone IV, Lovenox subcutaneous, Diflucan for thrush. The patient is seen today 06/12/2020 in follow-up on the regular medical floor. He is currently on the nonrebreather mask at 15 L to maintain O2 saturation in the 90s. He is afebrile. Remains quite debilitated and weak. Sodium 148. Potassium 4.0. Creatinine 1.0. Glucose 212. Remains on dexamethasone, bronchodilators, Zosyn. Additional Lasix 40 mg IVP 1 today. Objective - Vital Signs Vital signs: Vital Signs Temp 98.0 F 06/12/20 10:00 Pulse 62 06/12/20 10:00 Resp 24 06/12/20 10:00 BP 178/75 06/12/20 10:00 Pulse Ox 94 L 06/12/20 10:00 Intake & Output 06/11/20 06/12/20 06/12/20 18:59 06:59 18:59 Intake Total 1050 200 Balance 1050 200 Intake: IV 1050 Fluconazole in NaCl,Iso- 50 Osm 100 mg In Saline 1 50ml.bag @ 50 mls/hr IVPB DAILY SHEN Rx#:[id number] Potassium Chloride 10 meq 400 In Water For Injection 1 100ml.bag @ 100 mls/hr IVPB Q1HR SHEN Rx#: [id number] Sodium Chloride 0.9% 1, 600 000 ml @ 75 mls/hr IV . [id number] SHEN Rx#:[id number] Oral 200 Other: Voiding Method Diaper Diaper Incontinent Incontinent # Voids 2 3 - Exam GENERAL EXAM: Drowsy but arousable, 84-year-old male patient, 15 L of oxygen via nonrebreather mask, with pulse ox of 94%, appears weak, resting in bed, no apparent distress. HEAD: Normocephalic/atraumatic. EYES: Normal reaction of pupils, equal size. Conjunctiva pink, sclera white. NOSE: Clear with pink turbinates. THROAT: No erythema or exudates. NECK: No masses, no JVD, no thyroid enlargement, no adenopathy. CHEST: No chest wall deformity. Symmetrical expansion. LUNGS: Equal air entry with few scattered rhonchi, crackles in the posterior bases CVS: Regular rate and rhythm, normal S1 and S2, no gallops, no murmurs, no rubs ABDOMEN: Soft, nontender. No hepatosplenomegaly, normal bowel sounds, no guarding or rigidity. Abdominal incisions clean dry and intact, EXTREMITIES: No clubbing, no edema, no cyanosis, 2+ pulses and upper and lower extremities. MUSCULOSKELETAL: Muscle strength and tone normal. SPINE: No scoliosis or deformity SKIN: No rashes CENTRAL NERVOUS SYSTEM: No focal deficits, tone is normal in all 4 extremities. PSYCHIATRIC: Arousable. Drifts off easily. Difficult to assess. - Labs CBC & Chem 7: 06/11/20 06:09 06/12/20 06:00 Labs: Abnormal Lab Results - Last 24 Hours (Table) 06/11/20 06/11/20 06/12/20 Range/Units 16:51 20:07 06:00 Sodium 148 H (135-145) mmol/L Chloride 113 H (96-109) mmol/L BUN/Creatinine Ratio 21.00 H (12.00-20.00) Ratio Glucose 212 H (70-110) mg/dL POC Glucose (mg/dL) 169 H 162 H (75-99) mg/dL Calcium 8.0 L (8.7-10.3) mg/dL Albumin 2.90 L (3.80-4.90) g/dL Globulin 3.9 H (1.6-3.3) g/dL Albumin/Globulin Ratio 0.74 L (1.60-3.17) g/dL 06/12/20 06/12/20 Range/Units 07:09 11:31 Sodium (135-145) mmol/L Chloride (96-109) mmol/L BUN/Creatinine Ratio (12.00-20.00) Ratio Glucose (70-110) mg/dL POC Glucose (mg/dL) 215 H 160 H (75-99) mg/dL Calcium (8.7-10.3) mg/dL Albumin (3.80-4.90) g/dL Globulin (1.6-3.3) g/dL Albumin/Globulin Ratio (1.60-3.17) g/dL Assessment and Plan Assessment: 1 Acute COVID 19 infection, requiring oxygen at 15 L/m per nonrebreather mask. CT angiogram ruled out pulmonary embolism. There is increased pulmonary infiltrates compared to previous on 05/17/2020. Consistent with pneumonia/atelectasis. Possible aspiration. Initiated on Zosyn. 2 Progressive weakness, refusing oral medications, plan is for PEG tube placement per family request Saturday 3 Mild abdominal discomfort, CT abdomen and pelvis showed no acute intra-abdo eufemia or intrapelvic abnormality with evidence of recent cholecystectomy, no dilated ducts, no evidence of a bile leak 4 Recent history of gangrenous cholecystitis, status post laparoscopic cholecys tectomy on 05/18/[address] Taylor 5 General medical debility, he required penitentiary facility placement after his most recent hospitalization but recently was discharged from the penitentiary facility to his daughter's house where he could not care for himself 6 Diabetes mellitus type 2 7 Hypertension 8 Hyperlipidemia 9 Chronic kidney disease, unspecified 10 Previous history of GI bleeding and diverticulitis 11 History of BPH on Flomax Plan: The patient was seen and evaluated by Dr. Echeverria On 15 L per nonrebreather mask May benefit from Ventimask if tolerated Lasix 40 mg IVP 1 Continue Zosyn and bronchodilators Continue dexamethasone Overall prognosis is guarded Plan is for PEG tube placement on Saturday We will continue to follow I, the cosigning physician, performed a history & physical examination of the patient. Lungs sounds scattered rhonchi, coarse crackles in posterior bases. Maintaining good O2 saturations in the 90s on 15 L/m per nonrebreather mask. I discussed the assessment and plan of care with my nurse practitioner, Ya carter. I attest to the above note as dictated by her.
--- NOTE | 2020-06-12 14:29 | P.PN ---
Subjective Progress Note Date: 06/12/20 Follow-up for acute kidney injury and hypernatremia. Objective - Vital Signs Vital signs: Vital Signs Temp 98.4 F 06/12/20 14:00 Pulse 89 06/12/20 14:00 Resp 24 06/12/20 14:00 BP 191/90 06/12/20 14:00 Pulse Ox 92 L 06/12/20 14:22 Intake & Output 06/11/20 06/12/20 06/12/20 18:59 06:59 18:59 Intake Total 1050 200 Balance 1050 200 Intake: IV 1050 Fluconazole in NaCl,Iso- 50 Osm 100 mg In Saline 1 50ml.bag @ 50 mls/hr IVPB DAILY SHEN Rx#:[id number] Potassium Chloride 10 meq 400 In Water For Injection 1 100ml.bag @ 100 mls/hr IVPB Q1HR SHEN Rx#: [id number] Sodium Chloride 0.9% 1, 600 000 ml @ 75 mls/hr IV . [id number] SHEN Rx#:[id number] Oral 200 Other: Voiding Method Diaper Diaper Diaper Incontinent Incontinent Incontinent # Voids 2 3 - Exam No acute distress S1-S2 heard Lungs clear Abdomen soft No edema - Labs CBC & Chem 7: 06/11/20 06:09 06/12/20 06:00 Labs: Abnormal Lab Results - Last 24 Hours (Table) 06/11/20 06/11/20 06/12/20 Range/Units 16:51 20:07 06:00 Sodium 148 H (135-145) mmol/L Chloride 113 H (96-109) mmol/L BUN/Creatinine Ratio 21.00 H (12.00-20.00) Ratio Glucose 212 H (70-110) mg/dL POC Glucose (mg/dL) 169 H 162 H (75-99) mg/dL Calcium 8.0 L (8.7-10.3) mg/dL Albumin 2.90 L (3.80-4.90) g/dL Globulin 3.9 H (1.6-3.3) g/dL Albumin/Globulin Ratio 0.74 L (1.60-3.17) g/dL 06/12/20 06/12/20 Range/Units 07:09 11:31 Sodium (135-145) mmol/L Chloride (96-109) mmol/L BUN/Creatinine Ratio (12.00-20.00) Ratio Glucose (70-110) mg/dL POC Glucose (mg/dL) 215 H 160 H (75-99) mg/dL Calcium (8.7-10.3) mg/dL Albumin (3.80-4.90) g/dL Globulin (1.6-3.3) g/dL Albumin/Globulin Ratio (1.60-3.17) g/dL Assessment and Plan Assessment: #1 acute kidney injury secondary to prerenal process resolved. #2 Covid 19 pneumonia #3 hypernatremia secondary to IV fluids #4 hypokalemia Plan: #1 change 0.45% normal saline to D5 water #2 replace electrolytes #3 avoid nephrotoxic agents
[2020-06-12 16:47] LABS: Glucose,Whole Blood 184 mg/dL (75-99)
[2020-06-12 20:40] LABS: Glucose,Whole Blood 194 mg/dL (75-99)
[2020-06-13] MEDS: PIPERACILLIN-TAZOBACTAM 3.375 GM in SODIUM CHLORIDE 0.9% 100 ML IVPB SCH ×3 (00:24→17:21)
[2020-06-13] MEDS: hydrALAZINE HCL 20 MG/ML 1 ML VIAL IVP PRN ×2 (03:32→10:58)
[2020-06-13 07:06] LABS: Anisocytosis Slight; HCT 39.5 % (39.0-53.0); HGB 12.8 gm/dL (13.0-17.5); Hypochromasia Slight; MCH 26.6 pg (25.0-35.0); MCHC 32.3 g/dL (31.0-37.0); MCV 82.3 fL (80.0-100.0); Mean Platelet Volume 8.4; Platelet Count 326 k/uL (150-450); RDW 17.2 % (11.5-15.5); WBC 13.4 k/uL (3.8-10.6)
[2020-06-13 07:22] LABS: Glucose,Whole Blood 318 mg/dL (75-99)
[2020-06-13] MEDS: glipiZIDE 5 MG TAB PO SCH ×2 (07:32→16:02)
[2020-06-13] MEDS: amLODIPine 5 MG TAB PO SCH (07:32)
[2020-06-13] MEDS: ASCORBIC ACID 500 MG TAB PO SCH (07:32)
[2020-06-13] MEDS: metFORMIN 500 MG TAB PO SCH ×2 (07:32→16:02)
[2020-06-13] MEDS: CHOLECALCIFEROL 1,000 UNIT TAB PO SCH (07:32)
[2020-06-13] MEDS: ZINC SULFATE 220 MG CAP PO SCH (07:33)
[2020-06-13] MEDS: ENOXAPARIN 40 MG/0.4 ML SYRINGE SQ SCH (07:33)
[2020-06-13] MEDS: TAMSULOSIN 0.4 MG CAP.ER.24H PO SCH (07:33)
[2020-06-13] MEDS: ALBUTEROL HFA INHALER INHALATION SCH ×4 (07:50→20:51)
[2020-06-13] MEDS: FLUCONAZOLE IN NACL,ISO-OSM 100 MG in SALINE 1 50ML.BAG IVPB SCH (07:51)
[2020-06-13] MEDS: DEXAMETHASONE SOD PHOSPHATE 4 MG/ML 1 ML VIAL IV SCH ×2 (07:51→22:00)
[2020-06-13] MEDS: INSULIN ASPART (NovoLOG) 100 UNIT/ML VIAL SQ SCH ×4 (07:51→20:53)
[2020-06-13] MEDS: DEXTROSE 5% IN WATER 1,000 ML IV SCH (07:52)
[2020-06-13 11:29] LABS: Glucose,Whole Blood 267 mg/dL (75-99)
[2020-06-13 11:43] LABS: African American GFR (CKD) 70.6 (60.0-200.0); Albumin 2.9 g/dL (3.80-4.90); Albumin/Globulin Ratio 0.73 (1.60-3.17); Anion Gap 13.7 mmol/L (4.00-12.00); BUN/Creat Ratio 23.64 Ratio (12.00-20.00); Calcium 8.3 mg/dL (8.7-10.3); Carbon Dioxide 22.3 mmol/L (21.6-31.8); Non-African American GFR(CKD) 60.9 (60.0-200.0); Total Bilirubin 0.3 mg/dL (0.2-1.2); Total Protein 6.9 g/dL (6.2-8.2)
[2020-06-13] MEDS ORDERED: LIDOCAINE 1% INJ 10MG/ML (20 ML MDV) ONE (14:01)
[2020-06-13] MEDS ORDERED: SUCCINYLCHOLINE CHLORIDE 100 MG/5 ML SYR IV ONE (14:01)
[2020-06-13] MEDS ORDERED: PROPOFOL 10 MG/ML 20 ML VIAL IV ONE (14:01)
[2020-06-13] MEDS ORDERED: IV FLUID CONTINUATION 1,000 ML IV ONE (14:15)
[2020-06-13] MEDS ORDERED: cloNIDine 0.2 MG/24HR PATCH TRANSDERM SCH (14:30)
--- NOTE | 2020-06-13 14:37 | PN ---
PROGRESS NOTE The patient is seen for followup for acute kidney injury. The patient has underlying coronavirus infection. His renal function has improved. Creatinine now at 1.1 from 3.1 on initial admission. He has had good urine output. PHYSICAL EXAMINATION: On examination today, patient denies any significant complaints. Blood pressure was elevated at 167/102, heart rate 104 per minute. He is afebrile. Examination shows no evidence of edema bilateral lower extremities. Abdomen is soft, nontender. [employer] TE[employer]ER exam grossly intact. LABS: Labs show sodium 147, potassium 4.0, chloride 111, BUN 26, creatinine 1.1, hemoglobin 12.8 g/dL. ASSESSMENT: 1. Acute kidney injury prerenal, currently improved. 2. Hypernatremia, maintained on D5W which I will continue for now. 3. Hypertension, uncontrolled. Currently maintained on clonidine patch. We can increase that to 0.2 mg. this is most likely uncontrolled secondary to the Decadron and expect improvement once steroids are discontinued. 4. COVID-19 pneumonia, maintained on Decadron. The patient is also on Zosyn. He is maintained on zinc as well. PLAN: Continue with D5W. Increase clonidine patch to 0.2 mg. Continue to avoid nephrotoxic agents. MMODL / IJN: [id number] /
--- NOTE | 2020-06-13 15:55 | P.PN ---
Subjective Progress Note Date: 06/13/20 Principal diagnosis: Altered mental status, COVID 19 84-year-old white male patient with a recent history of cholecystectomy for gangrenous cholecystitis on 05/18/2020 following which he was recovering at the [facility], has a past medical history of diabetes mellitus, hypertension, previous episodes of pneumonia, diverticular disease, history of lower GI bleeding, with EGD and colonoscopy, was brought into the emergency department per EMS on 06/05/2020 for evaluation of altered mental status and generalized weakness. He was discharged to a care home facility on 05/25/2020 and was recently discharged from there on 05/30/2020 to his daughter's house where he was having increasing difficulty caring for himself. His chest x-ray no emergency department showed the mild cardiomegaly, low lung volumes without suspicious focal airspace opacity, pleural effusions and no evidence of pneumothorax. His brain CT shows cerebral atrophy and chronic small vessel ischemia, no acute intracranial abnormality. Normal sinus rhythm on the EKG. Patient denied any fever or chills. Denied any significant shortness of breath. No nausea vomiting or diarrhea, admit to some abdominal pain in the right upper quadrant where he had incision sites. Abdomen is soft and nontender. Reports normal appetite. Meds to being increasingly more weak, and no other complaints. CT of the abdomen and pelvis showing some interstitial infiltrates and atelectasis at the lung bases mild cardiomegaly, no acute abnormality within the abdomen and pelvis, moderate colonic diverticulosis without diverticulitis, cholecystectomy, no dilated ducts no evidence of a bile leak. Patient was checked for: 19 and was found to be positive, other laboratory analysis showed white blood cell count of 4.1, hemoglobin of 13.4, INR is 1.1, electrolytes were within normal limits, and patient was found to have acute kidney injury with the BUN of 44 creatinine 3.13, and GFR of 17, 600, CRP was 43.8, and lipase was 309, urinalysis was checked showing no clear evidence of urinary tract infection. Recently on 2 L of oxygen the pulse ox of 92-96%, intermittent low-grade fevers with T-max of 99.2F. He was started on Decadron 4 mg twice daily, he is on prophylactic dose of Lovenox for his renal clearance, he is receiving gentle IV hydration, and the pulmonary service was consulted in view of his COVID 19 infection On June 07 patient seen in follow-up on medical floor, currently on 3 L of oxygen the pulse ox of 99%, appears to be, comfortable, no worsening dyspnea, he is breathing comfortably, but appears to be generally weak, he is currently sitting up in the recliner, he barely holding his head up, his vital signs have been stable, his had no acute events overnight. No new chest x-ray, today's labs have been reviewed, his renal function has significantly improved, and BUN is 32 and creatinine is down to 1.2, electrolytes were within normal limits. He's had no nausea vomiting or diarrhea. He remains on prophylactic dose of Lovenox, oral Decadron, and vitamin C, vitamin D and zinc supplement in addition to gentle IV hydration with 0.9 normal saline at a rate of 75 ML per hour. His been evaluated by physical therapy and apparently patient's family was not happy with the care at the [facility] and took patient home before he completed his rehabilitation however patient was increasingly weak at home. Current recommendation from physical therapy is nursing, physical therapy and occupational therapy, 24-hour care as the patient having difficulty with transfers, requires extensive verbal and physical cues, has very limited functional endurance and extensive assistance with all ADLs On 06/13/2020 patient seen in follow-up on medical floor, is currently on 6 L of oxygen, there is to be in no acute distress, appears weak, debilitated, no evidence of any respiratory distress noted. Afebrile. Continues on Decadron 4 mg twice daily, prophylactic dose of Lovenox, Diflucan. Today he went for a PEG tube placement, following the procedure for which she was intubated patient returned back to his room and he was increasingly more hypoxic, requiring 15 liters of oxygen, repeat chest x-ray is pending, rapid response team was called, attending physician address the CODE STATUS with patient's family and patient's family is insisting on full code. However in view of his overall very debilitated state his long-term prognosis is quite guarded and poor. These labs showed a white blood cell count of 13.4, hemoglobin of 12.8, sodium was 147, potassium is 4.0, chloride is 111, CO2 is 22, BUN of 26, creatinine is 1.1. Objective - Vital Signs Vital signs: Vital Signs Temp 97.8 F 06/13/20 09:54 Pulse 104 H 06/13/20 09:54 Resp 28 H 06/13/20 09:54 BP 167/102 06/13/20 09:54 Pulse Ox 92 L 06/13/20 09:54 Intake & Output 06/12/20 06/13/20 06/13/20 18:59 06:59 18:59 Intake Total 650 100 Balance 650 100 Intake: IV 100 Intake, IV Titration 650 Amount Dextrose 5% in Water 1, 400 000 ml @ 50 mls/hr IV . Q[facility]H [facility] Rx#:[id number] Piperacillin-Tazobactam 3 200 .375 gm In Sodium Chloride 0.9% 100 ml @ 25 mls/hr IVPB Q8HR [facility] Rx# :[id number] Potassium Chloride 20 meq 50 In Water For Injection 1 100ml.bag @ 50 mls/hr IVPB ONCE [facility] Rx#: [id number] Other: Voiding Method Diaper Diaper Diaper Incontinent Incontinent Incontinent # Voids 1 - Exam GENERAL EXAM: Drowsy but arousable,, 84-year-old white male, 6 L of oxygen, with pulse ox of 92%, appears weak, is sitting up in the recliner, with his head pool ging down, he can barely hold his head up, but no apparent distress. HEAD: Normocephalic/atraumatic. EYES: Normal reaction of pupils, equal size. Conjunctiva pink, sclera white. NOSE: Clear with pink turbinates. THROAT: No erythema or exudates. NECK: No masses, no JVD, no thyroid enlargement, no adenopathy. CHEST: No chest wall deformity. Symmetrical expansion. LUNGS: Equal air entry with no crackles, wheeze, rhonchi or dullness. CVS: Regular rate and rhythm, normal S1 and S2, no gallops, no murmurs, no rubs ABDOMEN: Soft, nontender. No hepatosplenomegaly, normal bowel sounds, no guarding or rigidity. Abdominal incisions clean dry and intact, EXTREMITIES: No clubbing, no edema, no cyanosis, 2+ pulses and upper and lower extremities. MUSCULOSKELETAL: Muscle strength and tone normal. SPINE: No scoliosis or deformity SKIN: No rashes CENTRAL NERVOUS SYSTEM: Drowsy, but arousable, appears very weak and worn out No focal deficits, tone is normal in all 4 extremities. - Labs CBC & Chem 7: 06/13/20 06:23 06/13/20 06:23 Labs: Abnormal Lab Results - Last 24 Hours (Table) 06/12/20 06/12/20 06/13/20 Range/Units 16:45 20:32 06:23 WBC 13.4 H (3.8-10.6) k/uL Hgb 12.8 L (13.0-17.5) gm/dL RDW 17.2 H (11.5-15.5) % Sodium (135-145) mmol/L Chloride (96-109) mmol/L Anion Gap (4.00-12.00) mmol/L BUN/Creatinine Ratio (12.00-20.00) Ratio Glucose (70-110) mg/dL POC Glucose (mg/dL) 184 H 194 H (75-99) mg/dL Calcium (8.7-10.3) mg/dL Albumin (3.80-4.90) g/dL Globulin (1.6-3.3) g/dL Albumin/Globulin Ratio (1.60-3.17) g/dL 06/13/20 06/13/20 06/13/20 Range/Units 06:23 07:21 11:27 WBC (3.8-10.6) k/uL Hgb (13.0-17.5) gm/dL RDW (11.5-15.5) % Sodium 147 H (135-145) mmol/L Chloride 111 H (96-109) mmol/L Anion Gap 13.70 H (4.00-12.00) mmol/L BUN/Creatinine Ratio 23.64 H (12.00-20.00) Ratio Glucose 291 H (70-110) mg/dL POC Glucose (mg/dL) 318 H 267 H (75-99) mg/dL Calcium 8.3 L (8.7-10.3) mg/dL Albumin 2.90 L (3.80-4.90) g/dL Globulin 4.0 H (1.6-3.3) g/dL Albumin/Globulin Ratio 0.73 L (1.60-3.17) g/dL Assessment and Plan Plan: Assessment: #1. Acute COVID 19 infection, chest x-ray showed low lung volumes without new suspicious acute pulmonary process. Patient initially presented without significant pulmonary symptoms, and requiring minimal supplemental oxygen, however in view of his overall medical debility, oxygen demand has increased and patient is currently on 15 L of oxygen #2. Acute kidney injury, improved with IV hydration #3. Status post PEG tube placement today on 06/13/2020 for nutritional support #4. Lethargy, encephalopathy, gait dysfunction, severe generalized weakness, severe medical debility #5. Mild abdominal discomfort, CT abdomen and pelvis showed no acute intra- abdominal or intrapelvic abnormality with evidence of recent cholecystectomy, no dilated ducts, no evidence of a bile leak #6. Recent history of gangrenous cholecystitis, status post laparoscopic cholecystectomy on 05/18/[address] Taylor #7. General medical debility, he required care home facility placement after his most recent hospitalization but recently was discharged from the care home facility to his daughter's house where he could not care for h imself #8. Diabetes mellitus type 2 #9. Hypertension #10. Hyperlipidemia #11. Chronic kidney disease, stage III at baseline #12. Previous history of GI bleeding and diverticulitis #13. History of BPH on Flomax Plan: Patient has returned from PEG tube insertion, he is requiring increased FiO2 currently at 15 L, chest x-ray is pending, we'll place the patient on BiPAP support with pressures of 12 and 6 and a FiO2 of 100%, maintain aspiration precautions, continue same antibiotics, continue GI and DVT prophylaxis. CODE STATUS was addressed with his family who wishes to keep the patient full code for now, overall his prognosis is poor and extremely guarded. We'll continue his current medical treatment. PEG tube was placed for nutritional support, and likely will start enteral feedings in the next 24 hours. I performed a history & physical examination of the patient and discussed their management with my nurse practitioner, Corina Graham. I reviewed the nurse practitioner's note and agree with the documented findings and plan of care. Lung sounds are positive for diminished breath sounds. The findings and the impression was discussed with the patient. I attest to the documentation by the nurse practitioner. Time with Patient: Less than 30
[2020-06-13 16:28] LABS: Glucose,Whole Blood 332 mg/dL (75-99)
--- NOTE | 2020-06-13 16:41 | P.PN ---
Subjective Progress Note Date: 06/13/20 HISTORY OF PRESENT ILLNESS This is an 84-year-old -[place] male patient of Dr. Singer with past medical history of diabetes mellitus type 2, hypertension, hyperlipidemia, chr onic kidney disease, history of GI bleed from diverticulitis, recently admitted to the hospital for acute cholecystitis status post laparoscopic cholecystectomy and also treated for bilateral pneumonia. Patient was discharged to [facility] and completed his course of rehab. He was then discharged home on May 30. Patient has developed increasing weakness with mental status changes. Not eating or drinking and was brought into the hospital for evaluation. Patient presented to [facility] emergency center. He was afebrile, heart rate 85, blood pressure 144/77, pulse ox 96% on room air. CBC was unremarkable. Electrolytes normal, BUN 44 and creatinine 3.13. Blood sugar 166. Magnesium 1.5. Liver function tests normal. Urinalysis positive for protein and blood with no sign of infection. COVID-19 positive. LDH 600, C- reactive protein 43.8. Chest x-ray reveals mild cardiomegaly and low lung volumes without suspicious acute pulmonary process. CAT scan of the abdomen and pelvis without contrast revealed interstitial infiltrate and atelectasis at the lung bases increased from old exam. Mild cardiomegaly. No acute abnormality within the abdomen and pelvis. Moderate colonic diverticulosis without diverticulitis. No evidence of bile leak. CAT scan of the brain revealed cerebral atrophy and chronic small vessel ischemia. No acute intracranial ab normality. Patient was admitted to the [facility] floor. 06/07: Patient has been seen by pulmonary medicine with plan to continue current medications. Nephrology has decreased normal saline 75 mL per hour. Hydralazine increased to 3 times daily. Renal ultrasound reveals no hydronephrosis. Benign 2.2 cm cortical cyst on the left. Bladder suboptimally assessed. Patient has been afebrile, heart rate 61, blood pressure 155/66, pulse ox 98% on 3 L nasal cannula. Blood sugars are running between 141 and 169. Repeat blood work for this morning remains pending. Patient continues to state that he does not have any appetite. He is feeling a little bit better from yesterday. PT and OT evaluations today. 06/08: Patient has been afebrile, heart rate 55, blood pressure 171/69, pulse ox 90% on 2 L. Breathing status has been stable. He denies shortness of breath. Boone catheter in place which will be discontinued today. IV fluids continue by nephrology. Bladder scans monitor for residuals, avoid nephrotoxic agents. Amlodipine and hydralazine to be held for systolic blood pressure less than 130. PT has evaluated with recommendations for home care for subacute rehab with 24- hour care. Electrolytes normal, BUN 43 and creatinine 1.7. Blood sugars are running 184-243. Levemir 10 units at bedtime added. Hyperglycemia secondary to steroids. Anticipate discharge by the end of the week. 06/09: The patient is a little confused today and not eating. Patient denies any complaints, no pain. He answers yes that he is ready to go home. Temperature max 100.2. He was bladder scanned and had 100 mL. Heart rate documented at 101 although rate on exam is slower and appears to be irregular. EKG ordered. Blood pressure 159/75, pulse ox 91% on room air. Repeat lab work reveals WBC 7.8, hemoglobin 12.3. BUN 41 and creatinine 1.2, potassium 3.5. Blood sugars running between 135 and 182. Patient's daughter contacted over the phone and updated regarding his current condition. She was under the impression the patient will be staying in the hospital for a full 14 days for isolation but informed that this will not be happening. We have asked lining caser/director social welfare to follow-up with the patient's family regarding discharge planning. Most likely patient will be ready to be discharged tomorrow or Saturday. 06/10: Patient has been refusing to eat his meals. He continues to have significant cough. Temperature max 99.6. Respiratory rate has increased to 28. Pulse ox is 93% on 3 L nasal cannula. Heart rate 112. Contacted patient's daughter Partha [phone] and provided update. Her main concern is the patient is not eating. We will ask for speech therapy evaluation and consult with Dr. Taylor for PEG tube placement for temporary nutrition. Discussed again the need for subacute rehab versus returning home. Do not anticipate discharge until early next week. 06/11: The patient still is not eating, he refuses to eat. He does have severe thrush for which he does not seem able to tolerate nystatin and will be placed on Diflucan IV. Patient did have a previously elevated d-dimer and CAT scan of the chest ordered to rule out pulmonary embolism. He is developing increasing respiratory distress. Pulse ox is 88% on 4 L. Respiratory rate is up to 40, h eart rate 110, afebrile. General surgery is following for probable chest. 06/12: CTA of the chest showed no evidence of pulmonary embolism. Cardiomegaly. Significantly increased pulmonary infiltrates. Acute pneumonia and atelectasis present. Heart failure also possible. The patient is still refusing to eat and not taking his oral medications. All medications possible have been switched to IV. One dose of IV Lasix ordered for this morning as well as IV potassium replacement. He is current pulse ox 94% on nonrebreather, afebrile, heart rate 97, respiratory rate 32, blood pressure 171/83. Blood sugars run between 162 and 214. IV fluids changed yesterday to 0.45 normal saline by nephrology. Potassium was elevated yesterday and potassium was also replaced yesterday. Lab work today reveals sodium 148, potassium 4, chloride 113, CO2 23, BUN 21 creatinine 1. Blood sugars running between 162 and 215. Patient's sister Haleigh will be coming in to see him today to evaluate his status. 06/13: Patient is scheduled for PEG tube insertion today. His respiratory status is marginal. He is up to 6 L high flow nasal cannula. He has been afebrile, heart rate 104, respiratory rate 28, blood pressure 167/102, pulse ox 92% on 6 L nasal cannula. WBC 13.4, hemoglobin 12.8. Sodium 147, chloride 111, CO2 22. BUN 16 and creatinine 1.1. Blood sugars have been elevated in the 200s. Co ntacted at 2 daughters which were Klaudia and Partha. They have been updated on patient condition and he remains a full code. REVIEW OF SYSTEMS Constitutional: No fever, no chills, no night sweats. No weight change. Reports weakness, Reports fatigue Reports lethargy. EENT: No headache. No blurred vision or double vision, no loss of vision. No loss of Hearing, no ringing in the ears, no dizziness. No nasal drainage or congestion. No epistaxis. No sore throat. Lungs: Reports worsening shortness of breath, reports cough, no sputum production. No wheezing. Cardiovascular: No chest pain, no lower extremity edema. No palpitations. No paroxysmal nocturnal dyspnea. No orthopnea. No lightheadedness or dizziness. No syncopal episodes. Abdominal: No abdominal pain. No nausea, vomiting. No diarrhea. No constipation. No bloody or tarry stools. Reports loss of appetite. Genitourinary: No dysuria, increased frequency, urgency. No urinary retention. Musculoskeletal: No myalgias. No muscle weakness, no gait dysfunction, no frequent falls. No back pain. No neck pain. Integumentary: No wounds, no lesions. No rash or pruritus. No unusual bruisi ng. No change in hair or nails. Neurologic: No aphasia. No facial droop. Reports change in mentation. No headache. No paralysis. No paresthesia. Psychiatric: No depression. No anxiety. No mood swings. Endocrine: Reports abnormal blood sugars. PHYSICAL EXAMINATION Gen: This is an 84-year-old -[place] male. Mild accessory muscle usage HEENT: Head is atraumatic, normocephalic. Pupils equal, round. Sclerae is anicteric. NECK: Supple. No JVD. No lymphadenopathy. No thyromegaly. LUNGS: Crackles bilaterally. Tachypnea HEART: Irregular and rhythm. No murmur. EKG sinus rhythm with PVCs. ABDOMEN: Soft. Bowel sounds are present. No masses. No tenderness. EXTREMITIES: Plus bilateral pedal edema. No calf tenderness. Small ulceration to the left pretibial area. Please see nursing documentation for details, POA. NEUROLOGICAL: Patient is awake, alert and oriented to person. Cranial nerves 2 through 12 are grossly intact. ASSESSMENT AND PLAN 1. Metabolic encephalopathy secondary to Covid 19 pneumonia. Consult with lmonary medicine appreciated . Continue supplements with vitamin C, vitamin D, zinc. Continue dexamethasone 4 mg twice daily, Lovenox daily.CTA of the chest ruled out pulmonary embolism 2. acute hypoxic respiratory failure secondary to Covid [address] of the chest as above. Pulmonary medicine consult appreciated. 3. Acute kidney injury with chronic kidney disease stage III. Consult with nephrology appreciated. Continue to Hold losartan. Avoid nephrotoxic agents. IV fluids D5 at 50 mL per hour. Renal ultrasound as above. 4. Hypertension. Continue Norvasc 5 mg daily, hydralazine 50 mg increased to 3 times daily. Losartan on hold. 5. Hyperlipidemia. 6. History of recent laparoscopic cholecystectomy, stable. 7. History of GI bleed from diverticulitis, stable. 8. Benign prostatic hypertrophy. Continue Flomax or 0.4 mg daily 9. Diabetes mellitus type 2 uncontrolled with hyperglycemia. Continue NovoLog scale before meals and at bedtime. Patient will be resumed on metformin/ glipizide. 10. Severe protein calorie malnutrition due to refusal to eat. Speech therapy evaluation, Dr. Taylor consult regarding PEG tube insertion pedal for today. 11. Severe oral thrush. Patient placed on Diflucan 100 mg IV piggyback daily. 12. GI prophylaxis. Protonix. 10. DVT prophylaxis. Lovenox. 11. Hypernatremia. IV fluids D5 at 50 mL per hour. DISCHARGE PLAN Anticipate need for subacute rehab. Impression and plan of care have been directed as dictated by the signing physician. Cyndy Faust nurse practitioner acting as scribe for signing physician. Objective - Vital Signs Vital signs: Vital Signs Temp 97.4 F L 06/13/20 06:09 Pulse 107 H 06/13/20 06:09 Resp 32 H 06/13/20 06:09 BP 164/89 06/13/20 06:09 Pulse Ox 91 L 06/13/20 06:09 Intake & Output 06/12/20 06/13/20 06/13/20 18:59 06:59 18:59 Intake Total 650 Balance 650 Intake: Intake, IV Titration 650 Amount Dextrose 5% in Water 1, 400 000 ml @ 50 mls/hr IV . Q20H [facility] Rx#:[id number] Piperacillin-Tazobactam 3 200 .375 gm In Sodium Chloride 0.9% 100 ml @ 25 mls/hr IVPB Q8HR [facility] Rx# :[id number] Potassium Chloride 20 meq 50 In Water For Injection 1 100ml.bag @ 50 mls/hr IVPB ONCE [facility] Rx#: [id number] Other: Voiding Method Diaper Diaper Incontinent Incontinent # Voids 1 - Labs CBC & Chem 7: 06/13/20 06:23 06/13/20 06:23 Labs: Abnormal Lab Results - Last 24 Hours (Table) 06/12/20 06/12/20 06/12/20 Range/Units 06:00 11:31 16:45 WBC (3.8-10.6) k/uL Hgb (13.0-17.5) gm/dL RDW (11.5-15.5) % Sodium 148 H (135-145) mmol/L Chloride 113 H (96-109) mmol/L BUN/Creatinine Ratio 21.00 H (12.00-20.00) Ratio Glucose 212 H (70-110) mg/dL POC Glucose (mg/dL) 160 H 184 H (75-99) mg/dL Calcium 8.0 L (8.7-10.3) mg/dL Albumin 2.90 L (3.80-4.90) g/dL Globulin 3.9 H (1.6-3.3) g/dL Albumin/Globulin Ratio 0.74 L (1.60-3.17) g/dL 06/12/20 06/13/20 06/13/20 Range/Units 20:32 06:23 07:21 WBC 13.4 H (3.8-10.6) k/uL Hgb 12.8 L (13.0-17.5) gm/dL RDW 17.2 H (11.5-15.5) % Sodium (135-145) mmol/L Chloride (96-109) mmol/L BUN/Creatinine Ratio (12.00-20.00) Ratio Glucose (70-110) mg/dL POC Glucose (mg/dL) 194 H 318 H (75-99) mg/dL Calcium (8.7-10.3) mg/dL Albumin (3.80-4.90) g/dL Globulin (1.6-3.3) g/dL Albumin/Globulin Ratio (1.60-3.17) g/dL
--- NOTE | 2020-06-13 17:05 | XR ---
EXAMINATION TYPE: XR chest 1V portable DATE OF EXAM: 06/13/2020 Comparison: 06/10/2020 Clinical History: 84 year-old male shortness of breath Findings: Low lung volumes. Heart is of normal size. Further increase in interstitial opacities now with patchy airspace opacity in the left lung. No sizable effusion. Impression: Hypoventilatory changes with increasing interstitial infiltrates and new patchy airspace disease in t he left lung.
[2020-06-13 20:39] LABS: Glucose,Whole Blood 317 mg/dL (75-99)
[2020-06-14] MEDS: PIPERACILLIN-TAZOBACTAM 3.375 GM in SODIUM CHLORIDE 0.9% 100 ML IVPB SCH ×3 (01:05→17:04)
[2020-06-14] MEDS: DEXTROSE 5% IN WATER 1,000 ML IV SCH (05:45)
[2020-06-14] MEDS: glipiZIDE 5 MG TAB PO SCH ×2 (07:05→18:03)
[2020-06-14] MEDS: amLODIPine 5 MG TAB PO SCH (07:06)
[2020-06-14] MEDS: metFORMIN 500 MG TAB PO SCH ×2 (07:06→18:03)
[2020-06-14] MEDS: CHOLECALCIFEROL 1,000 UNIT TAB PO SCH (07:06)
[2020-06-14] MEDS: TAMSULOSIN 0.4 MG CAP.ER.24H PO SCH (07:06)
[2020-06-14] MEDS: ASCORBIC ACID 500 MG TAB PO SCH (07:06)
[2020-06-14] MEDS: ZINC SULFATE 220 MG CAP PO SCH (07:06)
[2020-06-14 07:20] LABS: Glucose,Whole Blood 287 mg/dL (75-99)
[2020-06-14] MEDS: DEXAMETHASONE SOD PHOSPHATE 4 MG/ML 1 ML VIAL IV SCH ×2 (07:31→21:17)
[2020-06-14] MEDS: ENOXAPARIN 40 MG/0.4 ML SYRINGE SQ SCH (07:31)
[2020-06-14] MEDS: INSULIN ASPART (NovoLOG) 100 UNIT/ML VIAL SQ SCH ×4 (07:31→21:22)
[2020-06-14] MEDS: FLUCONAZOLE IN NACL,ISO-OSM 100 MG in SALINE 1 50ML.BAG IVPB SCH (07:32)
[2020-06-14] MEDS: ALBUTEROL HFA INHALER INHALATION SCH ×4 (08:20→19:52)
[2020-06-14 11:24] LABS: Glucose,Whole Blood 262 mg/dL (75-99)
--- NOTE | 2020-06-14 13:49 | P.PN ---
Subjective Progress Note Date: 06/14/20 CHIEF COMPLAINT: Generalized weakness HISTORY OF PRESENT ILLNESS: Patient is status post PEG tube placement yesterday. He is to be started on tube feedings this afternoon. He's also admitted to the hospital for Covid 19 pneumonia. Afebrile PHYSICAL EXAM: VITAL SIGNS: Reviewed. GENERAL: Well-developed in no acute distress. HEENT: No sclera icterus. Extraocular movements grossly intact. Moist buccal mucosa. Head is atraumatic, normocephalic. ABDOMEN: Soft. Nondistended. Nontender. PEG tube site clean dry and intact NEUROLOGIC: Alert and oriented. Cranial nerves II through XII grossly intact. ASSESSMENT: 1. Severe protein calorie malnutrition and poor oral intake patient status post PEG tube placement 2. Covid 19 pneumonia PLAN: -Patient to be started on tube feedings this afternoon -Continue supportive care Physician Telecom Assistant note has been reviewed by physician. Signing provider agrees with the documented findings, assessment, and plan of care. Objective - Vital Signs Vital signs: Vital Signs Temp 98.6 F 06/14/20 09:59 Pulse 88 06/14/20 09:59 Resp 20 06/14/20 09:59 BP 160/85 06/14/20 09:59 Pulse Ox 96 06/14/20 09:59 Intake & Output 06/13/20 06/14/20 06/14/20 18:59 06:59 18:59 Intake Total 100 Balance 100 Weight 122.47 kg Intake: IV 100 Other: Voiding Method Diaper Diaper Diaper Incontinent Incontinent Incontinent # Voids 3 1 - Labs CBC & Chem 7: 06/13/20 06:23 06/13/20 06:23 Labs: Abnormal Lab Results - Last 24 Hours (Table) 06/13/20 06/13/20 06/14/20 Range/Units 16:27 20:38 07:19 POC Glucose (mg/dL) 332 H 317 H 287 H (75-99) mg/dL 06/14/20 Range/Units 11:23 POC Glucose (mg/dL) 262 H (75-99) mg/dL
--- NOTE | 2020-06-14 14:10 | P.PN ---
Subjective Progress Note Date: 06/14/20 HISTORY OF PRESENT ILLNESS This is an 84-year-old -Japanese male patient of Dr. Singer with past medical history of diabetes mellitus type 2, hypertension, hyperlipidemia, chr onic kidney disease, history of GI bleed from diverticulitis, recently admitted to the hospital for acute cholecystitis status post laparoscopic cholecystectomy and also treated for bilateral pneumonia. Patient was discharged to [facility] and completed his course of rehab. He was then discharged home on May 30. Patient has developed increasing weakness with mental status changes. Not eating or drinking and was brought into the hospital for evaluation. Patient presented to [facility] emergency center. He was afebrile, heart rate 85, blood pressure 144/77, pulse ox 96% on room air. CBC was unremarkable. Electrolytes normal, BUN 44 and creatinine 3.13. Blood sugar 166. Magnesium 1.5. Liver function tests normal. Urinalysis positive for protein and blood with no sign of infection. COVID-19 positive. LDH 600, C- reactive protein 43.8. Chest x-ray reveals mild cardiomegaly and low lung volumes without suspicious acute pulmonary process. CAT scan of the abdomen and pelvis without contrast revealed interstitial infiltrate and atelectasis at the lung bases increased from old exam. Mild cardiomegaly. No acute abnormality within the abdomen and pelvis. Moderate colonic diverticulosis without diverticulitis. No evidence of bile leak. CAT scan of the brain revealed cerebral atrophy and chronic small vessel ischemia. No acute intracranial ab normality. Patient was admitted to the [facility] floor. 06/07: Patient has been seen by pulmonary medicine with plan to continue current medications. Nephrology has decreased normal saline 75 mL per hour. Hydralazine increased to 3 times daily. Renal ultrasound reveals no hydronephrosis. Benign 2.2 cm cortical cyst on the left. Bladder suboptimally assessed. Patient has been afebrile, heart rate 61, blood pressure 155/66, pulse ox 98% on 3 L nasal cannula. Blood sugars are running between 141 and 169. Repeat blood work for this morning remains pending. Patient continues to state that he does not have any appetite. He is feeling a little bit better from yesterday. PT and OT evaluations today. 06/08: Patient has been afebrile, heart rate 55, blood pressure 171/69, pulse ox 90% on 2 L. Breathing status has been stable. He denies shortness of breath. Boone catheter in place which will be discontinued today. IV fluids continue by nephrology. Bladder scans monitor for residuals, avoid nephrotoxic agents. Amlodipine and hydralazine to be held for systolic blood pressure less than 130. PT has evaluated with recommendations for home care for subacute rehab with 24- hour care. Electrolytes normal, BUN 43 and creatinine 1.7. Blood sugars are running 184-243. Levemir 10 units at bedtime added. Hyperglycemia secondary to steroids. Anticipate discharge by the end of the week. 06/09: The patient is a little confused today and not eating. Patient denies any complaints, no pain. He answers yes that he is ready to go home. Temperature max 100.2. He was bladder scanned and had 100 mL. Heart rate documented at 101 although rate on exam is slower and appears to be irregular. EKG ordered. Blood pressure 159/75, pulse ox 91% on room air. Repeat lab work reveals WBC 7.8, hemoglobin 12.3. BUN 41 and creatinine 1.2, potassium 3.5. Blood sugars running between 135 and 182. Patient's daughter contacted over the phone and updated regarding his current condition. She was under the impression the patient will be staying in the hospital for a full 14 days for isolation but informed that this will not be happening. We have asked rn case manager hospice/social services manager to follow-up with the patient's family regarding discharge planning. Most likely patient will be ready to be discharged tomorrow or Saturday. 06/10: Patient has been refusing to eat his meals. He continues to have significant cough. Temperature max 99.6. Respiratory rate has increased to 28. Pulse ox is 93% on 3 L nasal cannula. Heart rate 112. Contacted patient's daughter Partha [phone] and provided update. Her main concern is the patient is not eating. We will ask for speech therapy evaluation and consult with Dr. Taylor for PEG tube placement for temporary nutrition. Discussed again the need for subacute rehab versus returning home. Do not anticipate discharge until early next week. 06/11: The patient still is not eating, he refuses to eat. He does have severe thrush for which he does not seem able to tolerate nystatin and will be placed on Diflucan IV. Patient did have a previously elevated d-dimer and CAT scan of the chest ordered to rule out pulmonary embolism. He is developing increasing respiratory distress. Pulse ox is 88% on 4 L. Respiratory rate is up to 40, h eart rate 110, afebrile. General surgery is following for probable chest. 06/12: CTA of the chest showed no evidence of pulmonary embolism. Cardiomegaly. Significantly increased pulmonary infiltrates. Acute pneumonia and atelectasis present. Heart failure also possible. The patient is still refusing to eat and not taking his oral medications. All medications possible have been switched to IV. One dose of IV Lasix ordered for this morning as well as IV potassium replacement. He is current pulse ox 94% on nonrebreather, afebrile, heart rate 97, respiratory rate 32, blood pressure 171/83. Blood sugars run between 162 and 214. IV fluids changed yesterday to 0.45 normal saline by nephrology. Potassium was elevated yesterday and potassium was also replaced yesterday. Lab work today reveals sodium 148, potassium 4, chloride 113, CO2 23, BUN 21 creatinine 1. Blood sugars running between 162 and 215. Patient's sister Haleigh will be coming in to see him today to evaluate his status. 06/13: Patient is scheduled for PEG tube insertion today. His respiratory status is marginal. He is up to 6 L high flow nasal cannula. He has been afebrile, heart rate 104, respiratory rate 28, blood pressure 167/102, pulse ox 92% on 6 L nasal cannula. WBC 13.4, hemoglobin 12.8. Sodium 147, chloride 111, CO2 22. BUN 16 and creatinine 1.1. Blood sugars have been elevated in the 200s. Co ntacted at 2 daughters which were Klaudia and Partha. They have been updated on patient condition and he remains a full code. 06/14: Following PEG tube placement yesterday, patient was hypoxic and required nonrebreather and 18 was called. Patient is now on BiPAP with pulse ox is 95% with 40% FiO2. Heart rate 82, blood pressure 173/83, temperature max 101. He has a Boone catheter in place. Patient is denying that he denies pain. Patient is to be started on tube feedings this afternoon. Chest x-ray was done yes evening which found hypoventilatory changes with increased interstitial infiltrates and new patchy airspace disease in the left lung. Both patient's daughters were contacted yesterday and updated regarding patient's condition knowing the patient has a poor prognosis and they wish for patient to be full code. REVIEW OF SYSTEMS Constitutional: No fever, no chills, no night sweats. No weight change. Reports weakness, Reports fatigue Reports lethargy. EENT: No headache. No blurred vision or double vision, no loss of vision. No loss of Hearing, no ringing in the ears, no dizziness. No nasal drainage or congestion. No epistaxis. No sore throat. Lungs: Reports worsening shortness of breath, reports cough, no sputum production. No wheezing. Cardiovascular: No chest pain, no lower extremity edema. No palpitations. No paroxysmal nocturnal dyspnea. No orthopnea. No lightheadedness or dizziness. No syncopal episodes. Abdominal: No abdominal pain. No nausea, vomiting. No diarrhea. No constipation. No bloody or tarry stools. Reports loss of appetite. Genitourinary: No dysuria, increased frequency, urgency. No urinary retention. Musculoskeletal: No myalgias. No muscle weakness, no gait dysfunction, no frequent falls. No back pain. No neck pain. Integumentary: No wounds, no lesions. No rash or pruritus. No unusual bruising. No change in hair or nails. Neurologic: No aphasia. No facial droop. Reports change in mentation. No headache. No paralysis. No paresthesia. Psychiatric: No depression. No anxiety. No mood swings. Endocrine: Reports abnormal blood sugars with hyperglycemia. PHYSICAL EXAMINATION Gen: This is an 84-year-old -Japanese male. Mild accessory muscle usage. He is currently on BiPAP HEENT: Head is atraumatic, normocephalic. Pupils equal, round. Sclerae is anicteric. NECK: Supple. No JVD. No lymphadenopathy. No thyromegaly. LUNGS: Crackles bilaterally. Tachypnea HEART: Irregular and rhythm. No murmur. EKG sinus rhythm with PVCs. ABDOMEN: Soft. Bowel sounds are present. No masses. No tenderness. Boone catheter. EXTREMITIES: Plus bilateral pedal edema. No calf tenderness. Small ulceration to the left pretibial area. Please see nursing documentation for details, POA. NEUROLOGICAL: Patient is awake, alert and oriented to person. Cranial nerves 2 through 12 are grossly intact. ASSESSMENT AND PLAN 1. Metabolic encephalopathy secondary to Covid 19 pneumonia. Consult with pulmonary medicine appreciated . Continue supplements with vitamin C, vitamin D, zinc. Continue dexamethasone 4 mg twice daily, Lovenox daily.CTA of the chest ruled out pulmonary embolism 2. acute hypoxic respiratory failure secondary to Covid [address] of the chest as above. Pulmonary medicine consult appreciated. Currently on BiPAP 3. Acute kidney injury with chronic kidney disease stage III. Consult with nephrology appreciated. Continue to Hold losartan. Avoid nephrotoxic agents. IV fluids D5 at 50 mL per hour. Renal ultrasound as above. Boone catheter in place. 4. Hypertension. Continue Norvasc 5 mg daily, hydralazine 50 mg increased to 3 times daily. Losartan on hold. 5. Hyperlipidemia. 6. History of recent laparoscopic cholecystectomy, stable. 7. History of GI bleed from diverticulitis, stable. 8. Benign prostatic hypertrophy. Continue Flomax or 0.4 mg daily. Boone cath eter. 9. Diabetes mellitus type 2 uncontrolled with hyperglycemia. Continue NovoLog scale before meals and at bedtime. Patient will be resumed on metformin/ glipizide. 10. Severe protein calorie malnutrition due to refusal to eat. Speech therapy evaluation, Dr. Taylor consult regarding PEG tube insertion pedal for today. 11. Severe oral thrush. Patient placed on Diflucan 100 mg IV piggyback daily. 12. GI prophylaxis. Protonix. 10. DVT prophylaxis. Lovenox. 11. Hypernatremia. IV fluids D5 at 50 mL per hour. DISCHARGE PLAN Anticipate need for subacute rehab. Impression and plan of care have been directed as dictated by the signing physician. Cyndy Faust nurse practitioner acting as scribe for signing physician. Objective - Vital Signs Vital signs: Vital Signs Temp 97.0 F L 06/14/20 06:08 Pulse 82 06/14/20 06:08 Resp 28 H 06/13/20 09:54 BP 173/83 06/14/20 06:08 Pulse Ox 95 06/14/20 06:08 Intake & Output 06/13/20 06/14/20 06/14/20 18:59 06:59 18:59 Intake Total 100 Balance 100 Intake: IV 100 Other: Voiding Method Diaper Diaper Incontinent Incontinent # Voids 3 1 - Labs CBC & Chem 7: 06/13/20 06:23 06/13/20 06:23 Labs: Abnormal Lab Results - Last 24 Hours (Table) 06/13/20 06/13/20 06/13/20 Range/Units 06:23 11:27 16:27 Sodium 147 H (135-145) mmol/L Chloride 111 H (96-109) mmol/L Anion Gap 13.70 H (4.00-12.00) mmol/L BUN/Creatinine Ratio 23.64 H (12.00-20.00) Ratio Glucose 291 H (70-110) mg/dL POC Glucose (mg/dL) 267 H 332 H (75-99) mg/dL Calcium 8.3 L (8.7-10.3) mg/dL Albumin 2.90 L (3.80-4.90) g/dL Globulin 4.0 H (1.6-3.3) g/dL Albumin/Globulin Ratio 0.73 L (1.60-3.17) g/dL 06/13/20 06/14/20 Range/Units 20:38 07:19 Sodium (135-145) mmol/L Chloride (96-109) mmol/L Anion Gap (4.00-12.00) mmol/L BUN/Creatinine Ratio (12.00-20.00) Ratio Glucose (70-110) mg/dL POC Glucose (mg/dL) 317 H 287 H (75-99) mg/dL Calcium (8.7-10.3) mg/dL Albumin (3.80-4.90) g/dL Globulin (1.6-3.3) g/dL Albumin/Globulin Ratio (1.60-3.17) g/dL
--- NOTE | 2020-06-14 14:30 | P.PN ---
Subjective Progress Note Date: 06/14/20 Principal diagnosis: Altered mental status, COVID 19 84-year-old white male patient with a recent history of cholecystectomy for gangrenous cholecystitis on 05/18/2020 following which he was recovering at the [facility], has a past medical history of diabetes mellitus, hypertension, previous episodes of pneumonia, diverticular disease, history of lower GI bleeding, with EGD and colonoscopy, was brought into the emergency department per EMS on 06/05/2020 for evaluation of altered mental status and generalized weakness. He was [facility] to a [facility] facility on 05/25/2020 and was recently discharged from there on 05/30/2020 to his daughter's house where he was having increasing difficulty caring for himself. His chest x-ray no emergency department showed the mild cardiomegaly, low lung volumes without suspicious focal airspace opacity, pleural effusions and no evidence of pneumothorax. His brain CT shows cerebral atrophy and chronic small vessel ischemia, no acute intracranial abnormality. Normal sinus rhythm on the EKG. Patient denied any fever or chills. Denied any significant shortness of breath. No nausea vomiting or diarrhea, admit to some abdominal pain in the right upper quadrant where he had incision sites. Abdomen is soft and nontender. Reports normal appetite. Meds to being increasingly more weak, and no other complaints. CT of the abdomen and pelvis showing some interstitial infiltrates and atelectasis at the lung bases mild cardiomegaly, no acute abnormality within the abdomen and pelvis, moderate colonic diverticulosis without diverticulitis, cholecystectomy, no dilated ducts no evidence of a bile leak. Patient was checked for: 19 and was found to be positive, other laboratory analysis showed white blood cell count of 4.1, hemoglobin of 13.4, INR is 1.1, electrolytes were within normal limits, and patient was found to have acute kidney injury with the BUN of 44 creatinine 3.13, and GFR of 17, 600, CRP was 43.8, and lipase was 309, urinalysis was checked showing no clear evidence of urinary tract infection. Recently on 2 L of oxygen the pulse ox of 92-96%, intermittent low-grade fevers with T-max of 99.2F. He was started on Decadron 4 mg twice daily, he is on prophylactic dose of Lovenox for his renal clearance, he is receiving gentle IV hydration, and the pulmonary service was consulted in view of his COVID 19 infection On June 07 patient seen in follow-up on medical floor, currently on 3 L of oxygen the pulse ox of 99%, appears to be, comfortable, no worsening dyspnea, he is breathing comfortably, but appears to be generally weak, he is currently sitting up in the recliner, he barely holding his head up, his vital signs have been stable, his had no acute events overnight. No new chest x-ray, today's labs have been reviewed, his renal function has significantly improved, and BUN is 32 and creatinine is down to 1.2, electrolytes were within normal limits. He's had no nausea vomiting or diarrhea. He remains on prophylactic dose of Lovenox, oral Decadron, and vitamin C, vitamin D and zinc supplement in addition to gentle IV hydration with 0.9 normal saline at a rate of 75 ML per hour. His been evaluated by physical therapy and apparently patient's family was not happy with the care at the [facility] and took patient home before he completed his rehabilitation however patient was increasingly weak at home. Current recommendation from physical therapy is nursing, physical therapy and occupational therapy, 24-hour care as the patient having difficulty with transfers, requires extensive verbal and physical cues, has very limited functional endurance and extensive assistance with all ADLs On 06/13/2020 patient seen in follow-up on medical floor, is currently on 6 L of oxygen, there is to be in no acute distress, appears weak, debilitated, no evidence of any respiratory distress noted. Afebrile. Continues on Decadron 4 mg twice daily, prophylactic dose of Lovenox, Diflucan. Today he went for a PEG tube placement, following the procedure for which she was intubated patient returned back to his room and he was increasingly more hypoxic, requiring 15 liters of oxygen, repeat chest x-ray is pending, rapid response team was called, attending physician address the CODE STATUS with patient's family and patient's family is insisting on full code. However in view of his overall very debilitated state his long-term prognosis is quite guarded and poor. These labs showed a white blood cell count of 13.4, hemoglobin of 12.8, sodium was 147, potassium is 4.0, chloride is 111, CO2 is 22, BUN of 26, creatinine is 1.1. On 06/14/2020 patient seen in follow-up on medical floor. Yesterday he received a PEG tube in the post procedure she became increasingly more hypoxic, requiring BiPAP support, today he still remains on BiPAP support blood pressures of 12 and 6, and FiO2 of 40%. His chest x-ray today shows hypoventilatory changes with increasing interstitial infiltrates and new patchy airspace disease in the left lung. Patient has been on Zosyn for last few days. His pulse ox on BiPAP support is 96%, his had no fevers overnight, hemodynamically stable, overall g enerally he is very weak. Maintenance IV fluids is D5W at a rate of 50 ML per hour. On fluconazole for antibiotic coverage, dexamethasone 4 mg twice daily, Lovenox at prophylactic dose. We anticipate starting enteral feedings today, no new labs Objective - Vital Signs Vital signs: Vital Signs Temp 98.6 F 06/14/20 09:59 Pulse 88 06/14/20 09:59 Resp 20 06/14/20 09:59 BP 160/85 06/14/20 09:59 Pulse Ox 96 06/14/20 09:59 Intake & Output 06/13/20 06/14/20 06/14/20 18:59 06:59 18:59 Intake Total 100 Balance 100 Weight 122.47 kg Intake: IV 100 Other: Voiding Method Diaper Diaper Diaper Incontinent Incontinent Incontinent # Voids 3 1 - Exam GENERAL EXAM: Drowsy but arousable,, 84-year-old white male, generally debilitated, weak, 84-year-old male, on BiPAP support currently pressures of 12 6, and FiO2 of 40%, and pulse ox of 96%, appears weak, resting in bed HEAD: Normocephalic/atraumatic. EYES: Normal reaction of pupils, equal size. Conjunctiva pink, sclera white. NOSE: Clear with pink turbinates. THROAT: No erythema or exudates. NECK: No masses, no JVD, no thyroid enlargement, no adenopathy. CHEST: No chest wall deformity. Symmetrical expansion. LUNGS: Equal air entry with no crackles, wheeze, rhonchi or dullness. CVS: Regular rate and rhythm, normal S1 and S2, no gallops, no murmurs, no rubs ABDOMEN: Soft, nontender. No hepatosplenomegaly, normal bowel sounds, no guarding or rigidity. Abdominal incisions clean dry and intact, PEG tube in place EXTREMITIES: No clubbing, no edema, no cyanosis, 2+ pulses and upper and lower extremities. MUSCULOSKELETAL: Muscle strength and tone normal. SPINE: No scoliosis or deformity SKIN: No rashes CENTRAL NERVOUS SYSTEM: Drowsy, but arousable, appears very weak and worn out No focal deficits, tone is normal in all 4 extremities. - Labs CBC & Chem 7: 06/13/20 06:23 06/13/20 06:23 Labs: Abnormal Lab Results - Last 24 Hours (Table) 06/13/20 06/13/20 06/14/20 Range/Units 16:27 20:38 07:19 POC Glucose (mg/dL) 332 H 317 H 287 H (75-99) mg/dL 06/14/20 Range/Units 11:23 POC Glucose (mg/dL) 262 H (75-99) mg/dL Assessment and Plan Plan: Assessment: #1. Worsening hypoxemia, and dyspnea, the possibility of healthcare acquired pneumonia versus aspiration pneumonia, superimposed on Covid19 pneumonia is being considered in view of chest x-ray findings with worsening left upper lobe airspace disease and diffuse pulmonary infiltrates related to recent history of COVID 19 infection. Currently on BiPAP support with pressures of 12/6, and FiO2 40% #2. Acute COVID 19 infection, chest x-ray showed low lung volumes without new suspicious acute pulmonary process. Patient initially presented without significant pulmonary symptoms, and requiring minimal supplemental oxygen, currently O2 demands have increased with worsening chest x-ray findings #3. Acute kidney injury, improved with IV hydration #4. Status post PEG tube placement today on 06/13/2020 for nutritional support #5. Lethargy, encephalopathy, gait dysfunction, severe generalized weakness, severe medical debility #6. Mild abdominal discomfort, CT abdomen and pelvis showed no acute intra- abdominal or intrapelvic abnormality with evidence of recent cholecystectomy, no dilated ducts, no evidence of a bile leak #7. Recent history of gangrenous cholecystitis, status post laparoscopic cholecystectomy on 05/18/[address] Taylor #8. General medical debility, he required [facility] facility placement after his most recent hospitalization but recently was discharged from the [facility] facility to his daughter's house where he could not care for himself #9. Diabetes mellitus type 2 #10. Hypertension #11. Hyperlipidemia #12. Chronic kidney disease, stage III at baseline #13. Previous history of GI bleeding and diverticulitis #14. History of BPH on Flomax Plan: Continue current antibiotics, obtain follow-up lab work today and tomorrow, continue D5W at 50, continue BiPAP support, anticipate enteral feeding initiation today, follow-up chest x-ray, overall prognosis is extremely guarded. Continue prophylactic anticoagulation, continue vitamins, and continue current dose IV steroids I performed a history & physical examination of the patient and discussed their management with my nurse practitioner, Corina Graham. I reviewed the nurse practitioner's note and agree with the documented findings and plan of care. Lung sounds are positive for diminished breath sounds. The findings and the impression was discussed with the patient. I attest to the documentation by the nurse practitioner. Time with Patient: Less than 30
[2020-06-14 15:34] LABS: Anisocytosis Slight; Basophils # (A) 0.1 k/uL (0-0.2); Basophils % (A) 1 %; Eosinophils % (A) 0 %; HCT 38.1 % (39.0-53.0); HGB 12.1 gm/dL (13.0-17.5); Hypochromasia Slight; Lymphocytes # (A) 1.3 k/uL (1.0-4.8); Lymphocytes % (A) 11 %; MCH 26.3 pg (25.0-35.0); MCHC 31.7 g/dL (31.0-37.0); Mean Platelet Volume 9.2; Monocytes # (A) 0.5 k/uL (0-1.0); Monocytes % (A) 4 %; Neutrophils # (A) 9.8 k/uL (1.3-7.7); Neutrophils % (A) 82 %; Platelet Count 270 k/uL (150-450); RBC 4.58 m/uL (4.30-5.90); RDW 16.9 % (11.5-15.5); WBC 11.9 k/uL (3.8-10.6)
--- NOTE | 2020-06-14 16:27 | PN ---
PROGRESS NOTE The patient is seen for followup for acute kidney injury. He is currently doing well. The patient has COVID-19 pneumonia. His sodium was elevated at 147 yesterday. He is maintained on D5W. Patient will be actually started on tube feedings today. PHYSICAL EXAMINATION: On examination today, blood pressure was 160/85, heart rate of 88 per minute. He is afebrile. Examination of lower extremities shows no evidence of edema. SOAP CHIPPER exam shows patient moving all 4 extremities. Lungs and heart are not examined. LABS: Labs from yesterday show sodium 147 on 06/13/2020, hemoglobin 12.8 g/dL. Creatinine 1.1 yesterday. ASSESSMENT: 1. Hypernatremia associated with free water deficit, maintained on D5W. I will add free water down the feeding tube. Once that is started then we can discontinue the D5W. 2. Acute kidney injury, prerenal, currently improved. 3. Hypertension, uncontrolled, maintained on clonidine patch, which was increased. This is mostly associated with high-dose steroids. 4. COVID-19 pneumonia, maintained on Decadron and zinc, currently stable. PLAN: Repeat labs in a.m. Can discontinue D5W once tube feeding has been started. Add free water with tube feedings. Repeat labs in a.m. MMODL / IJN: [id number] /
[2020-06-14 16:39] LABS: Glucose,Whole Blood 198 mg/dL (75-99)
[2020-06-14 21:21] LABS: Glucose,Whole Blood 181 mg/dL (75-99)
[2020-06-14 23:41] LABS: African American GFR (CKD) 57.7 (60.0-200.0); Anion Gap 12.5 mmol/L (4.00-12.00); BUN/Creat Ratio 21.54 Ratio (12.00-20.00); Calcium 8.6 mg/dL (8.7-10.3); Carbon Dioxide 24.5 mmol/L (21.6-31.8); Non-African American GFR(CKD) 49.8 (60.0-200.0)
[2020-06-15] MEDS: PIPERACILLIN-TAZOBACTAM 3.375 GM in SODIUM CHLORIDE 0.9% 100 ML IVPB SCH ×4 (00:52→23:54)
[2020-06-15] MEDS: DEXTROSE 5% IN WATER 1,000 ML IV SCH ×2 (03:41→20:55)
[2020-06-15 06:30] LABS: Anisocytosis Slight; Basophils # (A) 0.1 k/uL (0-0.2); Basophils % (A) 1 %; Eosinophils # (A) 0.1 k/uL (0-0.7); Eosinophils % (A) 1 %; HGB 11.7 gm/dL (13.0-17.5); Hypochromasia Slight; Lymphocytes % (A) 10 %; MCH 26.3 pg (25.0-35.0); MCHC 31.6 g/dL (31.0-37.0); MCV 83.1 fL (80.0-100.0); Mean Platelet Volume 8.1; Monocytes # (A) 0.3 k/uL (0-1.0); Monocytes % (A) 3 %; Neutrophils # (A) 8.3 k/uL (1.3-7.7); Neutrophils % (A) 84 %; Platelet Count 245 k/uL (150-450); RBC 4.45 m/uL (4.30-5.90); WBC 9.9 k/uL (3.8-10.6)
[2020-06-15 07:30] LABS: Glucose,Whole Blood 244 mg/dL (75-99)
[2020-06-15] MEDS: TAMSULOSIN 0.4 MG CAP.ER.24H PO SCH (07:35)
[2020-06-15] MEDS: amLODIPine 5 MG TAB PO SCH (07:36)
[2020-06-15] MEDS: glipiZIDE 5 MG TAB PO SCH ×2 (07:36→17:43)
[2020-06-15] MEDS: DEXAMETHASONE SOD PHOSPHATE 4 MG/ML 1 ML VIAL IV SCH ×2 (07:37→20:55)
[2020-06-15] MEDS: ZINC SULFATE 220 MG CAP PO SCH (07:37)
[2020-06-15] MEDS: metFORMIN 500 MG TAB PO SCH ×2 (07:37→17:43)
[2020-06-15] MEDS: CHOLECALCIFEROL 1,000 UNIT TAB PO SCH (07:37)
[2020-06-15] MEDS: ENOXAPARIN 40 MG/0.4 ML SYRINGE SQ SCH (07:38)
[2020-06-15] MEDS: INSULIN ASPART (NovoLOG) 100 UNIT/ML VIAL SQ SCH ×4 (07:39→20:47)
[2020-06-15] MEDS: FLUCONAZOLE IN NACL,ISO-OSM 100 MG in SALINE 1 50ML.BAG IVPB SCH (07:41)
[2020-06-15] MEDS: ASCORBIC ACID 500 MG TAB PO SCH (07:41)
--- NOTE | 2020-06-15 09:08 | XR ---
EXAMINATION TYPE: XR chest 1V portable DATE OF EXAM: 06/15/2020 COMPARISON: 06/13/2020 HISTORY: Cough TECHNIQUE: Single frontal view of the chest is obtained. FINDINGS: Bilateral interstitial and patchy infiltrates are noted. The heart is enlarged. Underlying COPD suspected. Nodular appearing density in the right midlung. Pleural thickening or tiny effusions noted. Hypertrophic and degenerative change of the spine. Arthropathy of the shoulders with postsurg ical change involving the left shoulder. IMPRESSION: 1. Patchy bilateral areas of infiltrate demonstrates slight improvement within the left upper lobe.
[2020-06-15] MEDS: ALBUTEROL HFA INHALER INHALATION SCH ×4 (09:26→20:19)
[2020-06-15 10:10] LABS: African American GFR (CKD) 70.6 (60.0-200.0); Anion Gap 5.1 mmol/L (4.00-12.00); BUN/Creat Ratio 22.73 Ratio (12.00-20.00); Calcium 8.2 mg/dL (8.7-10.3); Carbon Dioxide 27.9 mmol/L (21.6-31.8); Non-African American GFR(CKD) 60.9 (60.0-200.0)
[2020-06-15 11:45] LABS: Glucose,Whole Blood 207 mg/dL (75-99)
--- NOTE | 2020-06-15 12:32 | P.PN ---
Subjective Progress Note Date: 06/15/20 CHIEF COMPLAINT: Generalized weakness HISTORY OF PRESENT ILLNESS: Patient is status post PEG tube placement. He is tolerating bolus tube feedings. No residual. He's also admitted to the hospital for Covid 19 pneumonia. Afebrile. WBC 9.9 PHYSICAL EXAM: VITAL SIGNS: Reviewed. GENERAL: Well-developed in no acute distress. HEENT: No sclera icterus. Extraocular movements grossly intact. Moist buccal mucosa. Head is atraumatic, normocephalic. ABDOMEN: Soft. Nondistended. Nontender. PEG tube site clean dry and intact NEUROLOGIC: Alert and oriented. Cranial nerves II through XII grossly intact. ASSESSMENT: 1. Severe protein calorie malnutrition and poor oral intake patient status post PEG tube placement 2. Covid 19 pneumonia PLAN: -Continue tube feedings as per dietitian recommendations -Continue supportive care Physician Malt Roaster note has been reviewed by physician. Signing provider agrees with the documented findings, assessment, and plan of care. Objective - Vital Signs Vital signs: Vital Signs Temp 97.1 F L 06/15/20 07:00 Pulse 71 06/15/20 07:00 Resp 18 06/15/20 08:06 BP 168/93 06/15/20 07:00 Pulse Ox 98 06/15/20 07:00 Intake & Output 06/14/20 06/15/20 06/15/20 18:59 06:59 18:59 Intake Total 970 Balance 970 Weight 116.5 kg 114.5 kg Intake: Intake, IV Titration 700 Amount Dextrose 5% in Water 1, 600 000 ml @ 50 mls/hr IV . Q20H SHEN Rx#:[id number] Piperacillin-Tazobactam 3 100 .375 gm In Sodium Chloride 0.9% 100 ml @ 25 mls/hr IVPB Q8HR SHEN Rx# :[id number] Oral 0 Tube Feeding 180 Other 90 Other: Voiding Method Diaper Diaper Diaper Incontinent Incontinent Incontinent # Voids 3 - Labs CBC & Chem 7: 06/15/20 06:10 06/15/20 06:10 Labs: Abnormal Lab Results - Last 24 Hours (Table) 06/14/20 06/14/20 06/14/20 Range/Units 15:17 15:17 16:36 WBC 11.9 H (3.8-10.6) k/uL Hgb 12.1 L (13.0-17.5) gm/dL Hct 38.1 L (39.0-53.0) % RDW 16.9 H (11.5-15.5) % Neutrophils # 9.8 H (1.3-7.7) k/uL Sodium 150 H (135-145) mmol/L Chloride 113 H (96-109) mmol/L Anion Gap 12.50 H (4.00-12.00) mmol/L BUN 28.0 H (9.0-27.0) mg/dL Est GFR (CKD-EPI)AfAm 57.7 L (60.0-200.0) Est GFR (CKD-EPI)NonAf 49.8 L (60.0-200.0) BUN/Creatinine Ratio 21.54 H (12.00-20.00) Ratio Glucose 227 H (70-110) mg/dL POC Glucose (mg/dL) 198 H (75-99) mg/dL Calcium 8.6 L (8.7-10.3) mg/dL 06/14/20 06/15/20 06/15/20 Range/Units 21:19 06:10 06:10 WBC (3.8-10.6) k/uL Hgb 11.7 L (13.0-17.5) gm/dL Hct 37.0 L (39.0-53.0) % RDW 17.0 H (11.5-15.5) % Neutrophils # 8.3 H (1.3-7.7) k/uL Sodium (135-145) mmol/L Chloride 112 H (96-109) mmol/L Anion Gap (4.00-12.00) mmol/L BUN (9.0-27.0) mg/dL Est GFR (CKD-EPI)AfAm (60.0-200.0) Est GFR (CKD-EPI)NonAf (60.0-200.0) BUN/Creatinine Ratio 22.73 H (12.00-20.00) Ratio Glucose 267 H (70-110) mg/dL POC Glucose (mg/dL) 181 H (75-99) mg/dL Calcium 8.2 L (8.7-10.3) mg/dL 06/15/20 06/15/20 Range/Units 07:29 11:43 WBC (3.8-10.6) k/uL Hgb (13.0-17.5) gm/dL Hct (39.0-53.0) % RDW (11.5-15.5) % Neutrophils # (1.3-7.7) k/uL Sodium (135-145) mmol/L Chloride (96-109) mmol/L Anion Gap (4.00-12.00) mmol/L BUN (9.0-27.0) mg/dL Est GFR (CKD-EPI)AfAm (60.0-200.0) Est GFR (CKD-EPI)NonAf (60.0-200.0) BUN/Creatinine Ratio (12.00-20.00) Ratio Glucose (70-110) mg/dL POC Glucose (mg/dL) 244 H 207 H (75-99) mg/dL Calcium (8.7-10.3) mg/dL
--- NOTE | 2020-06-15 12:47 | P.PN ---
Subjective Progress Note Date: 06/15/20 HISTORY OF PRESENT ILLNESS This is an 84-year-old -[place] male patient of Dr. Singer with past medical history of diabetes mellitus type 2, hypertension, hyperlipidemia, chr onic kidney disease, history of GI bleed from diverticulitis, recently admitted to the hospital for acute cholecystitis status post laparoscopic cholecystectomy and also treated for bilateral pneumonia. Patient was discharged to [facility] and completed his course of rehab. He was then discharged home on May 30. Patient has developed increasing weakness with mental status changes. Not eating or drinking and was brought into the hospital for evaluation. Patient presented to [facility] emergency center. He was afebrile, heart rate 85, blood pressure 144/77, pulse ox 96% on room air. CBC was unremarkable. Electrolytes normal, BUN 44 and creatinine 3.13. Blood sugar 166. Magnesium 1.5. Liver function tests normal. Urinalysis positive for protein and blood with no sign of infection. COVID-19 positive. LDH 600, C- reactive protein 43.8. Chest x-ray reveals mild cardiomegaly and low lung volumes without suspicious acute pulmonary process. CAT scan of the abdomen and pelvis without contrast revealed interstitial infiltrate and atelectasis at the lung bases increased from old exam. Mild cardiomegaly. No acute abnormality within the abdomen and pelvis. Moderate colonic diverticulosis without diverticulitis. No evidence of bile leak. CAT scan of the brain revealed cerebral atrophy and chronic small vessel ischemia. No acute intracranial ab normality. Patient was admitted to the [facility] floor. 06/07: Patient has been seen by pulmonary medicine with plan to continue current medications. Nephrology has decreased normal saline 75 mL per hour. Hydralazine increased to 3 times daily. Renal ultrasound reveals no hydronephrosis. Benign 2.2 cm cortical cyst on the left. Bladder suboptimally assessed. Patient has been afebrile, heart rate 61, blood pressure 155/66, pulse ox 98% on 3 L nasal cannula. Blood sugars are running between 141 and 169. Repeat blood work for this morning remains pending. Patient continues to state that he does not have any appetite. He is feeling a little bit better from yesterday. PT and OT evaluations today. 06/08: Patient has been afebrile, heart rate 55, blood pressure 171/69, pulse ox 90% on 2 L. Breathing status has been stable. He denies shortness of breath. Boone catheter in place which will be discontinued today. IV fluids continue by nephrology. Bladder scans monitor for residuals, avoid nephrotoxic agents. Amlodipine and hydralazine to be held for systolic blood pressure less than 130. PT has evaluated with recommendations for home care for subacute rehab with 24- hour care. Electrolytes normal, BUN 43 and creatinine 1.7. Blood sugars are running 184-243. Levemir 10 units at bedtime added. Hyperglycemia secondary to steroids. Anticipate discharge by the end of the week. 06/09: The patient is a little confused today and not eating. Patient denies any complaints, no pain. He answers yes that he is ready to go home. Temperature max 100.2. He was bladder scanned and had 100 mL. Heart rate documented at 101 although rate on exam is slower and appears to be irregular. EKG ordered. Blood pressure 159/75, pulse ox 91% on room air. Repeat lab work reveals WBC 7.8, hemoglobin 12.3. BUN 41 and creatinine 1.2, potassium 3.5. Blood sugars running between 135 and 182. Patient's daughter contacted over the phone and updated regarding his current condition. She was under the impression the patient will be staying in the hospital for a full 14 days for isolation but informed that this will not be happening. We have asked rehabilitation caseworker/certified social workers in health care to follow-up with the patient's family regarding discharge planning. Most likely patient will be ready to be discharged tomorrow or Saturday. 06/10: Patient has been refusing to eat his meals. He continues to have significant cough. Temperature max 99.6. Respiratory rate has increased to 28. Pulse ox is 93% on 3 L nasal cannula. Heart rate 112. Contacted patient's daughter Partha [phone] and provided update. Her main concern is the patient is not eating. We will ask for speech therapy evaluation and consult with Dr. Taylor for PEG tube placement for temporary nutrition. Discussed again the need for subacute rehab versus returning home. Do not anticipate discharge until early next week. 06/11: The patient still is not eating, he refuses to eat. He does have severe thrush for which he does not seem able to tolerate nystatin and will be placed on Diflucan IV. Patient did have a previously elevated d-dimer and CAT scan of the chest ordered to rule out pulmonary embolism. He is developing increasing respiratory distress. Pulse ox is 88% on 4 L. Respiratory rate is up to 40, h eart rate 110, afebrile. General surgery is following for probable chest. 06/12: CTA of the chest showed no evidence of pulmonary embolism. Cardiomegaly. Significantly increased pulmonary infiltrates. Acute pneumonia and atelectasis present. Heart failure also possible. The patient is still refusing to eat and not taking his oral medications. All medications possible have been switched to IV. One dose of IV Lasix ordered for this morning as well as IV potassium replacement. He is current pulse ox 94% on nonrebreather, afebrile, heart rate 97, respiratory rate 32, blood pressure 171/83. Blood sugars run between 162 and 214. IV fluids changed yesterday to 0.45 normal saline by nephrology. Potassium was elevated yesterday and potassium was also replaced yesterday. Lab work today reveals sodium 148, potassium 4, chloride 113, CO2 23, BUN 21 creatinine 1. Blood sugars running between 162 and 215. Patient's sister Haleigh will be coming in to see him today to evaluate his status. 06/13: Patient is scheduled for PEG tube insertion today. His respiratory status is marginal. He is up to 6 L high flow nasal cannula. He has been afebrile, heart rate 104, respiratory rate 28, blood pressure 167/102, pulse ox 92% on 6 L nasal cannula. WBC 13.4, hemoglobin 12.8. Sodium 147, chloride 111, CO2 22. BUN 16 and creatinine 1.1. Blood sugars have been elevated in the 200s. Co ntacted at 2 daughters which were Klaudia and Partha. They have been updated on patient condition and he remains a full code. 06/14: Following PEG tube placement yesterday, patient was hypoxic and required nonrebreather and 18 was called. Patient is now on BiPAP with pulse ox is 95% with 40% FiO2. Heart rate 82, blood pressure 173/83, temperature max 101. He has a Boone catheter in place. Patient is denying that he denies pain. Patient is to be started on tube feedings this afternoon. Chest x-ray was done yes evening which found hypoventilatory changes with increased interstitial infiltrates and new patchy airspace disease in the left lung. Both patient's daughters were contacted yesterday and updated regarding patient's condition knowing the patient has a poor prognosis and they wish for patient to be full code. 06/15: Patient's breathing status seems to be stable today. He is on BiPAP with pulse ox of 96% and FiO2 40. He is nodding. The PEG tube feedings were started last night and he is tolerating. Patient has been afebrile, heart rate 69, blood pressure 170/88. WBC 9.9, hemoglobin 1.7, platelet count 245. Sodium 145, potassium 4, creatinine 1.1. Blood sugars running between 181 and 244. REVIEW OF SYSTEMS Constitutional: No fever, no chills, no night sweats. No weight change. Reports weakness, Reports fatigue Reports lethargy. EENT: No headache. No blurred vision or double vision, no loss of vision. No loss of Hearing, no ringing in the ears, no dizziness. No nasal drainage or congestion. No epistaxis. No sore throat. Lungs: Reports worsening shortness of breath, reports cough, no sputum production. No wheezing. Cardiovascular: No chest pain, no lower extremity edema. No palpitations. No paroxysmal nocturnal dyspnea. No orthopnea. No lightheadedness or dizziness. No syncopal episodes. Abdominal: No abdominal pain. No nausea, vomiting. No diarrhea. No constipation. No bloody or tarry stools. Reports loss of appetite. Genitourinary: No dysuria, increased frequency, urgency. No urinary retention. Musculoskeletal: No myalgias. No muscle weakness, no gait dysfunction, no frequent falls. No back pain. No neck pain. Integumentary: No wounds, no lesions. No rash or pruritus. No unusual bruising. No change in hair or nails. Neurologic: No aphasia. No facial droop. Reports change in mentation. No headache. No paralysis. No paresthesia. Psychiatric: No depression. No anxiety. No mood swings. Endocrine: Reports abnormal blood sugars with hyperglycemia. PHYSICAL EXAMINATION Gen: This is an 84-year-old -[place] male. Mild accessory muscle usage. He is currently on BiPAP HEENT: Head is atraumatic, normocephalic. Pupils equal, round. Sclerae is anicteric. NECK: Supple. No JVD. No lymphadenopathy. No thyromegaly. LUNGS: Crackles bilaterally. Tachypnea HEART: Irregular and rhythm. No murmur. ABDOMEN: Soft. Bowel sounds are present. No masses. No tenderness. Boone catheter. EXTREMITIES: Plus bilateral pedal edema. No calf tenderness. Small ulceration to the left pretibial area. Please see nursing documentation for details, POA. NEUROLOGICAL: Patient is awake, alert and oriented to person. Cranial nerves 2 through 12 are grossly intact. ASSESSMENT AND PLAN 1. Metabolic encephalopathy secondary to Covid 19 pneumonia. Consult with pulmonary medicine appreciated . Continue supplements with vitamin C, vitamin D, zinc. Continue dexamethasone 4 mg twice daily, Lovenox daily. 2. Acute hypoxic respiratory failure secondary to Covid 19 pneumonia, possible gram-negative bacterial pneumonia. Pulmonary medicine consult appreciated. Currently on BiPAP during continue Zosyn 3. Acute kidney injury with chronic kidney disease stage III. Consult with nephrology appreciated. Continue to Hold losartan. Avoid nephrotoxic agents. IV fluids D5 at 50 mL per hour. Boone catheter in place. 4. Hypertension. Continue Norvasc 5 mg daily, hydralazine resumed at 50 mg twice daily, IV available as needed. Losartan on hold. 5. Hyperlipidemia. 6. History of recent laparoscopic cholecystectomy, stable. 7. History of GI bleed from diverticulitis, stable. 8. Benign prostatic hypertrophy. Continue Flomax or 0.4 mg daily. Boone catheter. 9. Diabetes mellitus type 2 uncontrolled with hyperglycemia. Continue NovoLog scale before meals and at bedtime. Patient will be resumed on metformin/ glipizide. 10. Severe protein calorie malnutrition due to refusal to eat. Speech therapy evaluation, Dr. Taylor consult regarding PEG tube insertion. Patient to start tube feedings. 11. Severe oral thrush. Patient placed on Diflucan 100 mg IV piggyback daily. 12. GI prophylaxis. Protonix. 10. DVT prophylaxis. Lovenox. 11. Hypernatremia. IV fluids D5 at 50 mL per hour. 12. Pressure ulcer stage 1, coccyx, present on admission. DISCHARGE PLAN Anticipate need for subacute rehab. Impression and plan of care have been directed as dictated by the signing physician. Cyndy Faust nurse practitioner acting as scribe for signing physician. Objective - Vital Signs Vital signs: Vital Signs Temp 96.7 F L 06/15/20 02:38 Pulse 69 06/15/20 02:38 Resp 23 06/15/20 02:38 BP 170/88 06/15/20 02:38 Pulse Ox 96 06/15/20 02:38 Intake & Output 06/14/20 06/15/20 06/15/20 18:59 06:59 18:59 Intake Total 970 Balance 970 Weight 116.5 kg 114.5 kg Intake: Intake, IV Titration 700 Amount Dextrose 5% in Water 1, 600 000 ml @ 50 mls/hr IV . Q20H SHEN Rx#:[id number] Piperacillin-Tazobactam 3 100 .375 gm In Sodium Chloride 0.9% 100 ml @ 25 mls/hr IVPB Q8HR SHEN Rx# :[id number] Oral 0 Tube Feeding 180 Other 90 Other: Voiding Method Diaper Diaper Incontinent Incontinent # Voids 3 - Labs CBC & Chem 7: 06/15/20 06:10 06/15/20 06:10 Labs: Abnormal Lab Results - Last 24 Hours (Table) 06/14/20 06/14/20 06/14/20 Range/Units 11:23 15:17 15:17 WBC 11.9 H (3.8-10.6) k/uL Hgb 12.1 L (13.0-17.5) gm/dL Hct 38.1 L (39.0-53.0) % RDW 16.9 H (11.5-15.5) % Neutrophils # 9.8 H (1.3-7.7) k/uL Sodium 150 H (135-145) mmol/L Chloride 113 H (96-109) mmol/L Anion Gap 12.50 H (4.00-12.00) mmol/L BUN 28.0 H (9.0-27.0) mg/dL Est GFR (CKD-EPI)AfAm 57.7 L (60.0-200.0) Est GFR (CKD-EPI)NonAf 49.8 L (60.0-200.0) BUN/Creatinine Ratio 21.54 H (12.00-20.00) Ratio Glucose 227 H (70-110) mg/dL POC Glucose (mg/dL) 262 H (75-99) mg/dL Calcium 8.6 L (8.7-10.3) mg/dL 06/14/20 06/14/20 06/15/20 Range/Units 16:36 21:19 06:10 WBC (3.8-10.6) k/uL Hgb 11.7 L (13.0-17.5) gm/dL Hct 37.0 L (39.0-53.0) % RDW 17.0 H (11.5-15.5) % Neutrophils # 8.3 H (1.3-7.7) k/uL Sodium (135-145) mmol/L Chloride (96-109) mmol/L Anion Gap (4.00-12.00) mmol/L BUN (9.0-27.0) mg/dL Est GFR (CKD-EPI)AfAm (60.0-200.0) Est GFR (CKD-EPI)NonAf (60.0-200.0) BUN/Creatinine Ratio (12.00-20.00) Ratio Glucose (70-110) mg/dL POC Glucose (mg/dL) 198 H 181 H (75-99) mg/dL Calcium (8.7-10.3) mg/dL 06/15/20 Range/Units 07:29 WBC (3.8-10.6) k/uL Hgb (13.0-17.5) gm/dL Hct (39.0-53.0) % RDW (11.5-15.5) % Neutrophils # (1.3-7.7) k/uL Sodium (135-145) mmol/L Chloride (96-109) mmol/L Anion Gap (4.00-12.00) mmol/L BUN (9.0-27.0) mg/dL Est GFR (CKD-EPI)AfAm (60.0-200.0) Est GFR (CKD-EPI)NonAf (60.0-200.0) BUN/Creatinine Ratio (12.00-20.00) Ratio Glucose (70-110) mg/dL POC Glucose (mg/dL) 244 H (75-99) mg/dL Calcium (8.7-10.3) mg/dL
[2020-06-15] MEDS: hydrALAZINE HCL 50 MG TAB PO SCH ×2 (13:12→20:55)
--- NOTE | 2020-06-15 14:57 | P.OP ---
Date of Procedure: 06/13/20 Preoperative Diagnosis: Malnutrition Postoperative Diagnosis: Malnutrition Procedure(s) Performed: EGD with PEG tube placement Anesthesia: MAC Surgeon: Roland Taylor Estimated Blood Loss (ml): 5 Pathology: none sent Condition: stable Disposition: PACU Description of Procedure: The patient's placed on the endoscopy table in the lateral position. He received IV sedation. The gastro-/oropharynx passed in the esophagus and stomach. The stomach was insufflated with air. A suitable light reflux seen the anterior abdominal wall. The skin was anesthetized. 11 blade was then used to make a skin incision. The needles placed and stomach under direct visualization. The needles and snare. The wire was placed through the needle. Wire was snared. The wire and brought the oropharynx. The PEG tube placed overtop the wire and brought down and stomach. The PEG tube was secured at 3 cm christiana. The one-piece bolster was used to secure the PEG tube. Patient top she will was sent to recovery in stable condition.
--- NOTE | 2020-06-15 16:23 | P.PN ---
Subjective Progress Note Date: 06/15/20 Principal diagnosis: Altered mental status, COVID 19 84-year-old white male patient with a recent history of cholecystectomy for gangrenous cholecystitis on 05/18/2020 following which he was recovering at the [facility], has a past medical history of diabetes mellitus, hypertension, previous episodes of pneumonia, diverticular disease, history of lower GI bleeding, with EGD and colonoscopy, was brought into the emergency department per EMS on 06/05/2020 for evaluation of altered mental status and generalized weakness. He was discharged to a correction facility on 05/25/2020 and was recently discharged from there on 05/30/2020 to his daughter's house where he was having increasing difficulty caring for himself. His chest x-ray no emergency department showed the mild cardiomegaly, low lung volumes without suspicious focal airspace opacity, pleural effusions and no evidence of pneumothorax. His brain CT shows cerebral atrophy and chronic small vessel ischemia, no acute intracranial abnormality. Normal sinus rhythm on the EKG. Patient denied any fever or chills. Denied any significant shortness of breath. No nausea vomiting or diarrhea, admit to some abdominal pain in the right upper quadrant where he had incision sites. Abdomen is soft and nontender. Reports normal appetite. Meds to being increasingly more weak, and no other complaints. CT of the abdomen and pelvis showing some interstitial infiltrates and atelectasis at the lung bases mild cardiomegaly, no acute abnormality within the abdomen and pelvis, moderate colonic diverticulosis without diverticulitis, cholecystectomy, no dilated ducts no evidence of a bile leak. Patient was checked for: 19 and was found to be positive, other laboratory analysis showed white blood cell count of 4.1, hemoglobin of 13.4, INR is 1.1, electrolytes were within normal limits, and patient was found to have acute kidney injury with the BUN of 44 creatinine 3.13, and GFR of 17, 600, CRP was 43.8, and lipase was 309, urinalysis was checked showing no clear evidence of urinary tract infection. Recently on 2 L of oxygen the pulse ox of 92-96%, intermittent low-grade fevers with T-max of 99.2F. He was started on Decadron 4 mg twice daily, he is on prophylactic dose of Lovenox for his renal clearance, he is receiving gentle IV hydration, and the pulmonary service was consulted in view of his COVID 19 infection On June 07 patient seen in follow-up on medical floor, currently on 3 L of oxygen the pulse ox of 99%, appears to be, comfortable, no worsening dyspnea, he is breathing comfortably, but appears to be generally weak, he is currently sitting up in the recliner, he barely holding his head up, his vital signs have been stable, his had no acute events overnight. No new chest x-ray, today's labs have been reviewed, his renal function has significantly improved, and BUN is 32 and creatinine is down to 1.2, electrolytes were within normal limits. He's had no nausea vomiting or diarrhea. He remains on prophylactic dose of Lovenox, oral Decadron, and vitamin C, vitamin D and zinc supplement in addition to gentle IV hydration with 0.9 normal saline at a rate of 75 ML per hour. His been evaluated by physical therapy and apparently patient's family was not happy with the care at the [facility] and took patient home before he completed his rehabilitation however patient was increasingly weak at home. Current recommendation from physical therapy is nursing, physical therapy and occupational therapy, 24-hour care as the patient having difficulty with transfers, requires extensive verbal and physical cues, has very limited functional endurance and extensive assistance with all ADLs On 06/13/2020 patient seen in follow-up on medical floor, is currently on 6 L of oxygen, there is to be in no acute distress, appears weak, debilitated, no evidence of any respiratory distress noted. Afebrile. Continues on Decadron 4 mg twice daily, prophylactic dose of Lovenox, Diflucan. Today he went for a PEG tube placement, following the procedure for which she was intubated patient returned back to his room and he was increasingly more hypoxic, requiring 15 liters of oxygen, repeat chest x-ray is pending, rapid response team was called, attending physician address the CODE STATUS with patient's family and patient's family is insisting on full code. However in view of his overall very debilitated state his long-term prognosis is quite guarded and poor. These labs showed a white blood cell count of 13.4, hemoglobin of 12.8, sodium was 147, potassium is 4.0, chloride is 111, CO2 is 22, BUN of 26, creatinine is 1.1. On 06/14/2020 patient seen in follow-up on medical floor. Yesterday he received a PEG tube in the post procedure she became increasingly more hypoxic, requiring BiPAP support, today he still remains on BiPAP support blood pressures of 12 and 6, and FiO2 of 40%. His chest x-ray today shows hypoventilatory changes with increasing interstitial infiltrates and new patchy airspace disease in the left lung. Patient has been on Zosyn for last few days. His pulse ox on BiPAP support is 96%, his had no fevers overnight, hemodynamically stable, overall g enerally he is very weak. Maintenance IV fluids is D5W at a rate of 50 ML per hour. On fluconazole for antibiotic coverage, dexamethasone 4 mg twice daily, Lovenox at prophylactic dose. We anticipate starting enteral feedings today, no new labs On 06/15/2020 patient seen in follow-up on medical floor, is a bit more responsive today, appears a bit stronger, he was on BiPAP support since yesterd ay, current BiPAP pressures are 12/6, and FiO2 of 60%, appears to be in no respiratory distress, tube feedings have been started, tolerating them well. Remains generally weak. His chest x-ray has been reviewed showing patchy bilateral areas of infiltrates slightly improved within the left upper lobe. Patient remains on IV Decadron, vitamin C, zinc, vitamin D, and he is on Zosyn for empiric antibiotic coverage. Has been afebrile overnight. Objective - Vital Signs Vital signs: Vital Signs Temp 97.1 F L 06/15/20 07:00 Pulse 72 06/15/20 15:14 Resp 18 06/15/20 15:14 BP 150/88 06/15/20 15:14 Pulse Ox 97 06/15/20 15:14 Intake & Output 06/14/20 06/15/20 06/15/20 18:59 06:59 18:59 Intake Total 970 Output Total 350 Balance 620 Weight 116.5 kg 114.5 kg Intake: Intake, IV Titration 700 Amount Dextrose 5% in Water 1, 600 000 ml @ 50 mls/hr IV . Q20H SHEN Rx#:[id number] Piperacillin-Tazobactam 3 100 .375 gm In Sodium Chloride 0.9% 100 ml @ 25 mls/hr IVPB Q8HR SHEN Rx# :[id number] Oral 0 Tube Feeding 180 Other 90 Output: Urine 350 Other: Voiding Method Diaper Diaper Diaper Incontinent Incontinent Incontinent # Voids 3 # Bowel Movements 1 - Exam GENERAL EXAM: Drowsy but arousable,, 84-year-old white male, generally d ebilitated, weak, 84-year-old male, on BiPAP support currently pressures of 12 6, and FiO2 of 40%, and pulse ox of 96%, appears weak, resting in bed HEAD: Normocephalic/atraumatic. EYES: Normal reaction of pupils, equal size. Conjunctiva pink, sclera white. NOSE: Clear with pink turbinates. THROAT: No erythema or exudates. NECK: No masses, no JVD, no thyroid enlargement, no adenopathy. CHEST: No chest wall deformity. Symmetrical expansion. LUNGS: Equal air entry with no crackles, wheeze, rhonchi or dullness. CVS: Regular rate and rhythm, normal S1 and S2, no gallops, no murmurs, no rubs ABDOMEN: Soft, nontender. No hepatosplenomegaly, normal bowel sounds, no guarding or rigidity. Abdominal incisions clean dry and intact, PEG tube in place EXTREMITIES: No clubbing, no edema, no cyanosis, 2+ pulses and upper and lower extremities. MUSCULOSKELETAL: Muscle strength and tone normal. SPINE: No scoliosis or deformity SKIN: No rashes CENTRAL NERVOUS SYSTEM: Drowsy, but arousable, appears very weak and worn out No focal deficits, tone is normal in all 4 extremities. - Labs CBC & Chem 7: 06/15/20 06:10 06/15/20 06:10 Labs: Abnormal Lab Results - Last 24 Hours (Table) 06/14/20 06/14/20 06/14/20 Range/Units 15:17 16:36 21:19 Hgb (13.0-17.5) gm/dL Hct (39.0-53.0) % RDW (11.5-15.5) % Neutrophils # (1.3-7.7) k/uL Sodium 150 H (135-145) mmol/L Chloride 113 H (96-109) mmol/L Anion Gap 12.50 H (4.00-12.00) mmol/L BUN 28.0 H (9.0-27.0) mg/dL Est GFR (CKD-EPI)AfAm 57.7 L (60.0-200.0) Est GFR (CKD-EPI)NonAf 49.8 L (60.0-200.0) BUN/Creatinine Ratio 21.54 H (12.00-20.00) Ratio Glucose 227 H (70-110) mg/dL POC Glucose (mg/dL) 198 H 181 H (75-99) mg/dL Calcium 8.6 L (8.7-10.3) mg/dL 06/15/20 06/15/20 06/15/20 Range/Units 06:10 06:10 07:29 Hgb 11.7 L (13.0-17.5) gm/dL Hct 37.0 L (39.0-53.0) % RDW 17.0 H (11.5-15.5) % Neutrophils # 8.3 H (1.3-7.7) k/uL Sodium (135-145) mmol/L Chloride 112 H (96-109) mmol/L Anion Gap (4.00-12.00) mmol/L BUN (9.0-27.0) mg/dL Est GFR (CKD-EPI)AfAm (60.0-200.0) Est GFR (CKD-EPI)NonAf (60.0-200.0) BUN/Creatinine Ratio 22.73 H (12.00-20.00) Ratio Glucose 267 H (70-110) mg/dL POC Glucose (mg/dL) 244 H (75-99) mg/dL Calcium 8.2 L (8.7-10.3) mg/dL 06/15/20 Range/Units 11:43 Hgb (13.0-17.5) gm/dL Hct (39.0-53.0) % RDW (11.5-15.5) % Neutrophils # (1.3-7.7) k/uL Sodium (135-145) mmol/L Chloride (96-109) mmol/L Anion Gap (4.00-12.00) mmol/L BUN (9.0-27.0) mg/dL Est GFR (CKD-EPI)AfAm (60.0-200.0) Est GFR (CKD-EPI)NonAf (60.0-200.0) BUN/Creatinine Ratio (12.00-20.00) Ratio Glucose (70-110) mg/dL POC Glucose (mg/dL) 207 H (75-99) mg/dL Calcium (8.7-10.3) mg/dL Assessment and Plan Plan: Assessment: #1. Worsening hypoxemia, and dyspnea, the possibility of healthcare acquired pneumonia versus aspiration pneumonia, superimposed on Covid19 pneumonia is being considered in view of chest x-ray findings with worsening left upper lobe airspace disease and diffuse pulmonary infiltrates related to recent history of COVID 19 infection. Currently on BiPAP support with pressures of 12/6, and FiO2 40% #2. Acute COVID 19 infection, chest x-ray showed low lung volumes without new suspicious acute pulmonary process. Patient initially presented without significant pulmonary symptoms, and requiring minimal supplemental oxygen, curre ntly O2 demands have increased with worsening chest x-ray findings #3. Acute kidney injury, improved with IV hydration #4. Status post PEG tube placement today on 06/13/2020 for nutritional support #5. Lethargy, encephalopathy, gait dysfunction, severe generalized weakness, severe medical debility #6. Mild abdominal discomfort, CT abdomen and pelvis showed no acute intra- abdominal or intrapelvic abnormality with evidence of recent cholecystectomy, no dilated ducts, no evidence of a bile leak #7. Recent history of gangrenous cholecystitis, status post laparoscopic cholecystectomy on 05/18/[address] Taylor #8. General medical debility, he required correction facility placement after his most recent hospitalization but recently was discharged from the correction facility to his daughter's house where he could not care for himself #9. Diabetes mellitus type 2 #10. Hypertension #11. Hyperlipidemia #12. Chronic kidney disease, stage III at baseline #13. Previous history of GI bleeding and diverticulitis #14. History of BPH on Flomax Plan: May give the patient a trial on the nasal cannula, maintain aspiration precautions, patient remains generally weak, but appears to be breathing easier today, wean FiO2, continue with empiric coverage, vital signs have been stable, overall prognosis is guarded continue to follow I performed a history & physical examination of the patient and discussed their management with my nurse practitioner, Corina Graham. I reviewed the nurse practitioner's note and agree with the documented findings and plan of care. Lung sounds are positive for diminished breath sounds. The findings and the impression was discussed with the patient. I attest to the documentation by the nurse practitioner. Time with Patient: Less than 30
[2020-06-15 16:52] LABS: Glucose,Whole Blood 125 mg/dL (75-99)
[2020-06-15 20:42] LABS: Glucose,Whole Blood 124 mg/dL (75-99)
[2020-06-16 06:40] LABS: Anisocytosis Slight; HCT 36.1 % (39.0-53.0); HGB 12.1 gm/dL (13.0-17.5); Hypochromasia Slight; MCH 27.8 pg (25.0-35.0); MCHC 33.4 g/dL (31.0-37.0); Mean Platelet Volume 8.2; Platelet Count 232 k/uL (150-450); RBC 4.35 m/uL (4.30-5.90); RDW 16.8 % (11.5-15.5); WBC 10.7 k/uL (3.8-10.6)
[2020-06-16 07:32] LABS: Glucose,Whole Blood 264 mg/dL (75-99)
[2020-06-16] MEDS: CHOLECALCIFEROL 1,000 UNIT TAB PO SCH (08:09)
[2020-06-16] MEDS: amLODIPine 5 MG TAB PO SCH (08:09)
[2020-06-16] MEDS: ASCORBIC ACID 500 MG TAB PO SCH (08:09)
[2020-06-16] MEDS: ZINC SULFATE 220 MG CAP PO SCH (08:09)
[2020-06-16] MEDS: ENOXAPARIN 40 MG/0.4 ML SYRINGE SQ SCH (08:10)
[2020-06-16] MEDS: INSULIN ASPART (NovoLOG) 100 UNIT/ML VIAL SQ SCH ×5 (08:10→20:32)
[2020-06-16] MEDS: DEXAMETHASONE SOD PHOSPHATE 4 MG/ML 1 ML VIAL IV SCH (08:10)
[2020-06-16] MEDS: TAMSULOSIN 0.4 MG CAP.ER.24H PO SCH (08:10)
[2020-06-16] MEDS: PIPERACILLIN-TAZOBACTAM 3.375 GM in SODIUM CHLORIDE 0.9% 100 ML IVPB SCH (08:10)
[2020-06-16] MEDS: metFORMIN 500 MG TAB PO SCH ×2 (08:10→17:22)
[2020-06-16] MEDS: glipiZIDE 5 MG TAB PO SCH ×2 (08:10→17:21)
[2020-06-16] MEDS: hydrALAZINE HCL 50 MG TAB PO SCH ×3 (08:10→20:31)
[2020-06-16] MEDS ORDERED: hydrALAZINE HCL 50 MG TAB PO ONE (09:00)
[2020-06-16] MEDS: ALBUTEROL HFA INHALER INHALATION SCH ×4 (09:12→20:23)
[2020-06-16 10:30] LABS: African American GFR (CKD) 79.2 (60.0-200.0); Anion Gap 6.6 mmol/L (4.00-12.00); Calcium 8.2 mg/dL (8.7-10.3); Carbon Dioxide 23.4 mmol/L (21.6-31.8); Non-African American GFR(CKD) 68.3 (60.0-200.0); Potassium 4.1 mmol/L (3.5-5.5)
[2020-06-16 11:44] LABS: Glucose,Whole Blood 237 mg/dL (75-99)
--- NOTE | 2020-06-16 11:47 | P.PN ---
Subjective Progress Note Date: 06/16/20 CHIEF COMPLAINT: Generalized weakness HISTORY OF PRESENT ILLNESS: Patient is status post PEG tube placement. He is tolerating bolus tube feedings. No residual. He's also admitted to the hospital for Covid 19 pneumonia. Afebrile. WBC 10.7 Noted that medical service is starting patient on regular diet PHYSICAL EXAM: VITAL SIGNS: Reviewed. GENERAL: Well-developed in no acute distress. HEENT: No sclera icterus. Extraocular movements grossly intact. Moist buccal mucosa. Head is atraumatic, normocephalic. ABDOMEN: Soft. Nondistended. Nontender. PEG tube site clean dry and intact NEUROLOGIC: Alert and oriented. Cranial nerves II through XII grossly intact. ASSESSMENT: 1. Severe protein calorie malnutrition and poor oral intake patient status post PEG tube placement 2. Covid 19 pneumonia PLAN: -Continue tube feedings as per dietitian recommendations -Continue supportive care Physician Environmental Protection Inspector note has been reviewed by physician. Signing provider agrees with the documented findings, assessment, and plan of care. Objective - Vital Signs Vital signs: Vital Signs Temp 97.5 F L 06/16/20 11:12 Pulse 83 06/16/20 11:12 Resp 20 06/16/20 11:12 BP 177/75 06/16/20 11:12 Pulse Ox 91 L 06/16/20 11:12 Intake & Output 06/15/20 06/16/20 06/16/20 18:59 06:59 18:59 Intake Total 970 1080 Output Total 350 Balance 620 1080 Intake: Intake, IV Titration 700 600 Amount Dextrose 5% in Water 1, 600 600 000 ml @ 50 mls/hr IV . Q20H SHEN Rx#:[id number] Piperacillin-Tazobactam 3 100 .375 gm In Sodium Chloride 0.9% 100 ml @ 25 mls/hr IVPB Q8HR SHEN Rx# :[id number] Oral 0 Tube Feeding 180 360 Other 90 120 Output: Urine 350 Other: Voiding Method Diaper Diaper Diaper Incontinent Incontinent Incontinent # Bowel Movements 1 - Labs CBC & Chem 7: 06/16/20 06:25 06/16/20 06:25 Labs: Abnormal Lab Results - Last 24 Hours (Table) 06/15/20 06/15/20 06/16/20 Range/Units 16:51 20:37 06:25 WBC 10.7 H (3.8-10.6) k/uL Hgb 12.1 L (13.0-17.5) gm/dL Hct 36.1 L (39.0-53.0) % RDW 16.8 H (11.5-15.5) % Chloride (96-109) mmol/L BUN (9.0-27.0) mg/dL BUN/Creatinine Ratio (12.00-20.00) Ratio Glucose (70-110) mg/dL POC Glucose (mg/dL) 125 H 124 H (75-99) mg/dL Calcium (8.7-10.3) mg/dL 06/16/20 06/16/20 06/16/20 Range/Units 06:25 07:30 11:41 WBC (3.8-10.6) k/uL Hgb (13.0-17.5) gm/dL Hct (39.0-53.0) % RDW (11.5-15.5) % Chloride 113 H (96-109) mmol/L BUN 28.0 H (9.0-27.0) mg/dL BUN/Creatinine Ratio 28.00 H (12.00-20.00) Ratio Glucose 249 H (70-110) mg/dL POC Glucose (mg/dL) 264 H 237 H (75-99) mg/dL Calcium 8.2 L (8.7-10.3) mg/dL
[2020-06-16] MEDS: FLUCONAZOLE IN NACL,ISO-OSM 100 MG in SALINE 1 50ML.BAG IVPB SCH (11:56)
--- NOTE | 2020-06-16 14:21 | P.PN ---
Subjective Progress Note Date: 06/16/20 HISTORY OF PRESENT ILLNESS This is an 84-year-old -Burm[place] male patient of Dr. Singer with past medical history of diabetes mellitus type 2, hypertension, hyperlipidemia, chr onic kidney disease, history of GI bleed from diverticulitis, recently admitted to the hospital for acute cholecystitis status post laparoscopic cholecystectomy and also treated for bilateral pneumonia. Patient was discharged to [facility] and completed his course of rehab. He was then discharged home on May 30. Patient has developed increasing weakness with mental status changes. Not eating or drinking and was brought into the hospital for evaluation. Patient presented to [facility] emergency center. He was afebrile, heart rate 85, blood pressure 144/77, pulse ox 96% on room air. CBC was unremarkable. Electrolytes normal, BUN 44 and creatinine 3.13. Blood sugar 166. Magnesium 1.5. Liver function tests normal. Urinalysis positive for protein and blood with no sign of infection. COVID-19 positive. LDH 600, C- reactive protein 43.8. Chest x-ray reveals mild cardiomegaly and low lung volumes without suspicious acute pulmonary process. CAT scan of the abdomen and pelvis without contrast revealed interstitial infiltrate and atelectasis at the lung bases increased from old exam. Mild cardiomegaly. No acute abnormality within the abdomen and pelvis. Moderate colonic diverticulosis without diverticulitis. No evidence of bile leak. CAT scan of the brain revealed cerebral atrophy and chronic small vessel ischemia. No acute intracranial ab normality. Patient was admitted to the [facility] floor. 06/07: Patient has been seen by pulmonary medicine with plan to continue current medications. Nephrology has decreased normal saline 75 mL per hour. Hydralazine increased to 3 times daily. Renal ultrasound reveals no hydronephrosis. Benign 2.2 cm cortical cyst on the left. Bladder suboptimally assessed. Patient has been afebrile, heart rate 61, blood pressure 155/66, pulse ox 98% on 3 L nasal cannula. Blood sugars are running between 141 and 169. Repeat blood work for this morning remains pending. Patient continues to state that he does not have any appetite. He is feeling a little bit better from yesterday. PT and OT evaluations today. 06/08: Patient has been afebrile, heart rate 55, blood pressure 171/69, pulse ox 90% on 2 L. Breathing status has been stable. He denies shortness of breath. Boone catheter in place which will be discontinued today. IV fluids continue by nephrology. Bladder scans monitor for residuals, avoid nephrotoxic agents. Amlodipine and hydralazine to be held for systolic blood pressure less than 130. PT has evaluated with recommendations for home care for subacute rehab with 24- hour care. Electrolytes normal, BUN 43 and creatinine 1.7. Blood sugars are running 184-243. Levemir 10 units at bedtime added. Hyperglycemia secondary to steroids. Anticipate discharge by the end of the week. 06/09: The patient is a little confused today and not eating. Patient denies any complaints, no pain. He answers yes that he is ready to go home. Temperature max 100.2. He was bladder scanned and had 100 mL. Heart rate documented at 101 although rate on exam is slower and appears to be irregular. EKG ordered. Blood pressure 159/75, pulse ox 91% on room air. Repeat lab work reveals WBC 7.8, hemoglobin 12.3. BUN 41 and creatinine 1.2, potassium 3.5. Blood sugars running between 135 and 182. Patient's daughter contacted over the phone and updated regarding his current condition. She was under the impression the patient will be staying in the hospital for a full 14 days for isolation but informed that this will not be happening. We have asked disease case manager rn/social worker clinical to follow-up with the patient's family regarding discharge planning. Most likely patient will be ready to be discharged tomorrow or Saturday. 06/10: Patient has been refusing to eat his meals. He continues to have significant cough. Temperature max 99.6. Respiratory rate has increased to 28. Pulse ox is 93% on 3 L nasal cannula. Heart rate 112. Contacted patient's daughter Partha [phone] and provided update. Her main concern is the patient is not eating. We will ask for speech therapy evaluation and consult with Dr. Taylor for PEG tube placement for temporary nutrition. Discussed again the need for subacute rehab versus returning home. Do not anticipate discharge until early next week. 06/11: The patient still is not eating, he refuses to eat. He does have severe thrush for which he does not seem able to tolerate nystatin and will be placed on Diflucan IV. Patient did have a previously elevated d-dimer and CAT scan of the chest ordered to rule out pulmonary embolism. He is developing increasing respiratory distress. Pulse ox is 88% on 4 L. Respiratory rate is up to 40, h eart rate 110, afebrile. General surgery is following for probable chest. 06/12: CTA of the chest showed no evidence of pulmonary embolism. Cardiomegaly. Significantly increased pulmonary infiltrates. Acute pneumonia and atelectasis present. Heart failure also possible. The patient is still refusing to eat and not taking his oral medications. All medications possible have been switched to IV. One dose of IV Lasix ordered for this morning as well as IV potassium replacement. He is current pulse ox 94% on nonrebreather, afebrile, heart rate 97, respiratory rate 32, blood pressure 171/83. Blood sugars run between 162 and 214. IV fluids changed yesterday to 0.45 normal saline by nephrology. Potassium was elevated yesterday and potassium was also replaced yesterday. Lab work today reveals sodium 148, potassium 4, chloride 113, CO2 23, BUN 21 creatinine 1. Blood sugars running between 162 and 215. Patient's sister Haleigh will be coming in to see him today to evaluate his status. 06/13: Patient is scheduled for PEG tube insertion today. His respiratory status is marginal. He is up to 6 L high flow nasal cannula. He has been afebrile, heart rate 104, respiratory rate 28, blood pressure 167/102, pulse ox 92% on 6 L nasal cannula. WBC 13.4, hemoglobin 12.8. Sodium 147, chloride 111, CO2 22. BUN 16 and creatinine 1.1. Blood sugars have been elevated in the 200s. Co ntacted at 2 daughters which were Klaudia and Partha. They have been updated on patient condition and he remains a full code. 06/14: Following PEG tube placement yesterday, patient was hypoxic and required nonrebreather and 18 was called. Patient is now on BiPAP with pulse ox is 95% with 40% FiO2. Heart rate 82, blood pressure 173/83, temperature max 101. He has a Boone catheter in place. Patient is denying that he denies pain. Patient is to be started on tube feedings this afternoon. Chest x-ray was done yes evening which found hypoventilatory changes with increased interstitial infiltrates and new patchy airspace disease in the left lung. Both patient's daughters were contacted yesterday and updated regarding patient's condition knowing the patient has a poor prognosis and they wish for patient to be full code. 06/15: Patient's breathing status seems to be stable today. He is on BiPAP with pulse ox of 96% and FiO2 40. He is nodding. The PEG tube feedings were started last night and he is tolerating. Patient has been afebrile, heart rate 69, blood pressure 170/88. WBC 9.9, hemoglobin 1.7, platelet count 245. Sodium 145, potassium 4, creatinine 1.1. Blood sugars running between 181 and 244. 06/16: The patient's breathing is much better today. His pulse ox is 91% on 3 L. His been afebrile, heart rate 75, blood pressure 180/71. Hydralazine increased to 100 mg 3 times daily. His breathing is stable today. He continues to not have appetite but is on tube feedings which are bullous type. Patient is free to eat any oral diet. Regular diet has been ordered. Repeat blood work reveals WBC 10.7, bilirubin 12.1. BUN 28 and creatinine 1. Potassium 4.1, sodium 143. Blood sugars running in the 200s. Kytril NovoLog added to NovoLog scale. Social work is working with family for discharge planning anticipated for Saturday. REVIEW OF SYSTEMS Constitutional: No fever, no chills, no night sweats. No weight change. Report s weakness, Reports fatigue Reports lethargy. EENT: No headache. No blurred vision or double vision, no loss of vision. No loss of Hearing, no ringing in the ears, no dizziness. No nasal drainage or congestion. No epistaxis. No sore throat. Lungs: Reports worsening shortness of breath, reports cough, no sputum production. No wheezing. Cardiovascular: No chest pain, no lower extremity edema. No palpitations. No paroxysmal nocturnal dyspnea. No orthopnea. No lightheadedness or dizziness. No syncopal episodes. Abdominal: No abdominal pain. No nausea, vomiting. No diarrhea. No co nstipation. No bloody or tarry stools. Reports loss of appetite. Genitourinary: No dysuria, increased frequency, urgency. No urinary retention. Musculoskeletal: No myalgias. No muscle weakness, no gait dysfunction, no frequent falls. No back pain. No neck pain. Integumentary: No wounds, no lesions. No rash or pruritus. No unusual bruising. No change in hair or nails. Neurologic: No aphasia. No facial droop. Reports change in mentation improved. No headache. No paralysis. No paresthesia. Psychiatric: No depression. No anxiety. No mood swings. Endocrine: Reports abnormal blood sugars with hyperglycemia. PHYSICAL EXAMINATION Gen: This is an 84-year-old -Burmese male. No respiratory distress. Patient is on nasal cannula. HEENT: Head is atraumatic, normocephalic. Pupils equal, round. Sclerae is anicteric. NECK: Supple. No JVD. No lymphadenopathy. No thyromegaly. LUNGS: Crackles bilaterally. No accessory muscle usage increased to 100 mg 3 timesHEART: Irregular and rhythm. No murmur. ABDOMEN: Soft. Bowel sounds are present. No masses. No tenderness. Boone catheter. EXTREMITIES: Plus bilateral pedal edema. No calf tenderness. Small ulceration to the left pretibial area. Please see nursing documentation for details, POA. NEUROLOGICAL: Patient is awake, alert and oriented to person. Cranial nerves 2 through 12 are grossly intact. ASSESSMENT AND PLAN 1. Metabolic encephalopathy secondary to Covid 19 pneumonia. Consult with pulmonary medicine appreciated . Continue supplements with vitamin C, vitamin D, zinc. Continue dexamethasone 4 mg twice daily, Lovenox daily. 2. Acute hypoxic respiratory failure secondary to Covid 19 pneumonia, possible gram-negative bacterial pneumonia. Pulmonary medicine consult appreciated. Currently on BiPAP during continue Zosyn 3. Acute kidney injury with chronic kidney disease stage III. Consult with nephrology appreciated. Continue to Hold losartan. Avoid nephrotoxic agents. IV fluids D5 at 50 mL per hour. Boone catheter in place. 4. Hypertension. Continue Norvasc 5 mg daily, hydralazine increased to 100 mg 3 timesdaily, IV available as needed. Losartan on hold. 5. Hyperlipidemia. 6. History of recent laparoscopic cholecystectomy, stable. 7. History of GI bleed from diverticulitis, stable. 8. Benign prostatic hypertrophy. Continue Flomax or 0.4 mg daily. Boone catheter. 9. Diabetes mellitus type 2 uncontrolled with hyperglycemia. Continue NovoLog scale before meals and at bedtime, scheduled NovoLog added . Patient will be resumed on metformin/ glipizide. 10. Severe protein calorie malnutrition due to refusal to eat. Speech therapy evaluation, Dr. Taylor consult regarding PEG tube insertion. Patient to start tube feedings. 11. Severe oral thrush. Patient placed on Diflucan 100 mg IV piggyback daily. 12. GI prophylaxis. Protonix. 10. DVT prophylaxis. Lovenox. 11. Hypernatremia. IV fluids D5 at 50 mL per hour. 12. Pressure ulcer stage 1, coccyx, present on admission. DISCHARGE PLAN Anticipate need for subacute rehab. Impression and plan of care have been directed as dictated by the signing physician. Cyndy Faust nurse practitioner acting as scribe for signing physician. Objective - Vital Signs Vital signs: Vital Signs Temp 96.4 F L 06/16/20 07:00 Pulse 75 06/16/20 07:00 Resp 21 06/16/20 07:00 BP 180/71 06/16/20 07:00 Pulse Ox 91 L 06/16/20 07:00 Intake & Output 06/15/20 06/16/20 06/16/20 18:59 06:59 18:59 Intake Total 970 1080 Output Total 350 Balance 620 1080 Intake: Intake, IV Titration 700 600 Amount Dextrose 5% in Water 1, 600 600 000 ml @ 50 mls/hr IV . Q20H SHEN Rx#:[id number] Piperacillin-Tazobactam 3 100 .375 gm In Sodium Chloride 0.9% 100 ml @ 25 mls/hr IVPB Q8HR SHEN Rx# :[id number] Oral 0 Tube Feeding 180 360 Other 90 120 Output: Urine 350 Other: Voiding Method Diaper Diaper Incontinent Incontinent # Bowel Movements 1 - Labs CBC & Chem 7: 06/16/20 06:25 06/16/20 06:25 Labs: Abnormal Lab Results - Last 24 Hours (Table) 06/15/20 06/15/20 06/15/20 Range/Units 06:10 11:43 16:51 WBC (3.8-10.6) k/uL Hgb (13.0-17.5) gm/dL Hct (39.0-53.0) % RDW (11.5-15.5) % Chloride 112 H (96-109) mmol/L BUN/Creatinine Ratio 22.73 H (12.00-20.00) Ratio Glucose 267 H (70-110) mg/dL POC Glucose (mg/dL) 207 H 125 H (75-99) mg/dL Calcium 8.2 L (8.7-10.3) mg/dL 06/15/20 06/16/20 06/16/20 Range/Units 20:37 06:25 07:30 WBC 10.7 H (3.8-10.6) k/uL Hgb 12.1 L (13.0-17.5) gm/dL Hct 36.1 L (39.0-53.0) % RDW 16.8 H (11.5-15.5) % Chloride (96-109) mmol/L BUN/Creatinine Ratio (12.00-20.00) Ratio Glucose (70-110) mg/dL POC Glucose (mg/dL) 124 H 264 H (75-99) mg/dL Calcium (8.7-10.3) mg/dL
--- NOTE | 2020-06-16 14:22 | P.PN ---
Subjective Progress Note Date: 06/16/20 Principal diagnosis: Altered mental status, COVID 19 84-year-old white male patient with a recent history of cholecystectomy for gangrenous cholecystitis on 05/18/2020 following which he was recovering at the [facility], has a past medical history of diabetes mellitus, hypertension, previous episodes of pneumonia, diverticular disease, history of lower GI bleeding, with EGD and colonoscopy, was brought into the emergency department per EMS on 06/05/2020 for evaluation of altered mental status and generalized weakness. He was discharged to a custodial facility on 05/25/2020 and was recently discharged from there on 05/30/2020 to his daughter's house where he was having increasing difficulty caring for himself. His chest x-ray no emergency department showed the mild cardiomegaly, low lung volumes without suspicious focal airspace opacity, pleural effusions and no evidence of pneumothorax. His brain CT shows cerebral atrophy and chronic small vessel ischemia, no acute intracranial abnormality. Normal sinus rhythm on the EKG. Patient denied any fever or chills. Denied any significant shortness of breath. No nausea vomiting or diarrhea, admit to some abdominal pain in the right upper quadrant where he had incision sites. Abdomen is soft and nontender. Reports normal appetite. Meds to being increasingly more weak, and no other complaints. CT of the abdomen and pelvis showing some interstitial infiltrates and atelectasis at the lung bases mild cardiomegaly, no acute abnormality within the abdomen and pelvis, moderate colonic diverticulosis without diverticulitis, cholecystectomy, no dilated ducts no evidence of a bile leak. Patient was checked for: 19 and was found to be positive, other laboratory analysis showed white blood cell count of 4.1, hemoglobin of 13.4, INR is 1.1, electrolytes were within normal limits, and patient was found to have acute kidney injury with the BUN of 44 creatinine 3.13, and GFR of 17, 600, CRP was 43.8, and lipase was 309, urinalysis was checked showing no clear evidence of urinary tract infection. Recently on 2 L of oxygen the pulse ox of 92-96%, intermittent low-grade fevers with T-max of 99.2F. He was started on Decadron 4 mg twice daily, he is on prophylactic dose of Lovenox for his renal clearance, he is receiving gentle IV hydration, and the pulmonary service was consulted in view of his COVID 19 infection On June 07 patient seen in follow-up on medical floor, currently on 3 L of oxygen the pulse ox of 99%, appears to be, comfortable, no worsening dyspnea, he is breathing comfortably, but appears to be generally weak, he is currently sitting up in the recliner, he barely holding his head up, his vital signs have been stable, his had no acute events overnight. No new chest x-ray, today's labs have been reviewed, his renal function has significantly improved, and BUN is 32 and creatinine is down to 1.2, electrolytes were within normal limits. He's had no nausea vomiting or diarrhea. He remains on prophylactic dose of Lovenox, oral Decadron, and vitamin C, vitamin D and zinc supplement in addition to gentle IV hydration with 0.9 normal saline at a rate of 75 ML per hour. His been evaluated by physical therapy and apparently patient's family was not happy with the care at the [facility] and took patient home before he completed his rehabilitation however patient was increasingly weak at home. Current recommendation from physical therapy is nursing, physical therapy and occupational therapy, 24-hour care as the patient having difficulty with transfers, requires extensive verbal and physical cues, has very limited functional endurance and extensive assistance with all ADLs On 06/13/2020 patient seen in follow-up on medical floor, is currently on 6 L of oxygen, there is to be in no acute distress, appears weak, debilitated, no evidence of any respiratory distress noted. Afebrile. Continues on Decadron 4 mg twice daily, prophylactic dose of Lovenox, Diflucan. Today he went for a PEG tube placement, following the procedure for which she was intubated patient returned back to his room and he was increasingly more hypoxic, requiring 15 liters of oxygen, repeat chest x-ray is pending, rapid response team was called, attending physician address the CODE STATUS with patient's family and patient's family is insisting on full code. However in view of his overall very debilitated state his long-term prognosis is quite guarded and poor. These labs showed a white blood cell count of 13.4, hemoglobin of 12.8, sodium was 147, potassium is 4.0, chloride is 111, CO2 is 22, BUN of 26, creatinine is 1.1. On 06/14/2020 patient seen in follow-up on medical floor. Yesterday he received a PEG tube in the post procedure she became increasingly more hypoxic, requiring BiPAP support, today he still remains on BiPAP support blood pressures of 12 and 6, and FiO2 of 40%. His chest x-ray today shows hypoventilatory changes with increasing interstitial infiltrates and new patchy airspace disease in the left lung. Patient has been on Zosyn for last few days. His pulse ox on BiPAP support is 96%, his had no fevers overnight, hemodynamically stable, overall g enerally he is very weak. Maintenance IV fluids is D5W at a rate of 50 ML per hour. On fluconazole for antibiotic coverage, dexamethasone 4 mg twice daily, Lovenox at prophylactic dose. We anticipate starting enteral feedings today, no new labs On 06/15/2020 patient seen in follow-up on medical floor, is a bit more responsive today, appears a bit stronger, he was on BiPAP support since yesterd ay, current BiPAP pressures are 12/6, and FiO2 of 60%, appears to be in no respiratory distress, tube feedings have been started, tolerating them well. Remains generally weak. His chest x-ray has been reviewed showing patchy bilateral areas of infiltrates slightly improved within the left upper lobe. Patient remains on IV Decadron, vitamin C, zinc, vitamin D, and he is on Zosyn for empiric antibiotic coverage. Has been afebrile overnight. On 06/16/2020 patient seen in follow-up on medical floor, there is breathing comfortably, much more awake, responding verbally, he is currently on 3 L of oxygen, he did wear BiPAP support at bedtime for several hours, he is on nasal cannula during the day. She is breathing comfortably, no complaints of chest pain, no fever or chills, appears stronger compared to his previous physical exams. He is attempting to take some oral intake, he ate a few bites of oatmeal, he remains on tube feedings via his PEG tube for exertional supplementation. Today's labs have been reviewed, showing white blood cell count 10.7, hemoglobin is 12.1, chloride was on 13, the rest of her joints were within normal limits, BUN any, creatinine is 1, maintained on Zosyn for antibiotic coverage, vital stable, he is also on Diflucan, he is on Lovenox at prophylactic doses 40 mg daily, and IV dexamethasone 4 mg twice daily. Objective - Vital Signs Vital signs: Vital Signs Temp 97.5 F L 06/16/20 11:12 Pulse 83 06/16/20 11:12 Resp 20 06/16/20 11:12 BP 177/75 06/16/20 11:12 Pulse Ox 91 L 06/16/20 11:12 Intake & Output 06/15/20 06/16/20 06/16/20 18:59 06:59 18:59 Intake Total 970 1080 Output Total 350 Balance 620 1080 Intake: Intake, IV Titration 700 600 Amount Dextrose 5% in Water 1, 600 600 000 ml @ 50 mls/hr IV . Q20H SHEN Rx#:[id number] Piperacillin-Tazobactam 3 100 .375 gm In Sodium Chloride 0.9% 100 ml @ 25 mls/hr IVPB Q8HR SHEN Rx# :[id number] Oral 0 Tube Feeding 180 360 Other 90 120 Output: Urine 350 Other: Voiding Method Diaper Diaper Diaper Incontinent Incontinent Incontinent # Bowel Movements 1 - Exam GENERAL EXAM: Awake, alert 84-year-old white male, generally debilitated, weak, looking a bit stronger on today's exam, currently on 3 L of oxygen per pulse ox of 91-92%, does go on BiPAP support at bedtime on as-needed basis, currently pressures of 12 6, and FiO2 of 40% HEAD: Normocephalic/atraumatic. EYES: Normal reaction of pupils, equal size. Conjunctiva pink, sclera white. NOSE: Clear with pink turbinates. THROAT: No erythema or exudates. NECK: No masses, no JVD, no thyroid enlargement, no adenopathy. CHEST: No chest wall deformity. Symmetrical expansion. LUNGS: Equal air entry with no crackles, wheeze, rhonchi or dullness. CVS: Regular rate and rhythm, normal S1 and S2, no gallops, no murmurs, no rubs ABDOMEN: Soft, nontender. No hepatosplenomegaly, normal bowel sounds, no guarding or rigidity. Abdominal incisions clean dry and intact, PEG tube in place EXTREMITIES: No clubbing, no edema, no cyanosis, 2+ pulses and upper and lower extremities. MUSCULOSKELETAL: Muscle strength and tone normal. SPINE: No scoliosis or deformity SKIN: No rashes CENTRAL NERVOUS SYSTEM: Drowsy, but arousable, appears very weak and worn out No focal deficits, tone is normal in all 4 extremities. - Labs CBC & Chem 7: 06/16/20 06:25 06/16/20 06:25 Labs: Abnormal Lab Results - Last 24 Hours (Table) 06/15/20 06/15/20 06/16/20 Range/Units 16:51 20:37 06:25 WBC 10.7 H (3.8-10.6) k/uL Hgb 12.1 L (13.0-17.5) gm/dL Hct 36.1 L (39.0-53.0) % RDW 16.8 H (11.5-15.5) % Chloride (96-109) mmol/L BUN (9.0-27.0) mg/dL BUN/Creatinine Ratio (12.00-20.00) Ratio Glucose (70-110) mg/dL POC Glucose (mg/dL) 125 H 124 H (75-99) mg/dL Calcium (8.7-10.3) mg/dL 06/16/20 06/16/20 06/16/20 Range/Units 06:25 07:30 11:41 WBC (3.8-10.6) k/uL Hgb (13.0-17.5) gm/dL Hct (39.0-53.0) % RDW (11.5-15.5) % Chloride 113 H (96-109) mmol/L BUN 28.0 H (9.0-27.0) mg/dL BUN/Creatinine Ratio 28.00 H (12.00-20.00) Ratio Glucose 249 H (70-110) mg/dL POC Glucose (mg/dL) 264 H 237 H (75-99) mg/dL Calcium 8.2 L (8.7-10.3) mg/dL Assessment and Plan Plan: Assessment: #1. Worsening hypoxemia, and dyspnea, the possibility of healthcare acquired pneumonia versus aspiration pneumonia, superimposed on Covid19 pneumonia is being considered in view of chest x-ray findings with worsening left upper lobe airspace disease and diffuse pulmonary infiltrates related to recent history of COVID 19 infection. Currently on BiPAP support with pressures of 12/6, and FiO2 40% #2. Acute COVID 19 infection, chest x-ray showed low lung volumes without new suspicious acute pulmonary process. Patient initially presented without significant pulmonary symptoms, and requiring minimal supplemental oxygen, currently O2 demands have increased with worsening chest x-ray findings #3. Acute kidney injury, improved with IV hydration #4. Status post PEG tube placement today on 06/13/2020 for nutritional support #5. Lethargy, encephalopathy, gait dysfunction, severe generalized weakness, severe medical debility #6. Mild abdominal discomfort, CT abdomen and pelvis showed no acute intra- abdominal or intrapelvic abnormality with evidence of recent cholecystectomy, no dilated ducts, no evidence of a bile leak #7. Recent history of gangrenous cholecystitis, status post laparoscopic cholecystectomy on 05/18/[address] Taylor #8. General medical debility, he required custodial facility placement after his most recent hospitalization but recently was discharged from the custodial facility to his daughter's house where he could not care for himself #9. Diabetes mellitus type 2 #10. Hypertension #11. Hyperlipidemia #12. Chronic kidney disease, stage III at baseline #13. Previous history of GI bleeding and diverticulitis #14. History of BPH on Flomax Plan: We'll switch patient's antibiotics to oral Augmentin, vital signs have been stable, patient has been afebrile, he is breathing easier, appears stronger and today's exam, he is tolerating tube feedings, he is even attempting to take some oral intake by mouth. No acute events overnight, from pulmonary perspective she can be considered for discharge back to the [facility] today or tomorrow. Maintain aspiration precautions, wean FiO2. Patient can complete a total of 10 days of oral Decadron 6 mg daily including what he received in the hospital. I performed a history & physical examination of the patient and discussed their management with my nurse practitioner, Corina Graham. I reviewed the nurse practitioner's note and agree with the documented findings and plan of care. Lung sounds are positive for diminished breath sounds. The findings and the impression was discussed with the patient. I attest to the documentation by the nurse practitioner. Time with Patient: Less than 30
[2020-06-16 16:40] LABS: Glucose,Whole Blood 303 mg/dL (75-99)
[2020-06-16 20:20] LABS: Glucose,Whole Blood 178 mg/dL (75-99)
[2020-06-16] MEDS: AMOXIC-POT CLAV 875-125MG 1 EACH TAB PO SCH (20:31)
[2020-06-16] MEDS: DEXTROSE 5% IN WATER 1,000 ML IV SCH (22:08)
[2020-06-17 06:59] LABS: Glucose,Whole Blood 128 mg/dL (75-99)
[2020-06-17] MEDS: glipiZIDE 5 MG TAB PO SCH ×2 (07:29→17:02)
[2020-06-17] MEDS: FLUCONAZOLE 100 MG TAB PO SCH (07:29)
[2020-06-17] MEDS: dexAMETHasone 2 MG TAB PO SCH (07:29)
[2020-06-17] MEDS: ASCORBIC ACID 500 MG TAB PO SCH (07:29)
[2020-06-17] MEDS: CHOLECALCIFEROL 1,000 UNIT TAB PO SCH (07:29)
[2020-06-17] MEDS: ZINC SULFATE 220 MG CAP PO SCH (07:29)
[2020-06-17] MEDS: amLODIPine 5 MG TAB PO SCH (07:29)
[2020-06-17] MEDS: metFORMIN 500 MG TAB PO SCH ×2 (07:30→17:02)
[2020-06-17] MEDS: TAMSULOSIN 0.4 MG CAP.ER.24H PO SCH (07:30)
[2020-06-17] MEDS: ENOXAPARIN 40 MG/0.4 ML SYRINGE SQ SCH (07:30)
[2020-06-17] MEDS: hydrALAZINE HCL 50 MG TAB PO SCH ×3 (07:30→21:13)
[2020-06-17] MEDS: INSULIN ASPART (NovoLOG) 100 UNIT/ML VIAL SQ SCH ×7 (07:30→21:13)
[2020-06-17] MEDS: AMOXIC-POT CLAV 875-125MG 1 EACH TAB PO SCH ×2 (07:36→21:13)
[2020-06-17] MEDS: ALBUTEROL HFA INHALER INHALATION SCH ×4 (08:12→19:46)
[2020-06-17 11:33] LABS: Glucose,Whole Blood 115 mg/dL (75-99)
--- NOTE | 2020-06-17 11:38 | P.PN ---
Subjective Progress Note Date: 06/17/20 HISTORY OF PRESENT ILLNESS This is an 84-year-old -[place] male patient of Dr. Singer with past medical history of diabetes mellitus type 2, hypertension, hyperlipidemia, chr onic kidney disease, history of GI bleed from diverticulitis, recently admitted to the hospital for acute cholecystitis status post laparoscopic cholecystectomy and also treated for bilateral pneumonia. Patient was discharged to [facility] and completed his course of rehab. He was then discharged home on May 30. Patient has developed increasing weakness with mental status changes. Not eating or drinking and was brought into the hospital for evaluation. Patient presented to [facility] emergency center. He was afebrile, heart rate 85, blood pressure 144/77, pulse ox 96% on room air. CBC was unremarkable. Electrolytes normal, BUN 44 and creatinine 3.13. Blood sugar 166. Magnesium 1.5. Liver function tests normal. Urinalysis positive for protein and blood with no sign of infection. COVID-19 positive. LDH 600, C- reactive protein 43.8. Chest x-ray reveals mild cardiomegaly and low lung volumes without suspicious acute pulmonary process. CAT scan of the abdomen and pelvis without contrast revealed interstitial infiltrate and atelectasis at the lung bases increased from old exam. Mild cardiomegaly. No acute abnormality within the abdomen and pelvis. Moderate colonic diverticulosis without diverticulitis. No evidence of bile leak. CAT scan of the brain revealed cerebral atrophy and chronic small vessel ischemia. No acute intracranial ab normality. Patient was admitted to the [facility] floor. 06/07: Patient has been seen by pulmonary medicine with plan to continue current medications. Nephrology has decreased normal saline 75 mL per hour. Hydralazine increased to 3 times daily. Renal ultrasound reveals no hydronephrosis. Benign 2.2 cm cortical cyst on the left. Bladder suboptimally assessed. Patient has been afebrile, heart rate 61, blood pressure 155/66, pulse ox 98% on 3 L nasal cannula. Blood sugars are running between 141 and 169. Repeat blood work for this morning remains pending. Patient continues to state that he does not have any appetite. He is feeling a little bit better from yesterday. PT and OT evaluations today. 06/08: Patient has been afebrile, heart rate 55, blood pressure 171/69, pulse ox 90% on 2 L. Breathing status has been stable. He denies shortness of breath. Boone catheter in place which will be discontinued today. IV fluids continue by nephrology. Bladder scans monitor for residuals, avoid nephrotoxic agents. Amlodipine and hydralazine to be held for systolic blood pressure less than 130. PT has evaluated with recommendations for home care for subacute rehab with 24- hour care. Electrolytes normal, BUN 43 and creatinine 1.7. Blood sugars are running 184-243. Levemir 10 units at bedtime added. Hyperglycemia secondary to steroids. Anticipate discharge by the end of the week. 06/09: The patient is a little confused today and not eating. Patient denies any complaints, no pain. He answers yes that he is ready to go home. Temperature max 100.2. He was bladder scanned and had 100 mL. Heart rate documented at 101 although rate on exam is slower and appears to be irregular. EKG ordered. Blood pressure 159/75, pulse ox 91% on room air. Repeat lab work reveals WBC 7.8, hemoglobin 12.3. BUN 41 and creatinine 1.2, potassium 3.5. Blood sugars running between 135 and 182. Patient's daughter contacted over the phone and updated regarding his current condition. She was under the impression the patient will be staying in the hospital for a full 14 days for isolation but informed that this will not be happening. We have asked counter caser/social media director to follow-up with the patient's family regarding discharge planning. Most likely patient will be ready to be discharged tomorrow or Saturday. 06/10: Patient has been refusing to eat his meals. He continues to have significant cough. Temperature max 99.6. Respiratory rate has increased to 28. Pulse ox is 93% on 3 L nasal cannula. Heart rate 112. Contacted patient's daughter Partha [phone] and provided update. Her main concern is the patient is not eating. We will ask for speech therapy evaluation and consult with Dr. Taylor for PEG tube placement for temporary nutrition. Discussed again the need for subacute rehab versus returning home. Do not anticipate discharge until early next week. 06/11: The patient still is not eating, he refuses to eat. He does have severe thrush for which he does not seem able to tolerate nystatin and will be placed on Diflucan IV. Patient did have a previously elevated d-dimer and CAT scan of the chest ordered to rule out pulmonary embolism. He is developing increasing respiratory distress. Pulse ox is 88% on 4 L. Respiratory rate is up to 40, h eart rate 110, afebrile. General surgery is following for probable chest. 06/12: CTA of the chest showed no evidence of pulmonary embolism. Cardiomegaly. Significantly increased pulmonary infiltrates. Acute pneumonia and atelectasis present. Heart failure also possible. The patient is still refusing to eat and not taking his oral medications. All medications possible have been switched to IV. One dose of IV Lasix ordered for this morning as well as IV potassium replacement. He is current pulse ox 94% on nonrebreather, afebrile, heart rate 97, respiratory rate 32, blood pressure 171/83. Blood sugars run between 162 and 214. IV fluids changed yesterday to 0.45 normal saline by nephrology. Potassium was elevated yesterday and potassium was also replaced yesterday. Lab work today reveals sodium 148, potassium 4, chloride 113, CO2 23, BUN 21 creatinine 1. Blood sugars running between 162 and 215. Patient's sister Haleigh will be coming in to see him today to evaluate his status. 06/13: Patient is scheduled for PEG tube insertion today. His respiratory status is marginal. He is up to 6 L high flow nasal cannula. He has been afebrile, heart rate 104, respiratory rate 28, blood pressure 167/102, pulse ox 92% on 6 L nasal cannula. WBC 13.4, hemoglobin 12.8. Sodium 147, chloride 111, CO2 22. BUN 16 and creatinine 1.1. Blood sugars have been elevated in the 200s. Co ntacted at 2 daughters which were Klaudia and Partha. They have been updated on patient condition and he remains a full code. 06/14: Following PEG tube placement yesterday, patient was hypoxic and required nonrebreather and 18 was called. Patient is now on BiPAP with pulse ox is 95% with 40% FiO2. Heart rate 82, blood pressure 173/83, temperature max 101. He has a Boone catheter in place. Patient is denying that he denies pain. Patient is to be started on tube feedings this afternoon. Chest x-ray was done yes evening which found hypoventilatory changes with increased interstitial infiltrates and new patchy airspace disease in the left lung. Both patient's daughters were contacted yesterday and updated regarding patient's condition knowing the patient has a poor prognosis and they wish for patient to be full code. 06/15: Patient's breathing status seems to be stable today. He is on BiPAP with pulse ox of 96% and FiO2 40. He is nodding. The PEG tube feedings were started last night and he is tolerating. Patient has been afebrile, heart rate 69, blood pressure 170/88. WBC 9.9, hemoglobin 1.7, platelet count 245. Sodium 145, potassium 4, creatinine 1.1. Blood sugars running between 181 and 244. 06/16: The patient's breathing is much better today. His pulse ox is 91% on 3 L. His been afebrile, heart rate 75, blood pressure 180/71. Hydralazine increased to 100 mg 3 times daily. His breathing is stable today. He continues to not have appetite but is on tube feedings which are bullous type. Patient is free to eat any oral diet. Regular diet has been ordered. Repeat blood work reveals WBC 10.7, bilirubin 12.1. BUN 28 and creatinine 1. Potassium 4.1, sodium 143. Blood sugars running in the 200s. Kytril NovoLog added to NovoLog scale. Social work is working with family for discharge planning anticipated for Saturday. 06/17: Patient's breathing status is gradually improving slowly. His pulse ox is 96% on 3 L nasal cannula, he is afebrile, heart rate 74, blood pressure 169/68. Patient is on PEG tube feedings and taking oral with Glucerna. Patient's family is requesting inpatient rehab at the rehab [place] [facility] [place]. Patient's Sr. Ricardo has been contacted and discussed current condition and plan. Patient currently would not qualify for inpatient rehab as he is a 2-3 person assist. Blood sugars are running between 115 and 178. Social work is following and working with family for discharge planning. Anticipate discharge on Saturday. REVIEW OF SYSTEMS Constitutional: No fever, no chills, no night sweats. No weight change. Reports significant generalized weakness, Reports fatigue Reports lethargy. EENT: No headache. No blurred vision or double vision, no loss of vision. No loss of Hearing, no ringing in the ears, no dizziness. No nasal drainage or congestion. No epistaxis. No sore throat. Lungs: Reports worsening shortness of breath, reports cough, no sputum production. No wheezing. Cardiovascular: No chest pain, no lower extremity edema. No palpitations. No paroxysmal nocturnal dyspnea. No orthopnea. No lightheadedness or dizziness. No syncopal episodes. Abdominal: No abdominal pain. No nausea, vomiting. No diarrhea. No constipation. No bloody or tarry stools. Reports loss of appetite. Genitourinary: No dysuria, increased frequency, urgency. No urinary retention. Musculoskeletal: No myalgias. Reports muscle weakness, no gait dysfunction, no frequent falls. No back pain. No neck pain. Integumentary: No wounds, no lesions. No rash or pruritus. No unusual bruising. No change in hair or nails. Neurologic: No aphasia. No facial droop. Reports change in mentation improved. No headache. No paralysis. No paresthesia. Psychiatric: No depression. No anxiety. No mood swings. Endocrine: Reports abnormal blood sugars with hyperglycemia. PHYSICAL EXAMINATION Gen: This is an 84-year-old -[place] male. No respiratory distress. Patient is on nasal cannula. HEENT: Head is atraumatic, normocephalic. Pupils equal, round. Sclerae is anicteric. NECK: Supple. No JVD. No lymphadenopathy. No thyromegaly. LUNGS: Crackles bilaterally. No accessory muscle usage increased to 100 mg 3 timesHEART: Irregular and rhythm. No murmur. ABDOMEN: Soft. Bowel sounds are present. No masses. No tenderness. Boone catheter. EXTREMITIES: Plus bilateral pedal edema. No calf tenderness. Small ulceration to the left pretibial area. Please see nursing documentation for details, POA. NEUROLOGICAL: Patient is awake, alert and oriented to person. Cranial nerves 2 through 12 are grossly intact. Patient nods to answer questions. ASSESSMENT AND PLAN 1. Metabolic encephalopathy secondary to Covid 19 pneumonia. Consult with pulmonary medicine appreciated . Continue supplements with vitamin C, vitamin D, zinc. Continue dexamethasone 4 mg twice daily, Lovenox daily. 2. Acute hypoxic respiratory failure secondary to Covid 19 pneumonia, possible gram-negative bacterial pneumonia. Pulmonary medicine consult appreciated. Zosyn transition to oral Augmentin. Continue nasal cannula oxygen therapy. 3. Acute kidney injury with chronic kidney disease stage III. Consult with nephrology appreciated. Continue to Hold losartan. Avoid nephrotoxic agents. Boone catheter in place. 4. Hypertension. Continue Norvasc 5 mg daily, hydralazine 100 mg 3 times daily, IV available as needed. Losartan on hold. 5. Hyperlipidemia. 6. History of recent laparoscopic cholecystectomy, stable. 7. History of GI bleed from diverticulitis, stable. 8. Benign prostatic hypertrophy. Continue Flomax or 0.4 mg daily. Boone catheter. 9. Diabetes mellitus type 2 uncontrolled with hyperglycemia. Continue NovoLog scale before meals and at bedtime, scheduled NovoLog 5 units with meals. Patien t will be resumed on metformin/ glipizide. 10. Severe protein calorie malnutrition due to refusal to eat. Speech therapy evaluation, Dr. Taylor consult regarding PEG tube insertion. Continue bolus PEG tube feedings and oral intake, Glucerna. 11. Severe oral thrush. Was on Diflucan. 12. GI prophylaxis. Protonix. 10. DVT prophylaxis. Lovenox. 11. Hypernatremia. 12. Pressure ulcer stage 1, coccyx, present on admission. DISCHARGE PLAN Anticipate need for subacute rehab on Saturday. Social work is following closely.. Impression and plan of care have been directed as dictated by the signing physician. Cyndy Faust nurse practitioner acting as scribe for signing physician. Objective - Vital Signs Vital signs: Vital Signs Temp 97.9 F 06/17/20 06:09 Pulse 72 06/17/20 06:09 Resp 20 06/17/20 06:09 BP 164/80 06/17/20 06:09 Pulse Ox 95 06/17/20 06:09 Intake & Output 06/16/20 06/17/20 06/17/20 18:59 06:59 18:59 Intake Total 300 Balance 300 Weight 115 kg Intake: Tube Feeding 300 Other: Voiding Method Diaper Diaper Incontinent Incontinent # Voids 3 3 # Bowel Movements 1 - Labs CBC & Chem 7: 06/16/20 06:25 06/16/20 06:25 Labs: Abnormal Lab Results - Last 24 Hours (Table) 06/16/20 06/16/20 06/16/20 Range/Units 06:25 11:41 16:38 Chloride 113 H (96-109) mmol/L BUN 28.0 H (9.0-27.0) mg/dL BUN/Creatinine Ratio 28.00 H (12.00-20.00) Ratio Glucose 249 H (70-110) mg/dL POC Glucose (mg/dL) 237 H 303 H (75-99) mg/dL Calcium 8.2 L (8.7-10.3) mg/dL 06/16/20 06/17/20 Range/Units 20:18 06:56 Chloride (96-109) mmol/L BUN (9.0-27.0) mg/dL BUN/Creatinine Ratio (12.00-20.00) Ratio Glucose (70-110) mg/dL POC Glucose (mg/dL) 178 H 128 H (75-99) mg/dL Calcium (8.7-10.3) mg/dL
--- NOTE | 2020-06-17 12:48 | P.PN ---
Subjective Progress Note Date: 06/17/20 CHIEF COMPLAINT: Generalized weakness HISTORY OF PRESENT ILLNESS: Patient is status post PEG tube placement. He is tolerating bolus tube feedings. No residual. Patient did eat a few bites of a regular diet yesterday. Today patient has not eaten anything. He's also admitted to the hospital for Covid 19 pneumonia. Afebrile. WBC 10.7 PHYSICAL EXAM: VITAL SIGNS: Reviewed. GENERAL: Well-developed in no acute distress. HEENT: No sclera icterus. Extraocular movements grossly intact. Moist buccal mucosa. Head is atraumatic, normocephalic. ABDOMEN: Soft. Nondistended. Nontender. PEG tube site clean dry and intact NEUROLOGIC: Alert and oriented. Cranial nerves II through XII grossly intact. ASSESSMENT: 1. Severe protein calorie malnutrition and poor oral intake patient status post PEG tube placement 2. Covid 19 pneumonia PLAN: -Continue tube feedings as per dietitian recommendations -Continue supportive care Physician Software Security Consultant note has been reviewed by physician. Signing provider agrees with the documented findings, assessment, and plan of care. Objective - Vital Signs Vital signs: Vital Signs Temp 97.5 F L 06/17/20 09:40 Pulse 74 06/17/20 09:40 Resp 22 06/17/20 09:40 BP 169/68 06/17/20 09:40 Pulse Ox 96 06/17/20 09:40 Intake & Output 06/16/20 06/17/20 06/17/20 18:59 06:59 18:59 Intake Total 300 Balance 300 Weight 115 kg Intake: Tube Feeding 300 Other: Voiding Method Diaper Diaper Diaper Incontinent Incontinent Incontinent # Voids 3 3 # Bowel Movements 1 - Labs CBC & Chem 7: 06/16/20 06:25 06/16/20 06:25 Labs: Abnormal Lab Results - Last 24 Hours (Table) 06/16/20 06/16/20 06/17/20 Range/Units 16:38 20:18 06:56 POC Glucose (mg/dL) 303 H 178 H 128 H (75-99) mg/dL 06/17/20 Range/Units 11:32 POC Glucose (mg/dL) 115 H (75-99) mg/dL
--- NOTE | 2020-06-17 14:14 | P.PN ---
Subjective Progress Note Date: 06/17/20 Principal diagnosis: Altered mental status, COVID 19 84-year-old white male patient with a recent history of cholecystectomy for gangrenous cholecystitis on 05/18/2020 following which he was recovering at the [facility], has a past medical history of diabetes mellitus, hypertension, previous episodes of pneumonia, diverticular disease, history of lower GI bleeding, with EGD and colonoscopy, was brought into the emergency department per EMS on 06/05/2020 for evaluation of altered mental status and generalized weakness. He was discharged to a fdc facility on 05/25/2020 and was recently discharged from there on 05/30/2020 to his daughter's house where he was having increasing difficulty caring for himself. His chest x-ray no emergency department showed the mild cardiomegaly, low lung volumes without suspicious focal airspace opacity, pleural effusions and no evidence of pneumothorax. His brain CT shows cerebral atrophy and chronic small vessel ischemia, no acute intracranial abnormality. Normal sinus rhythm on the EKG. Patient denied any fever or chills. Denied any significant shortness of breath. No nausea vomiting or diarrhea, admit to some abdominal pain in the right upper quadrant where he had incision sites. Abdomen is soft and nontender. Reports normal appetite. Meds to being increasingly more weak, and no other complaints. CT of the abdomen and pelvis showing some interstitial infiltrates and atelectasis at the lung bases mild cardiomegaly, no acute abnormality within the abdomen and pelvis, moderate colonic diverticulosis without diverticulitis, cholecystectomy, no dilated ducts no evidence of a bile leak. Patient was checked for: 19 and was found to be positive, other laboratory analysis showed white blood cell count of 4.1, hemoglobin of 13.4, INR is 1.1, electrolytes were within normal limits, and patient was found to have acute kidney injury with the BUN of 44 creatinine 3.13, and GFR of 17, 600, CRP was 43.8, and lipase was 309, urinalysis was checked showing no clear evidence of urinary tract infection. Recently on 2 L of oxygen the pulse ox of 92-96%, intermittent low-grade fevers with T-max of 99.2F. He was started on Decadron 4 mg twice daily, he is on prophylactic dose of Lovenox for his renal clearance, he is receiving gentle IV hydration, and the pulmonary service was consulted in view of his COVID 19 infection On June 07 patient seen in follow-up on medical floor, currently on 3 L of oxygen the pulse ox of 99%, appears to be, comfortable, no worsening dyspnea, he is breathing comfortably, but appears to be generally weak, he is currently sitting up in the recliner, he barely holding his head up, his vital signs have been stable, his had no acute events overnight. No new chest x-ray, today's labs have been reviewed, his renal function has significantly improved, and BUN is 32 and creatinine is down to 1.2, electrolytes were within normal limits. He's had no nausea vomiting or diarrhea. He remains on prophylactic dose of Lovenox, oral Decadron, and vitamin C, vitamin D and zinc supplement in addition to gentle IV hydration with 0.9 normal saline at a rate of 75 ML per hour. His been evaluated by physical therapy and apparently patient's family was not happy with the care at the [facility] and took patient home before he completed his rehabilitation however patient was increasingly weak at home. Current recommendation from physical therapy is nursing, physical therapy and occupational therapy, 24-hour care as the patient having difficulty with transfers, requires extensive verbal and physical cues, has very limited functional endurance and extensive assistance with all ADLs On 06/13/2020 patient seen in follow-up on medical floor, is currently on 6 L of oxygen, there is to be in no acute distress, appears weak, debilitated, no evidence of any respiratory distress noted. Afebrile. Continues on Decadron 4 mg twice daily, prophylactic dose of Lovenox, Diflucan. Today he went for a PEG tube placement, following the procedure for which she was intubated patient returned back to his room and he was increasingly more hypoxic, requiring 15 liters of oxygen, repeat chest x-ray is pending, rapid response team was called, attending physician address the CODE STATUS with patient's family and patient's family is insisting on full code. However in view of his overall very debilitated state his long-term prognosis is quite guarded and poor. These labs showed a white blood cell count of 13.4, hemoglobin of 12.8, sodium was 147, potassium is 4.0, chloride is 111, CO2 is 22, BUN of 26, creatinine is 1.1. On 06/14/2020 patient seen in follow-up on medical floor. Yesterday he received a PEG tube in the post procedure she became increasingly more hypoxic, requiring BiPAP support, today he still remains on BiPAP support blood pressures of 12 and 6, and FiO2 of 40%. His chest x-ray today shows hypoventilatory changes with increasing interstitial infiltrates and new patchy airspace disease in the left lung. Patient has been on Zosyn for last few days. His pulse ox on BiPAP support is 96%, his had no fevers overnight, hemodynamically stable, overall g enerally he is very weak. Maintenance IV fluids is D5W at a rate of 50 ML per hour. On fluconazole for antibiotic coverage, dexamethasone 4 mg twice daily, Lovenox at prophylactic dose. We anticipate starting enteral feedings today, no new labs On 06/15/2020 patient seen in follow-up on medical floor, is a bit more responsive today, appears a bit stronger, he was on BiPAP support since yesterd ay, current BiPAP pressures are 12/6, and FiO2 of 60%, appears to be in no respiratory distress, tube feedings have been started, tolerating them well. Remains generally weak. His chest x-ray has been reviewed showing patchy bilateral areas of infiltrates slightly improved within the left upper lobe. Patient remains on IV Decadron, vitamin C, zinc, vitamin D, and he is on Zosyn for empiric antibiotic coverage. Has been afebrile overnight. On 06/16/2020 patient seen in follow-up on medical floor, there is breathing comfortably, much more awake, responding verbally, he is currently on 3 L of oxygen, he did wear BiPAP support at bedtime for several hours, he is on nasal cannula during the day. She is breathing comfortably, no complaints of chest pain, no fever or chills, appears stronger compared to his previous physical exams. He is attempting to take some oral intake, he ate a few bites of oatmeal, he remains on tube feedings via his PEG tube for exertional supplementation. Today's labs have been reviewed, showing white blood cell count 10.7, hemoglobin is 12.1, chloride was on 13, the rest of her joints were within normal limits, BUN any, creatinine is 1, maintained on Zosyn for antibiotic coverage, vital stable, he is also on Diflucan, he is on Lovenox at prophylactic doses 40 mg daily, and IV dexamethasone 4 mg twice daily. On 06/17/2019 patient seen in follow-up on medical floor. He is awake and alert, appears to be distress, breathing comfortably, he is on 3 L of oxygen pulse ox 94-96%, no fever or chills, he is tolerating tube feedings, he has been started on oral feedings as well. His any chest discomfort, appears to be a little stronger today, no nausea vomiting or diarrhea, no fever or chills. Continues on oral Decadron, he continues on D5W at 50 ML per hour, his sodium yesterday was 143, his BUN was 20 and creatinine is 1.0. Discharge planning is in progress for placement in the ECF home in [place] per patient's stepdaughter Objective - Vital Signs Vital signs: Vital Signs Temp 97.8 F 06/17/20 13:43 Pulse 77 06/17/20 13:43 Resp 22 06/17/20 13:43 BP 149/71 06/17/20 13:43 Pulse Ox 94 L 06/17/20 13:43 Intake & Output 06/16/20 06/17/20 06/17/20 18:59 06:59 18:59 Intake Total 300 Balance 300 Weight 115 kg Intake: Tube Feeding 300 Other: Voiding Method Diaper Diaper Diaper Incontinent Incontinent Incontinent # Voids 3 3 # Bowel Movements 1 - Exam GENERAL EXAM: Awake, alert 84-year-old white male, generally debilitated, weak, looking a bit stronger on today's exam, currently on 3 L of oxygen per pulse ox of 91-92%, does go on BiPAP support at bedtime on as-needed basis, currently pressures of 12 6, and FiO2 of 40% HEAD: Normocephalic/atraumatic. EYES: Normal reaction of pupils, equal size. Conjunctiva pink, sclera white. NOSE: Clear with pink turbinates. THROAT: No erythema or exudates. NECK: No masses, no JVD, no thyroid enlargement, no adenopathy. CHEST: No chest wall deformity. Symmetrical expansion. LUNGS: Equal air entry with no crackles, wheeze, rhonchi or dullness. CVS: Regular rate and rhythm, normal S1 and S2, no gallops, no murmurs, no rubs ABDOMEN: Soft, nontender. No hepatosplenomegaly, normal bowel sounds, no guarding or rigidity. Abdominal incisions clean dry and intact, PEG tube in place EXTREMITIES: No clubbing, no edema, no cyanosis, 2+ pulses and upper and lower extremities. MUSCULOSKELETAL: Muscle strength and tone normal. SPINE: No scoliosis or deformity SKIN: No rashes CENTRAL NERVOUS SYSTEM: Drowsy, but arousable, appears very weak and worn out No focal deficits, tone is normal in all 4 extremities. - Labs CBC & Chem 7: 06/16/20 06:25 06/16/20 06:25 Labs: Abnormal Lab Results - Last 24 Hours (Table) 06/16/20 06/16/20 06/17/20 Range/Units 16:38 20:18 06:56 POC Glucose (mg/dL) 303 H 178 H 128 H (75-99) mg/dL 06/17/20 Range/Units 11:32 POC Glucose (mg/dL) 115 H (75-99) mg/dL Assessment and Plan Plan: Assessment: #1. Worsening hypoxemia, and dyspnea, the possibility of healthcare acquired pneumonia versus aspiration pneumonia, superimposed on Covid19 pneumonia is being considered in view of chest x-ray findings with worsening left upper lobe airspace disease and diffuse pulmonary infiltrates related to recent history of COVID 19 infection. Currently on BiPAP support with pressures of 12/6, and FiO2 40% #2. Acute COVID 19 infection, chest x-ray showed low lung volumes without new suspicious acute pulmonary process. Patient initially presented without significant pulmonary symptoms, and requiring minimal supplemental oxygen, currently O2 demands have increased with worsening chest x-ray findings #3. Acute kidney injury, improved with IV hydration #4. Status post PEG tube placement today on 06/13/2020 for nutritional support #5. Lethargy, encephalopathy, gait dysfunction, severe generalized weakness, severe medical debility #6. Mild abdominal discomfort, CT abdomen and pelvis showed no acute intra- abdominal or intrapelvic abnormality with evidence of recent cholecystectomy, no dilated ducts, no evidence of a bile leak #7. Recent history of gangrenous cholecystitis, status post laparoscopic cholecystectomy on 05/18/[address] Taylor #8. General medical debility, he required fdc facility placement after his most recent hospitalization but recently was discharged from the fdc facility to his daughter's house where he could not care for himself #9. Diabetes mellitus type 2 #10. Hypertension #11. Hyperlipidemia #12. Chronic kidney disease, stage III at baseline #13. Previous history of GI bleeding and diverticulitis #14. History of BPH on Flomax Plan: Patient is doing well, stable from pulmonary perspective, no acute events overnight, continues on antibiotics, we switched him to oral antibiotics yesterday, wean FiO2, maintain aspiration precautions. He is tolerating tube feedings, discharge planning is in progress for possible transfer to ECF in [place], referral has been made. Patient can consider for discharge to ECF from pulmonary perspective. I performed a history & physical examination of the patient and discussed their management with my nurse practitioner, Corina Graham. I reviewed the nurse practitioner's note and agree with the documented findings and plan of care. Lung sounds are positive for diminished breath sounds. The findings and the impression was discussed with the patient. I attest to the documentation by the nurse practitioner. Time with Patient: Less than 30
[2020-06-17 16:18] LABS: Glucose,Whole Blood 236 mg/dL (75-99)
[2020-06-17 21:00] LABS: Glucose,Whole Blood 198 mg/dL (75-99)
[2020-06-17] MEDS: DEXTROSE 5% IN WATER 1,000 ML IV SCH (21:29)
[2020-06-18] MEDS: hydrALAZINE HCL 20 MG/ML 1 ML VIAL IVP PRN (05:24)
[2020-06-18 06:52] LABS: Glucose,Whole Blood 195 mg/dL (75-99)
[2020-06-18] MEDS: ALBUTEROL HFA INHALER INHALATION SCH ×4 (07:25→21:41)
[2020-06-18] MEDS: INSULIN ASPART (NovoLOG) 100 UNIT/ML VIAL SQ SCH ×7 (07:44→21:27)
[2020-06-18] MEDS: ENOXAPARIN 40 MG/0.4 ML SYRINGE SQ SCH (07:44)
[2020-06-18] MEDS: dexAMETHasone 2 MG TAB PO SCH (07:45)
[2020-06-18] MEDS: FLUCONAZOLE 100 MG TAB PO SCH (07:45)
[2020-06-18] MEDS: hydrALAZINE HCL 50 MG TAB PO SCH ×3 (07:45→21:28)
[2020-06-18] MEDS: AMOXIC-POT CLAV 875-125MG 1 EACH TAB PO SCH ×2 (07:45→21:28)
[2020-06-18] MEDS: ZINC SULFATE 220 MG CAP PO SCH (07:45)
[2020-06-18] MEDS: amLODIPine 5 MG TAB PO SCH (07:45)
[2020-06-18] MEDS: TAMSULOSIN 0.4 MG CAP.ER.24H PO SCH (07:46)
[2020-06-18] MEDS: ASCORBIC ACID 500 MG TAB PO SCH (07:46)
[2020-06-18] MEDS: CHOLECALCIFEROL 1,000 UNIT TAB PO SCH (07:46)
[2020-06-18] MEDS: metFORMIN 500 MG TAB PO SCH ×2 (07:46→16:16)
[2020-06-18] MEDS: glipiZIDE 5 MG TAB PO SCH ×2 (07:46→16:17)
[2020-06-18] MEDS: DEXTROSE 5% IN WATER 1,000 ML IV SCH (08:03)
--- NOTE | 2020-06-18 10:31 | P.PN ---
Subjective Progress Note Date: 06/18/20 HISTORY OF PRESENT ILLNESS This is an 84-year-old -Gabonese male patient of Dr. 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 Patient was discharged to [facility] and completed his course of rehab. He was then discharged home on May 30. Patient has developed increasing weakness with mental status changes. Not eating or drinking and was brought into the hospital for evaluation. Patient presented to [facility] emergency center. He was afebrile, heart rate 85, blood pressure 144/77, pulse ox 96% on room air. CBC was unremarkable. Electrolytes normal, BUN 44 and creatinine 3.13. Blood sugar 166. Magnesium 1.5. Liver function tests normal. Urinalysis positive for protein and blood with no sign of infection. COVID-19 positive. LDH 600, C- reactive protein 43.8. Chest x-ray reveals mild cardiomegaly and low lung volumes without suspicious acute pulmonary process. CAT scan of the abdomen and pelvis without contrast revealed interstitial infiltrate and atelectasis at the lung bases increased from old exam. Mild cardiomegaly. No acute abnormality within the abdomen and pelvis. Moderate colonic diverticulosis without diverticulitis. No evidence of bile leak. CAT scan of the brain revealed cerebral atrophy and chronic small vessel ischemia. No acute intracranial abn ormality. Patient was admitted to the [facility] floor. 06/07: Patient has been seen by pulmonary medicine with plan to continue current medications. Nephrology has decreased normal saline 75 mL per hour. Hydralazine increased to 3 times daily. Renal ultrasound reveals no hydronephrosis. Benign 2.2 cm cortical cyst on the left. Bladder suboptimally assessed. Patient has been afebrile, heart rate 61, blood pressure 155/66, pulse ox 98% on 3 L nasal cannula. Blood sugars are running between 141 and 169. Repeat blood work for this morning remains pending. Patient continues to state that he does not have any appetite. He is feeling a little bit better from yesterday. PT and OT evaluations today. 06/08: Patient has been afebrile, heart rate 55, blood pressure 171/69, pulse ox 90% on 2 L. Breathing status has been stable. He denies shortness of breath. Boone catheter in place which will be discontinued today. IV fluids continue by nephrology. Bladder scans monitor for residuals, avoid nephrotoxic agents. Amlodipine and hydralazine to be held for systolic blood pressure less than 130. PT has evaluated with recommendations for home care for subacute rehab with 24- hour care. Electrolytes normal, BUN 43 and creatinine 1.7. Blood sugars are running 184-243. Levemir 10 units at bedtime added. Hyperglycemia secondary to steroids. Anticipate discharge by the end of the week. 06/09: The patient is a little confused today and not eating. Patient denies any complaints, no pain. He answers yes that he is ready to go home. Temperature max 100.2. He was bladder scanned and had 100 mL. Heart rate documented at 101 although rate on exam is slower and appears to be irregular. EKG ordered. Blood pressure 159/75, pulse ox 91% on room air. Repeat lab work reveals WBC 7.8, hemoglobin 12.3. BUN 41 and creatinine 1.2, potassium 3.5. Blood sugars running between 135 and 182. Patient's daughter contacted over the phone and updated regarding his current condition. She was under the impression the patient will be staying in the hospital for a full 14 days for isolation but informed that this will not be happening. We have asked bilingual patient support caseworker/social work case manager to follow-up with the patient's family regarding discharge planning. Most likely patient will be ready to be discharged tomorrow or Saturday. 06/10: Patient has been refusing to eat his meals. He continues to have significant cough. Temperature max 99.6. Respiratory rate has increased to 28. Pulse ox is 93% on 3 L nasal cannula. Heart rate 112. Contacted patient's daughter Partha [phone] and provided update. Her main concern is the patient is not eating. We will ask for speech therapy evaluation and consult with Dr. Taylor for PEG tube placement for temporary nutrition. Discussed again the need for subacute rehab versus returning home. Do not anticipate discharge until early next week. 06/11: The patient still is not eating, he refuses to eat. He does have severe thrush for which he does not seem able to tolerate nystatin and will be placed on Diflucan IV. Patient did have a previously elevated d-dimer and CAT scan of the chest ordered to rule out pulmonary embolism. He is developing increasing respiratory distress. Pulse ox is 88% on 4 L. Respiratory rate is up to 40, he art rate 110, afebrile. General surgery is following for probable chest. 06/12: CTA of the chest showed no evidence of pulmonary embolism. Cardiomegaly. Significantly increased pulmonary infiltrates. Acute pneumonia and atelectasis present. Heart failure also possible. The patient is still refusing to eat and not taking his oral medications. All medications possible have been switched to IV. One dose of IV Lasix ordered for this morning as well as IV potassium replacement. He is current pulse ox 94% on nonrebreather, afebrile, heart rate 97, respiratory rate 32, blood pressure 171/83. Blood sugars run between 162 and 214. IV fluids changed yesterday to 0.45 normal saline by nephrology. Potassium was elevated yesterday and potassium was also replaced yesterday. Lab work today reveals sodium 148, potassium 4, chloride 113, CO2 23, BUN 21 creatinine 1. Blood sugars running between 162 and 215. Patient's sister Haleigh will be coming in to see him today to evaluate his status. 06/13: Patient is scheduled for PEG tube insertion today. His respiratory status is marginal. He is up to 6 L high flow nasal cannula. He has been afebrile, heart rate 104, respiratory rate 28, blood pressure 167/102, pulse ox 92% on 6 L nasal cannula. WBC 13.4, hemoglobin 12.8. Sodium 147, chloride 111, CO2 22. BUN 16 and creatinine 1.1. Blood sugars have been elevated in the 200s. Con tacted at 2 daughters which were Klaudia and Partha. They have been updated on patient condition and he remains a full code. 06/14: Following PEG tube placement yesterday, patient was hypoxic and required nonrebreather and 18 was called. Patient is now on BiPAP with pulse ox is 95% with 40% FiO2. Heart rate 82, blood pressure 173/83, temperature max 101. He has a Boone catheter in place. Patient is denying that he denies pain. Patient is to be started on tube feedings this afternoon. Chest x-ray was done yes evening which found hypoventilatory changes with increased interstitial infiltrates and new patchy airspace disease in the left lung. Both patient's daughters were contacted yesterday and updated regarding patient's condition knowing the patient has a poor prognosis and they wish for patient to be full code. 06/15: Patient's breathing status seems to be stable today. He is on BiPAP with pulse ox of 96% and FiO2 40. He is nodding. The PEG tube feedings were started last night and he is tolerating. Patient has been afebrile, heart rate 69, blood pressure 170/88. WBC 9.9, hemoglobin 1.7, platelet count 245. Sodium 145, potassium 4, creatinine 1.1. Blood sugars running between 181 and 244. 06/16: The patient's breathing is much better today. His pulse ox is 91% on 3 L. His been afebrile, heart rate 75, blood pressure 180/71. Hydralazine increased to 100 mg 3 times daily. His breathing is stable today. He continues to not have appetite but is on tube feedings which are bullous type. Patient is free to eat any oral diet. Regular diet has been ordered. Repeat blood work reveals WBC 10.7, bilirubin 12.1. BUN 28 and creatinine 1. Potassium 4.1, sodium 143. Blood sugars running in the 200s. Kytril NovoLog added to NovoLog scale. Social work is working with family for discharge planning anticipated for Saturday. 06/17: Patient's breathing status is gradually improving slowly. His pulse ox is 96% on 3 L nasal cannula, he is afebrile, heart rate 74, blood pressure 169/68. Patient is on PEG tube feedings and taking oral with Glucerna. Patient's family is requesting inpatient rehab at the rehab [facility] [place]. Patient's Haleigh has been contacted and discussed current condition and plan. Patient currently would not qualify for inpatient rehab as he is a 2-3 person assist. Blood sugars are running between 115 and 178. Social work is following and working with family for discharge planning. Anticipate discharge on Saturday. 06/18: Patient is found resting in bed and acute distress with no complaints. His breathing continues to show improvement compared to yesterday. His pulse ox is 90% on 3 L nasal cannula, heart rate 80, blood pressure 184/86, respirations are 18 and nonlabored. His sister is requesting for him to be sent to a rehab facility near her infiltrate. Social work is working with family for discharge planning. Anticipate a discharge for Saturday. REVIEW OF SYSTEMS Constitutional: No fever, no chills, no night sweats. No weight change. Reports significant generalized weakness, Reports fatigue Reports lethargy. EENT: No headache. No blurred vision or double vision, no loss of vision. No loss of Hearing, no ringing in the ears, no dizziness. No nasal drainage or congestion. No epistaxis. No sore throat. Lungs: Reports worsening shortness of breath, reports cough, no sputum production. No wheezing. Cardiovascular: No chest pain, no lower extremity edema. No palpitations. No paroxysmal nocturnal dyspnea. No orthopnea. No lightheadedness or dizziness. No syncopal episodes. Abdominal: No abdominal pain. No nausea, vomiting. No diarrhea. No constipation. No bloody or tarry stools. Reports loss of appetite. Genitourinary: No dysuria, increased frequency, urgency. No urinary retention. Musculoskeletal: No myalgias. Reports muscle weakness, no gait dysfunction, no frequent falls. No back pain. No neck pain. Integumentary: No wounds, no lesions. No rash or pruritus. No unusual bruising. No change in hair or nails. Neurologic: No aphasia. No facial droop. Reports change in mentation improved. No headache. No paralysis. No paresthesia. Psychiatric: No depression. No anxiety. No mood swings. Endocrine: Reports abnormal blood sugars with hyperglycemia. PHYSICAL EXAMINATION Gen: This is an 84-year-old -Gabonese male. No respiratory distress. Patient is on nasal cannula. HEENT: Head is atraumatic, normocephalic. Pupils equal, round. Sclerae is anicteric. NECK: Supple. No JVD. No lymphadenopathy. No thyromegaly. LUNGS: Crackles bilaterally. No accessory muscle usage increased to 100 mg 3 timesHEART: Irregular and rhythm. No murmur. ABDOMEN: Soft. Bowel sounds are present. No masses. No tenderness. Boone catheter. EXTREMITIES: Plus bilateral pedal edema. No calf tenderness. Small ulceration to the left pretibial area. Please see nursing documentation for details, POA. NEUROLOGICAL: Patient is awake, alert and oriented to person. Cranial nerves 2 through 12 are grossly intact. Patient nods to answer questions. ASSESSMENT AND PLAN 1. Metabolic encephalopathy secondary to Covid 19 pneumonia. Consult with pulmonary medicine appreciated . Continue supplements with vitamin C, vitamin D, zinc. Continue dexamethasone 4 mg twice daily, Lovenox daily. 2. Acute hypoxic respiratory failure secondary to Covid 19 pneumonia, possible gram-negative bacterial pneumonia. Pulmonary medicine consult appreciated. Zosyn transition to oral Augmentin. Continue nasal cannula oxygen therapy. 3. Acute kidney injury with chronic kidney disease stage III. Consult with nephrology appreciated. Continue to Hold losartan. Avoid nephrotoxic agents. Boone catheter in place. 4. Hypertension. Continue Norvasc 5 mg daily, hydralazine 100 mg 3 times daily, IV available as needed. Losartan on hold. 5. Hyperlipidemia. 6. History of recent laparoscopic cholecystectomy, stable. 7. History of GI bleed from diverticulitis, stable. 8. Benign prostatic hypertrophy. Continue Flomax or 0.4 mg daily. Boone catheter. 9. Diabetes mellitus type 2 uncontrolled with hyperglycemia. Continue NovoLog scale before meals and at bedtime, scheduled NovoLog 5 units with meals. Patient will be resumed on metformin/ glipizide. 10. Severe protein calorie malnutrition due to refusal to eat. Speech therapy evaluation, Dr. Taylor consult regarding PEG tube insertion. Continue bolus PEG tube feedings and oral intake, Glucerna. 11. Severe oral thrush. Was on Diflucan. 12. GI prophylaxis. Protonix. 10. DVT prophylaxis. Lovenox. 11. Hypernatremia. 12. Pressure ulcer stage 1, coccyx, present on admission. DISCHARGE PLAN Anticipate need for subacute rehab on Saturday. Social work is following andres quintana.. Impression and plan of care have been directed as dictated by the signing physician. Florina Wynne nurse practitioner acting as scribe for signing physician. Objective - Vital Signs Vital signs: Vital Signs Temp 98.0 F 06/18/20 06:00 Pulse 80 06/18/20 06:00 Resp 18 06/18/20 06:00 BP 184/86 06/18/20 06:00 Pulse Ox 92 L 06/18/20 07:25 Intake & Output 06/17/20 06/18/20 06/18/20 18:59 06:59 18:59 Intake Total 820 Balance 820 Weight 118 kg Intake: Tube Feeding 700 Other 120 Other: Voiding Method Diaper Diaper Incontinent Incontinent - Labs CBC & Chem 7: 06/16/20 06:25 06/16/20 06:25 Labs: Abnormal Lab Results - Last 24 Hours (Table) 06/17/20 06/17/20 06/17/20 Range/Units 11:32 16:16 20:58 POC Glucose (mg/dL) 115 H 236 H 198 H (75-99) mg/dL 06/18/20 Range/Units 06:50 POC Glucose (mg/dL) 195 H (75-99) mg/dL
[2020-06-18 11:33] LABS: Glucose,Whole Blood 164 mg/dL (75-99)
--- NOTE | 2020-06-18 14:17 | P.PN ---
Subjective Progress Note Date: 06/18/20 Principal diagnosis: Altered mental status, CoVID 19 infection 84-year-old white male patient with a recent history of cholecystectomy for gangrenous cholecystitis on 05/18/2020 following which he was recovering at the [facility], has a past medical history of diabetes mellitus, hypertension, previous episodes of pneumonia, diverticular disease, history of lower GI bleeding, with EGD and colonoscopy, was brought into the emergency department per EMS on 06/05/2020 for evaluation of altered mental status and generalized weakness. He was discharged to a nursing home facility on 05/25/2020 and was recently discharged from there on 05/30/2020 to his daughter's house where he was having increasing difficulty caring for himself. His chest x-ray no emergency department showed the mild cardiomegaly, low lung volumes without suspicious focal airspace opacity, pleural effusions and no evidence of pneumothorax. His brain CT shows cerebral atrophy and chronic small vessel ischemia, no acute intracranial abnormality. Normal sinus rhythm on the EKG. Patient denied any fever or chills. Denied any significant shortness of breath. No nausea vomiting or diarrhea, admit to some abdominal pain in the right upper quadrant where he had incision sites. Abdomen is soft and nontender. Reports normal appetite. Meds to being increasingly more weak, and no other complaints. CT of the abdomen and pelvis showing some interstitial infiltrates and atelectasis at the lung bases mild cardiomegaly, no acute abnormality within the abdomen and pelvis, moderate colonic diverticulosis without diverticulitis, cholecystectomy, no dilated ducts no evidence of a bile leak. Patient was checked for: 19 and was found to be positive, other laboratory analysis showed white blood cell count of 4.1, hemoglobin of 13.4, INR is 1.1, electrolytes were within normal limits, and patient was found to have acute kidney injury with the BUN of 44 creatinine 3.13, and GFR of 17, 600, CRP was 43.8, and lipase was 309, urinalysis was checked showing no clear evidence of urinary tract infection. Recently on 2 L of oxygen the pulse ox of 92-96%, intermittent low-grade fevers with T-max of 99.2F. He was started on Decadron 4 mg twice daily, he is on prophylactic dose of Lovenox for his renal clearance, he is receiving gentle IV hydration, and the pulmonary service was consulted in view of his COVID 19 infection On June patient seen in follow-up on medical floor, currently on 3 L of oxygen the pulse ox of 99%, appears to be, comfortable, no worsening dyspnea, he is breathing comfortably, but appears to be generally weak, he is currently sitting up in the recliner, he barely holding his head up, his vital signs have been stable, his had no acute events overnight. No new chest x-ray, today's labs have been reviewed, his renal function has significantly improved, and BUN is 32 and creatinine is down to 1.2, electrolytes were within normal limits. He's had no nausea vomiting or diarrhea. He remains on prophylactic dose of Lovenox, oral Decadron, and vitamin C, vitamin D and zinc supplement in addition to gentle IV hydration with 0.9 normal saline at a rate of 75 ML per hour. His been evaluated by physical therapy and apparently patient's family was not happy with the care at the [facility] and took patient home before he completed his rehabilitation however patient was increasingly weak at home. Current recommendation from physical therapy is nursing, physical therapy and occupational therapy, 24-hour care as the patient having difficulty with transfers, requires extensive verbal and physical cues, has very limited functional endurance and extensive assistance with all ADLs. The patient is seen today 06/11/2020 follow-up on the regular medical floor. He remains quite altered. He's been refusing any oral medications. Respirations in the 30s. O2 saturation 88% on 4 L/m per nasal cannula. A CT angiogram was performed. No evidence of pulmonary embolism. There was cardiomegaly. Significant increased pulmonary infiltrates compared to previous. Consistent with acute pneumonia and atelectasis. Congestive heart failure is possible. Apparently, the plan is for PEG tube placement on Saturday. White count 7.9. Hemoglobin 11.6. D-dimer 3.87. Sodium 147. Potassium 3.3. Creatinine 1.0. He remains on dexamethasone IV, Lovenox subcutaneous, Diflucan for thrush. The patient is seen today 06/12/2020 in follow-up on the regular medical floor. He is currently on the nonrebreather mask at 15 L to maintain O2 saturation in the 90s. He is afebrile. Remains quite debilitated and weak. Sodium 148. Potassium 4.0. Creatinine 1.0. Glucose 212. Remains on dexamethasone, bronchodilators, Zosyn. Additional Lasix 40 mg IVP 1 today. The patient is seen today 06/18/2020 in follow-up regular medical floor. He is a bit more awake and alert. Now maintaining O2 saturations in the 90s on 3 L/m per nasal cannula. He's been afebrile. He is currently on dexamethasone, Lovenox, vitamin supplements. Antibiotics in the form of Augmentin. Objective - Vital Signs Vital signs: Vital Signs Temp 97.5 F L 06/18/20 10:00 Pulse 80 06/18/20 10:00 Resp 24 06/18/20 10:00 BP 178/72 06/18/20 10:00 Pulse Ox 96 06/18/20 10:00 Intake & Output 06/17/20 06/18/20 06/18/20 18:59 06:59 18:59 Intake Total 820 Balance 820 Weight 118 kg Intake: Tube Feeding 700 Other 120 Other: Voiding Method Diaper Diaper Diaper Incontinent Incontinent Incontinent - Exam GENERAL EXAM: Awake, alert, 84-year-old male patient, 3 L of oxygen via nasal cannula, resting in bed, no apparent distress. HEAD: Normocephalic/atraumatic. EYES: Normal reaction of pupils, equal size. Conjunctiva pink, sclera white. NOSE: Clear with pink turbinates. THROAT: No erythema or exudates. NECK: No masses, no JVD, no thyroid enlargement, no adenopathy. CHEST: No chest wall deformity. Symmetrical expansion. LUNGS: Equal air entry with few scattered rhonchi, crackles in the posterior bases CVS: Regular rate and rhythm, normal S1 and S2, no gallops, no murmurs, no rubs ABDOMEN: Soft, nontender. No hepatosplenomegaly, normal bowel sounds, no guarding or rigidity. Abdominal incisions clean dry and intact, EXTREMITIES: No clubbing, no edema, no cyanosis, 2+ pulses and upper and lower extremities. MUSCULOSKELETAL: Muscle strength and tone normal. SPINE: No scoliosis or deformity SKIN: No rashes CENTRAL NERVOUS SYSTEM: No focal deficits, tone is normal in all 4 extremities. PSYCHIATRIC: Arousable. Drifts off easily. Difficult to assess. - Labs CBC & Chem 7: 06/16/20 06:25 06/16/20 06:25 Labs: Abnormal Lab Results - Last 24 Hours (Table) 06/17/20 06/17/20 06/18/20 Range/Units 16:16 20:58 06:50 POC Glucose (mg/dL) 236 H 198 H 195 H (75-99) mg/dL 06/18/20 Range/Units 11:32 POC Glucose (mg/dL) 164 H (75-99) mg/dL Assessment and Plan Assessment: 1 Acute COVID 19 infection, now only requiring oxygen at 3 L/m per nasal cannula. There is increased pulmonary infiltrates compared to previous on 05/17/2020. Consistent with pneumonia/atelectasis. Possible aspiration. Currently on Augmentin. 2 Progressive weakness, refusing oral medications, PEG tube placed 3 Mild abdominal discomfort, CT abdomen and pelvis showed no acute intra- abdominal or intrapelvic abnormality with evidence of recent cholecystectomy, no dilated ducts, no evidence of a bile leak 4 Recent history of gangrenous cholecystitis, status post laparoscopic cholecystectomy on 05/18/[address] Taylor 5 General medical debility, he required nursing home facility placement after his most recent hospitalization but recently was discharged from the nursing home facility to his daughter's house where he could not care for himself 6 Diabetes mellitus type 2 7 Hypertension 8 Hyperlipidemia 9 Chronic kidney disease, unspecified 10 Previous history of GI bleeding and diverticulitis 11 History of BPH on Flomax Plan: The patient was seen and evaluated by On 3 L/m per nasal cannula Continued on Augmentin, bronchodilators Continue dexamethasone Overall prognosis is guarded Plan is for transfer to [facility] 06/20/2020 We will continue to follow I, the cosigning physician, performed a history & physical examination of the patient. Lungs sounds scattered rhonchi, coarse crackles in posterior bases. Maintaining good O2 saturations in the 90s on 3 L/m per nasal cannula.. I discussed the assessment and plan of care with my nurse practitioner, Ya Griffin. I attest to the above note as dictated by her.
[2020-06-18 16:50] LABS: Glucose,Whole Blood 225 mg/dL (75-99)
[2020-06-18 20:32] LABS: Glucose,Whole Blood 142 mg/dL (75-99)
[2020-06-19] MEDS: DEXTROSE 5% IN WATER 1,000 ML IV SCH (06:43)
[2020-06-19 07:15] LABS: Glucose,Whole Blood 153 mg/dL (75-99)
[2020-06-19] MEDS: INSULIN ASPART (NovoLOG) 100 UNIT/ML VIAL SQ SCH ×7 (07:33→21:31)
[2020-06-19] MEDS: ALBUTEROL HFA INHALER INHALATION SCH ×4 (07:38→21:03)
[2020-06-19] MEDS: CHOLECALCIFEROL 1,000 UNIT TAB PO SCH (08:03)
[2020-06-19] MEDS: FLUCONAZOLE 100 MG TAB PO SCH (08:03)
[2020-06-19] MEDS: TAMSULOSIN 0.4 MG CAP.ER.24H PO SCH (08:03)
[2020-06-19] MEDS: glipiZIDE 5 MG TAB PO SCH ×2 (08:03→16:29)
[2020-06-19] MEDS: dexAMETHasone 2 MG TAB PO SCH (08:03)
[2020-06-19] MEDS: hydrALAZINE HCL 50 MG TAB PO SCH ×3 (08:03→21:30)
[2020-06-19] MEDS: ASCORBIC ACID 500 MG TAB PO SCH (08:04)
[2020-06-19] MEDS: metFORMIN 500 MG TAB PO SCH ×2 (08:04→16:29)
[2020-06-19] MEDS: AMOXIC-POT CLAV 875-125MG 1 EACH TAB PO SCH ×2 (08:04→21:30)
[2020-06-19] MEDS: amLODIPine 5 MG TAB PO SCH (08:04)
[2020-06-19] MEDS: ENOXAPARIN 40 MG/0.4 ML SYRINGE SQ SCH (08:04)
[2020-06-19] MEDS: ZINC SULFATE 220 MG CAP PO SCH (08:04)
--- NOTE | 2020-06-19 10:56 | P.PN ---
Subjective Progress Note Date: 06/19/20 HISTORY OF PRESENT ILLNESS This is an 84-year-old -[place] male patient of Dr. 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 Patient was discharged to [facility] and completed his course of rehab. He was then discharged home on May 30. Patient has developed increasing weakness with mental status changes. Not eating or drinking and was brought into the hospital for evaluation. Patient presented to [facility] emergency center. He was afebrile, heart rate 85, blood pressure 144/77, pulse ox 96% on room air. CBC was unremarkable. Electrolytes normal, BUN 44 and creatinine 3.13. Blood sugar 166. Magnesium 1.5. Liver function tests normal. Urinalysis positive for protein and blood with no sign of infection. COVID-19 positive. LDH 600, C- reactive protein 43.8. Chest x-ray reveals mild cardiomegaly and low lung volumes without suspicious acute pulmonary process. CAT scan of the abdomen and pelvis without contrast revealed interstitial infiltrate and atelectasis at the lung bases increased from old exam. Mild cardiomegaly. No acute abnormality within the abdomen and pelvis. Moderate colonic diverticulosis without diverticulitis. No evidence of bile leak. CAT scan of the brain revealed cerebral atrophy and chronic small vessel ischemia. No acute intracranial abn ormality. Patient was admitted to the [facility] floor. 06/07: Patient has been seen by pulmonary medicine with plan to continue current medications. Nephrology has decreased normal saline 75 mL per hour. Hydralazine increased to 3 times daily. Renal ultrasound reveals no hydronephrosis. Benign 2.2 cm cortical cyst on the left. Bladder suboptimally assessed. Patient has been afebrile, heart rate 61, blood pressure 155/66, pulse ox 98% on 3 L nasal cannula. Blood sugars are running between 141 and 169. Repeat blood work for this morning remains pending. Patient continues to state that he does not have any appetite. He is feeling a little bit better from yesterday. PT and OT evaluations today. 06/08: Patient has been afebrile, heart rate 55, blood pressure 171/69, pulse ox 90% on 2 L. Breathing status has been stable. He denies shortness of breath. Boone catheter in place which will be discontinued today. IV fluids continue by nephrology. Bladder scans monitor for residuals, avoid nephrotoxic agents. Amlodipine and hydralazine to be held for systolic blood pressure less than 130. PT has evaluated with recommendations for home care for subacute rehab with 24- hour care. Electrolytes normal, BUN 43 and creatinine 1.7. Blood sugars are running 184-243. Levemir 10 units at bedtime added. Hyperglycemia secondary to steroids. Anticipate discharge by the end of the week. 06/09: The patient is a little confused today and not eating. Patient denies any complaints, no pain. He answers yes that he is ready to go home. Temperature max 100.2. He was bladder scanned and had 100 mL. Heart rate documented at 101 although rate on exam is slower and appears to be irregular. EKG ordered. Blood pressure 159/75, pulse ox 91% on room air. Repeat lab work reveals WBC 7.8, hemoglobin 12.3. BUN 41 and creatinine 1.2, potassium 3.5. Blood sugars running between 135 and 182. Patient's daughter contacted over the phone and updated regarding his current condition. She was under the impression the patient will be staying in the hospital for a full 14 days for isolation but informed that this will not be happening. We have asked supportive employment case manager/social sciences department chair to follow-up with the patient's family regarding discharge planning. Most likely patient will be ready to be discharged tomorrow or Saturday. 06/10: Patient has been refusing to eat his meals. He continues to have significant cough. Temperature max 99.6. Respiratory rate has increased to 28. Pulse ox is 93% on 3 L nasal cannula. Heart rate 112. Contacted patient's daughter Partha [phone] and provided update. Her main concern is the patient is not eating. We will ask for speech therapy evaluation and consult with Dr. Taylor for PEG tube placement for temporary nutrition. Discussed again the need for subacute rehab versus returning home. Do not anticipate discharge until early next week. 06/11: The patient still is not eating, he refuses to eat. He does have severe thrush for which he does not seem able to tolerate nystatin and will be placed on Diflucan IV. Patient did have a previously elevated d-dimer and CAT scan of the chest ordered to rule out pulmonary embolism. He is developing increasing respiratory distress. Pulse ox is 88% on 4 L. Respiratory rate is up to 40, he art rate 110, afebrile. General surgery is following for probable chest. 06/12: CTA of the chest showed no evidence of pulmonary embolism. Cardiomegaly. Significantly increased pulmonary infiltrates. Acute pneumonia and atelectasis present. Heart failure also possible. The patient is still refusing to eat and not taking his oral medications. All medications possible have been switched to IV. One dose of IV Lasix ordered for this morning as well as IV potassium replacement. He is current pulse ox 94% on nonrebreather, afebrile, heart rate 97, respiratory rate 32, blood pressure 171/83. Blood sugars run between 162 and 214. IV fluids changed yesterday to 0.45 normal saline by nephrology. Potassium was elevated yesterday and potassium was also replaced yesterday. Lab work today reveals sodium 148, potassium 4, chloride 113, CO2 23, BUN 21 creatinine 1. Blood sugars running between 162 and 215. Patient's sister Haleigh will be coming in to see him today to evaluate his status. 06/13: Patient is scheduled for PEG tube insertion today. His respiratory status is marginal. He is up to 6 L high flow nasal cannula. He has been afebrile, heart rate 104, respiratory rate 28, blood pressure 167/102, pulse ox 92% on 6 L nasal cannula. WBC 13.4, hemoglobin 12.8. Sodium 147, chloride 111, CO2 22. BUN 16 and creatinine 1.1. Blood sugars have been elevated in the 200s. Con tacted at 2 daughters which were Klaudia and Partha. They have been updated on patient condition and he remains a full code. 06/14: Following PEG tube placement yesterday, patient was hypoxic and required nonrebreather and 18 was called. Patient is now on BiPAP with pulse ox is 95% with 40% FiO2. Heart rate 82, blood pressure 173/83, temperature max 101. He has a Boone catheter in place. Patient is denying that he denies pain. Patient is to be started on tube feedings this afternoon. Chest x-ray was done yes evening which found hypoventilatory changes with increased interstitial infiltrates and new patchy airspace disease in the left lung. Both patient's daughters were contacted yesterday and updated regarding patient's condition knowing the patient has a poor prognosis and they wish for patient to be full code. 06/15: Patient's breathing status seems to be stable today. He is on BiPAP with pulse ox of 96% and FiO2 40. He is nodding. The PEG tube feedings were started last night and he is tolerating. Patient has been afebrile, heart rate 69, blood pressure 170/88. WBC 9.9, hemoglobin 1.7, platelet count 245. Sodium 145, potassium 4, creatinine 1.1. Blood sugars running between 181 and 244. 06/16: The patient's breathing is much better today. His pulse ox is 91% on 3 L. His been afebrile, heart rate 75, blood pressure 180/71. Hydralazine increased to 100 mg 3 times daily. His breathing is stable today. He continues to not have appetite but is on tube feedings which are bullous type. Patient is free to eat any oral diet. Regular diet has been ordered. Repeat blood work reveals WBC 10.7, bilirubin 12.1. BUN 28 and creatinine 1. Potassium 4.1, sodium 143. Blood sugars running in the 200s. Kytril NovoLog added to NovoLog scale. Social work is working with family for discharge planning anticipated for Saturday. 06/17: Patient's breathing status is gradually improving slowly. His pulse ox is 96% on 3 L nasal cannula, he is afebrile, heart rate 74, blood pressure 169/68. Patient is on PEG tube feedings and taking oral with Glucerna. Patient's family is requesting inpatient rehab at the rehab [place] [facility] [place]. Patient's Haleigh has been contacted and discussed current condition and plan. Patient currently would not qualify for inpatient rehab as he is a 2-3 person assist. Blood sugars are running between 115 and 178. Social work is following and working with family for discharge planning. Anticipate discharge on Saturday. 06/18: Patient is found resting in bed and with no acute distress with no complaints. His breathing continues to show improvement compared to yesterday. His pulse ox is 90% on 3 L nasal cannula, heart rate 80, blood pressure 184/86, respirations are 18 and nonlabored. His sister is requesting for him to be sent to a rehab facility near her infiltrate. Social work is working with family for discharge planning. Anticipate a discharge for Saturday. 06/19; she was found resting in bed with no acute distress and no complaints or concerns. Patient continues to show improvement and breathing. His pulse ox is 97% on 3 L of high flow oxygen via heart rate 72, respirations 18, blood pre ssure 166/77, patient remains afebrile. The plan is still to transfer the patient to a rehab facility per her sister's request. Anticipation for discharge is Saturday. Patient appetite still seems to be poor related to the no taste. REVIEW OF SYSTEMS Constitutional: No fever, no chills, no night sweats. No weight change. Reports significant generalized weakness, Reports fatigue Reports lethargy. EENT: No headache. No blurred vision or double vision, no loss of vision. No loss of Hearing, no ringing in the ears, no dizziness. No nasal drainage or congestion. No epistaxis. No sore throat. Lungs: Reports worsening shortness of breath, reports cough, no sputum production. No wheezing. Cardiovascular: No chest pain, no lower extremity edema. No palpitations. No paroxysmal nocturnal dyspnea. No orthopnea. No lightheadedness or dizziness. No syncopal episodes. Abdominal: No abdominal pain. No nausea, vomiting. No diarrhea. No constipation. No bloody or tarry stools. Reports loss of appetite. Genitourinary: No dysuria, increased frequency, urgency. No urinary retention. Musculoskeletal: No myalgias. Reports muscle weakness, no gait dysfunction, no frequent falls. No back pain. No neck pain. Integumentary: No wounds, no lesions. No rash or pruritus. No unusual bruising. No change in hair or nails. Neurologic: No aphasia. No facial droop. Reports change in mentation improved. No headache. No paralysis. No paresthesia. Psychiatric: No depression. No anxiety. No mood swings. Endocrine: Reports abnormal blood sugars with hyperglycemia. PHYSICAL EXAMINATION Gen: This is an 84-year-old -[place] male. No respiratory distress. Patient is on nasal cannula. HEENT: Head is atraumatic, normocephalic. Pupils equal, round. Sclerae is anicteric. NECK: Supple. No JVD. No lymphadenopathy. No thyromegaly. LUNGS: Crackles bilaterally. No accessory muscle usage increased to 100 mg 3 timesHEART: Irregular and rhythm. No murmur. ABDOMEN: Soft. Bowel sounds are present. No masses. No tenderness. Boone catheter. EXTREMITIES: Plus bilateral pedal edema. No calf tenderness. Small ulceration to the left pretibial area. Please see nursing documentation for details, POA. NEUROLOGICAL: Patient is awake, alert and oriented to person. Cranial nerves 2 through 12 are grossly intact. Patient nods to answer questions. ASSESSMENT AND PLAN 1. Metabolic encephalopathy secondary to Covid 19 pneumonia. Consult with pulmonary medicine appreciated . Continue supplements with vitamin C, vitamin D, zinc. Continue dexamethasone 4 mg twice daily, Lovenox daily. 2. Acute hypoxic respiratory failure secondary to Covid 19 pneumonia, possible gram-negative bacterial pneumonia. Pulmonary medicine consult appreciated. Zosyn transition to oral Augmentin. Continue nasal cannula oxygen therapy. 3. Acute kidney injury with chronic kidney disease stage III. Consult with nephrology appreciated. Continue to Hold losartan. Avoid nephrotoxic agents. Boone catheter in place. 4. Hypertension. Continue Norvasc 5 mg daily, hydralazine 100 mg 3 times daily, IV available as needed. Losartan on hold. 5. Hyperlipidemia. 6. History of recent laparoscopic cholecystectomy, stable. 7. History of GI bleed from diverticulitis, stable. 8. Benign prostatic hypertrophy. Continue Flomax or 0.4 mg daily. Boone catheter. 9. Diabetes mellitus type 2 uncontrolled with hyperglycemia. Continue NovoLog scale before meals and at bedtime, scheduled NovoLog 5 units with meals. Patient will be resumed on metformin/ glipizide. 10. Severe protein calorie malnutrition due to refusal to eat. Speech therapy evaluation, Dr. Taylor consult regarding PEG tube insertion. Continue bolus PEG tube feedings and oral intake, Glucerna. 11. Severe oral thrush. Was on Diflucan. 12. GI prophylaxis. Protonix. 10. DVT prophylaxis. Lovenox. 11. Hypernatremia. 12. Pressure ulcer stage 1, coccyx, present on admission. DISCHARGE PLAN Anticipate need for subacute rehab on Saturday. Social work is following closely.. Impression and plan of care have been directed as dictated by the signing physician. Florina Wynne nurse practitioner acting as scribe for signing physician. Objective - Vital Signs Vital signs: Vital Signs Temp 97.6 F 06/19/20 10:07 Pulse 72 06/19/20 10:07 Resp 18 06/19/20 10:07 BP 166/77 06/19/20 10:07 Pulse Ox 97 06/19/20 10:07 Intake & Output 06/18/20 06/19/20 06/19/20 18:59 06:59 18:59 Output Total 550 Balance -550 Weight 115.5 kg Output: Urine 550 Other: Voiding Method Diaper Diaper Diaper Incontinent Incontinent Incontinent External Catheter External Catheter - Labs CBC & Chem 7: 06/16/20 06:25 06/16/20 06:25 Labs: Abnormal Lab Results - Last 24 Hours (Table) 06/18/20 06/18/20 06/18/20 Range/Units 11:32 16:46 20:31 POC Glucose (mg/dL) 164 H 225 H 142 H (75-99) mg/dL 06/19/20 Range/Units 07:12 POC Glucose (mg/dL) 153 H (75-99) mg/dL
[2020-06-19 11:35] LABS: Glucose,Whole Blood 140 mg/dL (75-99)
--- NOTE | 2020-06-19 15:28 | P.PN ---
Subjective Progress Note Date: 06/19/20 Principal diagnosis: Altered mental status, CoVID 19 infection 84-year-old white male patient with a recent history of cholecystectomy for gangrenous cholecystitis on 05/18/2020 following which he was recovering at the [facility], has a past medical history of diabetes mellitus, hypertension, previous episodes of pneumonia, diverticular disease, history of lower GI bleeding, with EGD and colonoscopy, was brought into the emergency department per EMS on 06/05/2020 for evaluation of altered mental status and generalized weakness. He was discharged to a retirement facility on 05/25/2020 and was recently discharged from there on 05/30/2020 to his daughter's house where he was having increasing difficulty caring for himself. His chest x-ray no emergency department showed the mild cardiomegaly, low lung volumes without suspicious focal airspace opacity, pleural effusions and no evidence of pneumothorax. His brain CT shows cerebral atrophy and chronic small vessel ischemia, no acute intracranial abnormality. Normal sinus rhythm on the EKG. Patient denied any fever or chills. Denied any significant shortness of breath. No nausea vomiting or diarrhea, admit to some abdominal pain in the right upper quadrant where he had incision sites. Abdomen is soft and nontender. Reports normal appetite. Meds to being increasingly more weak, and no other complaints. CT of the abdomen and pelvis showing some interstitial infiltrates and atelectasis at the lung bases mild cardiomegaly, no acute abnormality within the abdomen and pelvis, moderate colonic diverticulosis without diverticulitis, cholecystectomy, no dilated ducts no evidence of a bile leak. Patient was checked for: 19 and was found to be positive, other laboratory analysis showed white blood cell count of 4.1, hemoglobin of 13.4, INR is 1.1, electrolytes were within normal limits, and patient was found to have acute kidney injury with the BUN of 44 creatinine 3.13, and GFR of 17, 600, CRP was 43.8, and lipase was 309, urinalysis was checked showing no clear evidence of urinary tract infection. Recently on 2 L of oxygen the pulse ox of 92-96%, intermittent low-grade fevers with T-max of 99.2F. He was started on Decadron 4 mg twice daily, he is on prophylactic dose of Lovenox for his renal clearance, he is receiving gentle IV hydration, and the pulmonary service was consulted in view of his COVID 19 infection On June patient seen in follow-up on medical floor, currently on 3 L of oxygen the pulse ox of 99%, appears to be, comfortable, no worsening dyspnea, he is breathing comfortably, but appears to be generally weak, he is currently sitting up in the recliner, he barely holding his head up, his vital signs have been stable, his had no acute events overnight. No new chest x-ray, today's labs have been reviewed, his renal function has significantly improved, and BUN is 32 and creatinine is down to 1.2, electrolytes were within normal limits. He's had no nausea vomiting or diarrhea. He remains on prophylactic dose of Lovenox, oral Decadron, and vitamin C, vitamin D and zinc supplement in addition to gentle IV hydration with 0.9 normal saline at a rate of 75 ML per hour. His been evaluated by physical therapy and apparently patient's family was not happy with the care at the [facility] and took patient home before he completed his rehabilitation however patient was increasingly weak at home. Current recommendation from physical therapy is nursing, physical therapy and occupational therapy, 24-hour care as the patient having difficulty with transfers, requires extensive verbal and physical cues, has very limited functional endurance and extensive assistance with all ADLs. The patient is seen today 06/11/2020 follow-up on the regular medical floor. He remains quite altered. He's been refusing any oral medications. Respirations in the 30s. O2 saturation 88% on 4 L/m per nasal cannula. A CT angiogram was performed. No evidence of pulmonary embolism. There was cardiomegaly. Significant increased pulmonary infiltrates compared to previous. Consistent with acute pneumonia and atelectasis. Congestive heart failure is possible. Apparently, the plan is for PEG tube placement on Saturday. White count 7.9. Hemoglobin 11.6. D-dimer 3.87. Sodium 147. Potassium 3.3. Creatinine 1.0. He remains on dexamethasone IV, Lovenox subcutaneous, Diflucan for thrush. The patient is seen today 06/12/2020 in follow-up on the regular medical floor. He is currently on the nonrebreather mask at 15 L to maintain O2 saturation in the 90s. He is afebrile. Remains quite debilitated and weak. Sodium 148. Potassium 4.0. Creatinine 1.0. Glucose 212. Remains on dexamethasone, bronchodilators, Zosyn. Additional Lasix 40 mg IVP 1 today. The patient is seen today 06/18/2020 in follow-up regular medical floor. He is a bit more awake and alert. Now maintaining O2 saturations in the 90s on 3 L/m per nasal cannula. He's been afebrile. He is currently on dexamethasone, Lovenox, vitamin supplements. Antibiotics in the form of Augmentin. The patient is seen today 06/19/2020 lobe on the regular medical floor. He is currently resting comfortably in bed. Awake and alert in no acute distress. He is now maintaining O2 saturations in the 90s on 3 L/m per nasal cannula. He has tube feedings at 50 MLS per hour. D5W at 20 ML's per hour. Glucose 140. On Augmentin. Remains on bronchodilators, Dexamethasone, Lovenox. Objective - Vital Signs Vital signs: Vital Signs Temp 98.3 F 06/19/20 14:58 Pulse 78 06/19/20 14:58 Resp 20 06/19/20 14:58 BP 145/77 06/19/20 14:58 Pulse Ox 100 06/19/20 14:58 Intake & Output 06/18/20 06/19/20 06/19/20 18:59 06:59 18:59 Output Total 550 Balance -550 Weight 115.5 kg Output: Urine 550 Other: Voiding Method Diaper Diaper Diaper Incontinent Incontinent Incontinent External Catheter External Catheter - Exam GENERAL EXAM: Awake, alert, 84-year-old male patient, 3 L of oxygen via nasal cannula, resting in bed, no apparent distress. HEAD: Normocephalic/atraumatic. EYES: Normal reaction of pupils, equal size. Conjunctiva pink, sclera white. NOSE: Clear with pink turbinates. THROAT: No erythema or exudates. NECK: No masses, no JVD, no thyroid enlargement, no adenopathy. CHEST: No chest wall deformity. Symmetrical expansion. LUNGS: Equal air entry with few scattered rhonchi, crackles in the posterior bases CVS: Regular rate and rhythm, normal S1 and S2, no gallops, no murmurs, no rubs ABDOMEN: Soft, nontender. No hepatosplenomegaly, normal bowel sounds, no guarding or rigidity. Abdominal incisions clean dry and intact, EXTREMITIES: No clubbing, no edema, no cyanosis, 2+ pulses and upper and lower extremities. MUSCULOSKELETAL: Muscle strength and tone normal. SPINE: No scoliosis or deformity SKIN: No rashes CENTRAL NERVOUS SYSTEM: No focal deficits, tone is normal in all 4 extremities. PSYCHIATRIC: Arousable. Drifts off easily. Difficult to assess. - Labs CBC & Chem 7: 06/16/20 06:25 06/16/20 06:25 Labs: Abnormal Lab Results - Last 24 Hours (Table) 06/18/20 06/18/20 06/19/20 Range/Units 16:46 20:31 07:12 POC Glucose (mg/dL) 225 H 142 H 153 H (75-99) mg/dL 06/19/20 Range/Units 11:32 POC Glucose (mg/dL) 140 H (75-99) mg/dL Assessment and Plan Assessment: 1 Acute hypoxic respiratory failure secondary to COVID 19 infection, now only requiring oxygen at 3 L/m per nasal cannula. 2 Progressive weakness, refusing oral medications, PEG tube placed 3 Mild abdominal discomfort, CT abdomen and pelvis showed no acute intra- abdominal or intrapelvic abnormality with evidence of recent cholecystectomy, no dilated ducts, no evidence of a bile leak 4 Recent history of gangrenous cholecystitis, status post laparoscopic cholecystectomy on 05/18/[address] Taylor 5 General medical debility, he required retirement facility placement after his most recent hospitalization but recently was discharged from the retirement facility to his daughter's house where he could not care for himself 6 Diabetes mellitus type 2 7 Hypertension 8 Hyperlipidemia 9 Chronic kidney disease, unspecified 10 Previous history of GI bleeding and diverticulitis 11 History of BPH on Flomax Plan: The patient was seen and evaluated by Continued on Augmentin, bronchodilators Continue dexamethasone Overall prognosis is guarded Plan is for transfer to [facility] 06/20/2020 We will continue to follow I, the cosigning physician, performed a history & physical examination of the patient. Lungs sounds scattered rhonchi, coarse crackles in posterior bases. Maintaining good O2 saturations in the 90s on 3 L/m per nasal cannula.. I di scussed the assessment and plan of care with my nurse practitioner, Ya Griffin. I attest to the above note as dictated by her.
[2020-06-19 16:46] LABS: Glucose,Whole Blood 234 mg/dL (75-99)
[2020-06-19 21:16] LABS: Glucose,Whole Blood 180 mg/dL (75-99)
[2020-06-20 06:10] VITALS: RESP 18
[2020-06-20 07:03] LABS: Glucose,Whole Blood 147 mg/dL (75-99)
[2020-06-20] MEDS: DEXTROSE 5% IN WATER 1,000 ML IV SCH (07:06)
[2020-06-20] MEDS: FLUCONAZOLE 100 MG TAB PO SCH (07:31)
[2020-06-20] MEDS: ENOXAPARIN 40 MG/0.4 ML SYRINGE SQ SCH (07:31)
[2020-06-20] MEDS: INSULIN ASPART (NovoLOG) 100 UNIT/ML VIAL SQ SCH ×4 (07:31→13:33)
[2020-06-20] MEDS: amLODIPine 5 MG TAB PO SCH (07:32)
[2020-06-20] MEDS: CHOLECALCIFEROL 1,000 UNIT TAB PO SCH (07:32)
[2020-06-20] MEDS: ASCORBIC ACID 500 MG TAB PO SCH (07:32)
[2020-06-20] MEDS: glipiZIDE 5 MG TAB PO SCH (07:32)
[2020-06-20] MEDS: metFORMIN 500 MG TAB PO SCH (07:33)
[2020-06-20] MEDS: hydrALAZINE HCL 50 MG TAB PO SCH (07:33)
[2020-06-20] MEDS: dexAMETHasone 2 MG TAB PO SCH (07:33)
[2020-06-20] MEDS: TAMSULOSIN 0.4 MG CAP.ER.24H PO SCH (07:34)
[2020-06-20] MEDS: ZINC SULFATE 220 MG CAP PO SCH (07:34)
[2020-06-20] MEDS: AMOXIC-POT CLAV 875-125MG 1 EACH TAB PO SCH (07:34)
[2020-06-20] MEDS: ALBUTEROL HFA INHALER INHALATION SCH ×2 (08:32→12:08)
--- NOTE | 2020-06-20 09:13 | P.DS ---
Providers Date of admission: 06/05/20 21:26 Expected date of discharge: 06/20/20 Attending physician: Liz Leal MD Consults: 06/06/20 08:12 Consult Physician Routine Consulting Provider: Carlos Dolan Consult Reason/Comments: covid Do you want consulting provider notified?: Yes 06/06/20 08:16 Consult Physician Routine Consulting Provider: Harris Cooper Consult Reason/Comments: MARION, covid Do you want consulting provider notified?: Yes 06/10/20 09:07 Consult Physician Routine Consulting Provider: Roland Taylor Consult Reason/Comments: peg insertion Do you want consulting provider notified?: Yes Primary care physician: Jevon Singer [facility] Course: HISTORY OF PRESENT ILLNESS This is an 84-year-old -Spanish male patient of Dr. Singer with past medical history of diabetes mellitus type 2, hypertension, hyperlipidemia, chronic kidney disease, history of GI bleed from diverticulitis, recently admitted to the hospital for acute cholecystitis status post laparoscopic cholecystectomy and also treated for bilateral pneumonia. Patient was discharged to [facility] and completed his course of rehab. He was then discharged home on May 30. Patient has developed increasing weakness with mental status changes. Not eating or drinking and was brought into the hospital for evaluation. Patient presented to [facility] emergency center. He was afebrile, heart rate 85, blood pressure 144/77, pulse ox 96% on room air. CBC was unremarkable. Electrolytes normal, BUN 44 and creatinine 3.13. Blood sugar 166. Magnesium 1.5. Liver function tests normal. Urinalysis positive for protein and blood with no sign of infection. COVID-19 positive. LDH 600, C- reactive protein 43.8. Chest x-ray reveals mild cardiomegaly and low lung volumes without suspicious acute pulmonary process. CAT scan of the abdomen and pelvis without contrast revealed interstitial infiltrate and atelectasis at the lung bases increased from old exam. Mild cardiomegaly. No acute abnormality within the abdomen and pelvis. Moderate colonic diverticulosis without diverticulitis. No evidence of bile leak. CAT scan of the brain revealed cerebral atrophy and chronic small vessel ischemia. No acute intracranial abnormality. Patient was admitted to the [facility] floor. 06/07: Patient has been seen by pulmonary medicine with plan to continue current medications. Nephrology has decreased normal saline 75 mL per hour. Hydralazine increased to 3 times daily. Renal ultrasound reveals no hydronephrosis. Benign 2.2 cm cortical cyst on the left. Bladder suboptimally assessed. Patient has been afebrile, heart rate 61, blood pressure 155/66, pulse ox 98% on 3 L nasal cannula. Blood sugars are running between 141 and 169. Repeat blood work for this morning remains pending. Patient continues to state that he does not have any appetite. He is feeling a little bit better from yesterday. PT and OT evaluations today. 06/08: Patient has been afebrile, heart rate 55, blood pressure 171/69, pulse ox 90% on 2 L. Breathing status has been stable. He denies shortness of breath. Boone catheter in place which will be discontinued today. IV fluids continue by nephrology. Bladder scans monitor for residuals, avoid nephrotoxic agents. Amlodipine and hydralazine to be held for systolic blood pressure less than 130. PT has evaluated with recommendations for home care for subacute rehab with 24- hour care. Electrolytes normal, BUN 43 and creatinine 1.7. Blood sugars are running 184-243. Levemir 10 units at bedtime added. Hyperglycemia secondary to steroids. Anticipate discharge by the end of the week. 06/09: The patient is a little confused today and not eating. Patient denies any complaints, no pain. He answers yes that he is ready to go home. Temperature max 100.2. He was bladder scanned and had 100 mL. Heart rate documented at 101 although rate on exam is slower and appears to be irregular. EKG ordered. Blood pressure 159/75, pulse ox 91% on room air. Repeat lab work reveals WBC 7.8, hemoglobin 12.3. BUN 41 and creatinine 1.2, potassium 3.5. Blood sugars running between 135 and 182. Patient's daughter contacted over the phone and updated regarding his current condition. She was under the impression the patient will be staying in the hospital for a full 14 days for isolation but informed that this will not be happening. We have asked child welfare caseworker/nephrology social worker to follow-up with the patient's family regarding discharge planning. Most likely patient will be ready to be discharged tomorrow or Saturday. 06/10: Patient has been refusing to eat his meals. He continues to have significant cough. Temperature max 99.6. Respiratory rate has increased to 28. Pulse ox is 93% on 3 L nasal cannula. Heart rate 112. Contacted patient's daughter Partha [phone] and provided update. Her main concern is the patient is not eating. We will ask for speech therapy evaluation and consult with Dr. Taylor for PEG tube placement for temporary nutrition. Discussed again the need for subacute rehab versus returning home. Do not anticipate discharge until early next week. 06/11: The patient still is not eating, he refuses to eat. He does have severe thrush for which he does not seem able to tolerate nystatin and will be placed on Diflucan IV. Patient did have a previously elevated d-dimer and CAT scan of the chest ordered to rule out pulmonary embolism. He is developing increasing respiratory distress. Pulse ox is 88% on 4 L. Respiratory rate is up to 40, heart rate 110, afebrile. General surgery is following for probable chest. 06/12: CTA of the chest showed no evidence of pulmonary embolism. Cardiomegaly. Significantly increased pulmonary infiltrates. Acute pneumonia and atelectasis present. Heart failure also possible. The patient is still refusing to eat and not taking his oral medications. All medications possible have been switched to IV. One dose of IV Lasix ordered for this morning as well as IV potassium replacement. He is current pulse ox 94% on nonrebreather, afebrile, heart rate 97, respiratory rate 32, blood pressure 171/83. Blood sugars run between 162 and 214. IV fluids changed yesterday to 0.45 normal saline by nephrology. Potassium was elevated yesterday and potassium was also replaced yesterday. Lab work today reveals sodium 148, potassium 4, chloride 113, CO2 23, BUN 21 creatinine 1. Blood sugars running between 162 and 215. Patient's sister Haleigh will be coming in to see him today to evaluate his status. 06/13: Patient is scheduled for PEG tube insertion today. His respiratory status is marginal. He is up to 6 L high flow nasal cannula. He has been afebrile, heart rate 104, respiratory rate 28, blood pressure 167/102, pulse ox 92% on 6 L nasal cannula. WBC 13.4, hemoglobin 12.8. Sodium 147, chloride 111, CO2 22. BUN 16 and creatinine 1.1. Blood sugars have been elevated in the 200s. Cont acted at 2 daughters which were Klaudia and Partha. They have been updated on patient condition and he remains a full code. 06/14: Following PEG tube placement yesterday, patient was hypoxic and required nonrebreather and 18 was called. Patient is now on BiPAP with pulse ox is 95% with 40% FiO2. Heart rate 82, blood pressure 173/83, temperature max 101. He has a Boone catheter in place. Patient is denying that he denies pain. Patient is to be started on tube feedings this afternoon. Chest x-ray was done yes evening which found hypoventilatory changes with increased interstitial infiltrates and new patchy airspace disease in the left lung. Both patient's daughters were contacted yesterday and updated regarding patient's condition knowing the patient has a poor prognosis and they wish for patient to be full code. 06/15: Patient's breathing status seems to be stable today. He is on BiPAP with pulse ox of 96% and FiO2 40. He is nodding. The PEG tube feedings were started last night and he is tolerating. Patient has been afebrile, heart rate 69, blood pressure 170/88. WBC 9.9, hemoglobin 1.7, platelet count 245. Sodium 145, potassium 4, creatinine 1.1. Blood sugars running between 181 and 244. 06/16: The patient's breathing is much better today. His pulse ox is 91% on 3 L. His been afebrile, heart rate 75, blood pressure 180/71. Hydralazine increased to 100 mg 3 times daily. His breathing is stable today. He continues to not have appetite but is on tube feedings which are bullous type. Patient is free to eat any oral diet. Regular diet has been ordered. Repeat blood work reveals WBC 10.7, bilirubin 12.1. BUN 28 and creatinine 1. Potassium 4.1, sodium 143. Blood sugars running in the 200s. Kytril NovoLog added to NovoLog scale. Social work is working with family for discharge planning anticipated for Saturday. 06/17: Patient's breathing status is gradually improving slowly. His pulse ox is 96% on 3 L nasal cannula, he is afebrile, heart rate 74, blood pressure 169/68. Patient is on PEG tube feedings and taking oral with Glucerna. Patient's family is requesting inpatient rehab at the rehab [facility] [place]. Patient's Sr. Ricardo has been contacted and discussed current condition and plan. Patient currently would not qualify for inpatient rehab as he is a 2-3 person assist. Blood sugars are running between 115 and 178. Social work is following and working with family for discharge planning. Anticipate discharge on Saturday. 06/18: Patient is found resting in bed and with no acute distress with no complaints. His breathing continues to show improvement compared to yesterday. His pulse ox is 90% on 3 L nasal cannula, heart rate 80, blood pressure 184/86, respirations are 18 and nonlabored. His sister is requesting for him to be sent to a rehab facility near her infiltrate. Social work is working with family for discharge planning. Anticipate a discharge for Saturday. 06/19; she was found resting in bed with no acute distress and no complaints or concerns. Patient continues to show improvement and breathing. His pulse ox is 97% on 3 L of high flow oxygen via heart rate 72, respirations 18, blood pres sure 166/77, patient remains afebrile. The plan is still to transfer the patient to a rehab facility per her sister's request. Anticipation for discharge is Saturday. Patient appetite still seems to be poor related to the no taste. 06/20: Patient's breathing status has been stable over the weekend. He is currently pulse ox 94% on room air. He has been afebrile, heart rate 72, blood pressure 125/70. Blood sugars are running between 147/92. Repeat coronavirus PCR not detected. Social work is working with family for discharge planning. Patient will be discharged today to subacute rehab in stable condition. ASSESSMENT AND PLAN 1. Metabolic encephalopathy secondary to Covid 19 pneumonia. 2. Acute hypoxic respiratory failure secondary to Covid 19 pneumonia, possible gram-negative bacterial pneumonia. 3. Acute kidney injury with chronic kidney disease stage III. 4. Hypertension. 5. Hyperlipidemia. 6. History of recent laparoscopic cholecystectomy, stable. 7. History of GI bleed from diverticulitis, stable. 8. Benign prostatic hypertrophy. 9. Diabetes mellitus type 2 uncontrolled with hyperglycemia. 10. Severe protein calorie malnutrition due to refusal to eat secondary to Covid 19. 11. Severe oral thrush. 12. Hypernatremia. 13. Pressure ulcer stage 1, coccyx, present on admission. DISCHARGE PLAN Subacute rehab Impression and plan of care have been directed as dictated by the signing physician. Cyndy Faust nurse practitioner acting as scribe for signing physician. Patient Condition at Discharge: Stable Plan - Discharge Summary Discharge Rx Participant: No New Discharge Prescriptions: New hydrALAZINE HCL [Apresoline] 100 mg PO TID tab Amoxic-Pot Clav 875-125Mg [Augmentin 875-125] 1 each PO Q12HR #10 tab cloNIDine 0.2 MG/24HR PATCH [Catapres-TTS] 1 patch TRANSDERM Q7D patch Fluconazole [Diflucan] 100 mg PO DAILY #5 tab INSULIN ASPART (NovoLOG) [NovoLOG (formulary)] 0 unit SQ ACHS vial Zinc Sulfate [Orazinc] 220 mg PO DAILY cap Albuterol Inhaler [Ventolin Hfa Inhaler] 2 puff INHALATION RT-QID puff Ascorbic Acid [Vitamin C] 1,000 mg PO DAILY tab Continue Tamsulosin HCl [Flomax] 0.4 mg PO DAILY amLODIPine [Norvasc] 5 mg PO DAILY glipiZIDE/METFORMIN HCL [glipiZIDE/METFORMIN HCL 5-500 mg] 1 tab PO BID Discontinued hydrALAZINE HCL [Apresoline] 50 mg PO BID tab Losartan Potassium [Cozaar] 25 mg PO DAILY Discharge Medication List Tamsulosin HCl [Flomax] 0.4 mg PO DAILY 02/08/20 [History] amLODIPine [Norvasc] 5 mg PO DAILY 02/08/20 [History] glipiZIDE/METFORMIN HCL [glipiZIDE/METFORMIN HCL 5-500 mg] 1 tab PO BID 05/17/20 [History] Albuterol Inhaler [Ventolin Hfa Inhaler] 2 puff INHALATION RT-QID puff 06/20/20 [Rx] Amoxic-Pot Clav 875-125Mg [Augmentin 875-125] 1 each PO Q12HR #10 tab 06/20/20 [Rx] Ascorbic Acid [Vitamin C] 1,000 mg PO DAILY tab 06/20/20 [Rx] Fluconazole [Diflucan] 100 mg PO DAILY #5 tab 06/20/20 [Rx] INSULIN ASPART (NovoLOG) [NovoLOG (formulary)] 0 unit SQ ACHS vial 06/20/20 [Rx] Zinc Sulfate [Orazinc] 220 mg PO DAILY cap 06/20/20 [Rx] cloNIDine 0.2 MG/24HR PATCH [Catapres-TTS] 1 patch TRANSDERM Q7D patch 06/20/20 [Rx] hydrALAZINE HCL [Apresoline] 100 mg PO TID tab 06/20/20 [Rx] Follow up Appointment(s)/Referral(s): [facility] [NON-STAFF] - As Needed Jevon Singer MD [Primary Care Provider] - 1-2 days [facility], [NON-STAFF] - 1-2 Days [facility] [NON-STAFF] - As Needed Patient Instructions/Handouts: Viral Pneumonia (DC) Activity/Diet/Wound Care/Special Instructions: Discharge Disposition: TRANSFER TO SNF/[facility]
[2020-06-20 11:06] VITALS: BMI 33.7
[2020-06-20 11:13] VITALS: BP 125/70; PULSE 72; TEMP 97.8
[2020-06-20 11:29] LABS: Glucose,Whole Blood 192 mg/dL (75-99)
--- NOTE | 2020-06-20 11:56 | P.PN ---
Subjective Progress Note Date: 06/20/20 84-year-old white male patient with a recent history of cholecystectomy for gangrenous cholecystitis on 05/18/2020 following which he was recovering at the [facility], has a past medical history of diabetes mellitus, hypertension, previous episodes of pneumonia, diverticular disease, history of lower GI bleeding, with EGD and colonoscopy, was brought into the emergency department per EMS on 06/05/2020 for evaluation of altered mental status and generalized weakness. He was [facility] to a [facility] facility on 05/25/2020 and was recently discharged from there on 05/30/2020 to his daughter's house where he was having increasing difficulty caring for himself. His chest x-ray no emergency department showed the mild cardiomegaly, low lung volumes without suspicious focal airspace opacity, pleural effusions and no evidence of pneumothorax. His brain CT shows cerebral atrophy and chronic small vessel ischemia, no acute intracranial abnormality. Normal sinus rhythm on the EKG. Patient denied any fever or chills. Denied any significant shortness of breath. No nausea vomiting or diarrhea, admit to some abdominal pain in the right upper quadrant where he had incision sites. Abdomen is soft and nontender. Reports normal appetite. Meds to being increasingly more weak, and no other complaints. CT of the abdomen and pelvis showing some interstitial infiltrates and atelectasis at the lung bases mild cardiomegaly, no acute abnormality within the abdomen and pelvis, moderate colonic diverticulosis without diverticulitis, cholecystectomy, no dilated ducts no evidence of a bile leak. Patient was checked for: 19 and was found to be positive, other laboratory analysis showed white blood cell count of 4.1, hemoglobin of 13.4, INR is 1.1, electrolytes were within normal limits, and patient was found to have acute kidney injury with the BUN of 44 creatinine 3.13, and GFR of 17, 600, CRP was 43.8, and lipase was 309, urinalysis was checked showing no clear evidence of urinary tract infection. Recently on 2 L of oxygen the pulse ox of 92-96%, intermittent low-grade fevers with T-max of 99.2F. He was started on Decadron 4 mg twice daily, he is on prophylactic dose of Lovenox for his renal clearance, he is receiving gentle IV hydration, and the pulmonary service was consulted in view of his COVID 19 infection On June patient seen in follow-up on medical floor, currently on 3 L of oxygen the pulse ox of 99%, appears to be, comfortable, no worsening dyspnea, he is breathing comfortably, but appears to be generally weak, he is currently sitting up in the recliner, he barely holding his head up, his vital signs have been stable, his had no acute events overnight. No new chest x-ray, today's labs have been reviewed, his renal function has significantly improved, and BUN is 32 and creatinine is down to 1.2, electrolytes were within normal limits. He's had no nausea vomiting or diarrhea. He remains on prophylactic dose of Lovenox, oral Decadron, and vitamin C, vitamin D and zinc supplement in addition to gentle IV hydration with 0.9 normal saline at a rate of 75 ML per hour. His been evaluated by physical therapy and apparently patient's family was not happy with the care at the [facility] and took patient home before he completed his rehabilitation however patient was increasingly weak at home. Current recommendation from physical therapy is nursing, physical therapy and occupational therapy, 24-hour care as the patient having difficulty with tra nsfers, requires extensive verbal and physical cues, has very limited functional endurance and extensive assistance with all ADLs. The patient is seen today 06/11/2020 follow-up on the regular medical floor. He remains quite altered. He's been refusing any oral medications. Respirations in the 30s. O2 saturation 88% on 4 L/m per nasal cannula. A CT angiogram was performed. No evidence of pulmonary embolism. There was cardiomegaly. Significant increased pulmonary infiltrates compared to previous. Consistent with acute pneumonia and atelectasis. Congestive heart failure is possible. Apparently, the plan is for PEG tube placement on Saturday. White count 7.9. Hemoglobin 11.6. D-dimer 3.87. Sodium 147. Potassium 3.3. Creatinine 1.0. He remains on dexamethasone IV, Lovenox subcutaneous, Diflucan for thrush. The patient is seen today 06/12/2020 in follow-up on the regular medical floor. He is currently on the nonrebreather mask at 15 L to maintain O2 saturation in the 90s. He is afebrile. Remains quite debilitated and weak. Sodium 148. Potassium 4.0. Creatinine 1.0. Glucose 212. Remains on dexamethasone, bronchodilators, Zosyn. Additional Lasix 40 mg IVP 1 today. The patient is seen today 06/18/2020 in follow-up regular medical floor. He is a bit more awake and alert. Now maintaining O2 saturations in the 90s on 3 L/m per nasal cannula. He's been afebrile. He is currently on dexamethasone, Lovenox, vitamin supplements. Antibiotics in the form of Augmentin. The patient is seen today 06/19/2020 lobe on the regular medical floor. He is currently resting comfortably in bed. Awake and alert in no acute distress. He is now maintaining O2 saturations in the 90s on 3 L/m per nasal cannula. He has tube feedings at 50 MLS per hour. D5W at 20 ML's per hour. Glucose 140. On Augmentin. Remains on bronchodilators, Dexamethasone, Lovenox. On 06/20/2020, the patient is doing well. No specific complaints. He is quite debilitated and weak and the patient is possibly going to the prison today. He is on enteral feeding for nutritional support. He is receiving tube feeds and the patient is getting Glucerna at the rate of 50 mL an hour. He is able to tolerate the tube feeds without any major difficulties. No abdominal distention. Is having regular bowel movements. He is currently on room air oxygen. His pulse ox is above 90%. His repeat coronavirus testing came back negative.. Objective - Vital Signs Vital signs: Vital Signs Temp 97.8 F 06/20/20 10:00 Pulse 72 06/20/20 10:00 Resp 18 06/20/20 10:00 BP 125/70 06/20/20 10:00 Pulse Ox 94 L 06/20/20 10:00 Intake & Output 06/19/20 06/20/20 06/20/20 18:59 06:59 18:59 Output Total 1200 650 Balance -1200 -650 Weight 116 kg 116 kg Output: Urine 1200 650 Other: Voiding Method Diaper Diaper Incontinent Incontinent External Catheter External Catheter # Bowel Movements 1 - Exam GENERAL EXAM: Awake, alert, 84-year-old male patient, he is currently on room air oxygen, resting in bed, no apparent distress. HEAD: Normocephalic/atraumatic. EYES: Normal reaction of pupils, equal size. Conjunctiva pink, sclera white. NOSE: Clear with pink turbinates. THROAT: No erythema or exudates. NECK: No masses, no JVD, no thyroid enlargement, no adenopathy. CHEST: No chest wall deformity. Symmetrical expansion. LUNGS: Equal air entry with few scattered rhonchi, crackles in the posterior bases CVS: Regular rate and rhythm, normal S1 and S2, no gallops, no murmurs, no rubs ABDOMEN: Soft, nontender. No hepatosplenomegaly, normal bowel sounds, no guarding or rigidity. Abdominal incisions clean dry and intact, and the patient has a PEG tube and exit site is dry clean and intact. EXTREMITIES: No clubbing, no edema, no cyanosis, 2+ pulses and upper and lower extremities. MUSCULOSKELETAL: Muscle strength and tone normal. SPINE: No scoliosis or deformity SKIN: No rashes CENTRAL NERVOUS SYSTEM: No focal deficits, tone is normal in all 4 extremities. PSYCHIATRIC: Arousable. Drifts off easily. Difficult to assess. - Labs CBC & Chem 7: 06/16/20 06:25 06/16/20 06:25 Labs: Abnormal Lab Results - Last 24 Hours (Table) 06/19/20 06/19/20 06/20/20 Range/Units 16:42 21:14 07:02 POC Glucose (mg/dL) 234 H 180 H 147 H (75-99) mg/dL 06/20/20 Range/Units 11:27 POC Glucose (mg/dL) 192 H (75-99) mg/dL Assessment and Plan Plan: 1 Acute hypoxic respiratory failure secondary to COVID 19 infection, now on room air oxygen 2 Progressive weakness, refusing oral medications, PEG tube placed, the patient is receiving enteral feeding for nutritional support and the patient is currently on Glucerna which is running at goal. 3 Mild abdominal discomfort, CT abdomen and pelvis showed no acute intra- abdominal or intrapelvic abnormality with evidence of recent cholecystectomy, no dilated ducts, no evidence of a bile leak 4 Recent history of gangrenous cholecystitis, status post laparoscopic cholecystectomy on 05/18/[address] Taylor 5 General medical debility, he required [facility] facility placement after his most recent hospitalization but recently was discharged from the [facility] facility to his daughter's house where he could not care for himself 6 Diabetes mellitus type 2 7 Hypertension 8 Hyperlipidemia 9 Chronic kidney disease, unspecified 10 Previous history of GI bleeding and diverticulitis 11 History of BPH on Flomax Plan: Continue same treatment. Patient currently on room air oxygen. Repeat Covid 19 testing came back negative and the patient is going to ECF. Continue enteral feeding for nutritional support.
--- NOTE | 2020-06-20 12:57 | P.PN ---
Subjective Progress Note Date: 06/20/20 CHIEF COMPLAINT: Generalized weakness HISTORY OF PRESENT ILLNESS: Patient is status post PEG tube placement. He is tolerating bolus tube feedings. No residual. Patient is on regular diet. Eating minimal amounts of food. He's also admitted to the hospital for Covid 19 pneumonia. Afebrile. PHYSICAL EXAM: VITAL SIGNS: Reviewed. GENERAL: Well-developed in no acute distress. HEENT: No sclera icterus. Extraocular movements grossly intact. Moist buccal mucosa. Head is atraumatic, normocephalic. ABDOMEN: Soft. Nondistended. Nontender. PEG tube site clean dry and intact NEUROLOGIC: Alert and oriented. Cranial nerves II through XII grossly intact. ASSESSMENT: 1. Severe protein calorie malnutrition and poor oral intake patient status post PEG tube placement 2. Covid 19 pneumonia PLAN: -Continue tube feedings -Continue supportive care -Stable for discharge from surgical standpoint Physician Embroidery Operator note has been reviewed by physician. Signing provider agrees with the documented findings, assessment, and plan of care. Objective - Vital Signs Vital signs: Vital Signs Temp 97.8 F 06/20/20 10:00 Pulse 72 06/20/20 10:00 Resp 18 06/20/20 10:00 BP 125/70 06/20/20 10:00 Pulse Ox 94 L 06/20/20 10:00 Intake & Output 06/19/20 06/20/20 06/20/20 18:59 06:59 18:59 Output Total 1200 650 Balance -1200 -650 Weight 116 kg 116 kg Output: Urine 1200 650 Other: Voiding Method Diaper Diaper Incontinent Incontinent External Catheter External Catheter # Bowel Movements 1 - Labs CBC & Chem 7: 06/16/20 06:25 06/16/20 06:25 Labs: Abnormal Lab Results - Last 24 Hours (Table) 06/19/20 06/19/20 06/20/20 Range/Units 16:42 21:14 07:02 POC Glucose (mg/dL) 234 H 180 H 147 H (75-99) mg/dL 06/20/20 Range/Units 11:27 POC Glucose (mg/dL) 192 H (75-99) mg/dL
== END 2020-06-20 14:15 | DRG 177 ==
LOC: EC 19:07 → 4SSUR 21:26
PROVIDERS: ADMIT Internal Medicine; ATTEND Internal Medicine
PROC: 0DH63UZ Insertion of Feeding Device into Stomach, Percutaneous Approach (ICD-10-PCS; principal; 2020-06-13 07:30)
PROC: 3E0G76Z Introduction of Nutritional Substance into Upper GI, Via Natural or Artificial Opening (ICD-10-PCS; principal; 2020-06-13 07:30)
DX: U07.1 COVID-19 (principal); J96.01 Acute respiratory failure with hypoxia; J12.82 Pneumonia due to coronavirus disease 2019; G93.41 Metabolic encephalopathy; E43 Unspecified severe protein-calorie malnutrition; J15.6 Pneumonia due to other Gram-negative bacteria; J98.11 Atelectasis; N17.9 Acute kidney failure, unspecified; B37.0 Candidal stomatitis; E87.0 Hyperosmolality and hypernatremia; L89.151 Pressure ulcer of sacral region, stage 1; K57.30 Diverticulosis of large intestine without perforation or abscess without bleeding; N18.30 Chronic kidney disease, stage 3 unspecified; N40.0 Benign prostatic hyperplasia without lower urinary tract symptoms; R32 Unspecified urinary incontinence; I12.9 Hypertensive chronic kidney disease with stage 1 through stage 4 chronic kidney disease, or unspecified chronic kidney disease; E87.6 Hypokalemia; E11.22 Type 2 diabetes mellitus with diabetic chronic kidney disease; E11.65 Type 2 diabetes mellitus with hyperglycemia; T38.0X5A Adverse effect of glucocorticoids and synthetic analogues, initial encounter; E78.5 Hyperlipidemia, unspecified; E83.42 Hypomagnesemia; Z79.4 Long term (current) use of insulin; Z79.52 Long term (current) use of systemic steroids; Z79.82 Long term (current) use of aspirin; Z79.899 Other long term (current) drug therapy; Z80.0 Family history of malignant neoplasm of digestive organs; Z87.01 Personal history of pneumonia (recurrent); Z90.49 Acquired absence of other specified parts of digestive tract; Z81.1 Family history of alcohol abuse and dependence; Z87.19 Personal history of other diseases of the digestive system; E66.9 Obesity, unspecified; Z68.33 Body mass index [BMI] 33.0-33.9, adult; K57.90 Diverticulosis of intestine, part unspecified, without perforation or abscess without bleeding
CPT/HCPCS: 36415; 43246; 70450; 71045; 71275; 74176; 76770; 80048; 80053; 81001; 82728; 83615; 83690; 83735; 84145; 85025; 85027; 85379; 85610; 85730; 86140; 86850; 86900; 86901; 87635; 93005; 94640; 94660; 94760; 96360; 99285

== ENCOUNTER 2020-10-13 15:50 | Emergency (ER) | payer MEDICARE, OTHER ==
[2020-10-13 15:55] VITALS: RESP 18
[2020-10-13] MEDS ORDERED: SODIUM CHLORIDE 0.9% 500 ML 500 ML IV STA (16:43)
[2020-10-13] MEDS ORDERED: KETOROLAC 15 MG/ML 1 ML VIAL IVP STA (16:44)
[2020-10-13 17:09] LABS: Basophils # (A) 0.1 k/uL (0-0.2); Basophils % (A) 1 %; Eosinophils # (A) 0.1 k/uL (0-0.7); Eosinophils % (A) 1 %; HCT 37.1 % (39.0-53.0); HGB 12.5 gm/dL (13.0-17.5); Lymphocytes # (A) 2.1 k/uL (1.0-4.8); Lymphocytes % (A) 18 %; MCH 28.7 pg (25.0-35.0); MCHC 33.6 g/dL (31.0-37.0); MCV 85.5 fL (80.0-100.0); Mean Platelet Volume 7.9; Monocytes # (A) 1.1 k/uL (0-1.0); Monocytes % (A) 10 %; Neutrophils % (A) 70 %; Platelet Count 362 k/uL (150-450); RBC 4.34 m/uL (4.30-5.90); WBC 11.4 k/uL (3.8-10.6)
[2020-10-13 17:14] LABS: Appearance,Urine Cloudy (Clear); Bilirubin,Urine Negative (Negative); Blood,Urine Negative (Negative); Color,Urine Yellow; Glucose,Urine (UA) Negative (Negative); Hyaline Casts,Urine 14 /lpf (0-2); Ketones,Urine Negative (Negative); Leukocyte Esterase,Urine Large (Negative); Mucus,Urine Occasional /hpf; Nitrite,Urine Positive (Negative); Protein,Urine 1+ (Negative); RBC,Urine 2 /hpf (0-5); Specific Gravity,Urine 1.018 (1.001-1.035); Urobilinogen,Urine <2.0 mg/dL (<2.0); WBC,Urine 74 /hpf (0-5)
[2020-10-13 17:24] LABS: Albumin 4.2 g/dL (3.5-5.0); Calcium 9.9 mg/dL (8.4-10.2); Potassium 3.9 mmol/L (3.5-5.1); Total Bilirubin 0.6 mg/dL (0.2-1.3); Total Protein 8.4 g/dL (6.3-8.2)
[2020-10-13] MEDS ORDERED: cefTRIAXone IN SWFI 1,000 MG/10 ML SYRINGE IVP STA (17:34)
--- NOTE | 2020-10-13 17:46 | ED ---
General Adult HPI - General Chief complaint: Abdominal Pain Stated complaint: Abd/Back Pain Time Seen by Provider: 10/13/20 15:55 Source: patient, family, RN notes reviewed, old records reviewed Mode of arrival: wheelchair Limitations: no limitations - History of Present Illness Initial comments: This is an 85-year-old male who presents emergency Department complaining of bilateral lower back pain patient's daughter brings him in and states that he al so was complaining earlier of abdominal pain though the patient states he has no abdominal pain. Patient had COVID earlier in the year and was in a rehab facility for about a month. According to the daughter some blood work came back and it showed a little kidney dysfunction. Patient denies any injury or trauma. Patient denies any fever chills or cough. Patient denies chest pain palpitations difficulty breathing or shortness of breath. Patient denies any vomiting or diarrhea. Patient denies any headache patient denies any numbness or weakness - Related Data Home Medications Medication Instructions Recorded Confirmed Tamsulosin HCl [Flomax] 0.4 mg PO DAILY 02/08/20 10/13/20 amLODIPine [Norvasc] 5 mg PO DAILY 02/08/20 10/13/20 glipiZIDE/METFORMIN HCL 1 tab PO BID 05/17/20 10/13/20 [glipiZIDE/METFORMIN HCL 5-500 mg] Acetaminophen [Tylenol Extra 500 mg PO Q6H PRN 10/13/20 10/13/20 Strength] Cholecalciferol [Vitamin D3 (25 25 mcg PO DAILY 10/13/20 10/13/20 Mcg = 1000 Iu)] Elderberry Fruit and Flower [Black 1 cap PO DAILY 10/13/20 10/13/20 Elderberry 575 mg Cap] hydrALAZINE HCL [Apresoline] 100 mg PO DAILY 10/13/20 10/13/20 Previous Rx's Medication Instructions Recorded Ciprofloxacin HCl [Cipro] 500 mg PO Q12HR #20 tablet 10/13/20 Allergies Allergy/AdvReac Type Severity Reaction Status Date / Time No Known Allergies Allergy Verified 10/13/20 16:49 Review of Systems ROS Statement: Those systems with pertinent positive or pertinent negative responses have been documented in the HPI. ROS Other: All systems not noted in ROS Statement are negative. Past Medical History Past Medical History: Diabetes Mellitus, Eye Disorder, GI Bleed, Hypertension, Pneumonia Additional Past Medical History / Comment(s): NIDDM type II, bilateral foot pain, diverticular disease, ischemic colitis, lower GI bleed, glaucoma/no peripheral vision bilaterally, past pneumonia with lengthy hospitalization, bilateral lower leg edema. History of Any Multi-Drug Resistant Organisms: None Reported Past Surgical History: Orthopedic Surgery Additional Past Surgical History / Comment(s): bilateral Rotator cuff, EGD, colonoscopy, bilateral blepharoplasty, R little finger fx with surgery. Past Anesthesia/Blood Transfusion Reactions: No Reported Reaction Past Psychological History: No Psychological Hx Reported Smoking Status: Never smoker Past Alcohol Use History: None Reported Past Drug Use History: None Reported - Past Family History Father History Unknown: Yes Family Medical History: Liver Disease Additional Family Medical History / Comment(s): ETOH abuse Mother Family Medical History: Cancer Additional Family Medical History / Comment(s): Pancreatic cancer. General Exam - General Exam Comments Initial Comments: GENERAL: Patient is well-developed and well-nourished. Patient is nontoxic and well- hydrated and is in no acute distress. ENT: Neck is soft and supple. No significant lymphadenopathy is noted. Oropharynx is clear. Moist mucous membranes. Neck has full range of motion without eliciting any pain. EYES: The sclera were anicteric and conjunctiva were pink and moist. Extraocular movements were intact and pupils were equal round and reactive to light. Eyelids were unremarkable. PULMONARY: Unlabored respirations. Good breath sounds bilaterally. No audible rales rho nchi or wheezing was noted. CARDIOVASCULAR: There is a regular rate and rhythm without any murmurs gallops or rubs. ABDOMEN: Soft and nontender with normal bowel sounds. SKIN: Skin is clear with no lesions or rashes and otherwise unremarkable. NEUROLOGIC: Patient is alert and oriented x3. Cranial nerves II through XII are grossly intact. Motor and sensory are also intact. Normal speech, volume and content. Symmetrical smile. Patient has no CVA tenderness however in the lower back lat eral to the spine is tender to palpation but only mildly. MUSCULOSKELETAL: Normal extremities with adequate strength and full range of motion. LYMPHATICS: No significant lymphadenopathy is noted PSYCHIATRIC: Normal psychiatric evaluation. Limitations: no limitations Course Vital Signs 10/13/20 10/13/20 10/13/20 15:51 17:38 18:40 Temperature 98.4 F 99.9 F H 99.6 F Pulse Rate 95 Respiratory 18 Rate Blood Pressure 144/57 O2 Sat by Pulse 99 Oximetry 10/13/20 18:53 Temperature Pulse Rate 88 Respiratory 18 Rate Blood Pressure 146/77 O2 Sat by Pulse 96 Oximetry Medical Decision Making - Medical Decision Making Patient received 2 g of Rocephin emergency department. - Lab Data Result diagrams: 10/13/20 17:02 10/13/20 17:02 Lab Results 10/13/20 10/13/20 10/13/20 Range/Units 17:02 17:02 17:02 WBC 11.4 H (3.8-10.6) k/uL RBC 4.34 (4.30-5.90) m/uL Hgb 12.5 L (13.0-17.5) gm/dL Hct 37.1 L (39.0-53.0) % MCV 85.5 (80.0-100.0) fL MCH 28.7 (25.0-35.0) pg MCHC 33.6 (31.0-37.0) g/dL RDW 15.0 (11.5-15.5) % Plt Count 362 (150-450) k/uL MPV 7.9 Neutrophils % 70 % Lymphocytes % 18 % Monocytes % 10 % Eosinophils % 1 % Basophils % 1 % Neutrophils # 8.0 H (1.3-7.7) k/uL Lymphocytes # 2.1 (1.0-4.8) k/uL Monocytes # 1.1 H (0-1.0) k/uL Eosinophils # 0.1 (0-0.7) k/uL Basophils # 0.1 (0-0.2) k/uL Sodium 139 (137-145) mmol/L Potassium 3.9 (3.5-5.1) mmol/L Chloride 103 (98-107) mmol/L Carbon Dioxide 21 L (22-30) mmol/L Anion Gap 15 mmol/L BUN 21 H (9-20) mg/dL Creatinine 1.39 H (0.66-1.25) mg/dL Est GFR (CKD-EPI)AfAm 53 (>60 ml/min/1.73 sqM) Est GFR (CKD-EPI)NonAf 46 (>60 ml/min/1.73 sqM) Glucose 94 (74-99) mg/dL Lactic Ac Sepsis Rflx Plasma Lactic Acid Ollie (0.7-2.0) mmol/L Calcium 9.9 (8.4-10.2) mg/dL Total Bilirubin 0.6 (0.2-1.3) mg/dL AST 26 (17-59) U/L ALT 16 (4-49) U/L Alkaline Phosphatase 72 (38-126) U/L Total Protein 8.4 H (6.3-8.2) g/dL Albumin 4.2 (3.5-5.0) g/dL Amylase 85 (30-110) U/L Lipase 114 (23-300) U/L Urine Color Yellow Urine Appearance Cloudy (Clear) Urine pH 5.0 (5.0-8.0) Ur Specific [place] 1.018 (1.001-1.035) Urine Protein 1+ H (Negative) Urine Glucose (UA) Negative (Negative) Urine Ketones Negative (Negative) Urine Blood Negative (Negative) Urine Nitrite Positive (Negative) Urine Bilirubin Negative (Negative) Urine Urobilinogen <2.0 (<2.0) mg/dL Ur Leukocyte Esterase Large H (Negative) Urine RBC 2 (0-5) /hpf Urine WBC 74 H (0-5) /hpf Hyaline Casts 14 H (0-2) /lpf Urine Mucus Occasional H (None) /hpf 10/13/20 10/13/20 Range/Units 17:02 17:28 WBC (3.8-10.6) k/uL RBC (4.30-5.90) m/uL Hgb (13.0-17.5) gm/dL Hct (39.0-53.0) % MCV (80.0-100.0) fL MCH (25.0-35.0) pg MCHC (31.0-37.0) g/dL RDW (11.5-15.5) % Plt Count (150-450) k/uL MPV Neutrophils % % Lymphocytes % % Monocytes % % Eosinophils % % Basophils % % Neutrophils # (1.3-7.7) k/uL Lymphocytes # (1.0-4.8) k/uL Monocytes # (0-1.0) k/uL Eosinophils # (0-0.7) k/uL Basophils # (0-0.2) k/uL Sodium (137-145) mmol/L Potassium (3.5-5.1) mmol/L Chloride (98-107) mmol/L Carbon Dioxide (22-30) mmol/L Anion Gap mmol/L BUN (9-20) mg/dL Creatinine (0.66-1.25) mg/dL Est GFR (CKD-EPI)AfAm (>60 ml/min/1.73 sqM) Est GFR (CKD-EPI)NonAf (>60 ml/min/1.73 sqM) Glucose (74-99) mg/dL Lactic Ac Sepsis Rflx Y Plasma Lactic Acid Ollie 2.8 H* (0.7-2.0) mmol/L Calcium (8.4-10.2) mg/dL Total Bilirubin (0.2-1.3) mg/dL AST (17-59) U/L ALT (4-49) U/L Alkaline Phosphatase (38-126) U/L Total Protein (6.3-8.2) g/dL Albumin (3.5-5.0) g/dL Amylase (30-110) U/L Lipase (23-300) U/L Urine Color Urine Appearance (Clear) Urine pH (5.0-8.0) Ur Specific [place] (1.001-1.035) Urine Protein (Negative) Urine Glucose (UA) (Negative) Urine Ketones (Negative) Urine Blood (Negative) Urine Nitrite (Negative) Urine Bilirubin (Negative) Urine Urobilinogen (<2.0) mg/dL Ur Leukocyte Esterase (Negative) Urine RBC (0-5) /hpf Urine WBC (0-5) /hpf Hyaline Casts (0-2) /lpf Urine Mucus (None) /hpf Disposition Clinical Impression: Urinary tract infection Disposition: HOME SELF-CARE Condition: Good Instructions (If sedation given, give patient instructions): Urinary Tract Infection in Men (ED) Prescriptions: Ciprofloxacin HCl [Cipro] 500 mg PO Q12HR #20 tablet Is patient prescribed a controlled substance at d/c from ED?: No Referrals: Jevon Singer MD [Primary Care Provider] - 1-2 days Time of Disposition: 18:45
[2020-10-13 18:41] VITALS: TEMP 99.6
[2020-10-13] MEDS ORDERED: ACETAMINOPHEN TAB 325 MG TAB PO STA (18:42)
[2020-10-13 18:54] VITALS: BP 146/77; PULSE 88
== END 2020-10-13 18:54 | disposition home or self-care (01) ==
LOC: EC 15:50
DX: N39.0 Urinary tract infection, site not specified (principal); M54.5 Low back pain; B96.5 Pseudomonas (aeruginosa) (mallei) (pseudomallei) as the cause of diseases classified elsewhere; I10 Essential (primary) hypertension; E11.39 Type 2 diabetes mellitus with other diabetic ophthalmic complication; Z79.84 Long term (current) use of oral hypoglycemic drugs
CPT/HCPCS: 36415; 80053; 82150; 83605; 83690; 85025; 81001; 87086; 87077; 87186; 99284; 96374; 96375; 96361 ×2; J0696; J1885; 99285

== ENCOUNTER 2020-11-23 | Emergency (ER) | payer MEDICARE, OTHER | END 2020-11-23 23:11 | disposition home or self-care (01) | CPT/HCPCS: 36415; 80053; 83605; 83690; 85025; 81001; 74018; 74177; 99284; Q9967 ×2 ==

== ENCOUNTER 2022-10-30 18:48 | Observation (INO) | payer MEDICARE, OTHER ==
--- NOTE | 2022-10-30 18:52 | ED ---
General Adult HPI - General Source: RN notes reviewed <Roxanna Scott - Last Filed: 10/30/22 18:50> <Yandel Hawkins - Last Filed: 10/31/22 02:29> - General Stated complaint: Weakness Time Seen by Provider: 10/30/22 18:50 - History of Present Illness Initial comments: 87-year-old -Armenian male presents to the emergency department with a chief complaint of generalized weakness 1 month. Patient reports he fell today and his company of right hip pain. She denies loss of consciousness or anticoagulant use. (Roxanna Scott) This is an 87-year-old male with a past medical history including diabetes, hypertension presented to the emergency department with his daughter for concerns of failure to thrive and increased lethargy. It was reported the patient has had decreased energy, lethargy and decreased appetite over the last several weeks, worsening today. The patient himself denied any acute pain or distress but did state that he had some minor pain in the right hip after a fall several weeks ago. The patient did not his and did not lose consciousness at that time but just slid off the bed and landed on the carpet floor. The patient himself was resting in bed comfortably. The patient's daughter stated that he has been taking his medications as prescribed but reported decreased energy as well as increasing confusion throughout the day. She was concerned due to his decreased appetite and hydration so he was brought into the emergency department. The patient denied fevers, chills as well as any nausea and vomiting. (Yandel Hawkins) - Related Data Home Medications Medication Instructions Recorded Confirmed Tamsulosin HCl [Flomax] 0.4 mg PO DAILY 02/08/20 10/13/20 amLODIPine [Norvasc] 5 mg PO DAILY 02/08/20 10/13/20 glipiZIDE/METFORMIN HCL 1 tab PO BID 05/17/20 10/13/20 [glipiZIDE/METFORMIN HCL 5-500 mg] Acetaminophen [Tylenol Extra 500 mg PO Q6H PRN 10/13/20 10/13/20 Strength] Cholecalciferol [Vitamin D3 (25 25 mcg PO DAILY 10/13/20 10/13/20 Mcg = 1000 Iu)] Elderberry Fruit and Flower [Black 1 cap PO DAILY 10/13/20 10/13/20 Elderberry 575 mg Cap] hydrALAZINE HCL [Apresoline] 100 mg PO DAILY 10/13/20 10/13/20 Previous Rx's Medication Instructions Recorded Ciprofloxacin HCl [Cipro] 500 mg PO Q12HR #20 tablet 10/13/20 Allergies Allergy/AdvReac Type Severity Reaction Status Date / Time No Known Allergies Allergy Verified 10/30/22 19:02 Review of Systems ROS Other: All systems not noted in ROS Statement are negative. <Roxanna Scott - Last Filed: 10/30/22 18:50> ROS Other: All systems not noted in ROS Statement are negative. <Yandel Hawkins - Last Filed: 10/31/22 02:29> ROS Statement: Those systems with pertinent positive or pertinent negative responses have been documented in the HPI. Past Medical History Past Medical History: Diabetes Mellitus, Eye Disorder, GI Bleed, Hypertension, Pneumonia Additional Past Medical History / Comment(s): NIDDM type II, bilateral foot pain, diverticular disease, ischemic colitis, lower GI bleed, glaucoma/no peripheral vision bilaterally, past pneumonia with lengthy hospitalization, bilateral lower leg edema. covid 2020 History of Any Multi-Drug Resistant Organisms: None Reported Past Surgical History: Cholecystectomy, Orthopedic Surgery Additional Past Surgical History / Comment(s): bilateral Rotator cuff, EGD, colonoscopy, bilateral blepharoplasty, R little finger fx with surgery. Past Anesthesia/Blood Transfusion Reactions: No Reported Reaction Past Psychological History: No Psychological Hx Reported Smoking Status: Never smoker Past Alcohol Use History: None Reported Past Drug Use History: None Reported - Past Family History Father History Unknown: Yes Family Medical History: Liver Disease Additional Family Medical History / Comment(s): ETOH abuse Mother Family Medical History: Cancer Additional Family Medical History / Comment(s): Pancreatic cancer. <Roxanna Scott - Last Filed: 10/30/22 18:50> General Exam <Roxanna Scott - Last Filed: 10/30/22 18:50> Limitations: no limitations General appearance: alert, in no apparent distress Head exam: Present: atraumatic, normocephalic, normal inspection Eye exam: Present: normal appearance, PERRL Pupils: Present: normal accommodation ENT exam: Present: normal exam, normal oropharynx, mucous membranes moist Neck exam: Present: normal inspection, full ROM Respiratory exam: Present: normal lung sounds bilaterally Cardiovascular Exam: Present: regular rate, normal rhythm, normal heart sounds GI/Abdominal exam: Present: soft, normal bowel sounds Extremities exam: Present: normal inspection, full ROM Back exam: Present: normal inspection, full ROM Neurological exam: Present: alert, oriented X3, CN II-XII intact Psychiatric exam: Present: normal affect, normal mood Skin exam: Present: warm, dry <Yandel Hawkins - Last Filed: 10/31/22 02:29> - General Exam Comments Initial Comments: Visual Physical Exam Vital signs reviewed General: Well-appearing, nontoxic, no acute distress. Head: Normocephalic, atraumatic Eyes: PERRLA, EOMI ENT: Airway patent Chest: Nonlabored breathing Skin: No visual rash, normal skin tone Neuro: Alert and oriented 3 Musculoskeletal: No gross abnormalities (Roxanna Scott) Course Vital Signs 10/30/22 18:55 Temperature 97.9 F Pulse Rate 89 Respiratory 18 Rate Blood Pressure 117/63 O2 Sat by Pulse 97 Oximetry EKG Findings - EKG Comments: EKG Findings:: An EKG was obtained and was interpreted by myself showing a rate of 75, MS interval 144, QRS duration 113 and QTC of 409. This EKG showed a normal sinus rhythm with no ST segment elevation or depression noted. <Yandel Hawkins - Last Filed: 10/31/22 02:29> Medical Decision Making - Lab Data Result diagrams: 10/30/22 20:25 10/30/22 20:25 <Yandel Hawkins - Last Filed: 10/31/22 02:29> - Medical Decision Making Was pt. sent in by a medical professional or institution (, PA, BLOOD COORDINATOR, urgent care, hospital, or retirement...) When possible be specific @ -No Did you speak to anyone other than the patient for history (EMS, parent, family, police, friend...)? What history was obtained from this source @ -Yes, patient's daughter was at the bedside and did state all the patient's history including that she had been taking care of the patient and noticed that the patient had been declining over the last several weeks. Did you review nursing and triage notes (agree or disagree)? Why? @ -I reviewed and agree with nursing and triage notes Were old charts reviewed (outside hosp., previous admission, EMS record, old EKG, old radiological studies, urgent care reports/EKG's, retirement records)? Report findings @ -No old charts were reviewed Differential Diagnosis (chest pain, altered mental status, abdominal pain women, abdominal pain men, vaginal bleeding, weakness, fever, dyspnea, syncope, headache, dizziness, GI bleed, back pain, seizure, CVA, palpatations, mental health)? @ -Dehydration, MARION, failure to thrive EKG interpreted by me (3pts min.). @ -As above X-rays interpreted by me (1pt min.). @ -Chest x-ray was obtained and was interpreted by myself showing no acute process. X-ray of the bilateral hips were also obtained and were interpreted by myself showing no acute process. CT interpreted by me (1pt min.). @ -None done U/S interpreted by me (1pt. min.). @ -None done What testing was considered but not performed or refused? (CT, X-rays, U/S, labs)? Why? @ -None What meds were considered but not given or refused? Why? @ -None Did you discuss the management of the patient with other professionals (professionals i.e. , PA, BLOOD COORDINATOR, lab, RT, psych nurse, aids social worker, health and safety director, teacher, prison officer, dependency case manager)? Give summary @ -Yes, admitting physician was contacted regarding patient admission. Was smoking cessation discussed for >3mins.? @ -No Was critical care preformed (if so, how long)? @ -No Were there social determinants of health that impacted care today? How? (Homelessness, low income, unemployed, alcoholism, drug addiction, transportation, low edu. Level, literacy, decrease access to med. care, residential, rehab)? @ -No Was there de-escalation of care discussed even if they declined (Discuss DNR or withdrawal of care, Hospice)? DNR status @ -No What co-morbidities impacted this encounter? (DM, HTN, Smoking, COPD, CAD, Cancer, CVA, ARF, Chemo, Hep., AIDS, mental health diagnosis, sleep apnea, morbid obesity)? @ -Diabetes, hypertension Was patient admitted / discharged? Hospital course, mention meds given and route, prescriptions, significant lab abnormalities, going to OR and other pertinent info. @ -The patient was seen and evaluated emergency department. Physical exam, the patient was resting in bed without any acute distress. Vital signs admission were stable. Laboratory workup was obtained and showed a increased creatinine showing an MARION on CKD. The patient's daughter did explain that the patient has had decreased lethargy however did have some water in the waiting room while waiting over 9 hours and did have increased energy. The patient was given a liter of normal saline fluid and due to the patient's dehydration in the setting of failure to thrive, will be admitted to the hospital for further evaluation and management. The patient's daughter was agreeable to this plan as was the patient. The patient's private care physician was being covered by [facility] and the physician covering did agree to admission. The patient was admitted in stable condition. Undiagnosed new problem with uncertain prognosis? @ -No Drug Therapy requiring intensive monitoring for toxicity (Heparin, Nitro, Insulin, Cardizem)? @ -No Were any procedures done? @ -No Diagnosis/symptom? @ -MARION on CKD, failure to thrive Acute, or Chronic, or Acute on Chronic? @ -Acute on chronic Uncomplicated (without systemic symptoms) or Complicated (systemic symptoms)? @ -Complicated Side effects of treatment? @ -No Exacerbation, Progression, or Severe Exacerbation? @ -No Poses a threat to life or bodily function? How? (Chest pain, USA, OR, pneumonia, PE, COPD, DKA, ARF, appy, cholecystitis, CVA, Diverticulitis, Homicidal, Suicidal, threat to staff... and all critical care pts) @ -Yes, continued MARION and failure to thrive can lead to continued permanent damage and possible . (Yandel Hawkins) - Lab Data Lab Results 10/30/22 10/30/22 10/30/22 Range/Units 20:25 20:25 20:25 WBC 6.9 (3.8-10.6) k/uL RBC 4.46 (4.30-5.90) m/uL Hgb 13.5 (13.0-17.5) gm/dL Hct 40.4 (39.0-53.0) % MCV 90.6 (80.0-100.0) fL MCH 30.2 (25.0-35.0) pg MCHC 33.4 (31.0-37.0) g/dL RDW 13.8 (11.5-15.5) % Plt Count 291 (150-450) k/uL MPV 7.7 Neutrophils % 63 % Lymphocytes % 27 % Monocytes % 8 % Eosinophils % 1 % Basophils % 1 % Neutrophils # 4.3 (1.3-7.7) k/uL Lymphocytes # 1.8 (1.0-4.8) k/uL Monocytes # 0.5 (0-1.0) k/uL Eosinophils # 0.1 (0-0.7) k/uL Basophils # 0.0 (0-0.2) k/uL PT 10.9 (9.0-12.0) sec INR 1.0 (<1.2) APTT 25.9 (22.0-30.0) sec Sodium (137-145) mmol/L Potassium (3.5-5.1) mmol/L Chloride (98-107) mmol/L Carbon Dioxide (22-30) mmol/L Anion Gap mmol/L BUN (9-20) mg/dL Creatinine (0.66-1.25) mg/dL Est GFR (CKD-EPI)AfAm (>60 ml/min/1.73 sqM) Est GFR (CKD-EPI)NonAf (>60 ml/min/1.73 sqM) Glucose (74-99) mg/dL Plasma Lactic Acid Ollie (0.7-2.0) mmol/L Calcium (8.4-10.2) mg/dL Total Bilirubin (0.2-1.3) mg/dL AST (17-59) U/L ALT (4-49) U/L Alkaline Phosphatase (38-126) U/L Troponin I (0.000-0.034) ng/mL Total Protein (6.3-8.2) g/dL Albumin (3.5-5.0) g/dL Influenza Type A (PCR) Not Detected (Not Detectd) Influenza Type B (PCR) Not Detected (Not Detectd) RSV (PCR) Not Detected (Not Detectd) SARS-CoV-2 (PCR) Not Detected (Not Detectd) 10/30/22 10/30/22 10/30/22 Range/Units 20:25 20:25 20:25 WBC (3.8-10.6) k/uL RBC (4.30-5.90) m/uL Hgb (13.0-17.5) gm/dL Hct (39.0-53.0) % MCV (80.0-100.0) fL MCH (25.0-35.0) pg MCHC (31.0-37.0) g/dL RDW (11.5-15.5) % Plt Count (150-450) k/uL MPV Neutrophils % % Lymphocytes % % Monocytes % % Eosinophils % % Basophils % % Neutrophils # (1.3-7.7) k/uL Lymphocytes # (1.0-4.8) k/uL Monocytes # (0-1.0) k/uL Eosinophils # (0-0.7) k/uL Basophils # (0-0.2) k/uL PT (9.0-12.0) sec INR (<1.2) APTT (22.0-30.0) sec Sodium 141 (137-145) mmol/L Potassium 3.5 (3.5-5.1) mmol/L Chloride 106 (98-107) mmol/L Carbon Dioxide 23 (22-30) mmol/L Anion Gap 12 mmol/L BUN 31 H (9-20) mg/dL Creatinine 2.47 H (0.66-1.25) mg/dL Est GFR (CKD-EPI)AfAm 26 (>60 ml/min/1.73 sqM) Est GFR (CKD-EPI)NonAf 22 (>60 ml/min/1.73 sqM) Glucose 103 H (74-99) mg/dL Plasma Lactic Acid Ollie 1.9 (0.7-2.0) mmol/L Calcium 9.5 (8.4-10.2) mg/dL Total Bilirubin 0.7 (0.2-1.3) mg/dL AST 23 (17-59) U/L ALT 16 (4-49) U/L Alkaline Phosphatase 57 (38-126) U/L Troponin I 0.033 (0.000-0.034) ng/mL Total Protein 7.9 (6.3-8.2) g/dL Albumin 4.1 (3.5-5.0) g/dL Influenza Type A (PCR) (Not Detectd) Influenza Type B (PCR) (Not Detectd) RSV (PCR) (Not Detectd) SARS-CoV-2 (PCR) (Not Detectd) Disposition <Roxanna Scott - Last Filed: 10/30/22 18:50> Is patient prescribed a controlled substance at d/c from ED?: No Time of Disposition: 02:00 Decision to Admit Reason: Admit from EC Decision Date: 10/31/22 Decision Time: 02:00 <Yandel Hawkins - Last Filed: 10/31/22 02:29> Clinical Impression: Dehydration, Failure to thrive Disposition: ADMITTED IP TO THIS [facility] Condition: Stable Referrals: Jevon Singer MD [Primary Care Provider] - 1-2 days
--- NOTE | 2022-10-30 20:25 | XR ---
EXAMINATION TYPE: XR Hip Bilateral and AP pelvis DATE OF EXAM: 10/30/2022 COMPARISON: None HISTORY: Pain TECHNIQUE: AP pelvis and two-view bilateral hips FINDINGS: Femoral heads articulate with the acetabulum. Symphysis pubis and sacroiliac joints are nor mal. No acute fractures or dislocations are evident. Hip joint spaces appear preserved. IMPRESSION: 1. No acute osseous abnormality bilateral hips
--- NOTE | 2022-10-30 20:28 | XR ---
EXAMINATION TYPE: XR chest 2V DATE OF EXAM: 10/30/2022 COMPARISON: 06/15/2020 INDICATION: Weakness TECHNIQUE: Frontal and lateral views of the chest are obtained. FINDINGS: The heart size is normal. The pulmonary vasculature is normal. The lungs are clear. IMPRESSION: 1. No acute pulmonary process.
[2022-10-30 20:55] LABS: Basophils % (A) 1 %; Eosinophils # (A) 0.1 k/uL (0-0.7); Eosinophils % (A) 1 %; HCT 40.4 % (39.0-53.0); HGB 13.5 gm/dL (13.0-17.5); Lymphocytes # (A) 1.8 k/uL (1.0-4.8); Lymphocytes % (A) 27 %; MCH 30.2 pg (25.0-35.0); MCHC 33.4 g/dL (31.0-37.0); MCV 90.6 fL (80.0-100.0); Mean Platelet Volume 7.7; Monocytes # (A) 0.5 k/uL (0-1.0); Monocytes % (A) 8 %; Neutrophils # (A) 4.3 k/uL (1.3-7.7); Neutrophils % (A) 63 %; Platelet Count 291 k/uL (150-450); RBC 4.46 m/uL (4.30-5.90); RDW 13.8 % (11.5-15.5); WBC 6.9 k/uL (3.8-10.6)
[2022-10-30 20:58] LABS: Partial Thromboplastin Time 25.9 sec (22.0-30.0); Prothrombin Time 10.9 sec (9.0-12.0)
[2022-10-30 21:26] LABS: Albumin 4.1 g/dL (3.5-5.0); Calcium 9.5 mg/dL (8.4-10.2); Potassium 3.5 mmol/L (3.5-5.1); Total Bilirubin 0.7 mg/dL (0.2-1.3); Total Protein 7.9 g/dL (6.3-8.2)
[2022-10-31] MEDS ORDERED: SODIUM CHLORIDE 0.9% 1,000 ML IV ONE (02:17)
[2022-10-31] MEDS ORDERED: NALOXONE 0.4 MG/ML 1 ML VIAL IV PRN (02:29)
[2022-10-31] MEDS: SODIUM CHLORIDE 0.9% 1,000 ML IV SCH ×3 (03:45→21:27)
[2022-10-31] MEDS ORDERED: ACETAMINOPHEN TAB 325 MG TAB PO PRN (04:50)
[2022-10-31 11:44] LABS: Glucose,Whole Blood 122 mg/dL (70-110)
[2022-10-31] MEDS ORDERED: ONDANSETRON 4 MG/2 ML VIAL IVP PRN (11:50)
[2022-10-31 12:28] LABS: Appearance,Urine Clear (Clear); Bilirubin,Urine Negative (Negative); Blood,Urine Negative (Negative); Color,Urine Yellow; Glucose,Urine (UA) Negative (Negative); Ketones,Urine Negative (Negative); Leukocyte Esterase,Urine Negative (Negative); Nitrite,Urine Negative (Negative); Protein,Urine Trace (Negative); Specific Gravity,Urine 1.014 (1.001-1.035); Urobilinogen,Urine <2.0 mg/dL (<2.0)
[2022-10-31] MEDS ORDERED: NYSTATIN 100,000 UNIT/GM POWD 15 GM TOPICAL PRN (13:27)
--- NOTE | 2022-10-31 16:28 | P.HPIM ---
History of Present Illness H&P Date: 10/31/22 This is an 87 year old male with medical history of diabetes mellitus, hypertension, peripheral neuropathy, recent cataract surgery. Patient lives at home with daughter. Presents to the hospital secondary to fall with continued right hip pain and limited mobility. Patient also reports ongoing diarrhea that mostly seems to start right after eating a meal. He denies any blood in the stool or black stool. Patient does have some abdominal pain worse with palpation. He reports feeling fever at home. No shortness of breath and no chest pain. No nausea or vomiting. Patient does report feeling increased weakness over the last month at home and has decreased appetite. Initial work up reveals elevated creatinine of 2.47. Troponin level is negative. Patient has no elevated white count, viral panel is negative for influenza, RSV or Covid. Patient did have a hip pelvis Xray done on admission showing no acute osseous abnormality bilaterally. Orthopedics will be consulted as patient does have limited mobility. Review of Systems Constitutional: Denied any fatigue denied any fever. Cardio vascular: denied any chest pain, palpitations Gastrointestinal: denied any nausea, vomiting, diarrhea Pulmonary: Denied any shortness of breath cough Neurologic denied any new focal deficits All inpatient medications were reviewed and appropriate changes in these medications as dictated in the interval history and assessment and plan. PHYSICAL EXAMINATION: GENERAL: The patient is alert and oriented x3, not in any acute distress. Well developed, well nourished. HEENT: Pupils are round and equally reacting to light. Strabismus noted. No scleral icterus. No conjunctival pallor. Normocephalic, atraumatic. No pharyngeal erythema. No thyromegaly. CARDIOVASCULAR: S1 and S2 present. No murmurs, rubs, or gallops. PULMONARY: Chest is clear to auscultation, no wheezing or crackles. ABDOMEN: Soft, nontender, nondistended, normoactive bowel sounds. No palpable organomegaly. MUSCULOSKELETAL: No joint swelling or deformity. EXTREMITIES: No cyanosis, clubbing, or pedal edema. NEUROLOGICAL: Gross neurological examination did not reveal any focal deficits. SKIN: No rashes. 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 Dr. Nilsa MD I have performed a history and physical examination and medical decision making of this patient, discussed the same with the dictator, and agree with the dictators assessment and plan as written, documented as a scribe. Based on total visit time, I have performed more than 50% of this visit. Past Medical History Past Medical History: Diabetes Mellitus, Eye Disorder, GI Bleed, Hypertension, Pneumonia Additional Past Medical History / Comment(s): NIDDM type II, bilateral foot pain, diverticular disease, ischemic colitis, lower GI bleed, glaucoma/no peripheral vision bilaterally, past pneumonia with lengthy hospitalization, bilateral lower leg edema. covid 2020 History of Any Multi-Drug Resistant Organisms: None Reported Past Surgical History: Cholecystectomy, Orthopedic Surgery Additional Past Surgical History / Comment(s): bilateral Rotator cuff, EGD, colonoscopy, bilateral blepharoplasty, R little finger fx with surgery. Past Anesthesia/Blood Transfusion Reactions: No Reported Reaction Past Psychological History: No Psychological Hx Reported Additional Psychological History / Comment(s): Lives w daughter who is primary respite care provider. Smoking Status: Never smoker Past Alcohol Use History: None Reported Past Drug Use History: None Reported - Past Family History Father History Unknown: Yes Family Medical History: Liver Disease Additional Family Medical History / Comment(s): ETOH abuse Mother Family Medical History: Cancer Additional Family Medical History / Comment(s): Pancreatic cancer. Medications and Allergies Home Medications Medication Instructions Recorded Confirmed Type Tamsulosin HCl [Flomax] 0.4 mg PO DAILY 02/08/20 10/31/22 History amLODIPine [Norvasc] 5 mg PO DAILY 02/08/20 10/31/22 History glipiZIDE/METFORMIN HCL 1 tab PO BID-W/MEALS 05/17/20 10/31/22 History [glipiZIDE/METFORMIN HCL 5-500 mg] Nystatin 100,000 Unit/gm Powd 1 applic TOPICAL BID PRN 10/31/22 10/31/22 History [Mycostatin Powder] Zinc Oxide/Cod Liver Oil [Desitin 1 applic TOPICAL BID PRN 10/31/22 10/31/22 History 40% Paste] hydrALAZINE HCL [Apresoline] 100 mg PO TID-W/MEALS 10/31/22 10/31/22 History Allergies Allergy/AdvReac Type Severity Reaction Status Date / Time No Known Allergies Allergy Verified 10/31/22 09:36 Physical Exam Vitals: Vital Signs Temp Pulse Pulse Resp BP BP Pulse Ox 10/31/22 09:00 97.6 F 79 16 143/62 99 10/31/22 03:49 79 19 154/90 99 10/31/22 03:22 87 20 144/66 10/30/22 18:55 97.9 F 89 18 117/63 97 Intake and Output 10/30/22 10/31/22 10/31/22 22:59 06:59 14:59 Intake Total 400 Balance 400 Intake: IV 400 Sodium Chloride 0.9% 1, 400 000 ml @ 75 mls/hr IV . [id number] Rx#:[id number] Other: Voiding Method Urinal # Voids 1 Weight 104.326 kg 104.326 kg Results CBC & Chem 7: 10/30/22 20:25 10/30/22 20:25 Labs: Abnormal Lab Results - Last 24 Hours (Table) 10/30/22 Range/Units 20:25 BUN 31 H (9-20) mg/dL Creatinine 2.47 H (0.66-1.25) mg/dL Glucose 103 H (74-99) mg/dL Thrombosis Risk Factor Assmnt - Choose All That Apply Other Risk Factors: Yes Each Risk Factor Represents 3 Points: Age 75 years or older Thrombosis Risk Factor Assessment Total Risk Factor Score: 3 Thrombosis Risk Factor Assessment Level: Moderate Risk
--- NOTE | 2022-10-31 17:46 | XR ---
EXAMINATION TYPE: XR lumbar spine 2 or 3V DATE OF EXAM: 10/31/2022 CLINICAL HISTORY: pain TECHNIQUE: Three views of the lumbar spine are submitted. COMPARISON: CT abdomen pelvis 11/23/2020 FINDINGS: There are 5 lumbar type vertebral bodies identified. The lumbar spine shows satisfactory alignment w ithout evidence of acute fracture or dislocation. Vertebral body heights are within normal limits. Multilevel disc space narrowing with endplate sclerosis and anterior osteophytosis. Lower lumbar spin e multilevel facet arthropathy. The overlying soft tissue appears unremarkable. IMPRESSION: 1. No acute fracture. 2. Moderate degenerative disc disease and facet arthropathy.
[2022-10-31 18:01] LABS: Glucose,Whole Blood 146 mg/dL (70-110)
[2022-10-31] MEDS ORDERED: FAMOTIDINE 20 MG/2 ML VIAL IV SCH (21:00)
[2022-10-31 21:29] LABS: Glucose,Whole Blood 110 mg/dL (70-110)
[2022-11-01 06:03] LABS: Glucose,Whole Blood 89 mg/dL (70-110)
--- NOTE | 2022-11-01 08:33 | P.CNOR ---
History of Present Illness - [facility] Consult date: 11/01/22 Consult reason: joint pain (Bilateral hip/low back pain.) History of present illness: This is an 87-year-old male admitted through the emergency department with intractable bilateral hip pain and inability to ambulate. The patient states that he did have a fall recently where he believes he landed on his buttock. He began having severe pain along with numbness and tingling to both hips. He states that he is having some numbness and tingling down the anterior thighs as well. We are consulted for orthopedic evaluation. Past Medical History Past Medical History: Diabetes Mellitus, Eye Disorder, GI Bleed, Hypertension, Pneumonia Additional Past Medical History / Comment(s): NIDDM type II, bilateral foot pain, diverticular disease, ischemic colitis, lower GI bleed, glaucoma/no peripheral vision bilaterally, past pneumonia with lengthy hospitalization, bilateral lower leg edema. covid 2020 History of Any Multi-Drug Resistant Organisms: None Reported Past Surgical History: Cholecystectomy, Orthopedic Surgery Additional Past Surgical History / Comment(s): bilateral Rotator cuff, EGD, colonoscopy, bilateral blepharoplasty, R little finger fx with surgery. Past Anesthesia/Blood Transfusion Reactions: No Reported Reaction Past Psychological History: No Psychological Hx Reported Additional Psychological History / Comment(s): Lives w daughter who is primary healthcare applications analyst. Smoking Status: Never smoker Past Alcohol Use History: None Reported Past Drug Use History: None Reported - Past Family History Father History Unknown: Yes Family Medical History: Liver Disease Additional Family Medical History / Comment(s): ETOH abuse Mother Family Medical History: Cancer Additional Family Medical History / Comment(s): Pancreatic cancer. Medications and Allergies Home Medications Medication Instructions Recorded Confirmed Type Tamsulosin HCl [Flomax] 0.4 mg PO DAILY 02/08/20 10/31/22 History amLODIPine [Norvasc] 5 mg PO DAILY 02/08/20 10/31/22 History glipiZIDE/METFORMIN HCL 1 tab PO BID-W/MEALS 05/17/20 10/31/22 History [glipiZIDE/METFORMIN HCL 5-500 mg] Nystatin 100,000 Unit/gm Powd 1 applic TOPICAL BID PRN 10/31/22 10/31/22 History [Mycostatin Powder] Zinc Oxide/Cod Liver Oil [Desitin 1 applic TOPICAL BID PRN 10/31/22 10/31/22 History 40% Paste] hydrALAZINE HCL [Apresoline] 100 mg PO TID-W/MEALS 10/31/22 10/31/22 History Allergies Allergy/AdvReac Type Severity Reaction Status Date / Time No Known Allergies Allergy Verified 10/31/22 09:36 Physical Examination This is a pleasant 87-year-old male in no acute distress. He is alert and oriented 3. Exam of the thoracic and lumbar spine reveal no obvious deformity. There is no pain with palpation about the thoracic or lumbar spinous processes. He does have tenderness to palpation about the right paraspinal musculature in the lower lumbar region. Exam of the lower extremities reveals no obvious deformity. He is able to lift each leg off the bed independently. He is also able to internally and externally rotate both hips without difficulty or pain. He has full hip and knee flexion without difficulty or pain. He has full foot and ankle motion without difficulty or pain. Neurovascular status to the lower extremities is intact. Results X-rays of the pelvis and bilateral hip reveals no obvious fracture or bony abnormality. Mild degenerative changes noted to both hips. X-rays of the lumbar spine were ordered which reveal multilevel degenerative findings. There is no acute fracture noted. Mild degenerative disc disease noted. - Labs Labs: Abnormal Lab Results - Last 24 Hours (Table) 10/31/22 10/31/22 10/31/22 Range/Units 11:42 11:52 17:59 POC Glucose (mg/dL) 122 H 146 H (70-110) mg/dL Urine Protein Trace H (Negative) H & H 10/30/22 Range/Units 20:25 Hgb 13.5 (13.0-17.5) gm/dL Hct 40.4 (39.0-53.0) % Coagulation 10/30/22 Range/Units 20:25 INR 1.0 (<1.2) Result Diagrams: 10/30/22 20:25 10/30/22 20:25 Assessment and Plan (1) Low back pain Current Visit: Yes Status: Acute Code(s): M54.50 - LOW BACK PAIN, UNSPECIFIED SNOMED Code(s): 415728046 (2) Degenerative arthritis of lumbar spine Current Visit: Yes Status: Acute Code(s): M47.816 - SPONDYLOSIS W/O MYELOPATHY OR RADICULOPATHY, LUMBAR REGION SNOMED Code(s): 614151218 (3) Generalized weakness Current Visit: No Status: Acute Code(s): R53.1 - WEAKNESS SNOMED Code(s): 56130418 Plan: The clinical and x-ray findings are discussed with the patient. It is recommended he be evaluated by pain management and physical therapy. There is no acute indication for bracing at this time. He may be a candidate for epidural steroid injections for pain management. He is to follow-up with our office as needed.
[2022-11-01] MEDS: amLODIPine 5 MG TAB PO SCH (09:30)
[2022-11-01] MEDS: TAMSULOSIN 0.4 MG CAP.ER.24H PO SCH (09:30)
[2022-11-01 11:07] LABS: Glucose,Whole Blood 146 mg/dL (70-110)
[2022-11-01 11:10] LABS: African American GFR (CKD) 62.2 (60.0-200.0); Anion Gap 11.7 mmol/L (10.00-18.00); BUN/Creat Ratio 13.83 Ratio (12.00-20.00); Blood Urea Nitrogen 16.6 mg/dL (9.0-27.0); Calcium 9.4 mg/dL (8.7-10.3); Carbon Dioxide 25.3 mmol/L (20.0-27.5); Magnesium 1.5 mg/dL (1.5-2.4); Non-African American GFR(CKD) 53.7 (60.0-200.0); Potassium 3.6 mmol/L (3.5-5.5)
[2022-11-01] MEDS ORDERED: Magnesium Replacement Protocol 1 EACH MISC MISCELLANE PRN (12:08)
[2022-11-01] MEDS ORDERED: POTASSIUM CHLORIDE ER 20 MEQ TAB.ER PO STA (12:08)
--- NOTE | 2022-11-01 12:16 | P.CNNES ---
History of Present Illness Consult date: 11/01/22 Requesting physician: Priyanka Harrington Reason for Consult: diplopia/strabismus History of Present Illness: This is an 87-year-old gentleman who presented emergency department because of generalized weakness and a fall. Some of the history is obtained from medical record that. Neurologist consulted for diplopia strabismus. According to the patient he is to have diplopia up will years ago and after the cataract surgery he feels the diplopia has resolved. He denies of any diplopia currently or any recently. He denies of any focal weakness, any ringing in the ears. He denies any history of stroke. Patient denies of any nausea any vomiting. I spoke with the primary team MANAGER OF SOFTWARE DEVELOPMENT via phone and she is notified me that she spoke with him yesterday and he notified her that he did have diplopia and she asked him this question multiple times which he repeated the same answer. Patient could not tell me the the description of the diplopia. Per the ED team is seems that the patient has been having generalized weakness for 1 month and had a fall on 10/30/22. He denied any loss of consciousness to the ED team. She said he has increased lethargy and the failure to thrive according to his daughter according the ED note. It seems that the patient did not lose consciousness again noted by the ED team. He has decreased energy as well as increased confusion throughout the day. Some of the workup during his hospital visit consisted of: CBC differential is unremarkable chemistry panel is creatinine is 2.47, BUN is 31. Glucose is 103. Otherwise rest of Chem-7 panel is unremarkable. Plasma lactic acid vein is 1.9. Review of Systems Review of system: The 12 point system was reviewed and apparent positive and negative per HPI. Past Medical History Past Medical History: Diabetes Mellitus, Eye Disorder, GI Bleed, Hypertension, Pneumonia Additional Past Medical History / Comment(s): NIDDM type II, bilateral foot pain, diverticular disease, ischemic colitis, lower GI bleed, glaucoma/no peripheral vision bilaterally, past pneumonia with lengthy hospitalization, bilateral lower leg edema. covid 2020 History of Any Multi-Drug Resistant Organisms: None Reported Past Surgical History: Cholecystectomy, Orthopedic Surgery Additional Past Surgical History / Comment(s): bilateral Rotator cuff, EGD, colonoscopy, bilateral blepharoplasty, R little finger fx with surgery. Past Anesthesia/Blood Transfusion Reactions: No Reported Reaction Past Psychological History: No Psychological Hx Reported Additional Psychological History / Comment(s): Lives w daughter who is primary healthcare risk control consultant. Smoking Status: Never smoker Past Alcohol Use History: None Reported Past Drug Use History: None Reported - Past Family History Father History Unknown: Yes Family Medical History: Liver Disease Additional Family Medical History / Comment(s): ETOH abuse Mother Family Medical History: Cancer Additional Family Medical History / Comment(s): Pancreatic cancer. Medications and Allergies Home Medications Medication Instructions Recorded Confirmed Type Tamsulosin HCl [Flomax] 0.4 mg PO DAILY 02/08/20 10/31/22 History amLODIPine [Norvasc] 5 mg PO DAILY 02/08/20 10/31/22 History glipiZIDE/METFORMIN HCL 1 tab PO BID-W/MEALS 05/17/20 10/31/22 History [glipiZIDE/METFORMIN HCL 5-500 mg] Nystatin 100,000 Unit/gm Powd 1 applic TOPICAL BID PRN 10/31/22 10/31/22 History [Mycostatin Powder] Zinc Oxide/Cod Liver Oil [Desitin 1 applic TOPICAL BID PRN 10/31/22 10/31/22 History 40% Paste] hydrALAZINE HCL [Apresoline] 100 mg PO TID-W/MEALS 10/31/22 10/31/22 History Allergies Allergy/AdvReac Type Severity Reaction Status Date / Time No Known Allergies Allergy Verified 10/31/22 09:36 Physical Examination - Vital Signs Vital Signs: Vital Signs Temp Pulse Resp BP Pulse Ox 11/01/22 07:24 97.9 F 63 16 126/70 99 11/01/22 01:42 97.9 F 67 19 170/75 100 10/31/22 18:24 144/67 10/31/22 16:58 98.2 F 65 17 186/76 99 10/31/22 14:00 69 16 152/67 100 Intake and Output 10/31/22 11/01/22 11/01/22 22:59 06:59 14:59 Other: Voiding Method Urinal Urinal # Voids 0 4 GENERAL: The patient is lying in bed and is not in acute distress. CHEST: No edema in extremities. LUNG: Not labored breathing. NEUROLOGICAL: Higher mental function: The patient is awake, alert, oriented to self, place and time. Patient is following commands. No aphasia and no neglect. Cranial nerves: The pupils are round, equal and reactive to light. Visual marcelo are full to confrontation throughout. Extraocular movement is restriction in moving right eye above and looking to far right laterally while left is restiction lifting the left eye up. Facial sensation is normal to touch throughout. The facial strength is normal throughout. Hearing is moderately bilaterally to hand rub. Tongue is midline and moved [id number] without any difficulty. No dysarthria is noted. Shoulder shrug is normal bilaterally. Motor: The strength is 5 over 5 throughout. Normal tone and bulk. Cerebellum: Normal finger to nose heel to chin bilaterally. Sensation: Sensation is normal to touch throughout. Reflexes (right/left): 1+ throughout. Plantars are mute bilaterally. Results - Laboratory Findings CBC and BMP: 10/30/22 20:25 11/01/22 07:38 Abnormal Lab Findings: Abnormal Labs 10/30/22 10/31/22 10/31/22 20:25 11:42 11:52 BUN 31 H Creatinine 2.47 H Est GFR (CKD-EPI)NonAf Glucose 103 H POC Glucose (mg/dL) 122 H Urine Protein Trace H 10/31/22 11/01/22 11/01/22 17:59 07:38 11:05 BUN Creatinine Est GFR (CKD-EPI)NonAf 53.7 L Glucose 137 H POC Glucose (mg/dL) 146 H 146 H Urine Protein Assessment and Plan Assessment: Diplopia and he notified primary team is acute but to me chronic and stated resolved after cataract surgery. 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 some restriction in left CN III. Rule out central cause vs other causes such as diabetic or hypertensive as result of palsy. Generalized leg weakness and multiple falls Acute kidney injury Recent cataract surgery bilaterally Diabetes mellitus Diabetic neuropathy History of glaucoma with impaired peripheral vision Plan: I ordered MRI of the brain with and without as well as MRA of the head to rule out any central cause for his cranial nerve deficit such as a stroke, mass or aneurysm. Ordered TSH, vitamin B12, folate. Ordered orthostatic levels. Ordered routine EEG since daughter notified ED team patient has confusion to rule out seizure or discharges. On examination he was oriented X3 and unsure if due toxic-metabolic encephalopathy or he has underlying dementia. PT OT is consulted Recommend the patient follow up with record systems analyst his outpatient We'll defer the rest of the medical management to the primary team The plan was discussed with the patient and the primary team MANAGER OF SOFTWARE DEVELOPMENT. Thank you for the consultation Time with Patient: Greater than 30
[2022-11-01] MEDS: MAGNESIUM SULFATE-D5W PMX 1 GM in DEXTROSE/WATER 1 100ML.BAG IVPB SCH ×2 (12:42→17:12)
--- NOTE | 2022-11-01 15:34 | EEG ---
ELECTROENCEPHALOGRAM REPORT CLINICAL HISTORY: This is an 87-year-old gentleman with altered mental status. The video EEG is obtained to evaluate for seizure epileptiform activity. RELEVANT MEDICATION: The patient is not on any antiseizure medication. EEG TYPE: A routine 21-channel EEG is performed with video using the 10/20 electrode placement system. DESCRIPTION: Wakefulness is only obtained. During awake state, the posterior-dominant rhythm consists of [id number] voltage of 8.5 to 9 hertz activity that is well modulated and well sustained. There is no physiological sleep architecture seen. There is no focal slowing. Interictal and ictal is none. ACTIVATION PROCEDURE: Photic stimulation did not evoke a positive driving response. There is no abnormality during the photic stimulation. Hyperventilation is not performed. CLINICAL INTERPRETATION: This is a normal routine EEG. There is no focal slowing, epileptiform discharge, or seizure on the EEG. Clinical correlation is recommended. ALIYA / RUBEN: [id number] / PAOLA
[2022-11-01 16:28] LABS: Glucose,Whole Blood 266 mg/dL (70-110)
--- NOTE | 2022-11-01 16:32 | P.PN ---
Subjective Progress Note Date: 11/01/22 This is an 87 year old male with medical history of diabetes mellitus, hypertension, peripheral neuropathy, recent cataract surgery. Patient lives at home with daughter. Presents to the hospital secondary to fall with continued right hip pain and limited mobility. Patient also reports ongoing diarrhea that mostly seems to start right after eating a meal. He denies any blood in the stool or black stool. Patient does have some abdominal pain worse with palpation. He reports feeling fever at home. No shortness of breath and no chest pain. No nausea or vomiting. Patient does report feeling increased weakness over the last month at home and has decreased appetite. Initial work up reveals elevated creatinine of 2.47. Troponin level is negative. Patient has no elevated white count, viral panel is negative for influenza, RSV or Covid. Patient did have a hip pelvis Xray done on admission showing no acute osseous abnormality bilaterally. Orthopedics will be consulted as patient does have limited mob ility. 11/01/2022 Patient is seen and evaluated in follow-up currently awaiting physical therapy evaluation along with orthopedics. Neuro consulted and pending at this time. Neurology did evaluate the patient this morning and patient is poor historian and discuss further with family and patient has been becoming more unstable and unsteady gait with falling. Per nursing staff patient is extremely unstable and unsteady when getting up in high risk for falls. Patient continues to report double vision and difficulty with becoming dizzy after walking a few steps requiring frequent rest periods. Patient was evaluated by neurology earlier this morning patient underwent EEG which was normal showing no epileptiform discharges or focal slowing or no seizure-like activity. MRI and MRA of the brain ordered and pending at this time. Patient to be evaluated by PT/OT therapy and would recommend daily visits. Patient is currently afebrile denies chest pain or shortness of breath and tolerating diet. Kidney function slowly improving and creatinine is currently 1.2 with a sodium of 142 and potassium is 3.6. Magnesium slightly low at 1.5 and will replace and follow up with repeat labs. Review of Systems Constitutional: Denied any fatigue denied any fever. Cardio vascular: denied any chest pain, palpitations Gastrointestinal: denied any nausea, vomiting, diarrhea Pulmonary: Denied any shortness of breath cough Neurologic reports continued dizziness after a few steps and unsteady walking with difficulty in ambulation All inpatient medications were reviewed and appropriate changes in these medications as dictated in the interval history and assessment and plan. PHYSICAL EXAMINATION: GENERAL: The patient is alert and oriented x3, not in any acute distress. Well developed, well nourished. HEENT: Pupils are round and equally reacting to light. Strabismus noted. No scleral icterus. No conjunctival pallor. Normocephalic, atraumatic. No pharyngeal erythema. No thyromegaly. CARDIOVASCULAR: S1 and S2 present. No murmurs, rubs, or gallops. PULMONARY: Chest is clear to auscultation, no wheezing or crackles. ABDOMEN: Soft, nontender, nondistended, normoactive bowel sounds. No palpable organomegaly. MUSCULOSKELETAL: No joint swelling or deformity. EXTREMITIES: No cyanosis, clubbing, or pedal edema. NEUROLOGICAL: Gross neurological examination did not reveal any focal deficits. Diffusely weak SKIN: No rashes. 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 Will follow up with repeat labs Kidney functions improving and will continue IV hydration Orthopedics evaluated the patient with no plans for surgical intervention and will consult pain management as patient may also follow-up outpatient Neurology evaluated the patient underwent EEG showing normal with no ep ileptiform discharges or seizure-like activity. MRI and MRA of the brain are ordered and pending and will be done in the a.m. Repeat labs in AM Recommend PT/OT daily as nursing staff is reporting significant gait dysfunction and weakness with high risk for falls. Patient has been falling more often at home Possible discharge in 24-48 hours The impression and plan of care has been dictated by Donna Stone, Nurse Practitioner as directed. Dr. Nilsa MD I have performed a history and examination and MDM of this patient, discussed the same with the dictator, and agree with the dictator's assessment and plan as written ,documented as a scribe. Based on total visit time, I have performed more than 50% of the visit. Objective - Vital Signs Vital signs: Vital Signs Temp 97.9 F 11/01/22 07:24 Pulse 63 11/01/22 07:24 Resp 16 11/01/22 07:24 BP 126/70 11/01/22 07:24 Pulse Ox 99 11/01/22 07:24 FiO2 Intake & Output 10/31/22 11/01/22 11/01/22 18:59 06:59 18:59 Intake Total 150 Output Total 190 Balance -40 Intake: Oral 150 Output: Urine 190 Other: Voiding Method Urinal # Voids 0 4 - Labs CBC & Chem 7: 10/30/22 20:25 11/01/22 07:38 Labs: Abnormal Lab Results - Last 24 Hours (Table) 10/31/22 10/31/22 10/31/22 Range/Units 11:42 11:52 17:59 POC Glucose (mg/dL) 122 H 146 H (70-110) mg/dL Urine Protein Trace H (Negative)
[2022-11-01] MEDS ORDERED: FAMOTIDINE 20 MG TAB PO SCH (21:00)
[2022-11-01 21:36] VITALS: RESP 18
[2022-11-01 21:48] LABS: Glucose,Whole Blood 131 mg/dL (70-110)
[2022-11-01] MEDS: SODIUM CHLORIDE 0.9% 1,000 ML IV SCH (21:49)
[2022-11-02] MEDS: SODIUM CHLORIDE 0.9% 1,000 ML IV SCH (03:33)
[2022-11-02 06:20] LABS: Glucose,Whole Blood 113 mg/dL (70-110)
[2022-11-02] MEDS: TAMSULOSIN 0.4 MG CAP.ER.24H PO SCH (07:38)
[2022-11-02] MEDS: amLODIPine 5 MG TAB PO SCH (07:38)
[2022-11-02] MEDS ORDERED: CYANOCOBALAMIN 1,000 MCG/ML 1 ML VIAL IM ONE (13:20)
--- NOTE | 2022-11-02 13:24 | P.PN ---
Subjective Progress Note Date: 11/02/22 The patient is seen at bedside and feels about the same. Denies of diplopia and feels back to baseline. Objective - Vital Signs Vital signs: Vital Signs Temp 97.7 F 11/02/22 06:53 Pulse 55 L 11/02/22 08:00 Resp 18 11/02/22 08:00 BP 174/80 11/02/22 06:53 Pulse Ox 99 11/02/22 06:53 FiO2 Intake & Output 11/01/22 11/02/22 11/02/22 18:59 06:59 18:59 Other: Voiding Method Urinal Urinal # Voids 3 6 - Exam GENERAL: The patient is lying in bed and is not in acute distress. NEUROLOGICAL: Higher mental function: The patient is awake, alert, oriented to self, place and time. Patient is following commands. No aphasia and no neglect. Cranial nerves: The pupils are round, equal and reactive to light. Visual marcelo are full to confrontation throughout. Extraocular movement is restriction in moving right eye above and looking to far right laterally while left is restiction lifting the left eye up. Facial sensation is normal to touch throughout. The facial strength is normal throughout. Hearing is moderately bilaterally to hand rub. Tongue is midline and moved [id number] without any difficulty. No dysarthria is noted. Shoulder shrug is normal bilaterally. Motor: The strength is 5 over 5 throughout. Normal tone and bulk. Cerebellum: Normal finger to nose heel to chin bilaterally. Sensation: Sensation is normal to touch throughout. Reflexes (right/left): 1+ throughout. Plantars are mute bilaterally. Some of the workup during his hospital visit consisted of: CBC differential is unremarkable chemistry panel is creatinine is 2.47, BUN is 31. Glucose is 103. Otherwise rest of Chem-7 panel is unremarkable. Plasma lactic acid vein is 1.9. Routine EEG is normal. There is no focal slowing, epileptiform discharges or seizure. Vitamin B12: 283 (normal is 200-944). Folate is 8.50 TSH: 3.08 - Labs CBC & Chem 7: 10/30/22 20:25 11/02/22 06:27 Labs: Abnormal Lab Results - Last 24 Hours (Table) 11/01/22 11/01/22 11/02/22 Range/Units 16:26 21:46 06:19 POC Glucose (mg/dL) 266 H 131 H 113 H (70-110) mg/dL Assessment and Plan Assessment: Diplopia and he notified primary team is acute but to me chronic and stated resolved after cataract surgery. 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 some restriction in left CN III. Rule out central cause vs other causes such as diabetic or hypertensive as result of palsy vs result of cataract/glaucoma. Low normal Vitamin B12 283 (normal is 200-944). Generalized leg weakness and multiple falls Acute kidney injury Recent cataract surgery bilaterally Diabetes mellitus Diabetic neuropathy History of glaucoma with impaired peripheral vision Plan: Pending MRI of the brain with and without as well as MRA of the head to rule out any central cause for his cranial nerve deficit such as a stroke, mass or aneurysm. Because of low normal Vitamin B12: I started the patient on Vitamin B12 1000mcg daily PO with 1000mcg IM once today. Pending orthostatic levels. For his reported confusion by daughter to ED team: Unsure if due to low normal B12 vs underlying early onset dementia. Recommend further evaluation and work- up as outpatient. Routine EEG is normal. PT OT is consulted Recommend the patient follow up with ethanol quality leader his outpatient We'll defer the rest of the medical management to the primary team The plan was discussed with the patient and the primary team GUITAR PLAYER. Will continue to follow. Dr. Claros will start neurology service tomorrow A.M. Time with Patient: Less than 30
[2022-11-02 14:35] LABS: African American GFR (CKD) 69.1 (60.0-200.0); Anion Gap 14.4 mmol/L (10.00-18.00); BUN/Creat Ratio 9.91 Ratio (12.00-20.00); Blood Urea Nitrogen 10.9 mg/dL (9.0-27.0); Calcium 9.3 mg/dL (8.7-10.3); Carbon Dioxide 20.6 mmol/L (20.0-27.5); Magnesium 1.6 mg/dL (1.5-2.4); Non-African American GFR(CKD) 59.6 (60.0-200.0); Potassium 3.7 mmol/L (3.5-5.5)
[2022-11-02 15:24] VITALS: BP 130/73; PULSE 71; TEMP 98.1
[2022-11-02] MEDS ORDERED: Magnesium Replacement Protocol 1 EACH MISC MISCELLANE PRN (16:01)
--- NOTE | 2022-11-02 17:11 | MR ---
EXAMINATION TYPE: MR angio head wo con DATE OF EXAM: 11/02/2022 COMPARISON: CT brain 06/05/2020 HISTORY: Diplopia with right third cranial palsy. TECHNIQUE: Time of flight images focusing on the [place] were performed without contrast. FINDINGS: There is no evidence for focal stenosis, large vessel occlusion, or discrete aneurysm. Le ft vertebral artery is dominant. IMPRESSION: No evidence for focal stenosis, occlusion or aneurysm.
[2022-11-02] MEDS: MAGNESIUM SULFATE-D5W PMX 1 GM in DEXTROSE/WATER 1 100ML.BAG IVPB SCH ×2 (17:30→18:36)
--- NOTE | 2022-11-02 17:46 | MR ---
EXAMINATION TYPE: MR brain wo/w con DATE OF EXAM: 11/02/2022 5:25 PM CLINICAL INDICATION:Male, 87 years old with history of diplopia with right third cranial palsy; Diplo scooby with right third cranial palsy. COMPARISON: MR Angio same day. 06/18/2012. TECHNIQUE: Multi planar, multi sequence imaging was performed through the brain including: T1, T2, In version recovery, susceptibility weighted imaging and gradient echo imaging and Diffusion weighted im aging. The patient was then given intravenous contrast and multi planar, T1 fat-saturation images wer e obtained. IV Contrast: 10 cc Gadavist FINDINGS: The visualized portions of the right 3rd cranial nerve without evidence for mass or displacement alexa g its course. No abnormal postcontrast enhancement. Cerebral atrophy changes with dilation of the srinath tricles. The olea-white junctions, ventricular system, basal cisterns appear unremarkable. Diffusion-weighted imaging shows no evidence of restricted diffusion to suggest acute/subacute infarct. Intracranial art erial flow voids are maintained. Midline structures show no abnormality. Scattered foci and confluent areas of of high T2 signal intensity are seen within the periventricular white matter. The susceptib ility weighted images do not reveal any evidence for micro-hemorrhage. After administration of gadoli nium, no abnormal enhancement is seen. The bone marrow signal is within normal limits. Paranasal sinuses and mastoid air cells: No significant paranasal sinus disease. Visualized orbits: Bilateral aphakia IMPRESSION: 1. No evidence of intracranial mass, acute/subacute infarct, or abnormal enhancement. 2. Nonspecific white matter changes, likely related to small vessel ischemic disease 3. 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
[2022-11-03] MEDS ORDERED: CYANOCOBALAMIN 500 MCG TAB PO SCH (09:00)
--- NOTE | 2022-11-03 10:44 | P.DS ---
Providers Date of admission: 10/31/22 02:30 Expected date of discharge: 11/02/22 Attending physician: Reid Mackenzie MD Consults: 10/31/22 11:49 Consult Physician Routine Consulting Provider: Edi Cardenas Consult Reason/Comments: right hip/thigh pain post fall with limited mobility Do you want consulting provider notified?: Yes 10/31/22 16:29 Consult Physician Routine Consulting Provider: Alicia Garcia Consult Reason/Comments: diplopia/strabismus Do you want consulting provider notified?: Yes 11/01/22 16:32 Consult Physician Urgent Consulting Provider: Toni Augustin Consult Reason/Comments: pain management, falls with back pain, ? 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 Patient will follow-up with Dr. Singer in the outpatient setting upon discharge. Patient is to follow-up with neurology along with ophthalmology as scheduled. Total time taken is greater than 35 minutes. Hospital course This is a 87 year-old male who was recently admitted weakness and falls with some abdominal pain and diarrhea. Patient reports the abdominal pain and diarrhea has improved and patient continues with some visual disturbances mostly after up and ambulating for a while. Patient was evaluated by neurology underwent workup including MRA and MRI with no acute findings. Patient was evaluated by physical therapy recommending home with home care and patient lives at home and daughter lives with him. Patient recently had cataract surgery and instructed to follow-up with outpatient ophthalmology this week. Patient also instructed to follow-up with neurology outpatient as well as pain management. Please refer to other consultation note for further HPI. Currently no reports of chest pain, shortness of breath, or palpitations. Patient is afebrile. No reports of nausea or vomiting and patient is tolerating diet. Patient will be discharged home today. Physical exam: Gen: This is a 87-year-old male who is awake, alert and oriented 2-3, well- developed, well-nourished HEENT: Head is atraumatic, normocephalic. Pupils equal, round. Sclerae is anicteric. Cataract surgery noted bilaterally NECK: Supple. No JVD. No lymphadenopathy. No thyromegaly. LUNGS: Clear to auscultation. No wheezes or rhonchi. No intercostal retractions . HEART: Regular rate and rhythm. No murmur. ABDOMEN: Soft. Bowel sounds are present. No masses. No tenderness. EXTREMITIES: No pedal edema. No calf tenderness. NEUROLOGICAL: Patient is awake, alert and oriented x3. Cranial nerves 2 through 12 are grossly intact. Please refer to medication reconciliation sheet for a list of medications. The impression and plan of care has been dictated by Donna Stone, Nurse Practitioner as directed. Dr. Nilsa MD I have performed a history and examination and MDM of this patient, discussed the same with the dictator, and agree with the dictator's assessment and plan as written ,documented as a scribe. Based on total visit time, I have performed more than 50% of the visit. Patient Condition at Discharge: Stable Plan - Discharge Summary New Discharge Prescriptions: New glipiZIDE 5 mg PO BID 30 Days #60 tablet Magnesium Oxide [Mag-Ox] 400 mg PO BID 30 Days #60 tablet Acetaminophen Tab [Tylenol] 325 mg PO Q6HR PRN tab PRN Reason: Fever And/ Or Pain Cyanocobalamin [Vitamin B-12] 1,000 mcg PO DAILY #30 tab Continue Tamsulosin HCl [Flomax] 0.4 mg PO DAILY amLODIPine [Norvasc] 5 mg PO DAILY Nystatin 100,000 Unit/gm Powd [Mycostatin Powder] 1 applic TOPICAL BID PRN PRN Reason: Rash Zinc Oxide/Cod Liver Oil [Desitin 40% Paste] 1 applic TOPICAL BID PRN PRN Reason: buttocks Discontinued glipiZIDE/METFORMIN HCL [glipiZIDE/METFORMIN HCL 5-500 mg] 1 tab PO BID-W/MEALS hydrALAZINE HCL [Apresoline] 100 mg PO TID-W/MEALS Discharge Medication List Tamsulosin HCl [Flomax] 0.4 mg PO DAILY 02/08/20 [History] amLODIPine [Norvasc] 5 mg PO DAILY 02/08/20 [History] Nystatin 100,000 Unit/gm Powd [Mycostatin Powder] 1 applic TOPICAL BID PRN 10/31/22 [History] Zinc Oxide/Cod Liver Oil [Desitin 40% Paste] 1 applic TOPICAL BID PRN 10/31/22 [History] Acetaminophen Tab [Tylenol] 325 mg PO Q6HR PRN tab 11/01/22 [Rx] glipiZIDE 5 mg PO BID 30 Days #60 tablet 11/01/22 [Rx] Cyanocobalamin [Vitamin B-12] 1,000 mcg PO DAILY #30 tab 11/02/22 [Rx] Magnesium Oxide [Mag-Ox] 400 mg PO BID 30 Days #60 tablet 11/02/22 [Rx] Follow up Appointment(s)/Referral(s): Jevon Singer MD [Primary Care Provider] - 1-2 days Toni Augustin MD [STAFF PHYSICIAN] - 1 Week [facility], [NON-STAFF] - As Needed Ashu May MD [Medical Doctor] - 1 Week Ambulatory/Diagnostic Orders: Basic Metabolic Panel [LAB.AMB] Time Frame: 3 Days, Location: None Selected Activity/Diet/Wound Care/Special Instructions: Discharge pending MRI results Activity Limited until follow-up Follow-up with primary care provider on discharge Follow-up with your wellness guide/ENT outpatient in one week Follow-up with neurology outpatient in 1-2 weeks Follow-up with pain management outpatient in one week Recommend repeat labs of CBC, BMP, magnesium in 2-3 days Continue monitoring blood sugars before meals and at bedtime and keep a diary of all readings for primary care follow-up Discharge Disposition: HOME WITH HOME HEALTH SERVICES
== END 2022-11-02 20:02 | disposition home health service (06) ==
LOC: EC 18:48 → INTOOBSV 10-31 02:30 → 5NMEDONC 10-31 02:30 → 1SOBS 10-31 02:59 → 4SSUR 10-31 16:43
PROVIDERS: ADMIT Internal Medicine; ATTEND Internal Medicine
DX: H49.01 Third [oculomotor] nerve palsy, right eye (principal); R53.1 Weakness; N17.9 Acute kidney failure, unspecified; E86.0 Dehydration; M47.816 Spondylosis without myelopathy or radiculopathy, lumbar region; E11.39 Type 2 diabetes mellitus with other diabetic ophthalmic complication; I10 Essential (primary) hypertension; E11.42 Type 2 diabetes mellitus with diabetic polyneuropathy; E11.40 Type 2 diabetes mellitus with diabetic neuropathy, unspecified; K57.90 Diverticulosis of intestine, part unspecified, without perforation or abscess without bleeding; M25.78 Osteophyte, vertebrae; Z79.899 Other long term (current) drug therapy; Z86.16 Personal history of COVID-19; Z90.49 Acquired absence of other specified parts of digestive tract; Z80.0 Family history of malignant neoplasm of digestive organs; Z81.1 Family history of alcohol abuse and dependence; Z20.822 Contact with and (suspected) exposure to COVID-19; Z98.42 Cataract extraction status, left eye; Z98.41 Cataract extraction status, right eye
CPT/HCPCS: 96365 ×3; 96366 ×2; 96372; 96375; 99285; 36415; 95816; 93005; 97116; 97162; 97530; 97166; 80053; 80048 ×2; 84443; 82607; 82746; 83605; 83735 ×2; 84484; 85025; 85610; 85730; 81003; 83036; 87636; 72100; 73521; 71046; 70544; 70553; G0378 ×3; J3420; J3475 ×2; A9585